=== PATIENT | male | born 1980 | race Caucasian/White ===

== ENCOUNTER 2017-01-20 17:51 | Inpatient (IN) | payer OTHER ==
[~2017-01-20] VITALS: Ht 177.8 cm; Wt 135.0 kg
[~2017-01-20 17:51] MED LIST: AMT10 PO; CIPR-255 PO; LISI10TA PO; OMEP40CA PO
[2017-01-20] MEDS ORDERED: MoRPHine SULFATE 4 MG/ML 1 ML CARP\\VIAL IV STA (18:05)
[2017-01-20] MEDS ORDERED: SODIUM CHLORIDE 0.9% 1000ML 1,000 ML IV STA (18:05)
[2017-01-20] MEDS ORDERED: ONDANSETRON INJ 2 MG/ML 2 ML VIAL IV STA ×2 (18:05→19:03)
[2017-01-20 18:35] LABS: BASO % 0.1 %; BASO ABS # 0.01 K/uL (0-0.2); COMPLETE YES; EOS % 3.8 %; HEMATOCRIT 45.4 % (42-52); IG% 0.2 %; LYMPH % 25.7 %; LYMPH ABS # 2.08 K/uL (1.2-3.4); MEAN CORPUSCULAR HEMOGLOBIN 33.6 pg (25-34); MEAN PLATELET VOLUME 10.6 fL (7.4-10.4); MONO % 5.4 %; NEUT % 64.8 %; PLATELET COUNT 124 K/uL (130-400); RED BLOOD COUNT 4.73 M/uL (4.7-6.1); WHITE BLOOD COUNT 8.08 K/uL (4.8-10.8)
[2017-01-20 18:55] LABS: URINE APPEARANCE CLEAR (CLEAR); URINE BILIRUBIN NEG (NEG); URINE COLOR YELLOW; URINE NITRITE NEG (NEG); URINE SPECIFIC GRAVITY 1.025 (1.000-1.030); UROBILINOGEN NEG (NEG)
[2017-01-20] MEDS ORDERED: RANI300T2 PO (18:56)
[2017-01-20] MEDS ORDERED: OMEP40CA41 PO (18:56)
[2017-01-20] MEDS ORDERED: DIPHENOXYLATE-ATROP PO (18:56)
[2017-01-20] MEDS ORDERED: AMIT10TA6 PO (18:56)
[2017-01-20] MEDS ORDERED: LIRA18IN SQ (18:56)
[2017-01-20] MEDS ORDERED: BISM262T3 PO (18:56)
[2017-01-20] MEDS ORDERED: SIME80CH PO (18:56)
[2017-01-20 19:00] LABS: BUN/CREATININE RATIO 10.6 (10-20); CALCIUM 9.4 mg/dl (8.5-10.1); CREATININE 0.86 mg/dl (0.60-1.40); POTASSIUM 3.9 mmol/L (3.5-5.1)
[2017-01-20 19:01] LABS: MANUAL MICROSCOPIC REQUIRED? NO; REVIEW REQ? NO
[2017-01-20] MEDS ORDERED: HYDROmorphone INJ 1 MG/ML SYR IV STA (19:03)
[2017-01-20] MEDS ORDERED: HYDROmorphone INJ 0.5 MG/0.5 ML SYR ONE (19:32)
[2017-01-20] MEDS ORDERED: DPH/ PO (19:41)
[2017-01-20] MEDS ORDERED: METF-384 PO (19:41)
[2017-01-20] MEDS ORDERED: SERT50TA PO (19:41)
--- NOTE | 2017-01-20 19:44 | DIAGNOSTIC IMAGING REPORT ---
CT OF THE ABDOMEN AND PELVIS WITHOUT CONTRAST, STONE PROTOCOL CLINICAL HISTORY: Abdominal pain and vomiting. COMPARISON STUDY: CT of the abdomen and pelvis February 28, 2016. TECHNIQUE: Helical axial images of the abdomen and pelvis were obtained without IV or oral contrast according to renal stone protocol. FINDINGS: No renal, ureteral or bladder calculi are identified. There is no hydronephrosis. Evaluation of the remainder of the abdomen and pelvis is suboptimal on this unenhanced exam per there is a gallstone within the gallbladder. The gallbladder is not distended. There is no pericholecystic infiltration. There is mild hepatosplenomegaly and fatty infiltration of the liver. The appendix is normal. There is no evidence for a bowel obstruction. There is no lymphadenopathy. IMPRESSION: 1. No urinary calculi or hydronephrosis. 2. Normal appendix. 3. Cholelithiasis. No CT evidence of acute cholecystitis. 4. No change in mild to moderate hepatosplenomegaly and fatty infiltration of the liver. Electronically signed by: Tim Enrique M.D. 01/20/2017 7:42 PM Dictated Date/Time: 01/20/2017 7:07 PM
--- NOTE | 2017-01-20 20:09 | EMERGENCY ROOM VISIT NOTE ---
History Report prepared by Amparo: Evan Hearn Under the Supervision of: Dr. Jv Brink M.D. First contact with patient: 17:57 Chief Complaint: ABDOMINAL PAIN Stated Complaint: STOMACH PAINS History of Present Illness The patient is a 37 year old male who presents to the Emergency Room with complaints of waxing and waning abdominal pain that started a month ago. The patient saw his primary care physician prior to arrival today and was referred here for evaluation. He has been nauseated and has been having episodes of vomiting and pain around once a week. Per the patient's , the patient's pain has been specifically bad around his right flank today. The patient states that he gets this bad taste when he burps, which he describes as smelling like sewage. The burping causes him to have episodes of vomiting. He is not sure if the pain worsens before or after the vomiting. The patient notes that his episodes of vomiting have been increasing in frequency lately. He states that he gets bad back pain after vomiting as well. The patient did vomit today, and woke up with lots of abdominal pressure. He has been taking Pepto-Bismol for his abdominal pain, which helps dull the pain a bit. The patient had a low grade temperature in the office today. He states that his pain does not feel like his kidney stone pain from the past. He denies any urinary symptoms. The patient has chronic diarrhea, and his last bowel movement was 2100 last night. He is being treated with medication for the diarrhea. He describes the diarrhea as looking like "ground up leaves when thrown in water". The patient has not had any abdominal surgeries. Source of History: patient, spouse/significant other Onset: A month ago Position: abdomen Quality: pressure Timing: waxes/wanes Modifying Factors (Relieving): other (Pepto-Bismol) Associated Symptoms: + nausea, + vomiting, No urinary symptoms Note: Associated symptoms: Bad tasting burping which causes him to vomit. Patient woke up today with right-sided flank pain. Review of Systems See HPI for pertinent positives & negatives. A total of 10 systems reviewed and were otherwise negative. Past Medical & Surgical Medical Problems: (1) Depression (2) Diabetes (3) GERD (gastroesophageal reflux disease) (4) HTN (hypertension) (5) IBS (irritable bowel syndrome) (6) Kidney stones (7) LINDA (obstructive sleep apnea) (8) Personal History Of Urinary Calculi Surgical Problems: (1) H/O cystoscopy (2) H/O shoulder surgery (3) H/O wisdom tooth extraction (4) History of open reduction and internal fixation (ORIF) procedure Family History Patient reports no known family medical history. Social History Smoking Status: Never Smoker Marital Status: Housing Status: lives with family Occupation Status: employed Current/Historical Medications Scheduled Amitriptyline Hcl (Elavil), 10 MG PO HS Bismuth Subsalicylate (Pepto Bismol Chew Tab), 2 TAB PO PRN UD Diphenoxylate W/ Atropine (Lomotil), 1 TAB PO QID Liraglutide (Victoza), 1.8 MG SQ QPM Metformin Hcl (Glucophage), 1,000 MG PO BID Omeprazole (Prilosec), 40 MG PO DAILY Ranitidine (Zantac), 300 MG PO HS Sertraline (Zoloft), 50 MG PO HS Simethicone (Gas-X), 80 MG PO TIDM Allergies Coded Allergies: Menthol (Verified Allergy, Severe, WELTS, 01/20/17) Pineapple (Verified Allergy, Severe, THROAT CLOSES TO THE FRUIT, 01/20/17) PER NURSE IN SDS Cephalexin (Verified Allergy, Intermediate, HIVES, 01/20/17) Penicillins (Verified Allergy, Unknown, RASH, 01/20/17) RASH Physical Exam Vital Signs Date Time Temp Pulse Resp B/P Pulse Ox O2 Delivery O2 Flow Rate FiO2 01/20/17 19:29 135/77 97 Room Air 01/20/17 18:37 88 01/20/17 18:36 92 18 01/20/17 17:53 36.7 95 20 150/91 97 Room Air Physical Exam Constitutional: Vital signs reviewed. Eyes: Pupils are equal round reactive to light. Conjunctiva are noninjected. ENT: Pharynx is clear without erythema or exudate. Mucous membranes are dry. Neck supple without meningeal signs. Respiratory: Clear to auscultation bilaterally. Breath sounds are equal bilaterally. Cardiovascular: Regular rate and rhythm. No rubs or gallops. GI: Soft and nondistended. Upper abdominal tenderness, no guarding. Bowel sounds are present. Musculoskeletal: No peripheral edema. No lower extremity tenderness. Integumentary: No cyanosis. No jaundice. Neurological: The patient is awake and alert. No focal deficits. Psychiatric: Normal affect. Medical Decision & Procedures ER Provider Diagnostic Interpretation: Radiology results as stated below per my review and the radiologist's interpretation: CT OF THE ABDOMEN AND PELVIS WITHOUT CONTRAST, STONE PROTOCOL CLINICAL HISTORY: Abdominal pain and vomiting. COMPARISON STUDY: CT of the abdomen and pelvis February 28, 2016. TECHNIQUE: Helical axial images of the abdomen and pelvis were obtained without IV or oral contrast according to renal stone protocol. FINDINGS: No renal, ureteral or bladder calculi are identified. There is no hydronephrosis. Evaluation of the remainder of the abdomen and pelvis is suboptimal on this unenhanced exam per there is a gallstone within the gallbladder. The gallbladder is not distended. There is no pericholecystic infiltration. There is mild hepatosplenomegaly and fatty infiltration of the liver. The appendix is normal. There is no evidence for a bowel obstruction. There is no lymphadenopathy. IMPRESSION: 1. No urinary calculi or hydronephrosis. 2. Normal appendix. 3. Cholelithiasis. No CT evidence of acute cholecystitis. 4. No change in mild to moderate hepatosplenomegaly and fatty infiltration of the liver. Electronically signed by: Tim Enrique M.D. 01/20/2017 7:42 PM Dictated Date/Time: 01/20/2017 7:07 PM Laboratory Results 01/20/17 18:15 Red Blood Count 4.73, Mean Corpuscular Volume 96.0, Mean Corpuscular Hemoglobin 33.6, Mean Corpuscular Hemoglobin Concent 35.0, Mean Platelet Volume 10.6, Neutrophils (%) (Auto) 64.8, Lymphocytes (%) (Auto) 25.7, Monocytes (%) (Auto) 5.4, Eosinophils (%) (Auto) 3.8, Basophils (%) (Auto) 0.1, Neutrophils # (Auto) 5.22, Lymphocytes # (Auto) 2.08, Monocytes # (Auto) 0.44, Eosinophils # (Auto) 0.31, Basophils # (Auto) 0.01 01/20/17 18:15 Test 01/20/17 18:15 01/20/17 18:30 White Blood Count 8.08 K/uL (4.8-10.8) Red Blood Count 4.73 M/uL (4.7-6.1) Hemoglobin 15.9 g/dL (14.0-18.0) Hematocrit 45.4 % (42-52) Mean Corpuscular Volume 96.0 fL (80-100) Mean Corpuscular Hemoglobin 33.6 pg (25-34) Mean Corpuscular Hemoglobin Concent 35.0 g/dl (32-36) Platelet Count 124 K/uL (130-400) Mean Platelet Volume 10.6 fL (7.4-10.4) Neutrophils (%) (Auto) 64.8 % Lymphocytes (%) (Auto) 25.7 % Monocytes (%) (Auto) 5.4 % Eosinophils (%) (Auto) 3.8 % Basophils (%) (Auto) 0.1 % Neutrophils # (Auto) 5.22 K/uL (1.4-6.5) Lymphocytes # (Auto) 2.08 K/uL (1.2-3.4) Monocytes # (Auto) 0.44 K/uL (0.11-0.59) Eosinophils # (Auto) 0.31 K/uL (0-0.5) Basophils # (Auto) 0.01 K/uL (0-0.2) RDW Standard Deviation 45.0 fL (36.4-46.3) RDW Coefficient of Variation 12.9 % (11.5-14.5) Immature Granulocyte % (Auto) 0.2 % Immature Granulocyte # (Auto) 0.02 K/uL (0.00-0.02) Anion Gap 5.0 mmol/L (3-11) Est Creatinine Clear Calc Drug Dose 161.4 ml/min Estimated GFR () 127.5 Estimated GFR (Non- 110.0 BUN/Creatinine Ratio 10.6 (10-20) Calcium Level 9.4 mg/dl (8.5-10.1) Total Bilirubin 0.7 mg/dl (0.2-1) Direct Bilirubin 0.2 mg/dl (0-0.2) Aspartate Amino Transf (AST/SGOT) 65 U/L (15-37) Alanine Aminotransferase (ALT/SGPT) 86 U/L (12-78) Alkaline Phosphatase 146 U/L (45-117) Total Protein 7.9 gm/dl (6.4-8.2) Albumin 3.7 gm/dl (3.4-5.0) Lipase 237 U/L (73-393) Urine Color YELLOW Urine Appearance CLEAR (CLEAR) Urine pH 6.0 (4.5-7.5) Urine Specific [place] 1.025 (1.000-1.030) Urine Protein NEG (NEG) Urine Glucose (UA) NEG (NEG) Urine Ketones NEG (NEG) Urine Occult Blood NEG (NEG) Urine Nitrite NEG (NEG) Urine Bilirubin NEG (NEG) Urine Urobilinogen NEG (NEG) Urine Leukocyte Esterase TRACE (NEG) Urine WBC (Auto) 1-5 /hpf (0-5) Urine RBC (Auto) 0-4 /hpf (0-4) Urine Hyaline Casts (Auto) 1-5 /lpf (0-5) Urine Epithelial Cells (Auto) 10-20 /lpf (0-5) Urine Bacteria (Auto) NEG (NEG) Laboratory results as reviewed by me. Medications Administered Medications (Trade) Dose Ordered Sig/Lance Route Start Time Stop Time Status Last Admin Dose Admin Morphine Sulfate (MoRPHine SULFATE INJ) 4 mg ONE STAT IV 01/20/17 18:05 01/20/17 18:07 DC 01/20/17 18:22 4 MG Ondansetron HCl 4 mg 4 mg NOW STAT IV 01/20/17 18:05 01/20/17 18:07 DC 01/20/17 18:19 4 MG Sodium Chloride (Nss 1000ml) 1,000 ml @ 999 mls/hr Q1H1M STAT IV 01/20/17 18:05 01/20/17 19:05 DC 01/20/17 18:22 999 MLS/HR Ondansetron HCl (Zofran Inj) 4 mg NOW STAT IV 01/20/17 19:03 01/20/17 19:05 DC 01/20/17 19:28 4 MG Hydromorphone HCl (Dilaudid Inj) 0.5 mg STK-MED ONCE .ROUTE 01/20/17 19:32 01/20/17 19:33 DC 01/20/17 19:31 0.5 MG ECG Indication: abdominal pain Rate (beats per minute): 82 Rhythm: normal sinus Findings: Q waves (in V3 only), no ectopy, other (no ST elevations) ED Course 175: The patient was evaluated in room B8. A complete history and physical exam was performed. 1804: Ordered NSS 1000 ml @ 999 mls/hr IV, Zofran Inj 4 mg IV, Morphine Sulfate Inj 4 mg IV. 1901: I reevaluated the patient and he is still having significant pain. 1902: Ordered Dilaudid Inj 0.5 mg IV. 1951: I reevaluated the patient and he is still having fairly significant pain. The patient verbally expressed understanding and agreement of the treatment plan. The patient will be evaluated for further treatment. 2001: I discussed the patient with Dr. Abel Laws hosiery mender - she will evaluate the patient for further treatment. Medical Decision This is a 37-year-old male presents with upper abdominal pain and vomiting. Differential diagnosis includes cholelithiasis, cholecystitis, pancreatitis, bowel obstruction, kidney stone. I did perform a limited focused review of portions of the patient's old chart on the electronic medical record. The patient had a CT scan in February of last year which showed kidney stones and gallstones. I did evaluate the patient as noted above. He is presenting with intermittent pain for about a month. He states he gets the pain about once a week. He has tenderness in the upper abdomen which seems greater on the right side today. He also vomited what he says smells like fecal material. IV access was established. I did treat the patient with IV morphine and Zofran. He was given normal saline IV. I did order and personally review the patient's 12- lead EKG as described above. I did order and review the patient's blood work as noted in the electronic medical record. I did order a CT of the abdomen and pelvis. I did review the images myself as well as the radiology report as described above. There is no evidence of bowel obstruction. He does have gallstones but no evidence of cholecystitis. I did discuss the test results with the patient. He is still having pain and so he will be hospitalized for further evaluation. I did order an ultrasound of the right upper quadrant. I did discuss case with Dr. Roman and the welfare case worker. Consults Time Called: 1999 Consulting Physician: Dr. Abel Laws hosiery mender Returned Call: 2001 I discussed the patient with Dr. Abel Laws hosiery mender - she will evaluate the patient for further treatment. Impression Primary Impression: Upper abdominal pain Additional Impression: Cholelithiasis Scribe Attestation The scribe's documentation has been prepared under my direct and personally reviewed by me in its entirety. I confirm that the note above accurately reflects all work, treatment, procedures, and medical decision making performed by me. Departure Information Dispostion Being Evaluated By Hospitalist Referrals Surinder Hennessy M.D. (MEDICAL) (PCP) Patient Instructions My [facility] Problem Qualifiers Additional Impression: Cholelithiasis Cholelithiasis location: gallbladder Cholecystitis acuity: unspecified acuity
--- NOTE | 2017-01-20 20:27 | DIAGNOSTIC IMAGING REPORT ---
ABDOMINAL ULTRASOUND, RIGHT UPPER QUADRANT HISTORY: Abdominal pain. COMPARISON: Right upper quadrant ultrasound August 06, [address] of the abdomen and pelvis performed earlier today. FINDINGS: Increased hepatic echogenicity is consistent with fatty infiltration. This study is compromised by suboptimal penetration. There is no biliary ductal dilatation. A gallstone within the gallbladder is noted. There is no gallbladder wall thickening. There is no pericholecystic fluid. The pancreas is largely obscured. No right hydronephrosis is identified. IMPRESSION: 1. Cholelithiasis. No sonographic evidence of acute cholecystitis. 2. Fatty liver. 3. Study compromised by suboptimal penetration. Electronically signed by: Tim Enrique M.D. 01/20/2017 8:25 PM Dictated Date/Time: 01/20/2017 8:23 PM
[2017-01-20] MEDS ORDERED: OXYCODONE/ACETAMINOPHEN 5-325 TAB PO PRN (20:30)
[2017-01-20] MEDS ORDERED: MoRPHine SULFATE 2 MG/ML CARP IV PRN (20:30)
[2017-01-20 20:44] VITALS: O2SAT 97; Ht 177.8 cm; Wt 135.0 kg
--- NOTE | 2017-01-20 20:45 | History and Physical ---
History & Physical Date & Time of Service: Jan 20, 2017 at 20:35 Chief Complaint: Stomach Pains Primary Care Physician: Surinder Hennessy M.D. (MEDICAL) History of Present Illness Source: patient, spouse The patient is a 37 year old male with PMH of IBS, who presented to ER with c/o recurrent abdominal pain. Patient has been having intermittent episodes of pain- right back radiating to abdomen , nausea, vomiting x 1 month, almost every week. He did see his PCP for annual exam, was prescribed gas x tabs TID, Ranitidine. He takes pepto bismol as needed for this pain which helps partially. But usually the episodes are self resolving. For IBS, he is on lomotil TID for chronic diarrhea. Today he had RUQ pain, severe intensity, associated with nausea, vomiting , unable to tolerate PO. Chronic diarrhea- takes lomotil on a regular basis for IBS. No fever, chills In ED, he was given IV Morphin 4 mg, IV Dilaudid 0.5 mg, IV zofran, which did not help relieve the pain. CT abd/pelvis- cholelithiasis + Will admit him for intractable abdominal pain, N /V, Unable to tolerate PO for further evaluation and mx Past Medical/Surgical History Medical Problems: (1) Depression Status: Chronic (2) Diabetes Status: Chronic (3) GERD (gastroesophageal reflux disease) Status: Chronic (4) HTN (hypertension) Status: Chronic (5) IBS (irritable bowel syndrome) Status: Chronic (6) Kidney stones Status: Resolved (7) LINDA (obstructive sleep apnea) Status: Chronic (8) Personal History Of Urinary Calculi Status: Resolved Surgical Problems: (1) H/O cystoscopy Status: Chronic (2) H/O shoulder surgery Status: Chronic (3) H/O wisdom tooth extraction Status: Chronic (4) History of open reduction and internal fixation (ORIF) procedure Permanent Comment: Finger Status: Chronic Family History Patient reports no known family medical history. Social History Smoking Status: Never Smoker Marital Status: Housing status: lives alone Occupational Status: employed Multi-Drug Resistant Organisms History of MDRO: No Allergies Coded Allergies: Menthol (Verified Allergy, Severe, WELTS, 01/20/17) Pineapple (Verified Allergy, Severe, THROAT CLOSES TO THE FRUIT, 01/20/17) PER NURSE IN [facility] Cephalexin (Verified Allergy, Intermediate, HIVES, 01/20/17) Penicillins (Verified Allergy, Unknown, RASH, 01/20/17) RASH Home Medications Scheduled Amitriptyline Hcl (Elavil), 10 MG PO HS Bismuth Subsalicylate (Pepto Bismol Chew Tab), 2 TAB PO PRN UD Diphenoxylate W/ Atropine (Lomotil), 1 TAB PO QID Liraglutide (Victoza), 1.8 MG SQ QPM Metformin Hcl (Glucophage), 1,000 MG PO BID Omeprazole (Prilosec), 40 MG PO DAILY Ranitidine (Zantac), 300 MG PO HS Sertraline (Zoloft), 50 MG PO HS Simethicone (Gas-X), 80 MG PO TIDM Review of Systems Constitutional: No chills, No fever, No weight loss Eyes: No discharge, No redness, No worsening of vision ENT: No hearing loss, No nasal symptoms Respiratory: No cough, No dyspnea on exertion, No shortness of breath, No sputum, No wheezing Cardiovascular: No chest pain, No edema Abdomen: + nausea, + pain, + vomiting, No GI bleeding, No diarrhea Musculoskeletal: No swelling Genitourinary - Male: No dysuria, No hematuria, No urinary frequency Neurologic: No memory loss, No paralysis, No weakness Integumentary: No rash Physical Exam Vital Signs Date Time Temp Pulse Resp B/P Pulse Ox O2 Delivery O2 Flow Rate FiO2 01/20/17 19:29 135/77 97 Room Air 01/20/17 18:37 88 01/20/17 18:36 92 18 01/20/17 17:53 36.7 95 20 150/91 97 Room Air General Appearance: no apparent distress, + obese Head: normocephalic, atraumatic Eyes: PERRL ENT: hearing grossly normal Neck: supple Respiratory/Chest: chest non-tender, lungs clear, normal breath sounds Cardiovascular: regular rate, rhythm, no edema, no murmur Abdomen/GI: soft, + pertinent finding (tenderness- RUQ, LUQ) Back: no CVA tenderness Extremities/Musculoskelatal: no pedal edema Neurologic/Psych: alert, oriented x 3, + pertinent finding (grossly no focal deficit) Skin: normal color Diagnostics Laboratory Results Results Past 24 Hours Test 01/20/17 18:15 01/20/17 18:30 Range/Units White Blood Count 8.08 4.8-10.8 K/uL Red Blood Count 4.73 4.7-6.1 M/uL Hemoglobin 15.9 14.0-18.0 g/dL Hematocrit 45.4 42-52 % Mean Corpuscular Volume 96.0 80-100 fL Mean Corpuscular Hemoglobin 33.6 25-34 pg Mean Corpuscular Hemoglobin Concent 35.0 32-36 g/dl Platelet Count 124 130-400 K/uL Mean Platelet Volume 10.6 7.4-10.4 fL Neutrophils (%) (Auto) 64.8 % Lymphocytes (%) (Auto) 25.7 % Monocytes (%) (Auto) 5.4 % Eosinophils (%) (Auto) 3.8 % Basophils (%) (Auto) 0.1 % Neutrophils # (Auto) 5.22 1.4-6.5 K/uL Lymphocytes # (Auto) 2.08 1.2-3.4 K/uL Monocytes # (Auto) 0.44 0.11-0.59 K/uL Eosinophils # (Auto) 0.31 0-0.5 K/uL Basophils # (Auto) 0.01 0-0.2 K/uL RDW Standard Deviation 45.0 36.4-46.3 fL RDW Coefficient of Variation 12.9 11.5-14.5 % Immature Granulocyte % (Auto) 0.2 % Immature Granulocyte # (Auto) 0.02 0.00-0.02 K/uL Sodium Level 138 136-145 mmol/L Potassium Level 3.9 3.5-5.1 mmol/L Chloride Level 105 98-107 mmol/L Carbon Dioxide Level 28 21-32 mmol/L Anion Gap 5.0 3-11 mmol/L Blood Urea Nitrogen 9 7-18 mg/dl Creatinine 0.86 0.60-1.40 mg/dl Est Creatinine Clear Calc Drug Dose 161.4 ml/min Estimated GFR () 127.5 Estimated GFR (Non- 110.0 BUN/Creatinine Ratio 10.6 10-20 Random Glucose 155 70-99 mg/dl Calcium Level 9.4 8.5-10.1 mg/dl Total Bilirubin 0.7 0.2-1 mg/dl Direct Bilirubin 0.2 0-0.2 mg/dl Aspartate Amino Transf (AST/SGOT) 65 15-37 U/L Alanine Aminotransferase (ALT/SGPT) 86 12-78 U/L Alkaline Phosphatase 146 45-117 U/L Total Protein 7.9 6.4-8.2 gm/dl Albumin 3.7 3.4-5.0 gm/dl Lipase 237 73-393 U/L Urine Color YELLOW Urine Appearance CLEAR CLEAR Urine pH 6.0 4.5-7.5 Urine Specific [place] 1.025 1.000-1.030 Urine Protein NEG NEG Urine Glucose (UA) NEG NEG Urine Ketones NEG NEG Urine Occult Blood NEG NEG Urine Nitrite NEG NEG Urine Bilirubin NEG NEG Urine Urobilinogen NEG NEG Urine Leukocyte Esterase TRACE NEG Urine WBC (Auto) 1-5 0-5 /hpf Urine RBC (Auto) 0-4 0-4 /hpf Urine Hyaline Casts (Auto) 1-5 0-5 /lpf Urine Epithelial Cells (Auto) 10-20 0-5 /lpf Urine Bacteria (Auto) NEG NEG Diagnostic Radiology CT ABD/PELVIS : IMPRESSION: 1. No urinary calculi or hydronephrosis. 2. Normal appendix. 3. Cholelithiasis. No CT evidence of acute cholecystitis. 4. No change in mild to moderate hepatosplenomegaly and fatty infiltration of the liver. Impression Assessment and Plan INTERMITTENT ABDOMINAL PAIN (COLIC) Patient has had symptoms for 1 month on and off, every week- right flank radiating down, nausea/vomiting, self limiting. Tried peptobismol with partial relief. Was placed on gas x TID, ranitidine by PCP. -Probably Symptomatic Cholelithiasis; D/D considered kidney stones, had in 2015, but CT scan- no stones -NPO, IV Fluids -Pain mx- IV Dilaudid 1 mg q 4 hours prn, Percocet for moderate pain -Continue with ranitidine -Will order US Abdomen to rule out cholecystitis -General surgery consult for AM placed to evaluate for symptomatic gall stones HX OF IBS -On lomotil QID which I will continue DVT PROPYLAXIS SCDS/TEDS; Low risk DISPOSITION Admit to med-surg Level of Care Med/Surg Resuscitation Status FULL RESUSCITATION VTE Prophylaxis VTE Risk Assessment Done? Y/N: Yes Risk Level: Low Given or contraindicated: T.E.D. Stockings, SCD's
[2017-01-20 22:51] VITALS: BP 127/78; PULSE 83; TEMP 36.7; O2SAT 96
[2017-01-20] MEDS: SODIUM CHLORIDE 0.9% 1000ML 1,000 ML IV SCH (23:30)
[2017-01-20] MEDS: HYDROmorphone INJ 1 MG/ML SYR IV PRN (23:46)
[2017-01-20] MEDS: AMITRIPTYLINE HCL 10 MG TAB PO SCH (23:46)
[2017-01-20] MEDS: SERTRALINE HCL 50 MG TAB PO SCH (23:47)
[2017-01-20] MEDS: RANITIDINE HCL 150 MG TAB PO SCH (23:47)
[2017-01-20] MEDS: DIPHENOXYLATE/ATROPINE 2.5/0.025MG TAB PO SCH (23:48)
[2017-01-21] MEDS: SODIUM CHLORIDE 0.9% 1000ML 1,000 ML IV SCH ×2 (06:37→16:30)
[2017-01-21 06:53] VITALS: BP 147/87; PULSE 77; TEMP 36.3; O2SAT 94
[2017-01-21] MEDS: ONDANSETRON INJ 2 MG/ML 2 ML VIAL IV PRN (07:44)
[2017-01-21 07:45] VITALS: O2SAT 94
[2017-01-21] MEDS ORDERED: SIMETHICONE 80 MG CHEW PO SCH (08:00)
[2017-01-21 08:10] LABS: HEMATOCRIT 41.1 % (42-52); MEAN CELL VOLUME 96.9 fL (80-100); MEAN CORPUSCULAR HEMOGLOBIN 34.2 pg (25-34); MEAN CORPUSCULAR HGB CONC 35.3 g/dl (32-36); MEAN PLATELET VOLUME 10.7 fL (7.4-10.4); PLATELET COUNT 119 K/uL (130-400); RED BLOOD COUNT 4.24 M/uL (4.7-6.1); WHITE BLOOD COUNT 6.28 K/uL (4.8-10.8)
[2017-01-21 08:36] LABS: BUN/CREATININE RATIO 12.8 (10-20); CREATININE 0.69 mg/dl (0.60-1.40); POTASSIUM 3.8 mmol/L (3.5-5.1)
[2017-01-21 08:37] LABS: CALCIUM 8.6 mg/dl (8.5-10.1)
[2017-01-21 08:39] LABS: ALB/GLOB RATIO 0.9 (0.9-2)
[2017-01-21] MEDS ORDERED: PANTOprazole SOD 40 MG TAB PO SCH (09:00)
[2017-01-21] MEDS: DIPHENOXYLATE/ATROPINE 2.5/0.025MG TAB PO SCH ×4 (09:00→20:54)
[2017-01-21] MEDS: HYDROmorphone INJ 1 MG/ML SYR IV PRN (09:26)
[2017-01-21] MEDS: ACETAMINOPHEN 325 MG TAB PO PRN ×2 (15:19→20:14)
[2017-01-21 15:30] VITALS: BP 136/80; PULSE 85; TEMP 36.5; O2SAT 95
--- NOTE | 2017-01-21 18:54 | Progress Note ---
Subjective Date of Service: Jan 21, 2017. Subjective Pt evaluation today including: conversation w/ patient, physical exam, lab review, review of studies, review of inpatient medication list Saw/examined the patient in room 377 c/o abdominal pain; nausea/vomiting; reflux symptoms, belching little to no improvement today Problem List Medical Problems: (1) Cholelithiasis Status: Acute (2) IBS (irritable bowel syndrome) Status: Chronic (3) Upper abdominal pain Status: Acute Review of Systems Constitutional: No chills, No fever Respiratory: No cough, No shortness of breath, No sputum Cardiac: No chest pain Abdomen: + diarrhea, + nausea, + pain, + vomiting, No GI bleeding, No constipation Heme: No abnormal bleeding/bruising Medications Current Inpatient Medications Medications (Trade) Dose Ordered Sig/Lance Route Start Time Stop Time Status Last Admin Dose Admin Amitriptyline HCl (Elavil Tab) 10 mg HS PO 01/20/17 21:00 02/19/17 20:59 01/20/17 23:46 10 MG Diphenoxylate HCl/ Atropine (Lomotil Tab) 1 tab QID PO 01/20/17 21:00 02/19/17 20:59 01/21/17 16:25 1 TAB Sertraline HCl (Zoloft Tab) 50 mg HS PO 01/20/17 21:00 02/19/17 20:59 01/20/17 23:47 50 MG Pantoprazole Sodium (Protonix Tab) 40 mg DAILY PO 01/21/17 09:00 02/20/17 08:59 Ranitidine HCl (zANTac TAB) 300 mg HS PO 01/20/17 21:00 02/19/17 20:59 01/20/17 23:47 300 MG Oxycodone/ Acetaminophen 1 tab 1 tab Q4H PRN PO 01/20/17 20:30 02/03/17 20:29 Sodium Chloride (Nss 1000ml) 1,000 ml @ 100 mls/hr Q10H IV 01/20/17 20:30 02/19/17 20:29 01/21/17 16:30 100 MLS/HR Acetaminophen (Tylenol Tab) 650 mg Q4H PRN PO 01/20/17 20:45 02/19/17 20:44 01/21/17 15:19 650 MG Ondansetron HCl (Zofran Inj) 4 mg Q6H PRN IV 01/20/17 20:45 02/19/17 20:44 01/21/17 07:44 4 MG Hydromorphone HCl (Dilaudid Inj) 1 mg Q4H PRN IV 01/20/17 20:45 02/03/17 20:44 01/21/17 09:26 1 MG Objective Vital Signs Date Time Temp Pulse Resp B/P Pulse Ox O2 Delivery O2 Flow Rate FiO2 01/21/17 15:30 36.5 85 18 136/80 95 Room Air 01/21/17 15:00 Room Air 01/21/17 07:45 94 Room Air 01/21/17 06:53 36.3 77 19 147/87 94 Room Air 01/20/17 23:30 Room Air 01/20/17 22:51 36.7 83 15 127/78 96 Room Air 01/20/17 22:30 89 18 135/71 97 Room Air 01/20/17 22:02 36.7 90 27 135/77 97 01/20/17 21:04 90 27 01/20/17 20:44 97 Room Air 01/20/17 19:34 84 12 97 01/20/17 19:29 135/77 97 Room Air Physical Exam General Appearance: + moderate distress (secondary to pain), + obese Respiratory/Chest: lungs clear, normal breath sounds, no respiratory distress, no accessory muscle use Cardiovascular: regular rate, rhythm, no edema, no murmur Abdomen: normal bowel sounds, soft, + distended, + tenderness Extremities: normal inspection, no pedal edema Neurologic/Psychiatric: no motor/sensory deficits, alert, normal mood/affect Laboratory Results Last 24 Hours Test 01/21/17 07:28 White Blood Count 6.28 K/uL Red Blood Count 4.24 M/uL Hemoglobin 14.5 g/dL Hematocrit 41.1 % Mean Corpuscular Volume 96.9 fL Mean Corpuscular Hemoglobin 34.2 pg Mean Corpuscular Hemoglobin Concent 35.3 g/dl RDW Standard Deviation 46.5 fL RDW Coefficient of Variation 13.2 % Platelet Count 119 K/uL Mean Platelet Volume 10.7 fL Sodium Level 139 mmol/L Potassium Level 3.8 mmol/L Chloride Level 107 mmol/L Carbon Dioxide Level 24 mmol/L Anion Gap 8.0 mmol/L Blood Urea Nitrogen 9 mg/dl Creatinine 0.69 mg/dl Est Creatinine Clear Calc Drug Dose 200.8 ml/min Estimated GFR () 139.6 Estimated GFR (Non- 120.4 BUN/Creatinine Ratio 12.8 Random Glucose 160 mg/dl Calcium Level 8.6 mg/dl Total Bilirubin 0.7 mg/dl Aspartate Amino Transf (AST/SGOT) 62 U/L Alanine Aminotransferase (ALT/SGPT) 68 U/L Alkaline Phosphatase 109 U/L Total Protein 6.9 gm/dl Albumin 3.2 gm/dl Globulin 3.7 gm/dl Albumin/Globulin Ratio 0.9 Assessment and Plan This is a 37 year old male with PMH of DM2, IBS, anxiety/depression, presents with RUQ abdominal pain, burping, reflux-like symptoms, nausea, vomiting and diarrhea Colicky Abdominal Pain patient is telling me that he develops this pain after eating develops RUQ abdominal pain, burping and belching +heartburn has been having nausea/vomiting/diarrhea RUQ U/S = cholelithiasis, no cholecystitis mild elevation of LFTs will obtain HIDA scan and general surgery consultation GERD Protonix BID + Zantac monitor for symptoms and taper down to once a day as soon as possible DM2 hold oral agents, hold Victoza currently NPO, monitor BSGs and will add sliding scale once eating Depression/Anxiety continue home medications DVT ppx SCDs FULL CODE
[2017-01-21] MEDS: AMITRIPTYLINE HCL 10 MG TAB PO SCH (20:54)
[2017-01-21] MEDS: PANTOprazole SOD 40 MG TAB PO SCH (20:55)
[2017-01-21] MEDS: RANITIDINE HCL 150 MG TAB PO SCH (20:55)
[2017-01-21] MEDS: SERTRALINE HCL 50 MG TAB PO SCH (20:56)
[2017-01-21 22:47] VITALS: BP 126/80; PULSE 76; TEMP 36.7; O2SAT 94
[2017-01-22] VITALS (7 sets, daily range): BP systolic 120–160; BP diastolic 74–93; PULSE 73–90; TEMP 36.3–36.6; O2SAT 93–96
[2017-01-22] MEDS: SODIUM CHLORIDE 0.9% 1000ML 1,000 ML IV SCH ×2 (01:53→11:41)
[2017-01-22] MEDS ORDERED: CLINDAMYCIN 600 MG/54 ML D5W IV SCH (06:00)
[2017-01-22 07:22] LABS: CALCIUM 8.7 mg/dl (8.5-10.1); CREATININE 0.81 mg/dl (0.60-1.40); POTASSIUM 3.4 mmol/L (3.5-5.1)
[2017-01-22 07:25] LABS: CHOLESTEROL/HDL RATIO 6.1
[2017-01-22 07:38] LABS: HEMATOCRIT 41.2 % (42-52); MEAN CELL VOLUME 96.5 fL (80-100); MEAN CORPUSCULAR HEMOGLOBIN 33.7 pg (25-34); MEAN PLATELET VOLUME 10.7 fL (7.4-10.4); PLATELET COUNT 130 K/uL (130-400); RED BLOOD COUNT 4.27 M/uL (4.7-6.1); WHITE BLOOD COUNT 6.56 K/uL (4.8-10.8)
[2017-01-22] MEDS: PANTOprazole SOD 40 MG TAB PO SCH ×2 (07:43→20:30)
[2017-01-22] MEDS: DIPHENOXYLATE/ATROPINE 2.5/0.025MG TAB PO SCH ×4 (07:43→20:29)
--- NOTE | 2017-01-22 09:38 | Surgery Consultation ---
Consultation Date of Consultation: Jan 22, 2017. Attending Physician: Syed Alvarado DO Reason for Consultation: Upper abdominal pain, nausea, and vomiting History of Present Illness Enmanuel is a 37 year-old male who presented to emergency department Thursday evening after visiting his family physicians office for nausea, vomiting, belching, and upper abdominal pain. Enmanuel has a significant history of DM, HTN , LINDA, GERD, IBS with chronic diarrhea, and kidney stones. Enmanuel states for the past month he has been having nausea, vomiting (mostly dry heaves and bile) and belching with associated right flank and back pain that has been waxing and waning and self resolving. States he ate soft tacos Thursday evening and woke up early Thursday morning with nausea and dry heaves and just did not feel well. States he has recently not had much of an appetite or desire to eat. Has abdominal bloating and belching with a sour/sulfur taste. States he does not have heartburn and takes medication for the past couple of years. Has never had an EGD. Had a colonoscopy a few years ago for the IBS and abdominal cramping. States he has been watching what he is eating to determine if this causes the symptoms but at times he will not have problems with the same foods he does have symptoms with. This pain is not similar to his pain with Kidney stones. Denies of any previous abdominal surgeries. On admission in the ER he had no leukocytosis, LFTS and total bilirubin within normal limits. CT scan of abdomen and pelvis showed a gallstone present in the gallbladder. US of the abdomen showed cholelithiasis however no gallbladder wall thickening or pericholecystic fluid to suggest cholecystitis. No biliary ductal dilatation. Past Medical/Surgical History Medical Problems: (1) Cholelithiasis Status: Acute (2) IBS (irritable bowel syndrome) Status: Chronic (3) Upper abdominal pain Status: Acute Family History Patient reports no known family medical history. Social History Smoking Status: Never Smoker Marital Status: Housing Status: lives with family Occupation Status: employed Allergies Coded Allergies: Menthol (Verified Allergy, Severe, WELTS, 01/20/17) Pineapple (Verified Allergy, Severe, THROAT CLOSES TO THE FRUIT, 01/20/17) PER NURSE IN SDS Cephalexin (Verified Allergy, Intermediate, HIVES, 01/20/17) Penicillins (Verified Allergy, Unknown, RASH, 01/20/17) RASH Home Medications Scheduled Amitriptyline Hcl (Elavil), 10 MG PO HS Bismuth Subsalicylate (Pepto Bismol Chew Tab), 2 TAB PO PRN UD Diphenoxylate W/ Atropine (Lomotil), 1 TAB PO QID Liraglutide (Victoza), 1.8 MG SQ QPM Metformin Hcl (Glucophage), 1,000 MG PO BID Omeprazole (Prilosec), 40 MG PO DAILY Ranitidine (Zantac), 300 MG PO HS Sertraline (Zoloft), 50 MG PO HS Simethicone (Gas-X), 80 MG PO TIDM Current Inpatient Medications Current Inpatient Medications Medications (Trade) Dose Ordered Sig/Lance Route Start Time Stop Time Status Last Admin Dose Admin Amitriptyline HCl (Elavil Tab) 10 mg HS PO 01/20/17 21:00 02/19/17 20:59 01/21/17 20:54 10 MG Diphenoxylate HCl/ Atropine (Lomotil Tab) 1 tab QID PO 01/20/17 21:00 02/19/17 20:59 01/22/17 07:43 1 TAB Sertraline HCl (Zoloft Tab) 50 mg HS PO 01/20/17 21:00 02/19/17 20:59 01/21/17 20:56 50 MG Ranitidine HCl (zANTac TAB) 300 mg HS PO 01/20/17 21:00 02/19/17 20:59 01/21/17 20:55 300 MG Oxycodone/ Acetaminophen 1 tab 1 tab Q4H PRN PO 01/20/17 20:30 02/03/17 20:29 01/22/17 00:00 1 TAB Sodium Chloride (Nss 1000ml) 1,000 ml @ 100 mls/hr Q10H IV 01/20/17 20:30 02/19/17 20:29 01/22/17 01:53 100 MLS/HR Acetaminophen (Tylenol Tab) 650 mg Q4H PRN PO 01/20/17 20:45 02/19/17 20:44 01/21/17 20:14 650 MG Ondansetron HCl (Zofran Inj) 4 mg Q6H PRN IV 01/20/17 20:45 02/19/17 20:44 01/21/17 07:44 4 MG Hydromorphone HCl (Dilaudid Inj) 1 mg Q4H PRN IV 01/20/17 20:45 02/03/17 20:44 01/21/17 09:26 1 MG Pantoprazole Sodium (Protonix Tab) 40 mg BID PO 01/21/17 21:00 02/20/17 20:59 01/22/17 07:43 40 MG Review of Systems Constitutional: No chills, No fever, No sweats Respiratory: No shortness of breath Cardiovascular: No chest pain Abdomen: + diarrhea (chronic), + nausea, + pain (mid and right upper abdomen, radiates to side and right back), + vomiting (dry heaves, mostly bile) Genitourinary - Male: No hematuria Integumentary: No itch, No rash Physical Exam Date Time Temp Pulse Resp B/P Pulse Ox O2 Delivery O2 Flow Rate FiO2 01/22/17 07:12 36.6 73 16 120/74 94 Room Air 01/22/17 07:10 Room Air 01/21/17 23:50 Room Air 01/21/17 22:47 36.7 76 16 126/80 94 Room Air 01/21/17 15:30 36.5 85 18 136/80 95 Room Air 01/21/17 15:00 Room Air General Appearance: WD/WN, no apparent distress, + obese Head: normocephalic, atraumatic Eyes: sclerae normal ENT: hearing grossly normal Neck: supple, trachea midline Respiratory/Chest: lungs clear, normal breath sounds, no respiratory distress, no accessory muscle use Cardiovascular: regular rate, rhythm, no murmur Abdomen/GI: soft, no organomegaly, no pulsatile mass, + tenderness (epigastric and RUQ, right flank ) Extremities/Musculoskelatal: normal inspection, no pedal edema Neurologic/Psych: alert, normal mood/affect, oriented x 3 Skin: normal color, warm/dry, no rash Laboratory Results Last 24 Hours Test 01/22/17 06:15 White Blood Count 6.56 K/uL Red Blood Count 4.27 M/uL Hemoglobin 14.4 g/dL Hematocrit 41.2 % Mean Corpuscular Volume 96.5 fL Mean Corpuscular Hemoglobin 33.7 pg Mean Corpuscular Hemoglobin Concent 35.0 g/dl RDW Standard Deviation 46.5 fL RDW Coefficient of Variation 13.3 % Platelet Count 130 K/uL Mean Platelet Volume 10.7 fL Sodium Level 141 mmol/L Potassium Level 3.4 mmol/L Chloride Level 109 mmol/L Carbon Dioxide Level 27 mmol/L Anion Gap 5.0 mmol/L Blood Urea Nitrogen 7 mg/dl Creatinine 0.81 mg/dl Est Creatinine Clear Calc Drug Dose 171.0 ml/min Estimated GFR () 130.7 Estimated GFR (Non- 112.7 BUN/Creatinine Ratio 9.0 Random Glucose 146 mg/dl Calcium Level 8.7 mg/dl Triglycerides Level 204 mg/dl Cholesterol Level 147 mg/dl HDL Cholesterol 24 mg/dl LDL Cholesterol, Calculated 82 mg/dl VLDL Cholesterol, Calculated 41 mg/dl Cholesterol/HDL Ratio 6.1 CT OF THE ABDOMEN AND PELVIS WITHOUT CONTRAST, STONE PROTOCOL CLINICAL HISTORY: Abdominal pain and vomiting. COMPARISON STUDY: CT of the abdomen and pelvis February 28, 2016. TECHNIQUE: Helical axial images of the abdomen and pelvis were obtained without IV or oral contrast according to renal stone protocol. FINDINGS: No renal, ureteral or bladder calculi are identified. There is no hydronephrosis. Evaluation of the remainder of the abdomen and pelvis is suboptimal on this unenhanced exam per there is a gallstone within the gallbladder. The gallbladder is not distended. There is no pericholecystic infiltration. There is mild hepatosplenomegaly and fatty infiltration of the liver. The appendix is normal. There is no evidence for a bowel obstruction. There is no lymphadenopathy. IMPRESSION: 1. No urinary calculi or hydronephrosis. 2. Normal appendix. 3. Cholelithiasis. No CT evidence of acute cholecystitis. 4. No change in mild to moderate hepatosplenomegaly and fatty infiltration of the liver. ABDOMINAL ULTRASOUND, RIGHT UPPER QUADRANT HISTORY: Abdominal pain. COMPARISON: Right upper quadrant ultrasound August 06, [address] of the abdomen and pelvis performed earlier today. FINDINGS: Increased hepatic echogenicity is consistent with fatty infiltration. This study is compromised by suboptimal penetration. There is no biliary ductal dilatation. A gallstone within the gallbladder is noted. There is no gallbladder wall thickening. There is no pericholecystic fluid. The pancreas is largely obscured. No right hydronephrosis is identified. IMPRESSION: 1. Cholelithiasis. No sonographic evidence of acute cholecystitis. 2. Fatty liver. 3. Study compromised by suboptimal penetration. Assessment & Plan Cholelithiasis Nausea and vomiting (off and on for past month) +Belching Decreased appetite - afebrile - no leukocytosis - US showing gallstone, no findings of acute cholecystitis - RUQ and epigastric tenderness on examination Plan: Will await results of HIDA scan, and schedule for patient laparoscopic cholecystectomy possible open possible cholangiogram today at 2 pm. Discussed with patient the procedure and risks including but not limited to bleeding, infection, injury to common bile duct, injury to bowel, bile leak, blood clots, and . Continue conservative management as this time, IV fluids, NPO, and pain management as needed Dr. Luke has seen and examined patient, agrees with above stated findings and treatment plan.
[2017-01-22] MEDS ORDERED: DEXAMETHASONE SOD INJ 4 MG/ML VIAL ONE (12:50)
[2017-01-22] MEDS ORDERED: GLYCOPYRROLATE INJ 0.2 MG/ML VIAL ONE ×2 (12:50→15:07)
[2017-01-22] MEDS ORDERED: ROCURONIUM BROMIDE 10 MG/ML 5 ML VIAL ONE ×2 (12:50→15:07)
[2017-01-22] MEDS ORDERED: PROPOFOL IV EMULSION 10 MG/ML 20 ML VIAL IV ONE ×3 (12:50→15:04)
[2017-01-22] MEDS ORDERED: LIDOCAINE HCL 2% 2 ML VIAL (20MG/ML) ONE (12:50)
[2017-01-22] MEDS ORDERED: FENTANYL CITRATE INJ 50 MCG/1 ML 2 ML VIAL ONE ×4 (12:50→16:54)
[2017-01-22] MEDS ORDERED: MIDAZOLAM HCL 1 MG/ML 2ML VIAL ONE (12:50)
[2017-01-22] MEDS ORDERED: ONDANSETRON INJ 2 MG/ML 2 ML VIAL ONE (12:50)
[2017-01-22] MEDS ORDERED: NEOSTIGMINE METHYLSULFATE 5 MG/5 ML SYR ONE (12:50)
[2017-01-22] MEDS ORDERED: ACETAMINOPHEN 1000 MG/100 ML IV IV ONE (12:54)
[2017-01-22] MEDS ORDERED: LIDOCAINE HCL 1% 20 ML VIAL ONE (12:57)
[2017-01-22] MEDS ORDERED: BACITRACIN OINT 15 GM TUBE ONE (12:58)
[2017-01-22] MEDS ORDERED: BUPIVACAINE 0.5 % 5 MG/1 ML MPF 30ML VIAL ONE (12:58)
--- NOTE | 2017-01-22 13:30 | DIAGNOSTIC IMAGING REPORT ---
NUCLEAR MEDICINE HEPATOBILIARY SCAN HISTORY: Right upper quadrant abdominal pain. r/o cholecystitis COMPARISON: Abdominal ultrasound 01/20/2017. TECHNIQUE: Immediately following the intravenous administration of 5.4 mCi Tc-99m Choletec, dynamic anterior abdominal imaging was performed. FINDINGS: Uniform hepatic tracer accumulation is shown. Prompt intrahepatic biliary excretion is seen. The gallbladder, common bile duct, and small bowel are all visualized by 20 minutes. This appearance represents the normal sequence of biliary excretion. IMPRESSION: 1. No evidence for cystic duct obstruction. Electronically signed by: Sinan Moon M.D. 01/22/2017 1:29 PM Dictated Date/Time: 01/22/2017 1:24 PM
--- NOTE | 2017-01-22 14:14 | History & Physical Bridge Note ---
H&P Re-Evaluation Bridge Note: I have examined the patient, reviewed the History & Physical and in the interval since the performance of the History & Physical I have noted the following changes of clinical significance: No changes noted
[2017-01-22] MEDS ORDERED: LABETALOL HCL IV 5 MG/ML 20ML IV PRN (14:15)
[2017-01-22] MEDS ORDERED: ATROPINE SULFATE 0.1 MG/ML 5ML SYR IV PRN (14:15)
[2017-01-22] MEDS ORDERED: ONDANSETRON INJ 2 MG/ML 2 ML VIAL IV PRN (14:15)
[2017-01-22] MEDS ORDERED: EpHEDrine SULFATE INJ 50 MG/ML AMP IV PRN (14:15)
[2017-01-22] MEDS ORDERED: HYDROmorphone INJ 1 MG/ML SYR IV PRN (14:15)
[2017-01-22] MEDS ORDERED: MEPERIDINE HCL 25 MG/ML CARP IV PRN (14:15)
[2017-01-22] MEDS ORDERED: CLINDAMYCIN 600 MG/54 ML D5W IV ONE (14:27)
[2017-01-22] MEDS ORDERED: CONRAY 60% 50 ML VIAL ONE (16:14)
--- NOTE | 2017-01-22 16:53 | DIAGNOSTIC IMAGING REPORT ---
INTRAOPERATIVE CHOLANGIOGRAM HISTORY: Post cholecystectomy. FLUOROSCOPY TIME: 4 seconds. 3 fluoroscopic spot images. FINDINGS: Fluoroscopy was provided for an intraoperative cholangiogram status post cholecystectomy. Contrast was injected within the gallbladder. The common bile duct is not well opacified but appears to be normal caliber. No definite filling defects identified. Contrast extends into the small bowel. There is no intrahepatic bile duct dilatation. IMPRESSION: Fluoroscopy provided for an intraoperative cholangiogram status post cholecystectomy. No definite filling defects within the common bile duct. Of note, the common bile duct was not well opacified. Electronically signed by: Sinan Moon M.D. 01/22/2017 4:52 PM Dictated Date/Time: 01/22/2017 4:50 PM
[2017-01-22] MEDS ORDERED: METOCLOPRAMIDE HCL INJ 5 MG/ML 2 ML VIAL ONE (17:56)
[2017-01-22] MEDS: FENTANYL CITRATE INJ 50 MCG/1 ML 2 ML VIAL IV PRN ×2 (18:04→18:09)
--- NOTE | 2017-01-22 18:32 | Anesthesiology Progress Note ---
Anesthesia Post Op Note Date & Time Jan 22, 2017 at 18:31 Vital Signs Pain Intensity: 2 Vital Signs Past 12 Hours Date Time Temp Pulse Resp B/P Pulse Ox O2 Delivery O2 Flow Rate FiO2 01/22/17 18:20 36.5 78 18 142/76 95 Nasal Cannula 4 01/22/17 18:10 80 20 137/70 94 Mask 4 01/22/17 18:00 75 20 141/74 94 Mask 4 01/22/17 17:50 89 20 119/53 99 Mask 10 01/22/17 17:41 36.8 87 20 120/57 97 Mask 10 01/22/17 07:12 36.6 73 16 120/74 94 Room Air 01/22/17 07:10 Room Air Notes Mental Status: alert / awake / arousable, participated in evaluation Pt Amnestic to Procedure: Yes Nausea / Vomiting: adequately controlled Pain: adequately controlled Airway Patency, RR, SpO2: stable & adequate BP & HR: stable & adequate Hydration State: stable & adequate Anesthetic Complications: no major complications apparent
--- NOTE | 2017-01-22 18:35 | [facility] Post Operative Brief Note ---
Immediate Operative Summary Operative Date Jan 22, 2017. Pre-Operative Diagnosis Acute Cholelithiasis Post-Operative Diagnosis Acute Cholithiasis Procedure(s) Performed Laparoscopic Sub Total Cholecystectomy with Cholangiogram Surgeon Dr. 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
[2017-01-22] MEDS ORDERED: ACETAMINOPHEN 325 MG TAB PO PRN (18:45)
[2017-01-22] MEDS: HYDROmorphone INJ 1 MG/ML SYR IV PRN ×3 (19:05→23:39)
[2017-01-22] MEDS: SERTRALINE HCL 50 MG TAB PO SCH (20:30)
[2017-01-22] MEDS: D5W AND 1/2NSS + 20MEQ KCL 1,000 ML IV SCH (20:30)
[2017-01-22] MEDS: RANITIDINE HCL 150 MG TAB PO SCH (20:30)
[2017-01-22] MEDS: CIPROFLOXACIN / D5W 400 MG in PREMIXED IN D5W 200 ML IV SCH (21:15)
[2017-01-22] MEDS: AMITRIPTYLINE HCL 10 MG TAB PO SCH (21:15)
[2017-01-22] MEDS: METRONIDAZOLE / NSS 500 MG in PREMIXED NSS 100 ML IV SCH (23:39)
[2017-01-22] MEDS ORDERED: NURSING DECISION MEDICATION ORDER SCH (23:45)
[2017-01-22] MEDS ORDERED: COUGH DROP (SUGAR FREE) LOZ 24 LOZ/1 BOX PO PRN (23:45)
[2017-01-22] MEDS ORDERED: COUGH DROP (SUGAR FREE) LOZ 24 LOZ/1 BOX ONE (23:52)
[2017-01-23] MEDS ORDERED: NURSING VERBAL MED ORDER ONE
[2017-01-23] MEDS ORDERED: PANTOprazole INJ 40 MG in SYRINGE 0 ML IV ONE (00:15)
[2017-01-23 03:46] VITALS: BP 127/86; PULSE 66; TEMP 36.8; O2SAT 95
[2017-01-23] MEDS: OXYCODONE/ACETAMINOPHEN 5-325 TAB PO PRN ×3 (03:54→19:06)
--- NOTE | 2017-01-23 04:15 | OPERATIVE REPORT ---
DATE OF OPERATION: 01/22/2017 PREOPERATIVE DIAGNOSIS: Acute cholecystitis, cholelithiasis. POSTOPERATIVE DIAGNOSES: Same. PROCEDURE: Laparoscopic subtotal cholecystectomy, intraoperative cholangiogram, enlarged lymph node of the liver biopsy. ANESTHESIA: General. ESTIMATED BLOOD LOSS: About 30 mL. SURGEON: Josephine Luke M.D. FINDINGS: Acute cholecystitis, cholelithiasis, significant inflammation of the gallbladder wall and edema, enlarged lymph node near the gallbladder on the liver bed. Intraoperative cholangiogram showing patent cystic duct and the common bile duct, the contrast into the small bowel. COMPLICATIONS: None. INDICATIONS FOR THE PROCEDURE: This is a 37-year-old gentleman who presented to the ED with 1 week history of right upper quadrant pain and the patient with diagnoses of acute cholecystitis and cholelithiasis with a CT scan and ultrasound and we recommended doing laparoscopic cholecystectomy, possible open, possible cholangiogram. I did talk to the patient about the benefit and risk alternate procedure. I indicated the risks may include but not limited such as bleeding, infection, injury to common bile duct, injury to bowel, may need subtotal cholecystectomy, DVT, myocardial infarction, stroke, even , may need ERCP. The patient understands. He signed informed consent and I answered all questions. DETAILS OF PROCEDURE: We brought the patient to the OR, put the patient in the supine position. The patient received SCDs on bilateral legs to prevent DVT. Also, the patient received 600 mg of clindamycin IV for prophylactic antibiotic. The patient received general anesthesia without difficulty. The abdomen was prepped and draped in routine sterile fashion. After a timeout, I injected local anesthesia just above umbilical by using 1% lidocaine mixed with 0.25% Marcaine, then I made a small incision just above umbilical, opened fascia and opened peritoneum under direct vision. We put a Cdoy trocar in, connected to CO2 to create pneumoperitoneum flaw rate 6 liter per minute. Pressure not more than 14 mmHg. Once we get a nice pneumoperitoneum, we put a 10 mm camera in looked around the abdomen shows no more findings on the stomach, small bowel, large bowel; however, the gallbladder wall with significant thickening. Also, near the gallbladder, there are large lymph nodes the size about 2 x 3 cm significantly large and no free fluid on the pelvic area. Then, we put another 3.5 mm trocar on the right upper quadrant. Once all trocars in, I put grasper in to hold the base of the gallbladder, put direction to the diaphragm; however, there was significant omentum covering the gallbladder showing the gallbladder with significant inflammation and also a mass near the gallbladder, there was 1 larger possible lymph node sized about 2 x 3 cm, so I did a partial biopsy and rechecked no active bleeding, to rule out tumor and we tried to identify the cystic duct. Based on the significant infection and inflammation, difficult to found the cystic duct. At this moment, I decide to do intraoperative cholangiogram. I used kumal technique, did an intraoperative cholangiogram showing patent cystic duct, common bile duct and contrast into the small bowel. At this moment based on the significant gallbladder inflammation, I used a take down from top down technique to take down 90% of the gallbladder and I used Endo-CANDICE staple transection the gallbladder and rechecked no active bleeding, also opened remaining gallbladder again to make sure no stone lag behind. We checked no stone lag behind on the gallbladder about 10% remaining gallbladder in order not injury to common bile duct. Then I used Endoloop x2 to close the remainder of the gallbladder opening and rechecked, no active bleeding, no leak, and hemostasis obtained. Then we removed the gallbladder through the catch bag. Then we reinserted Cody trocar in and created pneumoperitoneum again looked around the abdomen. No active bleeding, no bile leak from the liver bed and also no leak from the remaining piece of the gallbladder. During procedure in order to put the staple in, we change a 10 mm trocar instead of 5 mm trocar on the epigastric area, so once all trocars were removed, no active bleeding. Then we closed the epigastric trocar site by using 0 Vicryl [id number] x2, closed the umbilical fascial layer by using 0 Vicryl [id number] x2, closed subcutaneous layer by using 2-0 Vicryl, closed skin by using 4-0 Vicryl, another 2 5 mm tracar siteclosed skin only by using 4-0 Vicryl to closed skin, subcutaneous layer by using 2-0 Vicryl, closed skin by using 4-0 Vicryl and then we put the dressing on. All the instrument, needle and sponge count correct x2 at the end of the case. The specimen sent to pathology. The patient tolerated the procedure well and was transferred to recovery room in stable condition. I attest to the content of the Intraoperative Record and any orders documented therein. Any exceptions are noted below. NICHOLAS
[2017-01-23 07:24] VITALS: BP 125/78; PULSE 70; TEMP 36.5; O2SAT 95
[2017-01-23] MEDS: METRONIDAZOLE / NSS 500 MG in PREMIXED NSS 100 ML IV SCH ×3 (07:34→23:49)
[2017-01-23] MEDS: HYDROmorphone INJ 1 MG/ML SYR IV PRN ×3 (07:34→22:55)
[2017-01-23 07:37] LABS: BASO % 0.1 %; BASO ABS # 0.01 K/uL (0-0.2); COMPLETE YES; EOS % 0.1 %; HEMATOCRIT 43.2 % (42-52); IG% 0.2 %; MEAN CELL VOLUME 97.3 fL (80-100); MEAN CORPUSCULAR HEMOGLOBIN 33.6 pg (25-34); MEAN CORPUSCULAR HGB CONC 34.5 g/dl (32-36); MEAN PLATELET VOLUME 10.3 fL (7.4-10.4); MONO % 6.1 %; NEUT % 71.5 %; PLATELET COUNT 152 K/uL (130-400); RED BLOOD COUNT 4.44 M/uL (4.7-6.1); WHITE BLOOD COUNT 10.02 K/uL (4.8-10.8)
[2017-01-23 08:02] LABS: BUN/CREATININE RATIO 7.9 (10-20); POTASSIUM 3.7 mmol/L (3.5-5.1)
[2017-01-23 08:05] LABS: ALB/GLOB RATIO 0.8 (0.9-2)
--- NOTE | 2017-01-23 08:16 | Anesthesiology Progress Note ---
Anesthesia Post Op Note Date & Time Jan 23, 2017 at 08:15 Vital Signs Vital Signs Past 12 Hours Date Time Temp Pulse Resp B/P Pulse Ox O2 Delivery O2 Flow Rate FiO2 01/23/17 07:24 36.5 70 18 125/78 95 Room Air 01/23/17 03:46 36.8 66 16 127/86 95 Nasal Cannula 2.0 01/22/17 23:35 Room Air 01/22/17 22:46 36.4 87 18 160/93 94 Nasal Cannula 2.0 01/22/17 21:50 36.6 88 18 138/87 96 Nasal Cannula 2.0 01/22/17 20:48 36.6 85 16 135/82 96 Nasal Cannula 2.0 Notes Mental Status: alert / awake / arousable, participated in evaluation Pt Amnestic to Procedure: Yes Nausea / Vomiting: adequately controlled Pain: adequately controlled Airway Patency, RR, SpO2: stable & adequate BP & HR: stable & adequate Hydration State: stable & adequate Anesthetic Complications: no major complications apparent
--- NOTE | 2017-01-23 08:23 | Progress Note ---
Progress Note Date of Service Jan 22, 2017. Progress Note To note: patient was not seen by me on 01/22/17 - he was initially down on nuclear medicine getting a HIDA scan performed. Later on, he was taken to the OR for a cholecystectomy. As per records, he did well with surgery, but was still in the PACU until late evening. He had a laparoscopic subtotal cholecystectomy performed.
[2017-01-23 08:29] LABS: CALCIUM 9.1 mg/dl (8.5-10.1)
[2017-01-23] MEDS: CIPROFLOXACIN / D5W 400 MG in PREMIXED IN D5W 200 ML IV SCH ×2 (08:55→21:32)
[2017-01-23] MEDS: D5W AND 1/2NSS + 20MEQ KCL 1,000 ML IV SCH ×2 (08:55→21:32)
[2017-01-23] MEDS: PANTOprazole SOD 40 MG TAB PO SCH ×2 (08:56→21:32)
[2017-01-23] MEDS: DIPHENOXYLATE/ATROPINE 2.5/0.025MG TAB PO SCH ×4 (08:56→21:32)
[2017-01-23] MEDS ORDERED: MoRPHine SULFATE 2 MG/ML CARP IV STA (10:16)
--- NOTE | 2017-01-23 11:35 | Surgery Progress Note ---
Surgery Progress Note Date of Service Jan 23, 2017. Subjective Post OP Day: 1 (s/p laparoscopic subtotal cholecystectomy) No SOB, No chest pain moderate amount of pain, oral and IV pain medication not helping No nausea or vomiting did not feel like eating this morning Objective Vital Signs: Date Time Temp Pulse Resp B/P Pulse Ox O2 Delivery O2 Flow Rate FiO2 01/23/17 07:40 Room Air 01/23/17 07:24 36.5 70 18 125/78 95 Room Air 01/23/17 03:46 36.8 66 16 127/86 95 Nasal Cannula 2.0 01/22/17 23:35 Room Air 01/22/17 22:46 36.4 87 18 160/93 94 Nasal Cannula 2.0 01/22/17 21:50 36.6 88 18 138/87 96 Nasal Cannula 2.0 01/22/17 20:48 36.6 85 16 135/82 96 Nasal Cannula 2.0 01/22/17 19:31 90 14 128/76 94 Nasal Cannula 2.0 01/22/17 19:16 36.3 77 18 129/78 95 Nasal Cannula 4.0 01/22/17 18:50 93 Nasal Cannula 4.0 01/22/17 18:50 Nasal Cannula 4.0 01/22/17 18:35 36.5 79 18 137/76 94 Nasal Cannula 4 01/22/17 18:20 36.5 78 18 142/76 95 Nasal Cannula 4 01/22/17 18:10 80 20 137/70 94 Mask 4 01/22/17 18:00 75 20 141/74 94 Mask 4 01/22/17 17:50 89 20 119/53 99 Mask 10 01/22/17 17:41 36.8 87 20 120/57 97 Mask 10 General Appearance: WD/WN, no apparent distress, + obese Head: normocephalic, atraumatic Neck: trachea midline Respiratory/Chest: lungs clear, normal breath sounds, no respiratory distress, no accessory muscle use Cardiovascular: regular rate, rhythm, no murmur Abdomen: non distended, soft, + tenderness (at incision sites, appropriate post op) Incision(s): clean, dry, intact, no erythema, no drainage Extremities: normal range of motion, non-tender, normal inspection, no pedal edema, no calf tenderness, normal capillary refill, pelvis stable Laboratory Results: Results Past 24 Hours Test 4/28/17 07:00 Range/Units White Blood Count 10.02 4.8-10.8 K/uL Red Blood Count 4.44 4.7-6.1 M/uL Hemoglobin 14.9 14.0-18.0 g/dL Hematocrit 43.2 42-52 % Mean Corpuscular Volume 97.3 80-100 fL Mean Corpuscular Hemoglobin 33.6 25-34 pg Mean Corpuscular Hemoglobin Concent 34.5 32-36 g/dl Platelet Count 152 130-400 K/uL Mean Platelet Volume 10.3 7.4-10.4 fL Neutrophils (%) (Auto) 71.5 % Lymphocytes (%) (Auto) 22.0 % Monocytes (%) (Auto) 6.1 % Eosinophils (%) (Auto) 0.1 % Basophils (%) (Auto) 0.1 % Neutrophils # (Auto) 7.17 1.4-6.5 K/uL Lymphocytes # (Auto) 2.20 1.2-3.4 K/uL Monocytes # (Auto) 0.61 0.11-0.59 K/uL Eosinophils # (Auto) 0.01 0-0.5 K/uL Basophils # (Auto) 0.01 0-0.2 K/uL RDW Standard Deviation 47.1 36.4-46.3 fL RDW Coefficient of Variation 13.2 11.5-14.5 % Immature Granulocyte % (Auto) 0.2 % Immature Granulocyte # (Auto) 0.02 0.00-0.02 K/uL Sodium Level 140 136-145 mmol/L Potassium Level 3.7 3.5-5.1 mmol/L Chloride Level 102 98-107 mmol/L Carbon Dioxide Level 29 21-32 mmol/L Anion Gap 9.0 3-11 mmol/L Blood Urea Nitrogen 8 7-18 mg/dl Creatinine 1.00 0.60-1.40 mg/dl Est Creatinine Clear Calc Drug Dose 138.6 ml/min Estimated GFR () 110.2 Estimated GFR (Non- 95.1 BUN/Creatinine Ratio 7.9 10-20 Random Glucose 160 70-99 mg/dl Calcium Level 9.1 8.5-10.1 mg/dl Total Bilirubin 0.7 0.2-1 mg/dl Aspartate Amino Transf (AST/SGOT) 59 15-37 U/L Alanine Aminotransferase (ALT/SGPT) 80 12-78 U/L Alkaline Phosphatase 120 45-117 U/L Total Protein 7.6 6.4-8.2 gm/dl Albumin 3.4 3.4-5.0 gm/dl Globulin 4.2 2.5-4.0 gm/dl Albumin/Globulin Ratio 0.8 0.9-2 Assessment & Plan POD # 1 s/p subtotal laparoscopic cholecystectomy - vitals stable - no leukocytosis - abdominal pain moderate, uncontrolled this morning (was able to sleep last evening) - abdomen soft, no guarding, rigidity, tenderness at incision sites ( appropriate post op) Plan: Continue IV pain medication and po Percocet as needed for pain Continue IV fluids Advance diet to full liquids and then as tolerated will review results of biopsy at follow-up If doing well may be discharged tomorrow from surgical standpoint Dr. Luke has seen and examined patient, agrees with assessment and plan.
--- NOTE | 2017-01-23 12:56 | Progress Note ---
Subjective Date of Service: Jan 23, 2017. Subjective Pt evaluation today including: conversation w/ patient, physical exam, lab review, review of studies, review of inpatient medication list Saw/examined the patient in room 377 +abdominal tenderness on the R abdomen s/p lap subtotal dedra did not want to eat breakfast due to pain Problem List Medical Problems: (1) Cholelithiasis Status: Acute (2) IBS (irritable bowel syndrome) Status: Chronic (3) Upper abdominal pain Status: Acute Review of Systems Constitutional: No chills, No fever, No weakness Respiratory: No shortness of breath Cardiac: No chest pain Abdomen: + pain (R sided), No diarrhea, No nausea, No vomiting Medications Current Inpatient Medications Medications (Trade) Dose Ordered Sig/Lance Route Start Time Stop Time Status Last Admin Dose Admin Amitriptyline HCl (Elavil Tab) 10 mg HS PO 01/20/17 21:00 02/19/17 20:59 01/22/17 21:15 10 MG Diphenoxylate HCl/ Atropine (Lomotil Tab) 1 tab QID PO 01/20/17 21:00 02/19/17 20:59 01/23/17 12:35 1 TAB Sertraline HCl (Zoloft Tab) 50 mg HS PO 01/20/17 21:00 02/19/17 20:59 01/22/17 20:30 50 MG Ranitidine HCl (zANTac TAB) 300 mg HS PO 01/20/17 21:00 02/19/17 20:59 01/22/17 20:30 300 MG Ondansetron HCl (Zofran Inj) 4 mg Q6H PRN IV 01/20/17 20:45 02/19/17 20:44 01/21/17 07:44 4 MG Pantoprazole Sodium 40 mg 40 mg BID PO 01/21/17 21:00 02/20/17 20:59 01/23/17 08:56 40 MG Potassium Chloride/Dextrose/ Sod Cl (D5W And 1/2nss + 20meq KCl) 1,000 ml @ 80 mls/hr [id number] IV 01/22/17 20:00 02/21/17 19:59 01/23/17 08:55 80 MLS/HR Acetaminophen (Tylenol Tab) 650 mg Q6H PRN PO 01/22/17 18:45 02/21/17 18:44 Oxycodone/ Acetaminophen (Percocet 5-325mg Tab) 1 tab Q4H PRN PO 01/22/17 18:45 02/05/17 18:44 01/23/17 09:02 1 TAB Hydromorphone HCl 1 mg 1 mg Q3H PRN IV 01/22/17 18:45 02/05/17 18:44 01/23/17 12:36 1 MG Ciprofloxacin/ Dextrose 400 mg/ Prmx 200 ml @ 100 mls/hr Q12 IV 01/22/17 21:00 01/24/17 20:59 01/23/17 08:55 100 MLS/HR Metronidazole/Prmx (Flagyl / Nss/ Premixed Nss) 100 ml @ 100 mls/hr Q8H IV 01/23/17 00:00 01/25/17 00:00 01/23/17 07:34 100 MLS/HR Menthol (Nice Swati) 1 swati PRN PRN PO 01/22/17 23:45 02/21/17 23:44 01/23/17 00:28 1 SWATI Objective Vital Signs Date Time Temp Pulse Resp B/P Pulse Ox O2 Delivery O2 Flow Rate FiO2 01/23/17 07:40 Room Air 01/23/17 07:24 36.5 70 18 125/78 95 Room Air 01/23/17 03:46 36.8 66 16 127/86 95 Nasal Cannula 2.0 01/22/17 23:35 Room Air 01/22/17 22:46 36.4 87 18 160/93 94 Nasal Cannula 2.0 01/22/17 21:50 36.6 88 18 138/87 96 Nasal Cannula 2.0 01/22/17 20:48 36.6 85 16 135/82 96 Nasal Cannula 2.0 01/22/17 19:31 90 14 128/76 94 Nasal Cannula 2.0 01/22/17 19:16 36.3 77 18 129/78 95 Nasal Cannula 4.0 01/22/17 18:50 93 Nasal Cannula 4.0 01/22/17 18:50 Nasal Cannula 4.0 01/22/17 18:35 36.5 79 18 137/76 94 Nasal Cannula 4 01/22/17 18:20 36.5 78 18 142/76 95 Nasal Cannula 4 01/22/17 18:10 80 20 137/70 94 Mask 4 01/22/17 18:00 75 20 141/74 94 Mask 4 01/22/17 17:50 89 20 119/53 99 Mask 10 01/22/17 17:41 36.8 87 20 120/57 97 Mask 10 Physical Exam General Appearance: + mild distress Respiratory/Chest: lungs clear, normal breath sounds, no respiratory distress, no accessory muscle use Cardiovascular: regular rate, rhythm, no edema, no murmur Abdomen: soft, + distended, + tenderness Extremities: normal inspection, no pedal edema Laboratory Results Last 24 Hours Test 01/23/17 07:00 White Blood Count 10.02 K/uL Red Blood Count 4.44 M/uL Hemoglobin 14.9 g/dL Hematocrit 43.2 % Mean Corpuscular Volume 97.3 fL Mean Corpuscular Hemoglobin 33.6 pg Mean Corpuscular Hemoglobin Concent 34.5 g/dl Platelet Count 152 K/uL Mean Platelet Volume 10.3 fL Neutrophils (%) (Auto) 71.5 % Lymphocytes (%) (Auto) 22.0 % Monocytes (%) (Auto) 6.1 % Eosinophils (%) (Auto) 0.1 % Basophils (%) (Auto) 0.1 % Neutrophils # (Auto) 7.17 K/uL Lymphocytes # (Auto) 2.20 K/uL Monocytes # (Auto) 0.61 K/uL Eosinophils # (Auto) 0.01 K/uL Basophils # (Auto) 0.01 K/uL RDW Standard Deviation 47.1 fL RDW Coefficient of Variation 13.2 % Immature Granulocyte % (Auto) 0.2 % Immature Granulocyte # (Auto) 0.02 K/uL Sodium Level 140 mmol/L Potassium Level 3.7 mmol/L Chloride Level 102 mmol/L Carbon Dioxide Level 29 mmol/L Anion Gap 9.0 mmol/L Blood Urea Nitrogen 8 mg/dl Creatinine 1.00 mg/dl Est Creatinine Clear Calc Drug Dose 138.6 ml/min Estimated GFR () 110.2 Estimated GFR (Non- 95.1 BUN/Creatinine Ratio 7.9 Random Glucose 160 mg/dl Calcium Level 9.1 mg/dl Total Bilirubin 0.7 mg/dl Aspartate Amino Transf (AST/SGOT) 59 U/L Alanine Aminotransferase (ALT/SGPT) 80 U/L Alkaline Phosphatase 120 U/L Total Protein 7.6 gm/dl Albumin 3.4 gm/dl Globulin 4.2 gm/dl Albumin/Globulin Ratio 0.8 Assessment and Plan This is a 37 year old male with PMH of DM2, IBS, anxiety/depression, presents with RUQ abdominal pain, burping, reflux-like symptoms, nausea, vomiting and diarrhea Acute Cholelithiasis/cholecystitis s/p Laparoscopic Subtotal Cholecystectomy 01/23 patient not showing cholecystitis on HIDA scan, though symptomatic gallstones s/p laparoscopic subtotal cholecystectomy POD #1 pain not controlled, did not sleep well, skipped breakfast added IV morphine one time dose IV Dilaudid PRN as well as PO analgesics continue IVFs lymph node was also biopsied with pathology pending 01/22 patient is telling me that he develops this pain after eating develops RUQ abdominal pain, burping and belching +heartburn has been having nausea/vomiting/diarrhea RUQ U/S = cholelithiasis, no cholecystitis mild elevation of LFTs will obtain HIDA scan and general surgery consultation GERD Protonix BID + Zantac monitor for symptoms and taper down to once a day as soon as possible DM2 hold oral agents, hold Victoza monitor BSGs and will add sliding scale once eating Depression/Anxiety continue home medications DVT ppx SCDs FULL CODE
[2017-01-23 15:35] VITALS: BP 123/69; PULSE 68; TEMP 36.5; O2SAT 94
[2017-01-23] MEDS ORDERED: GLUCOSE 10 TABS/TUBE PO PRN (17:15)
[2017-01-23] MEDS ORDERED: DEXTROSE 50% 50 ML SYR IV PRN (17:15)
[2017-01-23] MEDS ORDERED: GLUCOSE 40% GEL 15 GM TUBE PO PRN (17:15)
[2017-01-23] MEDS ORDERED: GLUCAGON FOR INJ 1 MG VIAL SQ PRN (17:15)
[2017-01-23] MEDS: ONDANSETRON INJ 2 MG/ML 2 ML VIAL IV PRN (17:37)
[2017-01-23] MEDS: INSULIN ASPART 100 UNITS/ML 3 ML PEN SC SCH ×2 (19:01→21:00)
[2017-01-23] MEDS: AMITRIPTYLINE HCL 10 MG TAB PO SCH (21:33)
[2017-01-23] MEDS: RANITIDINE HCL 150 MG TAB PO SCH (21:33)
[2017-01-23] MEDS: SERTRALINE HCL 50 MG TAB PO SCH (21:33)
[2017-01-23 23:12] VITALS: BP 126/80; PULSE 68; TEMP 36.8; O2SAT 93
[2017-01-24] MEDS: OXYCODONE/ACETAMINOPHEN 5-325 TAB PO PRN ×2 (05:36→13:36)
[2017-01-24 06:58] LABS: HEMATOCRIT 41.8 % (42-52); MEAN CELL VOLUME 97.2 fL (80-100); MEAN CORPUSCULAR HEMOGLOBIN 34.2 pg (25-34); MEAN CORPUSCULAR HGB CONC 35.2 g/dl (32-36); MEAN PLATELET VOLUME 10.7 fL (7.4-10.4); PLATELET COUNT 126 K/uL (130-400); WHITE BLOOD COUNT 6.72 K/uL (4.8-10.8)
[2017-01-24 07:33] LABS: BUN/CREATININE RATIO 10.6 (10-20); CALCIUM 8.8 mg/dl (8.5-10.1); CREATININE 0.87 mg/dl (0.60-1.40); POTASSIUM 3.5 mmol/L (3.5-5.1)
[2017-01-24] MEDS: METRONIDAZOLE / NSS 500 MG in PREMIXED NSS 100 ML IV SCH (07:34)
[2017-01-24 07:36] LABS: ALB/GLOB RATIO 0.9 (0.9-2)
[2017-01-24 08:13] VITALS: BP 121/72; PULSE 64; TEMP 36.7; O2SAT 92
--- NOTE | 2017-01-24 08:38 | SURGERY PROGRESS NOTE ---
DATE: 01/24/2017 DATE: 01/24/2017. Covering for Dr. Luke. Enmanuel is 48 hours status post laparoscopic cholecystectomy, subtotal intraoperative cholangiogram. Overall, he feels well. He said he wants to go home. His last vitals showed a temperature of 36.8, pulse 68, respirations 16, blood pressure 126/80, O2 sats 93 on room air. The lab this morning is pending. Yesterday his liver enzymes showed alkaline phosphatase of 120, probably needs to follow up on that to make sure they normalize in the future. The abdomen is benign. The trocar sites are present with slight drainage on the dressing. At this point, the patient can be discharged. Instructions have been given by the primary service, but should follow up with Dr. Luke in approximately [address] for 1 week. Should not lift anything heavier than 10 pounds and he can shower.
[2017-01-24] MEDS: PANTOprazole SOD 40 MG TAB PO SCH (09:29)
[2017-01-24] MEDS: DIPHENOXYLATE/ATROPINE 2.5/0.025MG TAB PO SCH ×2 (09:29→13:31)
[2017-01-24] MEDS: D5W AND 1/2NSS + 20MEQ KCL 1,000 ML IV SCH (09:30)
[2017-01-24] MEDS: INSULIN ASPART 100 UNITS/ML 3 ML PEN SC SCH ×2 (09:36→13:35)
[2017-01-24] MEDS: CIPROFLOXACIN / D5W 400 MG in PREMIXED IN D5W 200 ML IV SCH (09:37)
--- NOTE | 2017-01-24 11:52 | Progress Note ---
Subjective Date of Service: Jan 24, 2017. Subjective Pt evaluation today including: conversation w/ patient, physical exam, lab review, review of studies, review of inpatient medication list Saw/examined the patient in room 377 He's doing well, seated in a chair on his phone, states that the pain has subsided and he feels well enough to go home tolerating PO diet Problem List Medical Problems: (1) Cholelithiasis Status: Acute (2) IBS (irritable bowel syndrome) Status: Chronic (3) Upper abdominal pain Status: Acute Review of Systems Constitutional: No chills, No fever Respiratory: No shortness of breath Cardiac: No chest pain, No edema, No palpitations Abdomen: No GI bleeding, No constipation, No diarrhea, No nausea, No pain, No vomiting Heme: No abnormal bleeding/bruising Medications Current Inpatient Medications Medications (Trade) Dose Ordered Sig/Lance Route Start Time Stop Time Status Last Admin Dose Admin Amitriptyline HCl (Elavil Tab) 10 mg HS PO 01/20/17 21:00 02/19/17 20:59 01/23/17 21:33 10 MG Diphenoxylate HCl/ Atropine (Lomotil Tab) 1 tab QID PO 01/20/17 21:00 02/19/17 20:59 01/24/17 09:29 1 TAB Sertraline HCl (Zoloft Tab) 50 mg HS PO 01/20/17 21:00 02/19/17 20:59 01/23/17 21:33 50 MG Ranitidine HCl (zANTac TAB) 300 mg HS PO 01/20/17 21:00 02/19/17 20:59 01/23/17 21:33 300 MG Ondansetron HCl (Zofran Inj) 4 mg Q6H PRN IV 01/20/17 20:45 02/19/17 20:44 01/23/17 17:37 4 MG Pantoprazole Sodium 40 mg 40 mg BID PO 01/21/17 21:00 02/20/17 20:59 01/24/17 09:29 40 MG Potassium Chloride/Dextrose/ Sod Cl (D5W And 1/2nss + 20meq KCl) 1,000 ml @ 80 mls/hr [id number] IV 01/22/17 20:00 02/21/17 19:59 01/24/17 09:30 80 MLS/HR Acetaminophen (Tylenol Tab) 650 mg Q6H PRN PO 01/22/17 18:45 02/21/17 18:44 01/23/17 21:49 650 MG Oxycodone/ Acetaminophen (Percocet 5-325mg Tab) 1 tab Q4H PRN PO 01/22/17 18:45 02/05/17 18:44 01/24/17 05:36 1 TAB Hydromorphone HCl 1 mg 1 mg Q3H PRN IV 01/22/17 18:45 02/05/17 18:44 01/23/17 22:55 1 MG Ciprofloxacin/ Dextrose 400 mg/ Prmx 200 ml @ 100 mls/hr Q12 IV 01/22/17 21:00 01/24/17 20:59 01/24/17 09:37 100 MLS/HR Metronidazole/Prmx (Flagyl / Nss/ Premixed Nss) 100 ml @ 100 mls/hr Q8H IV 01/23/17 00:00 01/25/17 00:00 01/24/17 07:34 100 MLS/HR Menthol (Nice Augustine) 1 augustine PRN PRN PO 01/22/17 23:45 02/21/17 23:44 01/23/17 00:28 1 AUGUSTINE Insulin Aspart (novoLOG ASPART) SLIDING SCALE If C... ACHS SC 01/23/17 17:15 02/22/17 17:14 01/24/17 09:36 3 UNITS Glucose (Glucose 40% Gel) 15-30 GRAMS 15 GRAMS... UD PRN PO 01/23/17 17:15 02/22/17 17:14 Glucose (Glucose Chew Tab) 4-8 Tablets 4 Tabl... UD PRN PO 01/23/17 17:15 02/22/17 17:14 Dextrose (Dextrose 50% 50ML Syringe) 25-50ML OF 50% DW IV FOR... UD PRN IV 01/23/17 17:15 02/22/17 17:14 Glucagon (Glucagon Inj) 1 mg UD PRN SQ 01/23/17 17:15 02/22/17 17:14 Objective Vital Signs Date Time Temp Pulse Resp B/P Pulse Ox O2 Delivery O2 Flow Rate FiO2 01/24/17 08:13 36.7 64 18 121/72 92 Room Air 01/24/17 07:35 Room Air 01/23/17 23:50 Room Air 01/23/17 23:12 36.8 68 16 126/80 93 Room Air 01/23/17 16:35 Room Air 01/23/17 15:35 36.5 68 18 123/69 94 Room Air Physical Exam General Appearance: no apparent distress Respiratory/Chest: lungs clear, normal breath sounds, no respiratory distress, no accessory muscle use Cardiovascular: regular rate, rhythm, no edema, no murmur Abdomen: normal bowel sounds, non tender, soft Laboratory Results Last 24 Hours Test 01/23/17 16:59 01/23/17 21:01 01/24/17 06:05 01/24/17 08:15 Bedside Glucose 157 mg/dl 151 mg/dl 188 mg/dl White Blood Count 6.72 K/uL Red Blood Count 4.30 M/uL Hemoglobin 14.7 g/dL Hematocrit 41.8 % Mean Corpuscular Volume 97.2 fL Mean Corpuscular Hemoglobin 34.2 pg Mean Corpuscular Hemoglobin Concent 35.2 g/dl RDW Standard Deviation 46.9 fL RDW Coefficient of Variation 13.3 % Platelet Count 126 K/uL Mean Platelet Volume 10.7 fL Sodium Level 141 mmol/L Potassium Level 3.5 mmol/L Chloride Level 106 mmol/L Carbon Dioxide Level 27 mmol/L Anion Gap 8.0 mmol/L Blood Urea Nitrogen 9 mg/dl Creatinine 0.87 mg/dl Est Creatinine Clear Calc Drug Dose 159.3 ml/min Estimated GFR () 126.9 Estimated GFR (Non- 109.5 BUN/Creatinine Ratio 10.6 Random Glucose 161 mg/dl Calcium Level 8.8 mg/dl Total Bilirubin 0.7 mg/dl Aspartate Amino Transf (AST/SGOT) 39 U/L Alanine Aminotransferase (ALT/SGPT) 63 U/L Alkaline Phosphatase 109 U/L Total Protein 7.1 gm/dl Albumin 3.4 gm/dl Globulin 3.7 gm/dl Albumin/Globulin Ratio 0.9 Assessment and Plan This is a 37 year old male with PMH of DM2, IBS, anxiety/depression, presents with RUQ abdominal pain, burping, reflux-like symptoms, nausea, vomiting and diarrhea Acute Cholelithiasis/cholecystitis s/p Laparoscopic Subtotal Cholecystectomy 01/24 patient is clinically doing much better with pain controlled will d/c home today to f/u with Dr. Luke in 1 week, no driving for one week, no lifting > 10lbs. patient may shower outpatient PCP follow-up 01/23 patient not showing cholecystitis on HIDA scan, though symptomatic gallstones s/p laparoscopic subtotal cholecystectomy POD #1 pain not controlled, did not sleep well, skipped breakfast added IV morphine one time dose IV Dilaudid PRN as well as PO analgesics continue IVFs lymph node was also biopsied with pathology pending 01/22 patient is telling me that he develops this pain after eating develops RUQ abdominal pain, burping and belching +heartburn has been having nausea/vomiting/diarrhea RUQ U/S = cholelithiasis, no cholecystitis mild elevation of LFTs will obtain HIDA scan and general surgery consultation GERD Protonix BID + Zantac monitor for symptoms and taper down to once a day as soon as possible DM2 hold oral agents, hold Victoza monitor BSGs and will add sliding scale once eating Depression/Anxiety continue home medications DVT ppx SCDs FULL CODE Discharge planning: home
[2017-01-24] MEDS ORDERED: OXYC-57 PO (11:55)
--- NOTE | 2017-01-24 12:05 | Discharge Instructions ---
Discharge Instructions Date of Service Jan 24, 2017. Admission Reason for Admission: Cholelithiasis Discharge Discharge Diagnosis / Problem: Symptomatic Cholelithiasis s/p Laproscopic subtotal cholecystectomy Discharge Goals Goal(s): Decrease discomfort, Improve function, Diagnostic testing, Therapeutic intervention Activity Recommendations Activity Limitations: as noted below Lifting Limitations: no more than 10 pounds Exercise/Sports Limitations: as tolerated, until after follow-up appointment May Resume Sexual Activity: when tolerated Shower/Bathe: no limitations Driving or Machine Use: one week or while taking narcotics . Instructions / Follow-Up Instructions / Follow-Up Please follow-up with Dr. Hennessy on January 27 @ 2:05PM * You will be given a script for Percocet, only take this as needed * Do not drive for one week or while taking Percocet * Do not lift anything heavier than 10 lbs. * You may shower * Follow-up with Dr. Luke, general surgery, in one week * Primary care should recheck blood work for liver function test to assure there is improvement Current Hospital Diet Patient's current hospital diet: Full Liquid Diet, Diabetes Type 2 Diet Discharge Diet Recommended Diet: Full Liquid Diet, Diabetes Type 2 Diet Procedures Procedures Performed: Laparoscopic Sub Total Cholecystectomy with Cholangiogram Pending Studies Studies pending at discharge: no Laboratory Results Lipid Panel Test 01/22/17 06:15 Range/Units Triglycerides Level 204 H 0-150 mg/dl Cholesterol Level 147 0-200 mg/dl HDL Cholesterol 24 mg/dl Cholesterol/HDL Ratio 6.1 LDL Cholesterol, Calculated 82 mg/dl Medical Emergencies . Who to Call and When: Medical Emergencies: If at any time you feel your situation is an emergency, please call 911 immediately. . Non-Emergent Contact Non-Emergency issues call your: Primary Care Provider . . "Provider Documentation" section prepared by Syed Alvarado. . VTE Core Measure Inpt VTE Proph given/why not?: [facility] Drug Monitoring Program Search Results: patient reviewed within database, no issues identified, see additional documentation Drug Monitoring Findings: Lomotil prescribed
--- NOTE | 2017-01-24 12:06 | Discharge Summary ---
Discharge Summary Date of Service Jan 24, 2017. Discharge Summary Admission Date: Jan 20, 2017 at 20:36 Discharge Date: Jan 24, 2017 Discharge Disposition: Home Principal Diagnosis: Symptomatic Cholelithiasis s/p Laparoscopic Subtotal Cholecystectomy Medication Reconciliation New Medications: Oxycodone/Acetaminophen 5MG/325MG (Percocet 5MG/325MG) Tab 1 TAB PO Q4H PRN for Pain for 3 Days, #18 TAB PAIN Continued Medications: Amitriptyline Hcl (Elavil) 10 Mg Tab 10 MG PO HS, TAB Bismuth Subsalicylate (Pepto Bismol Chew Tab) 262 Mg Tab 2 TAB PO PRN UD, TAB Diphenoxylate W/ Atropine (Lomotil) 1 Tab Tab 1 TAB PO QID, TAB Liraglutide (Victoza) 18 Mg/3 Ml Inj 1.8 MG SQ QPM, #9 Metformin Hcl (Glucophage) 1,000 Mg Tab 1000 MG PO BID, TAB Omeprazole (Prilosec) 40 Mg Cap 40 MG PO DAILY, CAP Ranitidine (Zantac) 300 Mg Tab 300 MG PO HS, TAB Sertraline (Zoloft) 50 Mg Tab 50 MG PO HS, TAB Simethicone (Gas-X) 80 Mg Chw 80 MG PO TIDM Admission Information HPI (per Admitting provider): The patient is a 37 year old male with PMH of IBS, who presented to ER with c/o recurrent abdominal pain. Patient has been having intermittent episodes of pain- right back radiating to abdomen , nausea, vomiting x 1 month, almost every week. He did see his PCP for annual exam, was prescribed gas x tabs TID, Ranitidine. He takes pepto bismol as needed for this pain which helps partially. But usually the episodes are self resolving. For IBS, he is on lomotil TID for chronic diarrhea. Today he had RUQ pain, severe intensity, associated with nausea, vomiting , unable to tolerate PO. Chronic diarrhea- takes lomotil on a regular basis for IBS. No fever, chills In ED, he was given IV Morphin 4 mg, IV Dilaudid 0.5 mg, IV zofran, which did not help relieve the pain. CT abd/pelvis- cholelithiasis + Will admit him for intractable abdominal pain, N /V, Unable to tolerate PO for further evaluation and mx Physical Exam (per Admitting): General Appearance: no apparent distress, + obese Head: normocephalic, atraumatic Eyes: PERRL ENT: hearing grossly normal Neck: supple Respiratory/Chest: chest non-tender, lungs clear, normal breath sounds Cardiovascular: regular rate, rhythm, no edema, no murmur Abdomen/GI: soft, + pertinent finding (tenderness- RUQ, LUQ) Back: no CVA tenderness Extremities/Musculoskelatal: no pedal edema Neurologic/Psych: alert, oriented x 3, + pertinent finding (grossly no focal deficit) Skin: normal color Hospital Course This is a 37 year old male with PMH of DM2, IBS, anxiety/depression, presents with RUQ abdominal pain, burping, reflux-like symptoms, nausea, vomiting and diarrhea Acute Cholelithiasis/cholecystitis s/p Laparoscopic Subtotal Cholecystectomy 01/24 patient is clinically doing much better with pain controlled will d/c home today to f/u with Dr. Luke in 1 week, no driving for one week, no lifting > 10lbs. patient may shower outpatient PCP follow-up 01/23 patient not showing cholecystitis on HIDA scan, though symptomatic gallstones s/p laparoscopic subtotal cholecystectomy POD #1 pain not controlled, did not sleep well, skipped breakfast added IV morphine one time dose IV Dilaudid PRN as well as PO analgesics continue IVFs lymph node was also biopsied with pathology pending 01/22 patient is telling me that he develops this pain after eating develops RUQ abdominal pain, burping and belching +heartburn has been having nausea/vomiting/diarrhea RUQ U/S = cholelithiasis, no cholecystitis mild elevation of LFTs will obtain HIDA scan and general surgery consultation GERD Protonix BID + Zantac monitor for symptoms and taper down to once a day as soon as possible DM2 hold oral agents, hold Victoza monitor BSGs and will add sliding scale once eating Depression/Anxiety continue home medications DVT ppx SCDs FULL CODE Discharge planning: home Total time spent on discharge = 25 minutes This includes examination of the patient, discharge planning, medication reconciliation, and communication with other providers. Discharge Instructions Please follow-up with Dr. Hennessy on January 27 @ 2:05PM * You will be given a script for Percocet, only take this as needed * Do not drive for one week or while taking Percocet * Do not lift anything heavier than 10 lbs. * You may shower * Follow-up with Dr. Luke, general surgery, in one week * Primary care should recheck blood work for liver function test to assure there is improvement
[2017-01-24 12:33] VITALS: BP 121/72; PULSE 64; TEMP 36.7; O2SAT 92
== END 2017-01-24 14:06 | disposition home or self-care (01) | DRG 419 ==
LOC: ENRESERVDT → ENRESERVTM → C.EDB 17:52 → C.MSN 20:36
PROVIDERS: ADMIT Internal Medicine; ATTEND Family Medicine
PROC: 07B74ZX Excision of Thorax Lymphatic, Percutaneous Endoscopic Approach, Diagnostic (ICD-10-PCS; principal; 2017-01-22 09:15)
PROC: 0FB44ZZ Excision of Gallbladder, Percutaneous Endoscopic Approach (ICD-10-PCS; principal; 2017-01-22 09:15)
DX: K80.00 Calculus of gallbladder with acute cholecystitis without obstruction (principal); R59.0 Localized enlarged lymph nodes; K58.0 Irritable bowel syndrome with diarrhea; K21.9 Gastro-esophageal reflux disease without esophagitis; E11.9 Type 2 diabetes mellitus without complications; I10 Essential (primary) hypertension; F32.9 Major depressive disorder, single episode, unspecified; Z79.84 Long term (current) use of oral hypoglycemic drugs; Z79.899 Other long term (current) drug therapy

== ENCOUNTER 2017-04-07 09:05 | Emergency (ER) | payer OTHER ==
[~2017-04-07] VITALS: Ht 177.8 cm; Wt 128.1 kg
[~2017-04-07 09:05] MED LIST changes: +AMIT10TA6 PO; -AMT10 PO; +BISM262T3 PO; -CIPR-255 PO; +DPH/ PO; +LIRA18IN SQ; -LISI10TA PO; +METF-384 PO; -OMEP40CA PO; +OMEP40CA41 PO; +OXYC-57 PO; +RANI300T2 PO; +SERT50TA PO; +SIME80CH PO
[2017-04-07 09:06] VITALS: TEMP 36.5; Ht 177.8 cm; Wt 128.1 kg
[2017-04-07 09:40] LABS: BASO % 0.4 %; BASO ABS # 0.03 K/uL (0-0.2); COMPLETE YES; HEMATOCRIT 45.4 % (42-52); IG% 0.1 %; MEAN CORPUSCULAR HEMOGLOBIN 33.1 pg (25-34); MEAN CORPUSCULAR HGB CONC 34.1 g/dl (32-36); MEAN PLATELET VOLUME 10.7 fL (7.4-10.4); MONO % 6.8 %; NEUT % 64.7 %; PLATELET COUNT 125 K/uL (130-400); RED BLOOD COUNT 4.68 M/uL (4.7-6.1); WHITE BLOOD COUNT 6.93 K/uL (4.8-10.8)
[2017-04-07 09:43] LABS: URINE APPEARANCE TURBID (CLEAR); URINE BILIRUBIN NEG (NEG); URINE COLOR DK YELLOW; URINE NITRITE NEG (NEG); URINE PH 5.5 (4.5-7.5); URINE SPECIFIC GRAVITY 1.035 (1.000-1.030); UROBILINOGEN NEG (NEG); ZZUR CULT IF INDIC CLEAN CATCH NO
[2017-04-07 09:51] LABS: MANUAL MICROSCOPIC REQUIRED? NO; REVIEW REQ? YES
[2017-04-07] MEDS ORDERED: SODIUM CHLORIDE 0.9% 1000ML 1,000 ML IV STA (09:55)
[2017-04-07] MEDS ORDERED: ONDANSETRON INJ 2 MG/ML 2 ML VIAL IV STA (09:55)
[2017-04-07] MEDS ORDERED: KETOROLAC TROMETHAMINE 30 MG/ML VIAL IV STA (09:55)
[2017-04-07 10:02] LABS: BUN/CREATININE RATIO 13.4 (10-20); CALCIUM 9.7 mg/dl (8.5-10.1); CREATININE 0.93 mg/dl (0.60-1.40); POTASSIUM 4.2 mmol/L (3.5-5.1)
--- NOTE | 2017-04-07 11:30 | DIAGNOSTIC IMAGING REPORT ---
ABDOMEN AND PELVIS CT WITHOUT CONTRAST CT DOSE: 1102.55 mGycm HISTORY: Flank pain L flank pain and groin pain TECHNIQUE: Multiaxial CT images of the abdomen and pelvis were performed without contrast. COMPARISON STUDY: 01/20/2017 FINDINGS: Lung bases are clear. Mild hepatomegaly. Fatty infiltration. Interval cholecystectomy. Possible gallstones in the cystic duct remnant. Bowel pattern is considered nonobstructive. Kidneys are considered negative for hydronephrosis. There is first subtle fullness left ureter as compared to the right. There is a 3 mm calculus left ureterovesical junction. Bladder is midline. No additional calcifications are identified. Mild chronic sigmoid diverticulosis. No evidence for acute diverticulitis. Several small stable]. Nodes. Nodularity in the region of the right adrenal is unchanged. IMPRESSION: 1. Non and/or minimally obstructing 3 mm calculus left ureteral vesicle junction. 2. Mild chronic sigmoid diverticulosis. 3. Nonobstructive bowel pattern. 4. Several small scattered nodes within the abdomen and pelvis unchanged in the prior study. 5. Interval cholecystectomy from the prior study. Potential 5 mm calculus within the cystic duct remnant and/or juncture with common bile duct. 6. Normal caliber biliary ductal system Electronically signed by: John Hsieh M.D. 04/07/2017 11:28 AM Dictated Date/Time: 04/07/2017 11:23 AM
[2017-04-07] MEDS ORDERED: TAMS0.4C38 PO (12:13)
[2017-04-07] MEDS ORDERED: OXYC1TAB3 PO (12:13)
[2017-04-07 12:26] VITALS: BP 126/80; PULSE 78; O2SAT 100
--- NOTE | 2017-04-07 16:31 | EMERGENCY ROOM VISIT NOTE ---
History Report prepared by Amparo: Todd Tim Under the Supervision of: Dr. Sandeep Felipe D.O. First contact with patient: 09:21 Chief Complaint: URINARY SYMPTOMS Stated Complaint: PAIN IN GROIN AREA,BLOOD IN URINE Nursing Triage Summary: pt reports pain in groin woke me up at 0100 cont with pain feels like " I have to pee but unable to do more than a small amount at a time " + hematuria pt reports lifting multiple totes up on shelf Sun. History of Present Illness The patient is a 37 year old male who presents to the Emergency Room with complaints of persistent urinary symptoms beginning 8.5 hours ago. His symptoms include decreased urinary output, burning with urination, and hematuria. He also complains of some pain in his lower back. The patient states that his symptoms began with a pain in his groin last night. He states that his groin pain has persisted, and states that it is located "behind my penis". The patient has a history of kidney stones and states that his pain feels somewhat different. He has no history of UTIs. 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 Pt denies headache , penile discharge, change in vision, known fevers, chest pain, shortness of breath, nausea, vomiting, diarrhea, and melena. Source of History: patient Onset: 8.5 hours ago Quality: other (urinary symptoms) Timing: other (persistent) Associated Symptoms: + back pain (lower), No fevers (known), No chest pain, No SOB, No nausea, No vomiting Note: The patient denies any penile discharge. He also complains of groin pain. Review of Systems See HPI for pertinent positives & negatives. A total of 10 systems reviewed and were otherwise negative. Past Medical & Surgical Medical Problems: (1) Depression (2) Diabetes (3) GERD (gastroesophageal reflux disease) (4) HTN (hypertension) (5) IBS (irritable bowel syndrome) (6) Kidney stones (7) LINDA (obstructive sleep apnea) (8) Personal History Of Urinary Calculi Surgical Problems: (1) H/O cystoscopy (2) H/O shoulder surgery (3) H/O wisdom tooth extraction (4) History of open reduction and internal fixation (ORIF) procedure Family History Patient reports no known family medical history. Social History Smoking Status: Never Smoker Marital Status: Housing Status: lives with family Occupation Status: employed Current/Historical Medications Scheduled Amitriptyline Hcl (Elavil), 10 MG PO HS Bismuth Subsalicylate (Pepto Bismol Chew Tab), 2 TAB PO PRN UD Diphenoxylate W/ Atropine (Lomotil), 1 TAB PO QID Liraglutide (Victoza), 1.8 MG SQ QPM Metformin Hcl (Glucophage), 1,000 MG PO BID Omeprazole (Prilosec), 40 MG PO DAILY Sertraline (Zoloft), 50 MG PO HS Tamsulosin Hcl (Flomax), 0.4 MG PO DAILY Scheduled PRN Oxycodone Immediate Rel Tab (Roxicodone Ir), 5 MG PO Q6H PRN for Pain Allergies Coded Allergies: Menthol (Verified Allergy, Severe, WELTS, 04/07/17) Pineapple (Verified Allergy, Severe, THROAT CLOSES TO THE FRUIT, 04/07/17) PER NURSE IN SDS Cephalexin (Verified Allergy, Intermediate, HIVES, 04/07/17) Penicillins (Verified Allergy, Unknown, RASH, 04/07/17) RASH Physical Exam Vital Signs Date Time Temp Pulse Resp B/P (MAP) Pulse Ox O2 Delivery O2 Flow Rate FiO2 04/07/17 12:26 78 18 126/80 100 04/07/17 10:54 80 16 106/64 97 Room Air 04/07/17 09:06 36.5 93 18 142/91 96 Room Air Physical Exam GENERAL: Sitting up in bed, alert, well appearing, well nourished, no distress, non-toxic EYE EXAM: normal conjunctiva. OROPHARYNX: no exudate, no erythema, lips, buccal mucosa, and tongue normal and mucous membranes are moist NECK: supple, no nuchal rigidity, no adenopathy, non-tender LUNGS: Clear to auscultation. Normal chest wall mechanics HEART: no murmurs, S1 normal and S2 normal ABDOMEN: abdomen soft, normo-active bowel sounds, no masses, no rebound or guarding. Minimal tenderness in the suprapubic region. BACK: Back is symmetrical on inspection and there is no deformity, no midline tenderness, no CVA tenderness. : Normal external circumcised genitalia. No masses. Normal testicles. No penile discharge. SKIN: no rashes and no bruising UPPER EXTREMITIES: upper extremities are grossly normal. LOWER EXTREMITIES: No pitting edema. NEURO EXAM: Normal sensorium, cranial nerves II-XII grossly intact, normal speech, no gross weakness of arms, no gross weakness of legs. Medical Decision & Procedures ER Provider Diagnostic Interpretation: CT:Per my review, radiologist interpretation. ABDOMEN AND PELVIS CT WITHOUT CONTRAST FINDINGS: Lung bases are clear. Mild hepatomegaly. Fatty infiltration. Interval cholecystectomy. Possible gallstones in the cystic duct remnant. Bowel pattern is considered nonobstructive. Kidneys are considered negative for hydronephrosis. There is first subtle fullness left ureter as compared to the right. There is a 3 mm calculus left ureterovesical junction. Bladder is midline. No additional calcifications are identified. Mild chronic sigmoid diverticulosis. No evidence for acute diverticulitis. Several small stable]. Nodes. Nodularity in the region of the right adrenal is unchanged. IMPRESSION: 1. Non and/or minimally obstructing 3 mm calculus left ureteral vesicle junction. 2. Mild chronic sigmoid diverticulosis. 3. Nonobstructive bowel pattern. 4. Several small scattered nodes within the abdomen and pelvis unchanged in the prior study. 5. Interval cholecystectomy from the prior study. Potential 5 mm calculus within the cystic duct remnant and/or juncture with common bile duct. 6. Normal caliber biliary ductal system Electronically signed by: John Hsieh M.D. Laboratory Results 04/07/17 09:23 Red Blood Count 4.68, Mean Corpuscular Volume 97.0, Mean Corpuscular Hemoglobin 33.1, Mean Corpuscular Hemoglobin Concent 34.1, Mean Platelet Volume 10.7, Neutrophils (%) (Auto) 64.7, Lymphocytes (%) (Auto) 26.0, Monocytes (%) (Auto) 6.8, Eosinophils (%) (Auto) 2.0, Basophils (%) (Auto) 0.4, Neutrophils # (Auto) 4.48, Lymphocytes # (Auto) 1.80, Monocytes # (Auto) 0.47, Eosinophils # (Auto) 0.14, Basophils # (Auto) 0.03 04/07/17 09:23 Test 04/07/17 00:00 04/07/17 09:23 Urine Color DK YELLOW Urine Appearance TURBID (CLEAR) Urine pH 5.5 (4.5-7.5) Urine Specific [place] 1.035 (1.000-1.030) Urine Protein 1+ (NEG) Urine Glucose (UA) NEG (NEG) Urine Ketones TRACE (NEG) Urine Occult Blood 3+ (NEG) Urine Nitrite NEG (NEG) Urine Bilirubin NEG (NEG) Urine Urobilinogen NEG (NEG) Urine Leukocyte Esterase TRACE (NEG) Urine WBC (Auto) 1-5 /hpf (0-5) Urine RBC (Auto) >30 /hpf (0-4) Urine Hyaline Casts (Auto) 1-5 /lpf (0-5) Urine Epithelial Cells (Auto) 5-10 /lpf (0-5) Urine Bacteria (Auto) NEG (NEG) Urine Crystals See comments (NONE PRSENT) White Blood Count 6.93 K/uL (4.8-10.8) Red Blood Count 4.68 M/uL (4.7-6.1) Hemoglobin 15.5 g/dL (14.0-18.0) Hematocrit 45.4 % (42-52) Mean Corpuscular Volume 97.0 fL (80-100) Mean Corpuscular Hemoglobin 33.1 pg (25-34) Mean Corpuscular Hemoglobin Concent 34.1 g/dl (32-36) Platelet Count 125 K/uL (130-400) Mean Platelet Volume 10.7 fL (7.4-10.4) Neutrophils (%) (Auto) 64.7 % Lymphocytes (%) (Auto) 26.0 % Monocytes (%) (Auto) 6.8 % Eosinophils (%) (Auto) 2.0 % Basophils (%) (Auto) 0.4 % Neutrophils # (Auto) 4.48 K/uL (1.4-6.5) Lymphocytes # (Auto) 1.80 K/uL (1.2-3.4) Monocytes # (Auto) 0.47 K/uL (0.11-0.59) Eosinophils # (Auto) 0.14 K/uL (0-0.5) Basophils # (Auto) 0.03 K/uL (0-0.2) RDW Standard Deviation 45.6 fL (36.4-46.3) RDW Coefficient of Variation 12.9 % (11.5-14.5) Immature Granulocyte % (Auto) 0.1 % Immature Granulocyte # (Auto) 0.01 K/uL (0.00-0.02) Anion Gap 7.0 mmol/L (3-11) Est Creatinine Clear Calc Drug Dose 144.8 ml/min Estimated GFR () 120.3 Estimated GFR (Non- 103.8 BUN/Creatinine Ratio 13.4 (10-20) Calcium Level 9.7 mg/dl (8.5-10.1) Total Bilirubin 0.5 mg/dl (0.2-1) Direct Bilirubin 0.1 mg/dl (0-0.2) Aspartate Amino Transf (AST/SGOT) 34 U/L (15-37) Alanine Aminotransferase (ALT/SGPT) 52 U/L (12-78) Alkaline Phosphatase 138 U/L (45-117) Total Protein 8.0 gm/dl (6.4-8.2) Albumin 3.9 gm/dl (3.4-5.0) Lipase 227 U/L (73-393) Laboratory results per my review. Medications Administered Medications (Trade) Dose Ordered Sig/Lance Route Start Time Stop Time Status Last Admin Dose Admin Sodium Chloride 1,000 ml @ 999 mls/hr Q1H1M STAT IV 04/07/17 09:55 04/07/17 10:55 DC 04/07/17 10:05 999 MLS/HR Ondansetron HCl (Zofran Inj) 4 mg NOW STAT IV 04/07/17 09:55 04/07/17 09:57 DC 04/07/17 10:06 4 MG Ketorolac Tromethamine (Toradol Inj) 30 mg NOW STAT IV 04/07/17 09:55 04/07/17 09:57 DC 04/07/17 10:05 30 MG ED Course ED COURSE: Vital signs were reviewed and showed hypertension The patients medical record was reviewed The above diagnostic studies were performed and reviewed. ED treatments and interventions as stated above. 0947: The patient was evaluated in room C4. A complete history and physical examination was performed. 0955: Ordered Toradol Inj 30 mg IV, Zofran Inj 4 mg IV, Sodium Chloride 1000 ml @ 999 mls/hr IV. 1200: Upon reevaluation, the patient is resting comfortably. I discussed my findings with the patient and he understands and agrees with the treatment plan. Based on the patients age, coexisting illnesses, exam and lab findings the decision to treat as an outpatient was made. The patient remained stable while under my care. The patient appeared well at the time of discharge. Medical Decision Differential diagnoses includes but is not limited to gastritis, peptic ulcer disease, GERD, gallbladder disease, pancreatitis, small bowel obstruction, acute coronary syndrome, pericarditis, ischemic bowel, irritable bowel disease, irritable bowel syndrome, appendicitis, diverticulitis, malignancy, hernia, urinary tract infection, torsion, perforation, trauma, infectious. Patient is a 37-year-old male who presents the ER for hematuria and pain in the suprapubic region. He also complains of a mild achiness in his left flank. UA shows RBCs without infection. CT supports a 3 mm distal UVJ stone. Patient was given IV fluids and pain medications. He felt slightly better. He was updated regards to his findings. He was discharged with renal colic on Flomax and Oxy IR to follow-up with his PCP/urology. Discussed with Pt concerning signs and symptoms to watch out for. Pt was instructed to follow up with their PCP and discussed with the patient their option to return to the ED at anytime for persistent or worsening symptoms. The appropriate anticipatory guidance and out-patient management, including indications for return to the emergency department, were explained at length to the patient and understood. Impression Primary Impression: Renal colic Scribe Attestation The scribe's documentation has been prepared under my direction and personally reviewed by me in its entirety. I confirm that the note above accurately reflects all work, treatment, procedures, and medical decision making performed by me. Departure Information Dispostion Home / Self-Care Prescriptions Oxycodone Immediate Rel Tab (ROXICODONE IR) 5 Mg Tab 5 MG PO Q6H Y for Pain, #14 TAB Prov: Sandeep Felipe, DO 04/07/17 Tamsulosin Hcl (FLOMAX) 0.4 Mg Cap 0.4 MG PO DAILY, #10 CAP Prov: Sandeep Felipe, DO 04/07/17 Referrals Surinder Hennessy M.D. (MEDICAL) (PCP) Forms HOME CARE DOCUMENTATION FORM, IMPORTANT VISIT INFORMATION Patient Instructions ED Stone Renal W Colic, My [facility] Additional Instructions Please follow up with your primary care doctor with in the next 24 hours. Any worsening of your symptoms, please return to the ED immediately. This includes fevers
== END 2017-04-07 12:27 | disposition home or self-care (01) ==
LOC: C.EDB 09:06 → C.EDC 12:27
DX: N23 Unspecified renal colic (principal); F32.9 Major depressive disorder, single episode, unspecified; E11.9 Type 2 diabetes mellitus without complications; K21.9 Gastro-esophageal reflux disease without esophagitis; K58.9 Irritable bowel syndrome, unspecified; Z87.442 Personal history of urinary calculi; G47.33 Obstructive sleep apnea (adult) (pediatric); Z79.899 Other long term (current) drug therapy

== ENCOUNTER 2017-06-08 14:50 | Emergency (ER) | payer OTHER ==
[~2017-06-08] VITALS: Ht 177.8 cm; Wt 130.6 kg
[~2017-06-08 14:50] MED LIST changes: -OXYC-57 PO; +OXYC1TAB3 PO; -RANI300T2 PO; -SIME80CH PO
[2017-06-08 14:57] VITALS: TEMP 36.5; Ht 177.8 cm; Wt 130.6 kg
[2017-06-08 16:09] LABS: PROTHROMBIN TIME (PATIENT) 10.5 SECONDS (9.0-12.0)
--- NOTE | 2017-06-08 16:36 | EMERGENCY ROOM VISIT NOTE ---
History First contact with patient: 15:01 Chief Complaint: LEG PAIN,LEG INJURY Stated Complaint: HURT LEG History of Present Illness The patient is a 37 year old male who presents to the Emergency Room with complaints of right lower leg pain. The patient states that he was at work with both feet planted on the floor and turned and felt a pop and had immediately pain in his right lower leg. The patient states now it hurts to bear weight on the right leg. The patient also states he is feeling a little numbness in his right foot. The patient denies any ankle or knee pain. The patient denies any chest pain or shortness of breath. The patient currently does not smoke. The patient denies any recent travel or surgery. Review of Systems 10 system review was performed and was negative unless stated otherwise history of present illness. Past Medical/Surgical History Medical Problems: (1) Depression (2) Diabetes (3) GERD (gastroesophageal reflux disease) (4) HTN (hypertension) (5) IBS (irritable bowel syndrome) (6) Kidney stones (7) LINDA (obstructive sleep apnea) (8) Personal History Of Urinary Calculi Surgical Problems: (1) H/O cystoscopy (2) H/O shoulder surgery (3) H/O wisdom tooth extraction (4) History of open reduction and internal fixation (ORIF) procedure Family History Patient reports no known family medical history. Social History Smoking Status: Never Smoker Marital Status: Housing Status: lives with family Occupation Status: employed Current/Historical Medications Scheduled Amitriptyline Hcl (Elavil), 10 MG PO HS Bismuth Subsalicylate (Pepto Bismol Chew Tab), 2 TAB PO PRN UD Diphenoxylate W/ Atropine (Lomotil), 1 TAB PO QID Liraglutide (Victoza), 1.8 MG SQ QPM Metformin Hcl (Glucophage), 1,000 MG PO BID Omeprazole (Prilosec), 40 MG PO DAILY Sertraline (Zoloft), 50 MG PO HS Physical Exam Vital Signs Date Time Temp Pulse Resp B/P (MAP) Pulse Ox O2 Delivery O2 Flow Rate FiO2 06/08/17 14:57 36.5 93 20 165/96 96 Room Air Physical Exam GENERAL: Obese 37-year-old white male appears in no acute distress. MENTAL STATUS: Alert and oriented 3. NECK: Supple, no lymphadenopathy noted. No carotid bruits noted. LUNGS: Clear auscultation without wheezes rales or rhonchi. CARDIAC: Regular rate and rhythm without murmur. Pulses is full and equal throughout. RIGHT LOWER LEG: No erythema noted. The patient has mild edema noted over the posterior aspect of the calf. There is a varicose vein in the area of tenderness. No increased temperature to touch. No palpable cords. The patient has increased pain with dorsiflexion of the ankle. Medical Decision & Procedures Laboratory Results Test 06/08/17 15:40 Prothrombin Time 10.5 SECONDS (9.0-12.0) Prothromb Time International Ratio 1.0 (0.9-1.1) Activated Partial Thromboplast Time 25.9 SECONDS (21.0-31.0) Partial Thromboplastin Ratio 1.0 ED Course The patient was evaluated. The patient's EMR medication list were reviewed. Coags were ordered. Coags were reviewed and were normal. The patient was offered pain medication but declined. Venous Doppler the right lower extremity was ordered. This was pending at the end of my shift. The patient's case was signed out to Sherry Felix at the end of my shift. Please see her note for further ER care and disposition. Medical Decision Differential diagnosis include varicose pain, DVT, strain ligament, muscle tear [place] Drug Monitoring Program Search Results: patient reviewed within database Medication Reconcilliation Current Medication List: was personally reviewed by me Blood Pressure Screening Patient's blood pressure: Elevated blood pressure Blood pressure disposition: Elevated BP felt to be situational Impression Primary Impression: Pain in right lower leg Departure Information Dispostion Still a Patient Condition GOOD Referrals Surinder Hennessy M.D. (MEDICAL) (PCP) Patient Instructions My [facility] [address]
--- NOTE | 2017-06-08 18:01 | DIAGNOSTIC IMAGING REPORT ---
RIGHT VENOUS DOPP LOWER EXT UNILAT CLINICAL HISTORY: lower leg pain Right pain. Edema. TECHNIQUE: Venous Doppler COMPARISON STUDY: None FINDINGS: Normal study IMPRESSION: Normal study The above report was generated using voice recognition software. It may contain grammatical, syntax or spelling errors. Electronically signed by: John Hsieh M.D. 06/08/2017 6:00 PM Dictated Date/Time: 06/08/2017 5:59 PM
--- NOTE | 2017-06-08 18:17 | EMERGENCY ROOM VISIT NOTE ---
ED Visit Note ED note: Care of this 37-year-old white male patient was signed out to me from Jada Hsieh PA-C, at change of shift, pending right lower extremity ultrasound. Please refer to her history, physical exam and ED course to this point. Ultrasound of the right lower extremity was negative for DVT. The patient has sustained a strain to the medial right calf. He was wrapped with an Jean [place] wrap and issued crutches and instructed on a weight bear as tolerated gait. He was given a note to be out of work for 2 days, if he does not feel that he can return within this timeframe that he will need to follow-up with his Worker's Compensation provider. RIGHT VENOUS DOPP LOWER EXT UNILAT CLINICAL HISTORY: lower leg pain Right pain. Edema. TECHNIQUE: Venous Doppler COMPARISON STUDY: None FINDINGS: Normal study IMPRESSION: Normal study DIAGNOSIS: Right calf strain Work-related injury DISCHARGE INSTRUCTIONS: Ibuprofen(Motrin, Advil) may be used for fever or pain. Use 600mg every six hours as needed. Take with food. Avoid using more than 2400mg in a 24 hour period. Do not use 2400mg per day for more than three consecutive days without physician direction. Prolonged inappropriate use can lead to stomach upset or ulcers. This medication can be taken if you need to drive, work, or perform activities which may be dangerous when taking narcotic pain medication. (AND/OR) Acetaminophen(Tylenol) may be used for fever or pain. Use 1000mg every six hours as needed. Avoid using more than 3000mg in a 24 hour period. This medication can be taken if you need to drive, work, or perform activities which may be dangerous when taking narcotic pain medication. Ice compresses for 20 minutes at a time four times daily for 2-3 days. Use the gel splint and crutches as instructed. Rest and elevate your injury. Continue current medications. Return to the ER immediately for any numbness, tingling, severe pain, extreme swelling in the extremity or as needed. Followup with your workers compensation physician in 3-5 days if no improvement.
[2017-06-08 18:35] VITALS: BP 140/83; PULSE 99; O2SAT 96
== END 2017-06-08 18:36 | disposition home or self-care (01) ==
LOC: C.EDB 14:52 → C.EDD 18:36
DX: S86.811A Strain of other muscle(s) and tendon(s) at lower leg level, right leg, initial encounter (principal); X50.1XXA Overexertion from prolonged static or awkward postures, initial encounter; Y92.89 Other specified places as the place of occurrence of the external cause; Y99.0 Civilian activity done for income or pay; F32.9 Major depressive disorder, single episode, unspecified; E11.9 Type 2 diabetes mellitus without complications; K21.9 Gastro-esophageal reflux disease without esophagitis; K58.9 Irritable bowel syndrome, unspecified; Z87.442 Personal history of urinary calculi; G47.33 Obstructive sleep apnea (adult) (pediatric); Z79.899 Other long term (current) drug therapy

== ENCOUNTER 2017-10-28 15:27 | Emergency (ER) | payer OTHER ==
[~2017-10-28] VITALS: Ht 177.8 cm; Wt 139.0 kg
[~2017-10-28 15:27] MED LIST changes: -AMIT10TA6 PO; -BISM262T3 PO; -LIRA18IN SQ; -METF-384 PO; -OXYC1TAB3 PO; -SERT50TA PO
[2017-10-28 15:39] VITALS: TEMP 36.9; Ht 177.8 cm; Wt 139.0 kg
[2017-10-28] MEDS ORDERED: MoRPHine SULFATE 10 MG/ML CARP/VIAL IV STA (17:05)
[2017-10-28] MEDS ORDERED: SODIUM CHLORIDE 0.9% 1000ML 1,000 ML IV STA (17:05)
[2017-10-28] MEDS ORDERED: KETOROLAC TROMETHAMINE 30 MG/ML VIAL IV STA (17:05)
[2017-10-28 17:09] LABS: BASO % 0.5 %; BASO ABS # 0.03 K/uL (0-0.2); EOS % 3.4 %; EOS ABS # 0.22 K/uL (0-0.5); HEMATOCRIT 43.8 % (42-52); HEMOGLOBIN 15.5 g/dL (14.0-18.0); IG# 0.01 K/uL (0.00-0.02); LYMPH % 31.1 %; MEAN CELL VOLUME 94.2 fL (80-100); MEAN CORPUSCULAR HEMOGLOBIN 33.3 pg (25-34); MEAN CORPUSCULAR HGB CONC 35.4 g/dl (32-36); MEAN PLATELET VOLUME 10.8 fL (7.4-10.4); MONO % 6.5 %; MONO ABS # 0.42 K/uL (0.11-0.59); NEUT % 58.3 %; NEUT ABS # 3.75 K/uL (1.4-6.5); PLATELET COUNT 102 K/uL (130-400); RED CELL DISTRIBUTION WIDTH CV 13.1 % (11.5-14.5); RED CELL DISTRIBUTION WIDTH SD 44.8 fL (36.4-46.3); WHITE BLOOD COUNT 6.43 K/uL (4.8-10.8)
[2017-10-28 17:27] LABS: ALBUMIN 3.6 gm/dl (3.4-5.0); CALCIUM 9.5 mg/dl (8.5-10.1); CREATININE 0.88 mg/dl (0.60-1.40); POTASSIUM 3.8 mmol/L (3.5-5.1)
--- NOTE | 2017-10-28 17:27 | DIAGNOSTIC IMAGING REPORT ---
CT SCAN OF THE ABDOMEN AND PELVIS WITHOUT IV CONTRAST CLINICAL HISTORY: Flank pain. COMPARISON STUDY: Abdominal CT dated 04/07/2017. TECHNIQUE: CT scan of the abdomen and pelvis is performed from the lung bases to the proximal femora. Images are reviewed in the axial, sagittal, and coronal planes. IV contrast was not administered for this examination. A dose lowering technique was utilized adhering to the principles of ALARA. CT DOSE: 2274.59 mGy.cm FINDINGS: Lung bases: The heart is normal in size and without pericardial effusion. The lung bases are clear. Liver: The unenhanced liver is enlarged, measuring 26.4 cm in length. The liver demonstrates diffusely diminished attenuation consistent with severe hepatic steatosis. There is nodularity of the hepatic surface contour suggesting early change of cirrhosis. There is no intrahepatic biliary ductal dilatation. Gallbladder: Postoperative change suggests at least previous partial cholecystectomy. A calcified gallstone is suggested within the remaining gallbladder or cystic duct remnant on image #173. Spleen: The spleen is enlarged, measuring over 17 cm in length. Pancreas: Unremarkable. Adrenal glands: Unremarkable. Kidneys: The unenhanced kidneys are normal in size and without hydronephrosis. There are no renal calculi identified. There is no evidence of contour deforming renal mass lesion. Abdominal vasculature: The abdominal aorta is normal in course and caliber. Bowel: The small bowel and colon are normal in course and caliber. The appendix is well-visualized and normal. Peritoneum: There is no intraperitoneal free air or abdominal ascites. There is a small fat-containing umbilical hernia. Lymphadenopathy: There are shotty retroperitoneal lymph nodes. Pelvic viscera: The bladder, prostate, and seminal vesicles are normal as visualized. There are small bilateral fat-containing inguinal hernias. Skeletal structures: No lytic or blastic lesions are seen. IMPRESSION: 1. There are no acute infectious or inflammatory findings in the abdomen or pelvis. 2. Findings suggest previous cholecystectomy. A calcified gallstone is present within remaining portion of the gallbladder or a cystic duct remnant. 3. Hepatomegaly and severe hepatic steatosis. Nodularity of the surface contour suggests early change of cirrhosis. 4. Splenomegaly. 5. Additional findings as above. Electronically signed by: Cristo Jean M.D. 10/28/2017 5:26 PM Dictated Date/Time: 10/28/2017 5:20 PM
[2017-10-28 17:30] LABS: TOTAL PROTEIN 8.1 gm/dl (6.4-8.2)
[2017-10-28] MEDS ORDERED: OMEP20CA9 PO (17:33)
[2017-10-28] MEDS ORDERED: ASPI81TA28 PO (17:33)
[2017-10-28] MEDS ORDERED: DICY10CA55 PO (17:34)
[2017-10-28] MEDS ORDERED: MULT-506 PO (17:34)
[2017-10-28 18:00] VITALS: BP 123/90; PULSE 93; O2SAT 98
[2017-10-28] MEDS ORDERED: LIRA18IN SQ (18:56)
[2017-10-28] MEDS ORDERED: AMIT10TA6 PO (18:56)
[2017-10-28] MEDS ORDERED: BISM262T3 PO (18:56)
[2017-10-28] MEDS ORDERED: SERT50TA PO (19:41)
[2017-10-28] MEDS ORDERED: METF-384 PO (19:41)
--- NOTE | 2017-10-28 23:00 | EMERGENCY ROOM VISIT NOTE ---
History Report prepared by Amparo: Marina Schaeffer Under the Supervision of: Dr. Sandeep Felipe D.O. First contact with patient: 16:39 Chief Complaint: KIDNEY STONE Stated Complaint: KIDNEY STONE History of Present Illness The patient is a 37 year old male who presents to the Emergency Room with complaints of worsening left flank pain for the past two days. The patient has a history of kidney stones and states that this feels like his previous kidney stones. He rates his current pain as a 6/10 in severity. He reports nausea and decreased urinary frequency. He denies any dysuria. He states that his abdomen feels bloated and this is worse after eating. Pt denies headache, fevers, cough , chest pain, shortness of breath, vomiting, diarrhea, and melena. Source of History: patient Onset: 2 days ago Position: other (left flank) Symptom Intensity: 6/10 Timing: worsening Modifying Factors (Worsening): eating Associated Symptoms: + nausea, + urinary symptoms, No fevers, No headache, No cough, No chest pain, No SOB, No vomiting, No melena, No diarrhea Review of Systems See HPI for pertinent positives & negatives. A total of 10 systems reviewed and were otherwise negative. Past Medical & Surgical Medical Problems: (1) Depression (2) Diabetes (3) GERD (gastroesophageal reflux disease) (4) HTN (hypertension) (5) IBS (irritable bowel syndrome) (6) Kidney stones (7) LINDA (obstructive sleep apnea) (8) Personal History Of Urinary Calculi Surgical Problems: (1) H/O cystoscopy (2) H/O shoulder surgery (3) H/O wisdom tooth extraction (4) History of open reduction and internal fixation (ORIF) procedure Family History Patient reports no known family medical history. Social History Smoking Status: Former Smoker Marital Status: Housing Status: lives with family Occupation Status: employed Current/Historical Medications Scheduled Amitriptyline Hcl (Elavil), 10 MG PO HS Aspirin (Aspirin Ec), 81 MG PO DAILY Dicyclomine Hcl (Bentyl), 10 MG PO BID Liraglutide (Victoza), 1.8 MG SQ QPM Metformin Hcl (Glucophage), 1,000 MG PO BID Multivitamin (Multivitamin), 1 TAB PO DAILY Omeprazole (Prilosec), 20 MG PO DAILY Sertraline (Zoloft), 50 MG PO HS Scheduled PRN Bismuth Subsalicylate (Pepto Bismol Chew Tab), 262 MG PO UD PRN for Diarrhea Allergies Coded Allergies: Menthol (Verified Allergy, Severe, WELTS, 04/07/17) Pineapple (Verified Allergy, Severe, THROAT CLOSES TO THE FRUIT, 04/07/17) PER NURSE IN SDS Cephalexin (Verified Allergy, Intermediate, HIVES, 04/07/17) Penicillins (Verified Allergy, Unknown, RASH, 04/07/17) RASH Physical Exam Vital Signs Date Time Temp Pulse Resp B/P (MAP) Pulse Ox O2 Delivery O2 Flow Rate FiO2 10/28/17 18:00 93 20 123/90 98 10/28/17 16:56 96 20 126/87 98 Room Air 10/28/17 15:39 36.9 104 20 145/84 96 Room Air Physical Exam GENERAL: Sitting up in bed, alert, well appearing, well nourished, mild distress , non-toxic EYE EXAM: normal conjunctiva. OROPHARYNX: no exudate, no erythema, lips, buccal mucosa, and tongue normal and mucous membranes are moist NECK: supple, no nuchal rigidity, no adenopathy, non-tender LUNGS: Clear to auscultation. Normal chest wall mechanics HEART: no murmurs, S1 normal and S2 normal ABDOMEN: abdomen soft, tenderness in LUQ, normo-active bowel sounds, no masses, no rebound or guarding. BACK: Back is symmetrical on inspection and there is no deformity, no midline tenderness, no CVA tenderness. SKIN: no rashes and no bruising UPPER EXTREMITIES: upper extremities are grossly normal. LOWER EXTREMITIES: No pitting edema. NEURO EXAM: Normal sensorium, cranial nerves II-XII grossly intact, normal speech, no gross weakness of arms, no gross weakness of legs. Medical Decision & Procedures ER Provider Diagnostic Interpretation: Radiology results as stated below per my review and the radiologist's interpretation: CT SCAN OF THE ABDOMEN AND PELVIS WITHOUT IV CONTRAST CLINICAL HISTORY: Flank pain. COMPARISON STUDY: Abdominal CT dated 04/07/2017. TECHNIQUE: CT scan of the abdomen and pelvis is performed from the lung bases to the proximal femora. Images are reviewed in the axial, sagittal, and coronal planes. IV contrast was not administered for this examination. A dose lowering technique was utilized adhering to the principles of ALARA. CT DOSE: 2274.59 mGy.cm FINDINGS: Lung bases: The heart is normal in size and without pericardial effusion. The lung bases are clear. Liver: The unenhanced liver is enlarged, measuring 26.4 cm in length. The liver demonstrates diffusely diminished attenuation consistent with severe hepatic steatosis. There is nodularity of the hepatic surface contour suggesting early change of cirrhosis. There is no intrahepatic biliary ductal dilatation. Gallbladder: Postoperative change suggests at least previous partial cholecystectomy. A calcified gallstone is suggested within the remaining gallbladder or cystic duct remnant on image #173. Spleen: The spleen is enlarged, measuring over 17 cm in length. Pancreas: Unremarkable. Adrenal glands: Unremarkable. Kidneys: The unenhanced kidneys are normal in size and without hydronephrosis. There are no renal calculi identified. There is no evidence of contour deforming renal mass lesion. Abdominal vasculature: The abdominal aorta is normal in course and caliber. Bowel: The small bowel and colon are normal in course and caliber. The appendix is well-visualized and normal. Peritoneum: There is no intraperitoneal free air or abdominal ascites. There is a small fat-containing umbilical hernia. Lymphadenopathy: There are shotty retroperitoneal lymph nodes. Pelvic viscera: The bladder, prostate, and seminal vesicles are normal as visualized. There are small bilateral fat-containing inguinal hernias. Skeletal structures: No lytic or blastic lesions are seen. IMPRESSION: 1. There are no acute infectious or inflammatory findings in the abdomen or pelvis. 2. Findings suggest previous cholecystectomy. A calcified gallstone is present within remaining portion of the gallbladder or a cystic duct remnant. 3. Hepatomegaly and severe hepatic steatosis. Nodularity of the surface contour suggests early change of cirrhosis. 4. Splenomegaly. 5. Additional findings as above. Electronically signed by: Cristo Jean M.D. 10/28/2017 5:26 PM Dictated Date/Time: 10/28/2017 5:20 PM Laboratory Results 10/28/17 16:48 Red Blood Count 4.65, Mean Corpuscular Volume 94.2, Mean Corpuscular Hemoglobin 33.3, Mean Corpuscular Hemoglobin Concent 35.4, Mean Platelet Volume 10.8, Neutrophils (%) (Auto) 58.3, Lymphocytes (%) (Auto) 31.1, Monocytes (%) (Auto) 6.5, Eosinophils (%) (Auto) 3.4, Basophils (%) (Auto) 0.5, Neutrophils # (Auto) 3.75, Lymphocytes # (Auto) 2.00, Monocytes # (Auto) 0.42, Eosinophils # (Auto) 0.22, Basophils # (Auto) 0.03 10/28/17 16:48 Test 10/28/17 16:40 10/28/17 16:48 Urine Color YELLOW Urine Appearance CLEAR (CLEAR) Urine pH 5.5 (4.5-7.5) Urine Specific [place] 1.028 (1.000-1.030) Urine Protein NEG (NEG) Urine Glucose (UA) 1+ (NEG) Urine Ketones NEG (NEG) Urine Occult Blood NEG (NEG) Urine Nitrite NEG (NEG) Urine Bilirubin NEG (NEG) Urine Urobilinogen NEG (NEG) Urine Leukocyte Esterase NEG (NEG) Urine WBC (Auto) 1-5 /hpf (0-5) Urine RBC (Auto) 0-4 /hpf (0-4) Urine Hyaline Casts (Auto) 1-5 /lpf (0-5) Urine Epithelial Cells (Auto) 5-10 /lpf (0-5) Urine Bacteria (Auto) NEG (NEG) White Blood Count 6.43 K/uL (4.8-10.8) Red Blood Count 4.65 M/uL (4.7-6.1) Hemoglobin 15.5 g/dL (14.0-18.0) Hematocrit 43.8 % (42-52) Mean Corpuscular Volume 94.2 fL (80-100) Mean Corpuscular Hemoglobin 33.3 pg (25-34) Mean Corpuscular Hemoglobin Concent 35.4 g/dl (32-36) Platelet Count 102 K/uL (130-400) Mean Platelet Volume 10.8 fL (7.4-10.4) Neutrophils (%) (Auto) 58.3 % Lymphocytes (%) (Auto) 31.1 % Monocytes (%) (Auto) 6.5 % Eosinophils (%) (Auto) 3.4 % Basophils (%) (Auto) 0.5 % Neutrophils # (Auto) 3.75 K/uL (1.4-6.5) Lymphocytes # (Auto) 2.00 K/uL (1.2-3.4) Monocytes # (Auto) 0.42 K/uL (0.11-0.59) Eosinophils # (Auto) 0.22 K/uL (0-0.5) Basophils # (Auto) 0.03 K/uL (0-0.2) RDW Standard Deviation 44.8 fL (36.4-46.3) RDW Coefficient of Variation 13.1 % (11.5-14.5) Immature Granulocyte % (Auto) 0.2 % Immature Granulocyte # (Auto) 0.01 K/uL (0.00-0.02) Anion Gap 5.0 mmol/L (3-11) Est Creatinine Clear Calc Drug Dose 160.0 ml/min Estimated GFR () 126.3 Estimated GFR (Non- 109.0 BUN/Creatinine Ratio 10.1 (10-20) Calcium Level 9.5 mg/dl (8.5-10.1) Total Bilirubin 0.7 mg/dl (0.2-1) Direct Bilirubin 0.2 mg/dl (0-0.2) Aspartate Amino Transf (AST/SGOT) 57 U/L (15-37) Alanine Aminotransferase (ALT/SGPT) 102 U/L (12-78) Alkaline Phosphatase 157 U/L (45-117) Total Protein 8.1 gm/dl (6.4-8.2) Albumin 3.6 gm/dl (3.4-5.0) Lipase 243 U/L (73-393) Laboratory results per my review. Medications Administered Medications (Trade) Dose Ordered Sig/Lance Route Start Time Stop Time Status Last Admin Dose Admin Morphine Sulfate (MoRPHine SULFATE INJ) 6 mg NOW STAT IV 10/28/17 17:10/28/17 17:07 DC 10/28/17 17:22 6 MG Ketorolac Tromethamine (Toradol Inj) 30 mg NOW STAT IV 10/28/17 17:05 10/28/17 17:07 DC 10/28/17 17:22 30 MG Sodium Chloride 1,000 ml @ 999 mls/hr Q1H1M STAT IV 10/28/17 17:05 10/28/17 18:05 DC 10/28/17 17:23 999 MLS/HR ED Course ED COURSE: Vital signs were reviewed and showed normal vitals. The patients medical record was reviewed The above diagnostic studies were performed and reviewed. ED treatments and interventions as stated above. 1645: The patient was evaluated in room A2. A complete history and physical examination was performed. 1705: NSS 1000 ml @ 999 mls/hr IV, Toradol 30 mg IV, Morphine sulfate 6 mg IV 1738: Upon reevaluation, the patient is feeling better and resting comfortably. I discussed my findings with the patient and he understands and agrees with the treatment plan. Based on the patients age, coexisting illnesses, exam and lab findings the decision to treat as an outpatient was made. The patient remained stable while under my care. The patient appeared well at the time of discharge. Medical Decision Differential diagnoses includes but is not limited to gastritis, peptic ulcer disease, GERD, gallbladder disease, pancreatitis, small bowel obstruction, acute coronary syndrome, pericarditis, ischemic bowel, irritable bowel disease, irritable bowel syndrome, appendicitis, diverticulitis, malignancy, hernia, urinary tract infection, torsion, perforation, trauma, infectious. Patient is a 37-year-old male who presents to ER for left flank pain which started several days ago. CBC all BMP, and bilirubin was unremarkable. LFTs were slightly elevated but consistent with old. Lipase is normal. UA was negative. CT of abdomen and pelvis shows no acute pathology. This was performed in light of his previous history of stones as he was acutely tender in the left upper/left mid quadrant. I did consider possible diverticulitis. With the negative CT patient had are received IV narcotics was feeling significantly better. He is discharged follow-up with PCP as an outpatient. Discussed with Pt concerning signs and symptoms to watch out for. Pt was instructed to follow up with their PCP and discussed with the patient their option to return to the ED at anytime for persistent or worsening symptoms. The appropriate anticipatory guidance and out-patient management, including indications for return to the emergency department, were explained at length to the patient and understood. Medication Reconcilliation Current Medication List: was personally reviewed by me Blood Pressure Screening Patient's blood pressure: Normal blood pressure Impression Primary Impression: Left flank pain Additional Impression: Transaminitis Scribe Attestation The scribe's documentation has been prepared under my direction and personally reviewed by me in its entirety. I confirm that the note above accurately reflects all work, treatment, procedures, and medical decision making performed by me. Departure Information Dispostion Home / Self-Care Referrals Surinder Hennessy M.D. (MEDICAL) (PCP) Forms HOME CARE DOCUMENTATION FORM, IMPORTANT VISIT INFORMATION Patient Instructions ED Flank Pain Uncertain Cause, My [facility] Additional Instructions Please follow up with your primary care doctor with in the next 24 hours. Any worsening of your symptoms, please return to the ED immediately. This includes any fevers greater than 100.4, worsening pain, chest pain, shortness breath, persistent nausea, vomiting, unable to eat or drink, or any other concerning signs or symptoms from your standpoint. You were given medications during this visit that will inhibit your ability to drive, operate machinery and work. Please do NOT drive, operate machinery, drink alcohol or work for the next 12hrs. Please take Tylenol or Motrin as needed for pain. Problem Qualifiers
== END 2017-10-28 18:00 | disposition home or self-care (01) ==
LOC: C.EDB 15:28 → C.EDA 18:00
DX: R10.84 Generalized abdominal pain (principal); R74.0 Nonspecific elevation of levels of transaminase and lactic acid dehydrogenase [LDH]; F32.9 Major depressive disorder, single episode, unspecified; E11.9 Type 2 diabetes mellitus without complications; K21.9 Gastro-esophageal reflux disease without esophagitis; I10 Essential (primary) hypertension; K58.9 Irritable bowel syndrome, unspecified; G47.33 Obstructive sleep apnea (adult) (pediatric); Z87.891 Personal history of nicotine dependence; Z79.82 Long term (current) use of aspirin

== ENCOUNTER → 2017-12-14 | Day surgery (SDC) | payer OTHER ==
[2017-12-08 11:41] VITALS: Ht 177.8 cm; Wt 138.6 kg
[~2017-12-14] VITALS: Ht 177.8 cm; Wt 138.6 kg
[~2017-12-14] MED LIST changes: +AMIT10TA6 PO; +ASPI81TA28 PO; -DPH/ PO; +LIDOCAINE HCL 2% 2 ML VIAL (20MG/ML) ONE; +LIRA18IN SQ; +METF-384 PO; +MIDAZOLAM HCL 1 MG/ML 2ML VIAL ONE; +MULT-506 PO; +OMEP20CA9 PO; -OMEP40CA41 PO; +ONDANSETRON INJ 2 MG/ML 2 ML VIAL ONE; +PROPOFOL IV EMULSION 10 MG/ML 20 ML VIAL IV ONE; +SERT50TA PO; +SODIUM CHLORIDE 0.9% 500ML 500 ML IV ONE; +[UNRECOGNIZED DRUG - CODE] RE
[2017-12-14 09:22] VITALS: TEMP 36.5
--- NOTE | 2017-12-14 09:53 | Endo History and Physical ---
History & Physical Date of Service: Dec 14, 2017. Chief Complaint: RECTAL BLEEDING, RECTAL PAIN Referring Physician: DR. HART History of Present Illness patient with rectal pain and bleeding Past Medical History Diabetes, Anxiety, Reflux, Sleep Apnea, Hypertension Past Surgical History Hx Cardiac Surgery: No Hx Internal Defibrillator: No Hx Pacemaker: No Hx Abdominal Surgery: Yes (MADELYN) Hx of Implantable Prosthesis: No Hx Post-Op Nausea and Vomiting: Yes (NAUSEATED WITH MADELYN) Hx Cancer Surgery: No Hx Thoracic Surgery: No Hx Orthopedic: Yes (RT SHOULDER SURGERY) Hx Urinary Tract Surgery: Yes (CYSTOSCOPY AND KIDNEY STONE REMOVAL/STENTS X 2) Family History None Social History Smoking Status: Former Smoker Hx Substance Use: No Hx Alcohol Use: Yes (RARELY) Allergies Coded Allergies: Menthol (Verified Allergy, Severe, WELTS, 12/08/17) Pineapple (Verified Allergy, Severe, THROAT CLOSES TO THE FRUIT, 12/08/17) PER NURSE IN SDS Cephalexin (Verified Allergy, Intermediate, HIVES, 12/08/17) Penicillins (Verified Allergy, Unknown, RASH, 12/08/17) RASH Current Medications Reported Home Medications Medications Dose Route/Sig Max Daily Dose Days Date Category Analpram Hc 2.5-1 % (Hydrocortisone Acetate W/ Pram) 1 Cre Cre 1 Dose RE DIRECTED PRN 12/08/17 Reported Multivitamin (Multivitamins) Tab 1 Tab PO DAILY 10/28/17 Reported Aspirin Ec (Aspirin) 81 Mg Tab 81 Mg PO QPM 10/28/17 Reported Prilosec (Omeprazole) 20 Mg Cap 20 Mg PO QAM 10/28/17 Reported Victoza (Liraglutide) 18 Mg/3 Ml Inj 1.8 Mg SQ QPM 01/20/17 Reported Elavil (Amitriptyline Hcl) 10 Mg Tab 10 Mg PO HS 01/20/17 Reported Zoloft (Sertraline HCl) 50 Mg Tab 50 Mg PO HS 07/30/15 Reported Glucophage (Metformin Hcl) 1,000 Mg Tab 1,000 Mg PO BID 07/30/15 Reported Vital Signs Weight (Kilograms): 138.64 Height (Feet): 5 Height (Inches): 10 Date Time Temp Pulse Resp B/P (MAP) Pulse Ox O2 Delivery O2 Flow Rate FiO2 12/14/17 09:22 36.5 89 16 144/86 (105) 99 Room Air Physical Exam General Appearance: WD/WN Respiratory/Chest: Auscultation: breath sounds normal Cardiovascular: Heart Auscultation: RRR Abdomen: Inspection & Palpation: soft Liver: non-tender Assessment and Plan stable for colonoscopy
--- NOTE | 2017-12-14 10:26 | Discharge Instructions ---
Endoscopy Patient Instructions Date / Procedure(s) Performed Dec 14, 2017. Colonoscopy Allergy Information Coded Allergies: Menthol (Verified Allergy, Severe, WELTS, 12/08/17) Pineapple (Verified Allergy, Severe, THROAT CLOSES TO THE FRUIT, 12/08/17) PER NURSE IN SDS Cephalexin (Verified Allergy, Intermediate, HIVES, 12/08/17) Penicillins (Verified Allergy, Unknown, RASH, 12/08/17) RASH Discharge Date / Findings Dec 14, 2017. hemorrhoids and 2 small polyps Medication Instructions Stopped Medication(s): ASPIRIN 12/13/17 Provider Instructions Activity Restrictions - No exercising or heavy lifting for 24 hours. - Do not drink alcohol the day of the procedure. - Do not drive a car or operate machinery until the day after the procedure. - Do not make any important decisions or sign important papers in 24 hours after the procedure. Following Day: - Return to full activity which may include returning to work/school. Diet Start your diet with liquids and light foods (jello, soup, juice, toast). Then eat your usual diet if not nauseated. Treatment For Common After Affects For mild abdominal pain, bloating, or excessive gas: - Rest - Eat lightly - Lie on right side Follow-Up Information Follow-up with DR. HART as scheduled Anesthesia Information What You Should Know You have had a procedure that required some medicine to reduce anxiety and discomfort. This treatment is called moderate sedation. After receiving the treatment, you may be sleepy, but you will be able to breathe on your own. The effects of the treatment may last for several hours. Follow these instructions along with Activity/Diet recommendations noted above: * Do NOT do anything where dizziness or clumsiness would be dangerous. * Rest quietly at home today, then you can be up and about tomorrow. * Have a responsible person stay with you the rest of today. * You may have had an I.V. today. If so, you may take the dressing off later today. Recommendations Call your doctor if: * Trouble breathing * Continuous vomiting for more than 24 hours * Temperature above 101 degrees * Severe abdominal pain or bloating * Pain not relieved by pain medicine ordered * There is increased drainage or redness from any incision * A large amount of rectal bleeding greater than 2-3 tablespoons. (If you had a polyp/s removed or have hemorrhoids, a small amount of blood - from the rectum is to be expected.) * You have any unanswered questions or concerns. IN THE EVENT OF A SERIOUS EMERGENCY, GO TO THE NEAREST EMERGENCY ROOM Your discharge instructions were prepared by provider Irvin Judge. Patient Instructions Signature Page Enmaunel Swartz Patient (or Guardian) Signature/Date: I have read and understand the instructions given to me by my caregivers. Caregiver/RN/Doctor Signature/Date: The above-named patient and/or guardian has received patient instructions on this date. + Original Patient Signature Page (only) stays with chart. Please make copy for patient.
--- NOTE | 2017-12-14 10:31 | GI REPORT ---
Procedure Date: 12/14/2017 10:03 AM Procedure: Colonoscopy Indications: Hematochezia, Rectal bleeding Medicines: See the Anesthesia note for documentation of the administered medications Complications: No immediate complications. Estimated Blood Loss: Estimated blood loss was minimal. Procedure: Pre-Anesthesia Assessment: - Prior to the procedure, a History and Physical was performed, and patient medications, allergies and sensitivities were reviewed. The patient's tolerance of previous anesthesia was reviewed. - The risks and benefits of the procedure and the sedation options and risks were discussed with the patient. All questions were answered and informed consent was obtained. - Patient identification and proposed procedure were verified prior to the procedure by the physician and the nurse. The procedure was verified in the pre-procedure area. - Pre-procedure physical examination revealed no contraindications to sedation. - After reviewing the risks and benefits, the patient was deemed in satisfactory condition to undergo the procedure. After I obtained informed consent, the scope was passed under direct vision. Throughout the procedure, the patient's blood pressure, pulse, and oxygen saturations were monitored continuously. The scope was introduced through the anus and advanced to the terminal ileum, with identification of the appendiceal orifice and IC valve. The colonoscopy was performed without difficulty. The patient tolerated the procedure well. The quality of the bowel preparation was good. Findings: The perianal and digital rectal examinations were normal except for hemorrhoids. The terminal ileum appeared normal. A diminutive polyp was found in the ascending colon. The polyp was sessile. The polyp was removed with a jumbo cold forceps. Resection and retrieval were complete. Verification of patient identification for the specimen was done by the physician and nurse using the patient's name and medical record number. Estimated blood loss was minimal. A 5 mm polyp was found at 20 cm proximal to the anus. The polyp was semi-pedunculated. The polyp was removed with a cold snare. Resection and retrieval were complete. Verification of patient identification for the specimen was done by the physician and nurse using the patient's name and medical record number. Estimated blood loss was minimal. Internal hemorrhoids were found during retroflexion. The hemorrhoids were small. Impression: - The examined portion of the ileum was normal. - One diminutive polyp in the ascending colon, removed with a jumbo cold forceps. Resected and retrieved. - One 5 mm polyp at 20 cm proximal to the anus, removed with a cold snare. Resected and retrieved. - Internal and external hemorrhoids. - No evidence of IBD. Recommendation: - Await pathology results. - Discharge patient to home. Irvin Judge M.D. Irvin Judge MD 12/14/2017 10:31:12 AM This report has been signed electronically. Note Initiated On: 12/14/2017 10:03 AM I attest to the content of the Intraoperative Record and orders documented therein, exceptions below
[2017-12-14 11:00] VITALS: BP 157/86; PULSE 79; O2SAT 98
--- NOTE | 2017-12-14 11:57 | Anesthesiology Progress Note ---
Anesthesia Post Op Note Date & Time Dec 14, 2017 at 11:57 Vital Signs Pain Intensity: 0 Vital Signs Past 12 Hours Date Time Temp Pulse Resp B/P (MAP) Pulse Ox O2 Delivery O2 Flow Rate FiO2 12/14/17 11:00 79 16 157/86 (109) 98 Room Air 12/14/17 10:45 80 16 141/71 (94) 96 Room Air 12/14/17 10:30 83 16 110/59 (76) 96 Room Air 12/14/17 09:22 36.5 89 16 144/86 (105) 99 Room Air Notes Mental Status: alert / awake / arousable, participated in evaluation Pt Amnestic to Procedure: Yes Nausea / Vomiting: adequately controlled Pain: adequately controlled Airway Patency, RR, SpO2: stable & adequate BP & HR: stable & adequate Hydration State: stable & adequate Anesthetic Complications: no major complications apparent
== END | disposition home or self-care (01) ==
LOC: C.GI 08:44
PROVIDERS: ATTEND Internal Medicine Gastroenterology
DX: K62.5 Hemorrhage of anus and rectum (principal); K62.89 Other specified diseases of anus and rectum; K64.4 Residual hemorrhoidal skin tags; K64.8 Other hemorrhoids; K63.5 Polyp of colon; G47.33 Obstructive sleep apnea (adult) (pediatric); E11.9 Type 2 diabetes mellitus without complications; K21.9 Gastro-esophageal reflux disease without esophagitis; I10 Essential (primary) hypertension; F32.9 Major depressive disorder, single episode, unspecified; E66.9 Obesity, unspecified; Z68.41 Body mass index [BMI] 40.0-44.9, adult; Z90.49 Acquired absence of other specified parts of digestive tract; Z87.891 Personal history of nicotine dependence; Z91.018 Allergy to other foods; Z88.0 Allergy status to penicillin; Z79.82 Long term (current) use of aspirin; Z79.899 Other long term (current) drug therapy

== ENCOUNTER 2020-06-02 15:52 | Inpatient (IN) ==
[2020-06-02] MEDS ORDERED: KETOROLAC TROMETHAMINE 15 MG/ML VIAL IV STA (16:40)
[2020-06-02] MEDS ORDERED: HYDROmorphone INJ 0.5 MG/0.5 ML SYR IV STA ×2 (16:40→18:48)
[2020-06-02] MEDS ORDERED: SODIUM CHLORIDE 0.9% 1000ML 1,000 ML IV SCH (16:45)
--- NOTE | 2020-06-02 17:08 | Emergency Department Note ---
Impression & Plan Acute right flank pain, Acute UTI (urinary tract infection) ED Provider Note Provider: Arley Nicholson MD DATE OF SERVICE: 06/02/2020 CHIEF COMPLAINT: Right flank and inguinal pain HISTORY OF PRESENT ILLNESS: Patient is a 40-year-old gentleman with a history of kidney stones, liver issues, hypertension, diabetes presenting here today with reports of significant right inguinal and flank pain. Patient states that on Thursday at [facility] he had a ureteral stent placed and lithotripsy was performed. Developed over the next several days some worsening pain. Initially had hematuria on Thursday that improved and then returned significantly yesterday. Patient states that he now has urinary frequency and feels like he has pressure in the right inguinal region. Denies testicular pain. Does endorse some pain at the very tip of the penis. Denies any removal of the stent to his knowledge. Patient denies fever. Denies nausea. States sometimes get sweaty to the severity of the pain and the oxycodone is at home that he is run out of has not been affecting appreciably. Denies any new trauma. Denies any bruising over the flank. Pain is severe at this time. REVIEW OF SYSTEMS: A total of 10 review of systems was obtained and negative except as stated above in the HPI. PAST MEDICAL HISTORY: As noted above MEDICATIONS: Reviewed home medication listing. 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 ENT: Mucous membranes pink and moist. LUNGS: Airway patent. No retractions. HEART: Regular rate and rhythm. No chest wall tenderness ABDOMEN: Soft with some slight swelling of the right inguinal region and tenderness in the right inguinal crease. : No obvious rash or bruising in the genitourinary area or significant testicular tenderness. BACK: Some slight right mid axillary flank tenderness. No bruising noted. SKIN: Acyanotic, warm, dry, without rashes EXTREMITIES: Without swelling, tenderness or deformity NEUROLOGICAL: No focal deficits. No aphasia. No facial droop or slurred speech. Ambulatory. CONTINUOUS CARDIAC MONITORING: was ordered and showed a heart rate of 84 bpm in normal sinus rhythm Patient's hypertension was referred to the hospitalist Patient's laboratory studies and imaging reviewed. Differential includes Appendicitis, testicular torsion, infections, diverticulitis, UTI, obstruction, mesenteric ischemia, aortic pathology, inflammatory bowel disease, renal colic, PUD, pancreatitis, biliary pathology, h ernia, volvulus, constipation, as well as other pathologies. IMPRESSION/MEDICAL DECISION MAKING: Patient presents with significant right flank and inguinal pain. Not having acute testicular pain. Did have recent lithotripsy and stent placement. Question if his symptoms are related to this. Urinalysis was sent and basic labs ordered. CT scan of the abdomen pelvis was ordered. Due to some concerns could represent possible perinephric hematoma. Seems hemodynamically stable at this time. Does not seem that consistent with biliary pathology or acute appendicitis. Seems inconsistent with acute pancreatitis. Given some IV pain medicine and IV fluids to help with symptoms. Urinalysis difficult to interpret but red and white cells are noted without bacteria. Blood work was reassuring otherwise. No significant procedures indicative of sepsis. No signs of significant renal dysfunction. CT scan showed inflammatory changes are to tell if this is infectious versus just related to the stent. No large hernia noted or other acute gallbladder pathology. Reassessed the patient was still having significant pain. Given additional pain medications. Will treat with a dose of ciprofloxacin pending urine culture results to cover for any infection but again he does not appear septic at this time. Discussed with him given his significant pain and difficulty with control will observe here overnight in the hospital for better pain control. CT scan does not report significant evidence of perforation or nephric hematoma. DIAGNOSIS: Right flank pain, UTI DISPOSITION: Hospitalist will evaluate Patient was agreeable with this plan. Past Med/Surg History Medical History (Updated 06/02/20 @ 19:43 by Arley Nicholson M.D.) Depression Diabetes GERD (gastroesophageal reflux disease) HTN (hypertension) Kidney stones LINDA (obstructive sleep apnea) Surgical History H/O cystoscopy H/O shoulder surgery H/O wisdom tooth extraction History of open reduction and internal fixation (ORIF) procedure "Finger " Family History Other Family history not known due to adoption Social History Smoking Status: Former smoker Tobacco Type: Cigarettes Preferred Language: [place] Citizen marital status: Current Living Situation: Family Feels Safe at Home: Yes Allergies Allergies Allergy/AdvReac Type Severity Reaction Status Date / Time menthol Allergy Severe WELTS Verified 06/02/20 18:10 pineapple Allergy Severe THROAT Verified 06/02/20 18:11 CLOSES TO THE FRUIT cephalexin Allergy Intermediate HIVES Verified 06/02/20 18:11 Penicillins Allergy Intermediate RASH Verified 06/02/20 18:11 bee venom protein (honey bee) Allergy Anaphylaxis Unverified 06/02/20 18:08 Home Meds Home Medications Medication Instructions Recorded Confirmed hydrocortisone-pramoxine 1 applic DE DIRECTED PRN 08/11/18 06/02/20 [Analpram-HC] liraglutide [Victoza 2-Charles] 1.8 mg SUBCUT QPM 08/11/18 06/02/20 omeprazole 20 mg PO QAM 08/11/18 06/02/20 sertraline 50 mg PO HS 08/11/18 06/02/20 melatonin 1 mg PO HS PRN 03/19/19 06/02/20 metformin 1,000 mg PO BIDM 06/02/20 06/02/20 oxycodone 5 mg PO Q6H PRN 06/02/20 06/02/20 tamsulosin [Flomax] 0.4 mg PO DAILY 06/02/20 06/02/20 Previous Rx's Medication Instructions Recorded ondansetron HCl [Zofran] 4 mg PO TID #30 tab 08/11/18 epinephrine [EpiPen 2-Charles] 0.3 mg IM Q3H PRN #2 ea 03/19/19 Results & Data (ED) Vital Signs Vital Signs - 24 hr 06/02/20 16:10 06/02/20 17:16 06/02/20 17:30 Temperature 37.1 C Temperature Source Oral Pulse Rate 96 H Pulse Rate [Apical] Pulse Rate [Right Finger] 91 H Pulse Rhythm [Right Finger] Regular Respiratory Rate 18 16 Respiratory Effort / Characteristics Non-Labored Respiratory Depth Normal Blood Pressure 156/81 H Blood Pressure [Right Arm] 145/76 H Blood Pressure Mean 106 Blood Pressure Mean [Right Arm] 99 Blood Pressure Position [Right Arm] Pulse Oximetry 97 99 Oxygen Delivery Method Room Air Room Air Room Air Sepsis Recent Fever Within 48 Hours No Sepsis New/Unexplained Change in Mental Status No Sepsis Action Taken by Nursing No Action Required 06/02/20 18:00 06/02/20 18:53 Temperature Temperature Source Pulse Rate Pulse Rate [Apical] 81 Pulse Rate [Right Finger] 86 Pulse Rhythm [Right Finger] Regular Respiratory Rate 18 18 Respiratory Effort / Characteristics Non-Labored Respiratory Depth Normal Blood Pressure Blood Pressure [Right Arm] 140/72 146/83 H Blood Pressure Mean Blood Pressure Mean [Right Arm] 94 104 Blood Pressure Position [Right Arm] Lying Pulse Oximetry 96 98 Oxygen Delivery Method Room Air Room Air Sepsis Recent Fever Within 48 Hours Sepsis New/Unexplained Change in Mental Status Sepsis Action Taken by Nursing Laboratory Data Result diagrams: 06/02/20 17:02 06/02/20 17:02 Lab Results 06/02/20 06/02/20 06/02/20 Range/Units 17:02 17:02 17:10 WBC 6.04 (4.8-10.8) K/uL RBC 4.57 L (4.7-6.1) M/uL Hgb 14.8 (14.0-18.0) g/dL Hct 43.6 (42-52) % MCV 95.4 (80-100) fL MCH 32.4 (25-34) pg MCHC 33.9 (32-36) g/dL RDW Std Deviation 44.6 (36.4-46.3) fL RDW Coeff of Flavio 12.9 (11.5-14.5) % Plt Count 88 L (130-400) K/uL MPV 11.2 H (7.4-10.4) fL Immature Gran % (Auto) 0.2 % Neut % (Auto) 62.3 % Lymph % (Auto) 27.0 % Angelina % (Auto) 7.5 % Eos % (Auto) 2.8 % Baso % (Auto) 0.2 % Neut # (Auto) 3.77 (1.4-6.5) K/uL Lymph # (Auto) 1.63 (1.2-3.4) K/uL Angelina # (Auto) 0.45 (0.11-0.59) K/uL Eos # (Auto) 0.17 (0-0.5) K/uL Baso # (Auto) 0.01 (0-0.2) K/uL Immature Gran # (Auto) 0.01 (0.00-0.02) K/uL Sodium 137 (136-145) mmol/L Potassium 4.2 (3.5-5.1) mmol/L Chloride 106 (98-107) mmol/L Carbon Dioxide 24 (21-32) mmol/L Anion Gap 7.0 (3-11) BUN 17 (7-18) mg/dl Creatinine 0.96 (0.6-1.4) mg/dl Est Cr Clr Drug Dosing 135.2 ml/min Est GFR ( Amer) 113.3 Est GFR (Non-Af Amer) 97.8 BUN/Creatinine Ratio 17.2 (10-20) Glucose 188 H (70-99) mg/dl Calcium 10.0 (8.5-10.1) mg/dl Total Bilirubin 0.8 (0.2-1) mg/dl AST 41 H (15-37) U/L ALT 52 (12-78) U/L Alkaline Phosphatase 153 H (45-117) U/L Total Protein 8.1 (6.4-8.2) gm/dl Albumin 3.7 (3.4-5.0) gm/dl Globulin 4.4 H (2.5-4.0) gm/dl Albumin/Globulin Ratio 0.8 L (0.9-2) Lipase 130 (73-393) U/L Specimen Hemolysis Urine Color Brown Urine Appearance Turbid A (Clear) Urine pH (4.5-7.5) Ur Specific Gary 1.029 (1.000-1.030) Urine Protein (Negative) Urine Glucose (UA) (Negative) Urine Ketones (Negative) Urine Blood (Negative) Urine Nitrite (Negative) Urine Bilirubin (Negative) Urine Urobilinogen (Negative) Ur Leukocyte Esterase (Negative) Urine RBC >30 H (0-4) /hpf Urine WBC >30 H (0-5) /hpf Ur Epithelial Cells 10-20 H (0-5) /lpf Calcium Oxalate Crystal Present A (None Prsent) Urine Bacteria Negative (Negative) Hyaline Casts 0-5 (0-5) /lpf Administered Medications Hydromorphone HCl (Hydromorphone Inj 0.5 Mg/0.5 Ml Syr) 0.5 mg IV Q3H PRN PRN Reason: Pain Stop: 06/16/20 21:40 Last Admin: 06/02/20 21:55 Dose: 0.5 mg Documented by: [id number] Sodium Chloride (Nss 1000ml) 1,000 mls @ 100 mls/hr IV .Q10H TITA Stop: 07/02/20 21:40 Last Admin: 06/02/20 22:05 Dose: 100 mls/hr Documented by: [id number] Discontinued Medications Fentanyl Citrate (Fentanyl Citrate 100 Mcg/2 Ml Vial) 50 mcg IV NOW STA Stop: 06/02/20 19:27 Last Admin: 06/02/20 19:29 Dose: 50 mcg Documented by: [id number] Hydromorphone HCl (Hydromorphone Inj 0.5 Mg/0.5 Ml Syr) 0.5 mg IV NOW STA Stop: 06/02/20 16:41 Last Admin: 06/02/20 17:12 Dose: 0.5 mg Documented by: [id number] Hydromorphone HCl (Hydromorphone Inj 0.5 Mg/0.5 Ml Syr) 0.5 mg IV NOW STA Stop: 06/02/20 18:49 Last Admin: 06/02/20 18:56 Dose: 0.5 mg Documented by: [id number] Sodium Chloride (Nss 1000ml) 1,000 mls @ 999 mls/hr IV .Q1H1M TITA Stop: 06/02/20 17:45 Last Infusion: 06/02/20 18:40 Dose: 0 mls/hr Documented by: [id number] Admin: 06/02/20 17:11 Dose: 999 mls/hr Documented by: [id number] Ciprofloxacin (Cipro / D5w) 400 mg in 200 mls @ 100 mls/hr IV NOW STA; Protocol Stop: 06/02/20 21:05 Last Infusion: 06/02/20 21:12 Dose: 0 mls/hr Documented by: [id number] Admin: 06/02/20 19:10 Dose: 100 mls/hr Documented by: [id number] Ioversol (Ioversol 100ml) 91 ml IV ONCE ONE Stop: 06/02/20 18:20 Last Admin: 06/02/20 18:19 Dose: 91 ml Documented by: [id number] Ketorolac Tromethamine (Ketorolac Tromethamine 15 Mg/Ml Vial) 15 mg IV NOW STA Stop: 06/02/20 16:41 Last Admin: 06/02/20 17:12 Dose: 15 mg Documented by: [id number] Discharge Plan Visit Data Chief Complaint: Groin Pain Stated Complaint: KIDNEY STONE REMOVED 05/28- HAS STENT - GROIN PAIN ED Provider: Arley Nicholson Discharge Problem: Acute right flank pain, Acute UTI (urinary tract infection) Patient Disposition: Admitted As Inpatient Discharge Instructions Interventions: ED Discharge Assessment Last Done: 06/02/20 21:26
[2020-06-02 17:09] LABS: Hematocrit (blood only) 43.6 % (42-52); Hemoglobin 14.8 g/dL (14.0-18.0); Mean Corpuscular Hemoglobin 32.4 pg (25-34); Mean Corpuscular Hgb Conc 33.9 g/dL (32-36); Mean Corpuscular Volume 95.4 fL (80-100); RDW Coefficient of Variation 12.9 % (11.5-14.5); RDW Standard Deviation 44.6 fL (36.4-46.3); Red Blood Count 4.57 M/uL (4.7-6.1); White Blood Count 6.04 K/uL (4.8-10.8)
[2020-06-02 17:27] LABS: Basophils # (auto) 0.01 K/uL (0-0.2); Basophils % (auto) 0.2 %; Eosinophils # (auto) 0.17 K/uL (0-0.5); Eosinophils % (auto) 2.8 %; Immature Granulocytes # (auto) 0.01 K/uL (0.00-0.02); Immature Granulocytes % (auto) 0.2 %; Lymphocytes # (auto) 1.63 K/uL (1.2-3.4); Mean Platelet Volume 11.2 fL (7.4-10.4); Monocytes # (auto) 0.45 K/uL (0.11-0.59); Monocytes % (auto) 7.5 %; Neutrophils # (auto) 3.77 K/uL (1.4-6.5); Neutrophils % (auto) 62.3 %; Platelet Count 88 K/uL (130-400)
[2020-06-02 17:30] LABS: Appearance Urine Turbid (Clear); Color Urine Brown; Specific Gravity Urine 1.029 (1.000-1.030); Sulfosalicylic Acid Urine Positive (Negative)
[2020-06-02 17:32] LABS: Bacteria Urine Negative (Negative); Hyaline Casts Urine 0-5 /lpf (0-5); RBC Urine >30 /hpf (0-4); WBC Urine >30 /hpf (0-5)
[2020-06-02 17:33] LABS: Calcium Oxalate Crystals Urine Present (None Prsent)
[2020-06-02 17:37] LABS: Albumin Globulin Ratio 0.8 (0.9-2); Albumin Level 3.7 gm/dl (3.4-5.0); BUN Creatinine Ratio 17.2 (10-20); Bilirubin,Total 0.8 mg/dl (0.2-1); Creatinine Clr Calc Pharmacy 135.2 ml/min; Est GFR (African American) 113.3; Est GFR (Non-African American) 97.8; Globulin 4.4 gm/dl (2.5-4.0); Potassium 4.2 mmol/L (3.5-5.1); Total Protein 8.1 gm/dl (6.4-8.2)
[2020-06-02] MEDS ORDERED: IOVERSOL 100ml IV ONE (18:19)
--- NOTE | 2020-06-02 18:50 | CT Scan Report ---
ABDOMEN AND PELVIS CT WITH IV CONTRAST CT DOSE: 1524.35 mGy.cm HISTORY: R flank pain s/p urology stone stenting TECHNIQUE: Multiaxial CT images of the abdomen and pelvis were performed following the use of intrave nous contrast. A dose lowering technique was utilized adhering to the principles of ALARA. COMPARISON STUDY: Abdomen and pelvis CT 05/01/2020. FINDINGS: Interval placement of a right ureteral stent which is in good position. Urothelial thickeni ng involving the right ureter with periureteral fat stranding. Mild fullness within the right renal c ollecting system without greg hydronephrosis. Questionable punctate stone within the lower pole of t he right kidney. There is a 3 mm stone within the lower pole the left kidney. No ureteral calculi. Th e bladder is decompressed. The lung bases are clear. No pneumoperitoneum. No pneumatosis. No suspicio us lytic are blastic osseous lesions. Nodular contour to the liver consistent with cirrhosis. Hepatic steatosis is also noted. The main portal vein is patent. Calcifications versus suture material at th e gallbladder fundus. There is a small gallstone present. No gallbladder wall thickening. Mild peripo rtal lymphadenopathy, unchanged. The spleen remains enlarged. This may be secondary to the expected p ortal hypertension. Prominent retroperitoneal lymph nodes remain stable. Normal pancreas. No bowel wa ll thickening or obstruction. Normal appendix. IMPRESSION: 1. Interval placement of a right ureteral stent which is in good position. There is mild fullness wit hin the right renal collecting system without greg hydronephrosis. No ureteral calculi identified. 2. Urothelial thickening within the right renal pelvis and right ureter with periureteral edema/fat s tranding. This could be due to the recent intervention. A pyelitis could also have a similar appearan ce. Recommend correlation with urinalysis. 3. Left-sided nephrolithiasis. Possible right-sided nephrolithiasis. 4. Cirrhotic liver, hepatic steatosis, and splenomegaly are again noted. 5. Cholelithiasis, unchanged. 6. No bowel wall thickening or obstruction. ACT 112: Negative or not required by law. Electronically signed by: Sinan Moon M.D. 06/02/2020 6:48 PM
[2020-06-02] MEDS ORDERED: CIPROFLOXACIN / D5W 400 MG/200 ML BAG IV STA (19:06)
[2020-06-02] MEDS ORDERED: fentaNYL citrate 100 MCG/2 ML VIAL IV STA (19:26)
[2020-06-02] MEDS ORDERED: ONDANSETRON INJ 2 MG/ML 2 ML VIAL IV PRN (21:41)
[2020-06-02] MEDS: HYDROmorphone INJ 0.5 MG/0.5 ML SYR IV PRN (21:55)
[2020-06-02] MEDS ORDERED: GLUCOSE 10 TABS/TUBE PO PRN (22:00)
[2020-06-02] MEDS ORDERED: GLUCOSE 40% GEL 15 GM TUBE PO PRN (22:00)
[2020-06-02] MEDS ORDERED: CARBOHYDRATES FOR HYPOGLYCEMIA PO PRN (22:00)
[2020-06-02] MEDS ORDERED: INSULIN ASPART 100 UNITS/ML 3 ML PEN SC SCH (22:00)
[2020-06-02] MEDS ORDERED: GLUCAGON FOR INJ 1 MG VIAL IM PRN (22:00)
[2020-06-02] MEDS ORDERED: DEXTROSE 50% 50 ML SYRINGE IV PRN (22:00)
[2020-06-02] MEDS: SODIUM CHLORIDE 0.9% 1000ML 1,000 ML IV SCH (22:05)
[2020-06-02] MEDS: SERTRALINE HCL 50 MG TABLET PO SCH (22:21)
--- NOTE | 2020-06-02 23:00 | History and Physical Report ---
DATE OF ADMISSION: 06/02/2020 CHIEF COMPLAINT: Right flank and groin pain. HISTORY OF PRESENT ILLNESS: This 40-year-old male with past medical history significant for type 2 diabetes, hyperlipidemia, obstructive sleep apnea, hypertension, irritable bowel syndrome, thrombocytopenia, recent diagnosis of liver cirrhosis, and recently also found to have kidney stones and on 05/28/2020 at [facility], he had a cystolithotripsy with stent placement of right ureter. The patient says since last Thursday, he started developing right groin and flank pain, and it got worse. He is not able to walk because of severe pain, sweating, was nauseous and he also had pain whenever he is micturating and he is also having hematuria which prompted him to come to the ER today. Denies any fever, chills. In the ER, CT scan of the abdomen and pelvis was done which shows "stent is in good position. No hydronephrosis, no calculi identified, some urothelial thickening within the right renal pelvis and right ureter with periureteral edema, fat stranding, could be from the recent intervention or pyelitis could also have similar appearance". The patient was given pain medications and started on Cipro. The patient is afebrile here and no leukocytosis. Currently, the patient is resting comfortably and hemodynamically stable. Still complains of pain in the right groin region. Denies any headache, no blurred vision, no earache, no runny nose, no sore throat, no cough, no dysphagia. Appetite is okay. No chest pain or shortness of breath. He has irritable bowel syndrome, gets diarrhea and constipation. He could not tell whether he has any blood in the stools. No swelling in the legs, no rash seen. ALLERGIES: BEE VENOM, PINEAPPLE JUICE, CEPHALEXIN, MENTHOL, PENICILLINS. PAST MEDICAL HISTORY: As mentioned above. PAST SURGICAL HISTORY: Colonoscopy, cystourethroscopy with lithotripsy, cystoscopy with insertion of stent in the left side in 2014, EGDs, laparoscopic cholecystectomy, removal of kidney stone in 2000, vasectomy. MEDICATIONS: The patient is on Flomax 0.4 mg p.o. daily, oxycodone 5 mg p.o. q. 4 hours p.r.n., metformin 1000 mg p.o. b.i.d., Victoza 1.8 mg daily, Zoloft 50 mg p.o. daily, omeprazole 20 mg p.o. daily, melatonin 1 mg p.o. at bedtime p.r.n., multivitamin with minerals 1 tablet daily. FAMILY HISTORY: Significant for the patient is adopted, but he thinks his father and uncle from liver disease from alcoholism. SOCIAL HISTORY: . Smoked for 5 years, quit at age of 18. Alcohol, used to binge drink on the weekends until early 30s, but right now he rarely drinks. No drug use. REVIEW OF SYMPTOMS: As per HPI. Rest of review of symptoms negative. PHYSICAL EXAMINATION: GENERAL: The patient is obese, not in acute distress. VITAL SIGNS: Temperature 37.1, pulse 71, respiratory rate 18, blood pressure 137/87, oxygen 98% on room air. HEENT: No pallor, no icterus. Pupils equal, round, reactive to light. Oral mucosa dry. NECK: No JVD, no neck masses. CARDIOVASCULAR: S1, S2 heard, regular rate and rhythm, no murmur, no gallop. RESPIRATORY SYSTEM: Normal AP diameter. No accessory muscle use. No wheezing, no crackles. ABDOMEN: Soft, bowel sounds present. Tenderness in the right lower quadrant and right flank region. Guarding present. No distention. CENTRAL NERVOUS SYSTEM: Cranial nerves II-XII grossly intact. Nonfocal. EXTREMITIES: No edema, no erythema. LABORATORY DATA: WBC 6.04, hemoglobin 14.8, hematocrit 43.6, platelets 88. Sodium 137, potassium 4.2, chloride 106, bicarb 24, BUN 17, creatinine 0.9, serum glucose 188, calcium 10, total bilirubin 0.8, AST 41, ALT 52, alkaline phosphatase 153. Lipase 130. Urinalysis, they could not interpret, will repeat. CT abdomen and pelvis, interval placement of right ureteral stent which is in good position. There is some mild fullness within the right renal collecting system without greg hydronephrosis, no ureteral calculi identified, urothelial thickening within the right renal pelvis and right ureter with periureteral edema, fat stranding. This could be due to recent intervention, a pyelitis could also have similar appearance. Recommend correlation with urinalysis. Left-sided nephrolithiasis, possible right-sided nephrolithiasis, cirrhotic liver, hepatic steatosis and splenomegaly are again noted, cholelithiasis unchanged. No bowel wall thickening or obstruction. ASSESSMENT AND PLAN: This is a 40-year-old male with recent right ureteral stent placement, comes with right flank and groin pain. 1. Right flank and groin pain, recent lithotripsy with stent placement on the right ureter on 05/28/2020 at [facility]. The patient says he is also having some hematuria. Urinalysis is not a good study, will repeat the urinalysis. CAT scan showing stent in good position. No greg hydronephrosis, questionable pyelitis. We will correlate with urinalysis. Empirically started on Cipro in the ER which we will continue, pain control and n.p.o. after midnight, IV fluids, and consult urology in the a.m. for further recommendation. Continue his Flomax. 2. Liver cirrhosis, recent diagnosis. Etiology unclear, he used to drink somewhat heavily on the weekends until his early 30s, but since then he only drinks 1-2 beers once in a while. He says he is adopted, but he came to know that his father and uncle of liver cirrhosis, both were alcoholics. The patient also is morbidly obese, could be COLEMAN cirrhosis. He just followed with GI recently in 05/25/2020 and some liver cirrhosis labs are drawn. He has a followup appointment with GI. He also has an EGD, which was unremarkable for any varices. Avoid nephrotoxic agents. 3. 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 4. Obstructive sleep apnea, on CPAP at bedtime. 5. Diabetes. Hold metformin, place insulin sliding scale. Follow hemoglobin A1c levels. 6. Obesity, needs counseling. 7. Deep venous thrombosis prophylaxis, sequential compression devices for now. 8. Disposition: Observation in medical floor. Expect to discharge home and follow with his family doctor. Level 1 full code. MTDD
[2020-06-03] MEDS ORDERED: Nursing to Pharmacy Communication SCH (01:00)
[2020-06-03] MEDS: HYDROmorphone INJ 0.5 MG/0.5 ML SYR IV PRN ×2 (03:46→07:51)
[2020-06-03 05:45] LABS: Hematocrit (blood only) 39.1 % (42-52); Hemoglobin 13.4 g/dL (14.0-18.0); Mean Corpuscular Hemoglobin 33.2 pg (25-34); Mean Corpuscular Hgb Conc 34.3 g/dL (32-36); Mean Corpuscular Volume 96.8 fL (80-100); RDW Standard Deviation 45.7 fL (36.4-46.3); Red Blood Count 4.04 M/uL (4.7-6.1); White Blood Count 5.38 K/uL (4.8-10.8)
[2020-06-03] MEDS ORDERED: INSULIN ASPART 100 UNITS/ML 3 ML PEN SC SCH (06:00)
[2020-06-03 06:07] LABS: BUN Creatinine Ratio 14.3 (10-20); Calcium 8.8 mg/dl (8.5-10.1); Creatinine Clr Calc Pharmacy 160.2 ml/min; Est GFR (African American) 127.9; Est GFR (Non-African American) 110.4; Magnesium 1.6 mg/dl (1.8-2.4)
[2020-06-03 06:13] LABS: Mean Platelet Volume 11.1 fL (7.4-10.4); Platelet Count 76 K/uL (130-400)
[2020-06-03 06:22] LABS: Basophils # (auto) 0.02 K/uL (0-0.2); Basophils % (auto) 0.4 %; Eosinophils # (auto) 0.09 K/uL (0-0.5); Eosinophils % (auto) 1.7 %; Immature Granulocytes # (auto) 0.01 K/uL (0.00-0.02); Immature Granulocytes % (auto) 0.2 %; Lymphocytes # (auto) 1.17 K/uL (1.2-3.4); Lymphocytes % (auto) 21.7 %; Monocytes # (auto) 0.44 K/uL (0.11-0.59); Monocytes % (auto) 8.2 %; Neutrophils # (auto) 3.65 K/uL (1.4-6.5); Neutrophils % (auto) 67.8 %
[2020-06-03 06:49] LABS: Appearance Urine Cloudy (Clear); Bacteria Urine Automated Negative (Negative); Bilirubin Urine Negative (Negative); Blood Urine 3+ (Negative); Epithelial Cell Urine Auto 0-5 /lpf (0-5); Glucose Urine UA 1+ (Negative); Ketones Urine Trace (Negative); Leukocyte Esterase Urine 2+ (Negative); Nitrite Urine Positive (Negative); Protein Urine 2+ (Negative); RBC Urine Automated >30 /hpf (0-4); Specific Gravity Urine 1.024 (1.000-1.030); Urobilinogen Urine Negative (Negative); WBC Urine Automated >30 /hpf (0-5); pH Urine 5.5 (4.5-7.5)
[2020-06-03 06:50] LABS: Color Urine Amber
[2020-06-03] MEDS: SODIUM CHLORIDE 0.9% 1000ML 1,000 ML IV SCH ×2 (07:53→19:28)
[2020-06-03] MEDS: CIPROFLOXACIN / D5W 400 MG/200 ML BAG IV SCH ×2 (08:00→19:29)
[2020-06-03] MEDS: PANTOprazole 40 MG TAB PO SCH (08:00)
[2020-06-03] MEDS: TAMSULOSIN HCL 0.4 MG CAP PO SCH (08:00)
[2020-06-03] MEDS: OXYCODONE HCL IR 5 MG TAB (IMMEDIATE RELEASE) PO PRN ×3 (09:31→16:08)
--- NOTE | 2020-06-03 10:11 | Urology Consultation ---
Date of Consultation June 03, 2020 Assessment & Plan (1) Kidney stones: s/p surgery last Thursday in [place] now with severe stent discomfort and UA concerning for infection culture pending stent in perfect position without hydro, etc labs stable (no leukocytosis, no STAN) treat for UTI pain control - NSAIDS may be best f/u with his urologist for stent removal as previously scheduled no interventions indicated or planned during this hospitalization please contact us if there are further questions during this hospitalization History of Present Illness Attending Physician: Aron Mccormick MD History of Present Illness 40y/o male admitted through the ER secondary to severe right flank pain had a cysto, URS, laser litho last week at [facility] due for stent removal in a week, but could not tolerate the pain CT on arrival - stent in perfect position with minimal hydro, expected perinephric and stephy-ureteral stranding - no visible stones afeb vitals stable WBC 5.3 cr 0.81 nit pos UA - culture pending Allergies Allergy/AdvReac Type Severity Reaction Status Date / Time menthol Allergy Severe WELTS Verified 06/02/20 18:10 pineapple Allergy Severe THROAT Verified 06/02/20 18:11 CLOSES TO THE FRUIT cephalexin Allergy Intermediate HIVES Verified 06/02/20 18:11 Penicillins Allergy Intermediate RASH Verified 06/02/20 18:11 bee venom protein (honey bee) Allergy Anaphylaxis Unverified 06/02/20 18:08 Home Medications Home Medications Medication Instructions Recorded Confirmed Type hydrocortisone-pramoxine 1 applic OK DIRECTED PRN 08/11/18 06/02/20 History [Analpram-HC] liraglutide [Victoza 2-Charles] 1.8 mg SUBCUT QPM 08/11/18 06/02/20 History omeprazole 20 mg PO QAM 08/11/18 06/02/20 History ondansetron HCl [Zofran] 4 mg PO TID #30 tab 08/11/18 06/02/20 Rx sertraline 50 mg PO HS 08/11/18 06/02/20 History epinephrine [EpiPen 2-Charles] 0.3 mg IM Q3H PRN #2 ea 03/19/19 06/02/20 Rx melatonin 1 mg PO HS PRN 03/19/19 06/02/20 History metformin 1,000 mg PO BIDM 06/02/20 06/02/20 History oxycodone 5 mg PO Q6H PRN 06/02/20 06/02/20 History tamsulosin [Flomax] 0.4 mg PO DAILY 06/02/20 06/02/20 History Patient History Medical History Depression Diabetes GERD (gastroesophageal reflux disease) HTN (hypertension) Kidney stones LINDA (obstructive sleep apnea) Surgical History H/O cystoscopy H/O shoulder surgery H/O wisdom tooth extraction History of open reduction and internal fixation (ORIF) procedure "Finger " Family History Other Family history not known due to adoption Social History Smoking Status: Former smoker Tobacco Type: Cigarettes Second Hand Exposure: Yes; Do You Dip or Chew Tobacco: No; Tobacco Cessation Education Requested by Patient: No Hx Alcohol Use: No Hx Substance Use: No Preferred Language: Telugu Pipe Washer Required: No Beliefs That Will Affect Care: None marital status: Current Living Situation: Spouse and Family Other Information That Helps Us Care for You: No Feels Safe at Home: Yes Safety Concerns: Feels Safe At This Time Review of Systems Constitutional: no fever, no chills and no fatigue Eyes: no worsening vision Ear, Nose, Mouth, Throat: no facial pain and no pain with swallowing Respiratory: no cough and no dyspnea Cardiovascular: no chest pain and no palpitations Gastrointestinal: + abdominal pain and + nausea; no vomiting Genitourinary: + problem reported Musculoskeletal: no back pain Integumentary: no rash and no urticaria Neurologic: no gait abnormality and no unsteadiness Psychiatric: no behavioral changes and no depression Endocrine: no fatigue Physical Exam Physical Exam: mild tenderness on the right flank non-toxic appearing Constitutional: well developed and well nourished Neck: neck nontender Respiratory: normal respiratory effort; no respiratory distress and does not use accessory muscles Cardiovascular: Rate/Rhythm: regular rate Vessels: radial pulses present Extremities: no edema Gastrointestinal (Abdomen): Inspection/Auscultation: abdomen normal to inspection Percussion/Palpation: abdomen soft; abdomen nontender and no guarding Musculoskeletal: Head/Neck/Chest: normocephalic and head atraumatic Extremities: extremities normal to inspection Skin: no rashes and no lesions Trauma: no evidence of skin trauma Neurologic: awake; not obtunded Speech / Cognition: normal speech Motor/Sensory: no tremor Psychiatric: Orientation: alert and oriented x 3 Genitourinary: no CVA tenderness Lymphatic: no lymphadenopathy Results & Data ([facility]) Vital Signs (Past 12 Hours) Vital Signs Temp Pulse Resp BP Pulse Ox 06/03/20 07:25 37.5 C 93 H 20 146/79 H 95 06/02/20 23:45 37.0 C 85 16 148/77 H 97 PG Care Time/CCT Total # of Minutes Spent Total Time Spent with Patient: Total time spent is greater than 50% in coordination of care (as documented) at patient's floor/unit and/or counseling patient: Coding Level of Care Code 02339 Inpt Consult Level 4 Diagnoses Kidney stones N20.0
[2020-06-03] MEDS: KETOROLAC 30 MG/ML VIAL IV PRN ×2 (11:39→17:52)
[2020-06-03] MEDS ORDERED: INSULIN GLARGINE SOLOSTAR 100 UNITS/ML 3 ML PEN SC ONE (11:42)
[2020-06-03] MEDS: HYDROmorphone INJ 1 MG/ML SYRINGE IV PRN ×4 (12:10→21:12)
[2020-06-03] MEDS: INSULIN ASPART 100 UNITS/ML 3 ML PEN SC SCH ×3 (13:06→20:36)
--- NOTE | 2020-06-03 19:59 | Hospitalist Progress Note ---
Date of Service June 03, 2020 Assessment & Plan (1) Acute UTI (urinary tract infection): Urine culture pending. Receiving IV ciprofloxacin. Afebrile. Not septic. (2) Renal calculi: S/P right ureteral stent. Urology consulted. Ongoing pain- titrate analgesics. (3) LINDA (obstructive sleep apnea): CPAP. (4) Diabetes mellitus type 2, controlled: Hgb A1c pending. FBS today = 208. Hold metformin during hospital stay. Lantus / NovoLog per protocol. (5) DVT prophylaxis: SCD's. Ambulate. (6) Discharge planning issues: Anticipated discharge to home. Family Medicine follow-up with Dr. Portillo. Follow-up with [facility] 06/11/20. Admission and Anticipated Discharge Date Admission Date: June 02, 2020 Subjective Recheck for multiple problems. Patient seen in their room around 0800. S/P recent right ureteral stent for urinary calculi. Presented to ED with severe right flank and groin pain. UA suggested infection. Started on IV ciprofloxacin. No fever today. Still experiencing severe right flank and right groin pain; no significant relief with hydromorphone 0.5 mg IV. No gross hematuria. Mild dysuria. Review of Systems: Constitutional- no fever. Cardiac- no chest pain. Pulmonary- no cough or SOB. GI- no nausea, vomiting, diarrhea, melena, hematochezia. - as noted above. Otherwise, as noted above. Physical Exam Constitutional: no acute distress Respiratory: no respiratory distress Auscultation: lungs clear to auscultation bilaterally Cardiovascular: Rate/Rhythm: regular rate and regular rhythm Vessels: no JVD Extremities: no calf tenderness and no edema Gastrointestinal (Abdomen): Inspection/Auscultation: normal bowel sounds Percussion/Palpation: + abdomen tender (right flank and right-sided abdomen) and abdomen soft Skin: no rashes, warm and dry Psychiatric: Orientation: alert and oriented x 3 Results & Data Results & Data ([facility]) Vital Signs (Past 12 Hours) Vital Signs Temp Pulse Resp BP Pulse Ox 06/03/20 15:39 36.9 C 85 15 140/75 94 Laboratory Results Laboratory Results - last 24 hr 06/02/20 06/03/20 06/03/20 22:04 05:01 05:01 WBC 5.38 RBC 4.04 L Hgb 13.4 L Hct 39.1 L MCV 96.8 MCH 33.2 MCHC 34.3 RDW Std Deviation 45.7 RDW Coeff of Flavio 13.0 Plt Count 76 L MPV 11.1 H Immature Gran % (Auto) 0.2 Neut % (Auto) 67.8 Lymph % (Auto) 21.7 [place] % (Auto) 8.2 Eos % (Auto) 1.7 Baso % (Auto) 0.4 Neut # (Auto) 3.65 Lymph # (Auto) 1.17 L [place] # (Auto) 0.44 Eos # (Auto) 0.09 Baso # (Auto) 0.02 Immature Gran # (Auto) 0.01 Sodium 136 Potassium 4.0 Chloride 104 Carbon Dioxide 24 Anion Gap 8.0 BUN 12 Creatinine 0.81 Est Cr Clr Drug Dosing 160.2 Est GFR ( Amer) 127.9 Est GFR (Non-Af Amer) 110.4 BUN/Creatinine Ratio 14.3 Glucose 208 H POC Glucose 162 H Estimat Average Glucose Hemoglobin A1c Calcium 8.8 Magnesium 1.6 L Urine Color Urine Appearance Urine pH Ur Specific [place] Urine Protein Urine Glucose (UA) Urine Ketones Urine Blood Urine Nitrite Urine Bilirubin Urine Urobilinogen Ur Leukocyte Esterase Urine WBC (Auto) Urine RBC (Auto) U Hyaline Cast (Auto) U Epithel Cells (Auto) Urine Bacteria (Auto) 06/03/20 06/03/20 06/03/20 05:01 05:53 06:30 WBC RBC Hgb Hct MCV MCH MCHC RDW Std Deviation RDW Coeff of Flavio Plt Count MPV Immature Gran % (Auto) Neut % (Auto) Lymph % (Auto) [place] % (Auto) Eos % (Auto) Baso % (Auto) Neut # (Auto) Lymph # (Auto) [place] # (Auto) Eos # (Auto) Baso # (Auto) Immature Gran # (Auto) Sodium Potassium Chloride Carbon Dioxide Anion Gap BUN Creatinine Est Cr Clr Drug Dosing Est GFR ( Amer) Est GFR (Non-Af Amer) BUN/Creatinine Ratio Glucose POC Glucose 208 H Estimat Average Glucose Pending Hemoglobin A1c Pending Calcium Magnesium Urine Color Nataly Urine Appearance Cloudy A Urine pH 5.5 Ur Specific [place] 1.024 Urine Protein 2+ H Urine Glucose (UA) 1+ H Urine Ketones Trace H Urine Blood 3+ H Urine Nitrite Positive A Urine Bilirubin Negative Urine Urobilinogen Negative Ur Leukocyte Esterase 2+ H Urine WBC (Auto) >30 H Urine RBC (Auto) >30 H U Hyaline Cast (Auto) 1-5 U Epithel Cells (Auto) 0-5 Urine Bacteria (Auto) Negative 06/03/20 06/03/20 12:03 17:03 WBC RBC Hgb Hct MCV MCH MCHC RDW Std Deviation RDW Coeff of Flavio Plt Count MPV Immature Gran % (Auto) Neut % (Auto) Lymph % (Auto) [place] % (Auto) Eos % (Auto) Baso % (Auto) Neut # (Auto) Lymph # (Auto) [place] # (Auto) Eos # (Auto) Baso # (Auto) Immature Gran # (Auto) Sodium Potassium Chloride Carbon Dioxide Anion Gap BUN Creatinine Est Cr Clr Drug Dosing Est GFR ( Amer) Est GFR (Non-Af Amer) BUN/Creatinine Ratio Glucose POC Glucose 180 H 145 H Estimat Average Glucose Hemoglobin A1c Calcium Magnesium Urine Color Urine Appearance Urine pH Ur Specific [place] Urine Protein Urine Glucose (UA) Urine Ketones Urine Blood Urine Nitrite Urine Bilirubin Urine Urobilinogen Ur Leukocyte Esterase Urine WBC (Auto) Urine RBC (Auto) U Hyaline Cast (Auto) U Epithel Cells (Auto) Urine Bacteria (Auto) Microbiology 06/02/20 17:10 Urine,Clean Catch Urine Culture - Preliminary Staphylococcus species
[2020-06-03] MEDS: INSULIN GLARGINE SOLOSTAR 100 UNITS/ML 3 ML PEN SC SCH (20:38)
[2020-06-03] MEDS: SERTRALINE HCL 50 MG TABLET PO SCH (20:42)
[2020-06-03] MEDS: MAGNESIUM OXIDE 400 MG TAB PO SCH (20:42)
[2020-06-03] MEDS: MELATONIN 3 MG TAB PO PRN ×2 (21:12)
[2020-06-04] MEDS: HYDROmorphone INJ 1 MG/ML SYRINGE IV PRN ×5 (01:23→15:49)
[2020-06-04] MEDS: OXYCODONE HCL IR 5 MG TAB (IMMEDIATE RELEASE) PO PRN ×2 (04:27→11:11)
[2020-06-04] MEDS: KETOROLAC 30 MG/ML VIAL IV PRN (05:41)
[2020-06-04] MEDS: SODIUM CHLORIDE 0.9% 1000ML 1,000 ML IV SCH ×2 (05:44→19:00)
[2020-06-04 06:26] LABS: Hematocrit (blood only) 37.1 % (42-52); Hemoglobin 12.6 g/dL (14.0-18.0); Mean Corpuscular Hemoglobin 32.3 pg (25-34); Mean Corpuscular Volume 95.1 fL (80-100); White Blood Count 5.26 K/uL (4.8-10.8)
[2020-06-04 06:30] LABS: Mean Platelet Volume 10.6 fL (7.4-10.4); Platelet Count 77 K/uL (130-400)
[2020-06-04] MEDS: CIPROFLOXACIN / D5W 400 MG/200 ML BAG IV SCH (06:42)
[2020-06-04 06:54] LABS: BUN Creatinine Ratio 12.6 (10-20); Calcium 8.7 mg/dl (8.5-10.1); Creatinine Clr Calc Pharmacy 141.1 ml/min; Est GFR (African American) 119.3; Est GFR (Non-African American) 102.9; Potassium 3.9 mmol/L (3.5-5.1)
[2020-06-04 07:12] LABS: Basophils # (auto) 0.02 K/uL (0-0.2); Basophils % (auto) 0.4 %; Eosinophils # (auto) 0.11 K/uL (0-0.5); Eosinophils % (auto) 2.1 %; Immature Granulocytes # (auto) 0.02 K/uL (0.00-0.02); Immature Granulocytes % (auto) 0.4 %; Lymphocytes # (auto) 1.47 K/uL (1.2-3.4); Lymphocytes % (auto) 27.9 %; Monocytes # (auto) 0.59 K/uL (0.11-0.59); Monocytes % (auto) 11.2 %; Neutrophils # (auto) 3.05 K/uL (1.4-6.5)
[2020-06-04 07:18] LABS: Estimated Average Glucose 186 mg/dl; Hemoglobin A1C 8.1 % (4.5-5.6)
[2020-06-04] MEDS ORDERED: VANCOMYCIN CONSULT ACTIVE PRN ×2 (08:22→16:40)
--- NOTE | 2020-06-04 08:22 | Hospitalist Progress Note ---
Date of Service June 04, 2020 Assessment & Plan (1) Acute UTI (urinary tract infection): Afebrile. Not septic. Urine culture growing Staph sp. Receiving IV ciprofloxacin. Add IV vancomycin pending culture results. (2) Renal calculi: S/P right ureteral stent. Urology consulted. Ongoing pain- titrate analgesics. (3) LINDA (obstructive sleep apnea): CPAP. (4) Diabetes mellitus type 2, controlled: Hgb A1c 8.1. Hold metformin during hospital stay. Lantus / NovoLog per protocol. FBS today = 177. (5) Thrombocytopenia: Platelet count 88,000 at time of admission. Chronic, probably secondary to cirrhosis. (6) DVT prophylaxis: SCD's. Ambulate. (7) Discharge planning issues: Anticipated discharge to home. Family Medicine follow-up with Dr. Portillo. Follow-up with [facility] 06/11/20. Admission and Anticipated Discharge Date Admission Date: June 02, 2020 Subjective Recheck for multiple problems. Patient seen in their room around 0740. Feels somewhat better. No fever. Still experiencing severe right flank. Toradol not effective. Right inguinal pain improved. + gross hematuria. No dysuria. Review of Systems: Constitutional- no fever. Cardiac- no chest pain. Pulmonary- no cough or SOB. GI- no nausea, vomiting, diarrhea, melena, hematochezia. - as noted above. Otherwise, as noted above. Physical Exam Constitutional: no acute distress Respiratory: no respiratory distress Auscultation: lungs clear to auscultation bilaterally Cardiovascular: Rate/Rhythm: regular rate and regular rhythm Vessels: no JVD Extremities: no calf tenderness and no edema Gastrointestinal (Abdomen): Inspection/Auscultation: normal bowel sounds Percussion/Palpation: + abdomen tender (right flank and right-sided abdomen) and abdomen soft Skin: no rashes, warm and dry Psychiatric: Orientation: alert and oriented x 3 Results & Data Results & Data ([facility]) Vital Signs (Past 12 Hours) Vital Signs Temp Pulse Resp BP Pulse Ox 06/04/20 07:06 37.1 C 75 19 145/79 H 95 06/03/20 23:23 37.1 C 79 21 127/74 95 Laboratory Results Laboratory Results - last 24 hr 06/03/20 06/03/20 06/03/20 05:01 12:03 17:03 WBC RBC Hgb Hct MCV MCH MCHC RDW Std Deviation RDW Coeff of Flavio Plt Count MPV Immature Gran % (Auto) Neut % (Auto) Lymph % (Auto) [place] % (Auto) Eos % (Auto) Baso % (Auto) Neut # (Auto) Lymph # (Auto) [place] # (Auto) Eos # (Auto) Baso # (Auto) Immature Gran # (Auto) Sodium Potassium Chloride Carbon Dioxide Anion Gap BUN Creatinine Est Cr Clr Drug Dosing Est GFR ( Amer) Est GFR (Non-Af Amer) BUN/Creatinine Ratio Glucose POC Glucose 180 H 145 H Estimat Average Glucose 186 Hemoglobin A1c 8.1 H Calcium 06/03/20 06/04/20 06/04/20 20:31 06:02 06:02 WBC 5.26 RBC 3.90 L Hgb 12.6 L Hct 37.1 L MCV 95.1 MCH 32.3 MCHC 34.0 RDW Std Deviation 45.0 RDW Coeff of Flavio 13.0 Plt Count 77 L MPV 10.6 H Immature Gran % (Auto) 0.4 Neut % (Auto) 58.0 Lymph % (Auto) 27.9 [place] % (Auto) 11.2 Eos % (Auto) 2.1 Baso % (Auto) 0.4 Neut # (Auto) 3.05 Lymph # (Auto) 1.47 [place] # (Auto) 0.59 Eos # (Auto) 0.11 Baso # (Auto) 0.02 Immature Gran # (Auto) 0.02 Sodium 135 L Potassium 3.9 Chloride 104 Carbon Dioxide 25 Anion Gap 6.0 BUN 12 Creatinine 0.92 Est Cr Clr Drug Dosing 141.1 Est GFR ( Amer) 119.3 Est GFR (Non-Af Amer) 102.9 BUN/Creatinine Ratio 12.6 Glucose 177 H POC Glucose 194 H Estimat Average Glucose Hemoglobin A1c Calcium 8.7 Microbiology 06/02/20 17:10 Urine,Clean Catch Urine Culture - Preliminary Staphylococcus species
[2020-06-04] MEDS: MAGNESIUM OXIDE 400 MG TAB PO SCH ×2 (08:29→20:30)
[2020-06-04] MEDS: TAMSULOSIN HCL 0.4 MG CAP PO SCH (08:29)
[2020-06-04] MEDS: PANTOprazole 40 MG TAB PO SCH ×2 (08:29→20:29)
[2020-06-04] MEDS: INSULIN GLARGINE SOLOSTAR 100 UNITS/ML 3 ML PEN SC SCH ×2 (08:30→20:30)
[2020-06-04] MEDS: INSULIN ASPART 100 UNITS/ML 3 ML PEN SC SCH ×4 (08:32→20:31)
[2020-06-04] MEDS ORDERED: IBUPROFEN 600 MG TAB PO PRN (08:36)
[2020-06-04] MEDS ORDERED: OXYCODONE HCL IR 5 MG TAB (IMMEDIATE RELEASE) PO PRN (08:38)
[2020-06-04] MEDS ORDERED: VANCOMYCIN HCL 2,750 MG in SODIUM CHLORIDE 0.9% 500 ML IV STA ×2 (08:53→16:53)
--- NOTE | 2020-06-04 10:15 | Pharmacy Report ---
Pharmacy Abx Initial Consult - Date of Service June 04, 2020 - Pharmacy Dosing Scope Date of Consult: 06/04/20 Consultation requested by: Dr. Mccormick Pharmacy is consulted to initiate Vancomycin IV dosing therapy, order appropriate labs and adjust drug dose/frequency. - Subjective The patient is a 40 year old M admitted on 06/02/20 20:25. - Objective Height: 5 ft 10 in Weight: 126.5 kg Vital Signs (Past 12hrs): Vital Signs Temp Pulse Resp BP Pulse Ox 06/04/20 07:06 37.1 C 75 19 145/79 H 95 06/03/20 23:23 37.1 C 79 21 127/74 95 Lab Results (24hrs): Laboratory Tests (24 Hours) 06/04/20 06/04/20 06:02 06:02 WBC 5.26 Neut # (Auto) 3.05 Creatinine 0.92 Est Cr Clr Drug Dosing 141.1 Micro Results: Microbiology 06/02/20 17:10 Urine,Clean Catch Urine Culture - Preliminary Staphylococcus species - Risk Factors for Resistance * s/p recent lithotripsy with stent placement on the right ureter on 05/28/2020 at [facility] - Assessment & Plan Assessment 40 year old M on empiric IV Vancomycin and Cipro (not a consult) for UTI; urine culture growing Staph. species * No renal impairment noted, but patient is obese with BMI 40. Discussed with Dr. Mccormick difficulty in dosing vancomycin in morbidly obese individuals due to risk for Vancomycin drug accumulation. Suggested possibility of Daptomycin instead; he anticipates short-term Vancomycin use pending culture and sensitivities in 1-2 days. Will cautiously dose Vancomycin Plan Vancomycin IV * Estimated PK Parameters: Nino 0.087 hr-1, t1/2 7.96 hr * Loading dose: 2750 mg (~22 mg/kg) - max dose * Maintenance dose: 1500 mg IV (~12 mg/kg) every 8 hours * Goal trough level for UTI : 15 to 20 mcg/mL * Trough level ordered for 06/05/20 @ 0930 (this is prior to 3rd dose and therefore not reflective of steady state, but would like to assess dosing regimen earlier due to obesity) * A less than traditional dose has been selected due to likelihood of drug accumulation in obese patient Pharmacy will continue to follow and will adjust dose/frequency as necessary. Thank you.
[2020-06-04] MEDS ORDERED: ALUMINUM/MAGNESIUM/SIMETH (MAALOX MAX) 30 ML UDC PO STA (10:21)
--- NOTE | 2020-06-04 11:28 | Cardiology Consultation ---
Date of Consultation June 04, 2020 Assessment & Plan (1) Atypical chest pain: Patient developed postprandial pain midepigastric lower chest this morning relieved by Maalox. EKG reviewed and unchanged from prior outpatient study of 05/24/2020 Cardiac risk factors of diabetes mellitus and low HDL dyslipidemia. Cardiac evaluation in progress currently patient has contraindications to anticoagulation or aspirin usage Do not suspect acute coronary syndrome We will need to treat underlying urologic issue and pain History of Present Illness Reason for Consultation: Atypical chest discomfort Requesting Physician: Dr. Mccormick Attending Physician: Aron Mccormick MD History of Present Illness Patient is a 40-year-old male who is hospitalized for severe flank pain possible infection following laser lithotripsy and ureteral stent implantation for renal lithiasis/hydronephrosis right sided. Patient without prior history of cardiac disease. Underlying medical issues include 1. Type 2 diabetes mellitus 2. Low HDL dyslipidemia with elevated triglycerides 3. Obesity 4. Gastroesophageal reflux 5. Hepatic cirrhosis 6. Thrombocytopenia 7. Obstructive sleep apnea on CPAP Patient is referred for evaluation having developed postprandial mid epigastric pressure pain discomfort this morning. Symptoms were relieved with Maalox and sitting upright. Patient brought in nursing attention as a new medication was beginning having had similar complaints during an allergic reaction to a bee sting. Patient has no prior history of cardiac disease chest pains angina or congestive heart failure. Vigorously active about home and job. No history rheumatic fever scarlet fever or murmur. No history of TIA or stroke. Only neurologic complaint being left quadriceps neuropathic paresthesia Did undergo evaluation with EGD within the month Denies any signs or symptoms of edema or fluid retention. Was vigorously active shoveling concrete just prior to presenting with flank pain and lower groin pain, hematuria no change in functional capacity Patient currently very frustrated with ongoing flank and penile. Has been having ongoing hematuria EKG from this morning reviewed (hardcopy, image not transmitted) without acute change from prior study most recently May 24 2020normal sinus rhythm with nonspecific ST segment change Allergies Allergy/AdvReac Type Severity Reaction Status Date / Time bee venom protein (honey bee) Allergy Severe Anaphylaxis Unverified 06/04/20 08:47 pineapple Allergy Severe THROAT Verified 06/02/20 18:11 CLOSES TO THE FRUIT cephalexin Allergy Intermediate HIVES Verified 06/02/20 18:11 menthol Allergy Intermediate WELTS Verified 06/04/20 08:47 Penicillins Allergy Intermediate RASH Verified 06/02/20 18:11 Home Medications Home Medications Medication Instructions Recorded Confirmed Type hydrocortisone-pramoxine 1 applic MA DIRECTED PRN 08/11/18 06/02/20 History [Analpram-HC] liraglutide [Victoza 2-Charles] 1.8 mg SUBCUT QPM 08/11/18 06/02/20 History omeprazole 20 mg PO QAM 08/11/18 06/02/20 History ondansetron HCl [Zofran] 4 mg PO TID #30 tab 08/11/18 06/02/20 Rx sertraline 50 mg PO HS 08/11/18 06/02/20 History epinephrine [EpiPen 2-Charles] 0.3 mg IM Q3H PRN #2 ea 03/19/19 06/02/20 Rx melatonin 1 mg PO HS PRN 03/19/19 06/02/20 History metformin 1,000 mg PO BIDM 06/02/20 06/02/20 History oxycodone 5 mg PO Q6H PRN 06/02/20 06/02/20 History tamsulosin [Flomax] 0.4 mg PO DAILY 06/02/20 06/02/20 History Patient History Medical History Depression Diabetes Diabetes mellitus type 2, controlled GERD (gastroesophageal reflux disease) HTN (hypertension) Kidney stones LINDA (obstructive sleep apnea) Thrombocytopenia Surgical History H/O cystoscopy H/O shoulder surgery H/O wisdom tooth extraction History of open reduction and internal fixation (ORIF) procedure "Finger " Family History Other Family history not known due to adoption Social History Smoking Status: Former smoker Tobacco Type: Cigarettes Second Hand Exposure: Yes; Do You Dip or Chew Tobacco: No; Tobacco Cessation Education Requested by Patient: No Hx Alcohol Use: No Hx Substance Use: No Preferred Language: Swedish Attorney General Required: No Beliefs That Will Affect Care: None marital status: Current Living Situation: Spouse and Family Other Information That Helps Us Care for You: No Feels Safe at Home: Yes Safety Concerns: Feels Safe At This Time Review of Systems Review of Systems: All systems reviewed & are unremarkable except as noted in HPI & below Physical Exam Constitutional: WD/WN, vitals as above + obese Complaint of persistent flank abdominal and penile discomfort Eyes: PERRL, conjunctivae normal, anicteric sclerae ENMT: external ear and nose normal, oropharynx normal Neck: trachea midline, no thyromegaly Respiratory: normal respiratory effort, lungs clear to auscultation Cardiovascular: Rate/Rhythm: regular rate and regular rhythm Heart Sounds: normal S1 and normal S2; no gallop and no murmur Palpation: normal PMI Vessels: normal carotid upstroke and radial pulses present; no JVD and no carotid bruit Extremities: no edema Gastrointestinal (Abdomen): normal bowel sounds, soft, nontender, no hepatosplenomegaly Musculoskeletal: no cyanosis or clubbing, extremities motor strength 5/5 Skin: no rashes, warm and dry Neurologic: PERRL, EOMI, accommodation nl, no face palsy, no dysarthria Psychiatric: A+Ox3, euthymic affect Results & Data ([facility]) Vital Signs (Past 12 Hours) Vital Signs Temp Pulse Pulse Resp BP Pulse Ox 06/04/20 10:06 88 132/75 95 06/04/20 07:06 37.1 C 75 19 145/79 H 95 Laboratory Results Laboratory Results - last 24 hr 06/03/20 06/03/20 06/03/20 05:01 17:03 20:31 WBC RBC Hgb Hct MCV MCH MCHC RDW Std Deviation RDW Coeff of Flavio Plt Count MPV Immature Gran % (Auto) Neut % (Auto) Lymph % (Auto) [place] % (Auto) Eos % (Auto) Baso % (Auto) Neut # (Auto) Lymph # (Auto) [place] # (Auto) Eos # (Auto) Baso # (Auto) Immature Gran # (Auto) Sodium Potassium Chloride Carbon Dioxide Anion Gap BUN Creatinine Est Cr Clr Drug Dosing Est GFR ( Amer) Est GFR (Non-Af Amer) BUN/Creatinine Ratio Glucose POC Glucose 145 H 194 H Estimat Average Glucose 186 Hemoglobin A1c 8.1 H Calcium 06/04/20 06/04/20 06/04/20 06:02 06:02 08:20 WBC 5.26 RBC 3.90 L Hgb 12.6 L Hct 37.1 L MCV 95.1 MCH 32.3 MCHC 34.0 RDW Std Deviation 45.0 RDW Coeff of Flavio 13.0 Plt Count 77 L MPV 10.6 H Immature Gran % (Auto) 0.4 Neut % (Auto) 58.0 Lymph % (Auto) 27.9 [place] % (Auto) 11.2 Eos % (Auto) 2.1 Baso % (Auto) 0.4 Neut # (Auto) 3.05 Lymph # (Auto) 1.47 [place] # (Auto) 0.59 Eos # (Auto) 0.11 Baso # (Auto) 0.02 Immature Gran # (Auto) 0.02 Sodium 135 L Potassium 3.9 Chloride 104 Carbon Dioxide 25 Anion Gap 6.0 BUN 12 Creatinine 0.92 Est Cr Clr Drug Dosing 141.1 Est GFR ( Amer) 119.3 Est GFR (Non-Af Amer) 102.9 BUN/Creatinine Ratio 12.6 Glucose 177 H POC Glucose 170 H Estimat Average Glucose Hemoglobin A1c Calcium 8.7
[2020-06-04] MEDS ORDERED: NITROGLYCERIN SL 0.4 MG/TAB TAB SL PRN (12:09)
[2020-06-04] MEDS ORDERED: Nursing to Pharmacy Communication SCH ×2 (14:30→15:30)
[2020-06-04] MEDS ORDERED: VANCOMYCIN HCL 1,500 MG in SODIUM CHLORIDE 0.9% 500 ML IV SCH (18:00)
[2020-06-04] MEDS: HYDROmorphone INJ 2 MG/ML SYR/VIAL IV PRN ×2 (18:03→22:40)
[2020-06-04] MEDS: SERTRALINE HCL 50 MG TABLET PO SCH (20:30)
--- NOTE | 2020-06-04 21:11 | Electrocardiogram Report ---
Test Reason : Blood Pressure : / mmHG Vent. Rate : 083 BPM Atrial Rate : 083 BPM P-R Int : 148 ms QRS Dur : 092 ms QT Int : 384 ms P-R-T Axes : 057 029 005 degrees QTc Int : 451 ms Normal sinus rhythm Nonspecific T wave abnormality Abnormal ECG When compared with ECG of 19-MAR-2019 15:31, Nonspecific T wave abnormality now evident in Inferior leads Nonspecific T wave abnormality, improved in Lateral leads Confirmed by Klaus Talavera ([id number]) on 06/04/2020 9:11:25 PM Referred By: REFERRED SELF Confirmed By:Klaus Talavera
[2020-06-05] MEDS: HYDROmorphone INJ 2 MG/ML SYR/VIAL IV PRN ×5 (01:50→15:32)
[2020-06-05] MEDS: VANCOMYCIN HCL 1,500 MG in SODIUM CHLORIDE 0.9% 500 ML IV SCH ×3 (01:51→19:03)
[2020-06-05] MEDS: SODIUM CHLORIDE 0.9% 1000ML 1,000 ML IV SCH ×2 (04:53→15:32)
[2020-06-05 05:59] LABS: Hematocrit (blood only) 37.6 % (42-52); Hemoglobin 12.8 g/dL (14.0-18.0); Mean Corpuscular Hemoglobin 32.7 pg (25-34); Mean Corpuscular Volume 95.9 fL (80-100); RDW Standard Deviation 45.6 fL (36.4-46.3); Red Blood Count 3.92 M/uL (4.7-6.1); White Blood Count 5.93 K/uL (4.8-10.8)
[2020-06-05 06:10] LABS: Mean Platelet Volume 10.6 fL (7.4-10.4); Platelet Count 77 K/uL (130-400)
[2020-06-05 06:29] LABS: BUN Creatinine Ratio 11.2 (10-20); Calcium 8.5 mg/dl (8.5-10.1); Creatinine Clr Calc Pharmacy 165.7 ml/min; Est GFR (African American) 129.9; Est GFR (Non-African American) 112.1; Potassium 3.8 mmol/L (3.5-5.1)
[2020-06-05] MEDS: PANTOprazole 40 MG TAB PO SCH ×2 (08:14→20:25)
[2020-06-05] MEDS: TAMSULOSIN HCL 0.4 MG CAP PO SCH (08:14)
[2020-06-05] MEDS: MAGNESIUM OXIDE 400 MG TAB PO SCH ×2 (08:14→20:26)
[2020-06-05] MEDS: INSULIN ASPART 100 UNITS/ML 3 ML PEN SC SCH ×4 (08:15→20:26)
[2020-06-05] MEDS: INSULIN GLARGINE SOLOSTAR 100 UNITS/ML 3 ML PEN SC SCH ×2 (08:16→20:26)
[2020-06-05] MEDS ORDERED: VANCOMYCIN TROUGH ONE ×2 (09:30→17:30)
[2020-06-05] MEDS ORDERED: HYDROmorphone INJ 2 MG/ML SYR/VIAL IV PRN (18:39)
--- NOTE | 2020-06-05 18:50 | Hospitalist Progress Note ---
Date of Service June 05, 2020 Assessment & Plan (1) Acute UTI (urinary tract infection): UA showed WBC's and bacteria. CT suggested right pyelonephritis. There was prominence of the right renal pelvis, but no greg hydronephrosis. Afebrile. Not septic. Initially received IV ciprofloxacin. Urine culture grew coag neg Staph. Changed therapy to IV vancomycin. Persistent right flank pain. Continue vancomycin. Anticipated change to oral therapy in 24-48 hours (doxycycline). (2) Renal calculi: S/P right ureteral stent. CT showed prominence of the right renal pelvis, but no greg hydronephrosis. Urology consulted. Ongoing pain- titrate analgesics and wean as tolerated. Anticipated removal of stent 06/11 at [facility]. (3) LINDA (obstructive sleep apnea): CPAP. (4) Diabetes mellitus type 2, controlled: Hgb A1c 8.1. Hold metformin during hospital stay. Lantus / NovoLog per protocol. FBS today = 157. (5) Thrombocytopenia: Platelet count 88,000 at time of admission. Chronic, probably secondary to cirrhosis. (6) Atypical chest pain: Chest pain 06/04 after eating. EKG showed NR with nonspecific T-wave changes. Troponin negative x 2. Seen by Cardiology. Chest pain noncardiac. No need for further evaluation. (7) DVT prophylaxis: SCD's. Ambulate. (8) Discharge planning issues: Anticipated discharge to home. Family Medicine follow-up with Dr. Portillo. Follow-up with [facility]rology 06/11/20. Admission and Anticipated Discharge Date Admission Date: June 04, 2020 Subjective Recheck for multiple problems. Patient seen in their room around 1610. Mother visiting. Feels better. No fever. Right flank pain not as severe, but still requiring narcotic analgesics. Hematuria improved. No further chest pain. Review of Systems: Constitutional- no fever. Cardiac- no chest pain. Pulmonary- no cough or SOB. GI- no nausea, vomiting, diarrhea, melena, hematochezia. - as noted above. Otherwise, as noted above. Physical Exam Constitutional: no acute distress Respiratory: no respiratory distress Auscultation: lungs clear to auscultation bilaterally Cardiovascular: Rate/Rhythm: regular rate and regular rhythm Vessels: no JVD Extremities: no calf tenderness and no edema Gastrointestinal (Abdomen): Inspection/Auscultation: normal bowel sounds Percussion/Palpation: + abdomen tender (right flank and right-sided abdomen tenderness improved) and abdomen soft Skin: no rashes, warm and dry Psychiatric: Orientation: alert and oriented x 3 Results & Data Results & Data ([facility]) Vital Signs (Past 12 Hours) Vital Signs Temp Pulse Pulse Resp BP Pulse Ox 06/05/20 16:00 75 06/05/20 15:35 37.2 C 77 18 136/75 97 06/05/20 11:43 36.5 C 71 18 91/52 L 93 06/05/20 08:50 69 06/05/20 07:37 36.8 C 77 18 116/73 92 Laboratory Results Laboratory Results - last 24 hr 06/04/20 06/05/20 06/05/20 20:10 05:29 05:29 WBC 5.93 RBC 3.92 L Hgb 12.8 L Hct 37.6 L MCV 95.9 MCH 32.7 MCHC 34.0 RDW Std Deviation 45.6 RDW Coeff of Flavio 13.0 Plt Count 77 L MPV 10.6 H Sodium 137 Potassium 3.8 Chloride 106 Carbon Dioxide 25 Anion Gap 6.0 BUN 9 Creatinine 0.78 Est Cr Clr Drug Dosing 165.7 Est GFR ( Amer) 129.9 Est GFR (Non-Af Amer) 112.1 BUN/Creatinine Ratio 11.2 Glucose 152 H POC Glucose 156 H Calcium 8.5 Triglycerides 131 Cholesterol 134 LDL Cholesterol, Calc 82 VLDL Cholesterol, Calc 26 HDL Cholesterol 26 Cholesterol/HDL Ratio 5 Vancomycin Trough 06/05/20 06/05/20 06/05/20 07:50 11:57 17:38 WBC RBC Hgb Hct MCV MCH MCHC RDW Std Deviation RDW Coeff of Flavio Plt Count MPV Sodium Potassium Chloride Carbon Dioxide Anion Gap BUN Creatinine Est Cr Clr Drug Dosing Est GFR ( Amer) Est GFR (Non-Af Amer) BUN/Creatinine Ratio Glucose POC Glucose 157 H 178 H Calcium Triglycerides Cholesterol LDL Cholesterol, Calc VLDL Cholesterol, Calc HDL Cholesterol Cholesterol/HDL Ratio Vancomycin Trough 7.9 Microbiology 06/02/20 17:10 Urine,Clean Catch Urine Culture - Final Coag negative Staphylococcus
[2020-06-05] MEDS: OXYCODONE HCL IR 5 MG TAB (IMMEDIATE RELEASE) PO PRN (19:02)
[2020-06-05] MEDS: SERTRALINE HCL 50 MG TABLET PO SCH (20:26)
[2020-06-05] MEDS: MELATONIN 3 MG TAB PO PRN (20:34)
[2020-06-06] MEDS: SODIUM CHLORIDE 0.9% 1000ML 1,000 ML IV SCH ×2 (01:37→12:27)
[2020-06-06] MEDS: VANCOMYCIN HCL 1,500 MG in SODIUM CHLORIDE 0.9% 500 ML IV SCH ×2 (02:01→10:36)
[2020-06-06 08:01] LABS: BUN Creatinine Ratio 11.6 (10-20); Calcium 9.1 mg/dl (8.5-10.1); Creatinine Clr Calc Pharmacy 159.6 ml/min; Est GFR (African American) 127.9; Est GFR (Non-African American) 110.4; Potassium 4.1 mmol/L (3.5-5.1)
[2020-06-06] MEDS: INSULIN ASPART 100 UNITS/ML 3 ML PEN SC SCH ×2 (08:14→12:27)
[2020-06-06] MEDS: INSULIN GLARGINE SOLOSTAR 100 UNITS/ML 3 ML PEN SC SCH (08:15)
[2020-06-06] MEDS: MAGNESIUM OXIDE 400 MG TAB PO SCH (08:16)
[2020-06-06] MEDS: PANTOprazole 40 MG TAB PO SCH (08:16)
[2020-06-06] MEDS: TAMSULOSIN HCL 0.4 MG CAP PO SCH (08:16)
--- NOTE | 2020-06-06 09:14 | Pharmacy Report ---
Pharmacy Abx Dose Short Note - Date of Service June 06, 2020 - Assessment & Plan Assessment 40 year old M receiving vancomycin for treatment of UTI Day # 3 of antimicrobial therapy. Plan Vancomycin * Trough level came back at ~7.9 mcg/ml (goal 10-15 mcg/ml appropriate for UTI). Level drawn before steady state therefore anticipate trough to be higher. Also patient with BMI >35 kg/m2 therefore anticipate patient to accumulate vancomycin over time * Will plan to continue current dosing for now. Per provider notes, plan to continue IV vancomycin 24-48 hrs then transition to oral antibiotics. * Will plan to obtain trough prior to the 1800 dose tonight to ensure level trending up into goal range and that no dosage adjustment is warranted Pharmacy will continue to follow and will adjust dose/frequency as necessary. Thank you.
--- NOTE | 2020-06-06 12:36 | Hospitalist Progress Note ---
Date of Service June 06, 2020 Assessment & Plan (1) Acute UTI (urinary tract infection): Acute Pyelonephritis Complicated UTI --CT ABD:Interval placement of a right ureteral stent which is in good position. There is mild fullness within the right renal collecting system without greg hydronephrosis. No ureteral calculi identified. Urothelial thickening within the right renal pelvis and right ureter with periureteral edema/fat stranding. This could be due to the recent intervention. A pyelitis could also have a similar appearance. Recommend correlation with urinalysis. Left-sided nephrolithiasis. Possible right-sided nephrolithiasis. Cirrhotic liver, hepatic steatosis, and splenomegaly are again noted. Cholelithiasis, unchanged. No bowel wall thickening or obstruction. --Urine Cx: Coagulase negative Staphylococcus --Initially on IV ciprofloxacin>> transition to IV vancomycin --Appreciate Urology Input --Plan to transition to amoxicillin upon discharge --Has follow-up with urology on June 11 for stent removal --Pain control (2) Renal calculi: S/P right ureteral stent. CT ABD as above Appreciate Urology Input Planned for removal of stent on 06/11 at [facility]. (3) LINDA (obstructive sleep apnea): CPAP at bedtime (4) Diabetes mellitus type 2, controlled: Hgb A1c 8.1. Hold metformin Continue Lantus / NovoLog per protocol. (5) Thrombocytopenia: Chronic Likely secondary to cirrhosis No bleeding issues Monitor CBC (6) Atypical chest pain: EKG showed nonspecific T-wave changes. Troponin negative Appreciate Cardiology Input Resolved (7) DVT prophylaxis: SCD's. Ambulate. (8) Discharge planning issues: Plan to discharge home today Admission and Anticipated Discharge Date Admission Date: June 04, 2020 Subjective Patient is seen and examined at bedside States having minimal right flank pain intermittently No significant hematuria Denies chest pain, shortness of breath, dizziness, nausea Eager to get discharged Offers no other complaints Review of Systems Review of Systems: All systems reviewed & are unremarkable except as noted in HPI & below Physical Exam Physical Exam: Physical Exam: Vitals signs as noted above General Appearance:Obese, no apparent distress Head: normocephalic, Atraumatic Eyes: normal inspection, EOMI Neck: supple, Trachea midline Respiratory/Chest: Normal breath sounds, CTA Cardiovascular: S1, S2, No murmur Abdomen/GI:Soft, Non tender, Bowel sounds present, +Right flank tender Extremities/Musculoskelatal:normal inspection, no edema Neurologic/Psych:AAOX3, grossly no focal neurological deficits Skin: normal color, warm Results & Data Results & Data ([facility]) Vital Signs (Past 12 Hours) Vital Signs Temp Pulse Resp BP Pulse Ox 06/06/20 07:10 36.7 C 64 20 125/77 96 Laboratory Results [facility] 06/06/20 07:04 Sodium 138 Potassium 4.1 Chloride 107 Carbon Dioxide 26 BUN 9 Creatinine 0.81 Glucose 157 H Calcium 9.1
--- NOTE | 2020-06-06 13:07 | Discharge Summary ---
Date of Service June 06, 2020 Admission HPI Per Admitting Provider CHIEF COMPLAINT: Right flank and groin pain. HISTORY OF PRESENT ILLNESS: This 40-year-old male with past medical history significant for type 2 diabetes, hyperlipidemia, obstructive sleep apnea, hypertension, irritable bowel syndrome, thrombocytopenia, recent diagnosis of liver cirrhosis, and recently also found to have kidney stones and on 05/28/2020 at [facility], he had a cystolithotripsy with stent placement of right ureter. The patient says since last Thursday, he started developing right groin and flank pain, and it got worse. He is not able to walk because of severe pain, sweating, was nauseous and he also had pain whenever he is micturating and he is also having hematuria which prompted him to come to the ER today. Denies any fever, chills. In the ER, CT scan of the abdomen and pelvis was done which shows "stent is in good position. No hydronephrosis, no calculi identified, some urothelial thickening within the right renal pelvis and right ureter with periureteral edema, fat stranding, could be from the recent intervention or pyelitis could also have similar appearance". The patient was given pain medications and started on Cipro. The patient is afebrile here and no leukocytosis. Currently, the patient is resting comfortably and hemodynamically stable. Still complains of pain in the right groin region. Denies any headache, no blurred vision, no earache, no runny nose, no sore throat, no cough, no dysphagia. Appetite is okay. No chest pain or shortness of breath. He has irritable bowel syndrome, gets diarrhea and constipation. He could not tell whether he has any blood in the stools. No swelling in the legs, no rash seen. Admission Exam Per Admitting Provider PHYSICAL EXAMINATION: GENERAL: The patient is obese, not in acute distress. VITAL SIGNS: Temperature 37.1, pulse 71, respiratory rate 18, blood pressure 137/87, oxygen 98% on room air. HEENT: No pallor, no icterus. Pupils equal, round, reactive to light. Oral mucosa dry. NECK: No JVD, no neck masses. CARDIOVASCULAR: S1, S2 heard, regular rate and rhythm, no murmur, no gallop. RESPIRATORY SYSTEM: Normal AP diameter. No accessory muscle use. No wheezing, no crackles. ABDOMEN: Soft, bowel sounds present. Tenderness in the right lower quadrant and right flank region. Guarding present. No distention. CENTRAL NERVOUS SYSTEM: Cranial nerves II-XII grossly intact. Nonfocal. EXTREMITIES: No edema, no erythema. Principal Diagnosis Acute Pyelonephritis Thrombocytopenia Atypical chest pain Discharge Data Allergies Allergy/AdvReac Type Severity Reaction Status Date / Time bee venom protein (honey bee) Allergy Severe Anaphylaxis Unverified 06/04/20 08:47 pineapple Allergy Severe THROAT Verified 06/02/20 18:11 CLOSES TO THE FRUIT cephalexin Allergy Intermediate HIVES Verified 06/02/20 18:11 menthol Allergy Intermediate WELTS Verified 06/04/20 08:47 Penicillins Allergy Intermediate RASH Verified 06/02/20 18:11 Consultations 06/02/20 19:19 ED Decision to Admit Stat 06/03/20 08:00 Consult Urology Routine 06/04/20 11:17 Consult Cardiology Routine Procedures Performed CT ABD: 1. Interval placement of a right ureteral stent which is in good position. There is mild fullness within the right renal collecting system without greg hydronephrosis. No ureteral calculi identified. 2. Urothelial thickening within the right renal pelvis and right ureter with periureteral edema/fat stranding. This could be due to the recent intervention. A pyelitis could also have a similar appearance. Recommend correlation with urinalysis. 3. Left-sided nephrolithiasis. Possible right-sided nephrolithiasis. 4. Cirrhotic liver, hepatic steatosis, and splenomegaly are again noted. 5. Cholelithiasis, unchanged. 6. No bowel wall thickening or obstruction. Ordered Studies 06/02/20 16:40 CT abd pelvis IV con only Stat Hospital Course (1) Acute UTI (urinary tract infection): Acute Pyelonephritis Complicated UTI --CT ABD:Interval placement of a right ureteral stent which is in good position. There is mild fullness within the right renal collecting system without greg hydronephrosis. No ureteral calculi identified. Urothelial thickening within the right renal pelvis and right ureter with periureteral edema/fat stranding. This could be due to the recent intervention. A pyelitis could also have a similar appearance. Recommend correlation with urinalysis. Left-sided nephrolithiasis. Possible right-sided nephrolithiasis. Cirrhotic liver, hepatic steatosis, and splenomegaly are again noted. Cholelithiasis, unchanged. No bowel wall thickening or obstruction. --Urine Cx: Coagulase negative Staphylococcus --Initially on IV ciprofloxacin>> transition to IV vancomycin --Appreciate Urology Input --Plan to transition to Bactrim DS upon discharge --Has follow-up with urology on June 11 for stent removal --Pain control (2) Renal calculi: S/P right ureteral stent. CT ABD as above Appreciate Urology Input Planned for removal of stent on 06/11 at [facility]. (3) LINDA (obstructive sleep apnea): CPAP at bedtime (4) Diabetes mellitus type 2, controlled: Hgb A1c 8.1. Hold metformin Continue Lantus / NovoLog per protocol. (5) Thrombocytopenia: Chronic Likely secondary to cirrhosis No bleeding issues Monitor CBC (6) Atypical chest pain: EKG showed nonspecific T-wave changes. Troponin negative Appreciate Cardiology Input Resolved (7) DVT prophylaxis: SCD's. Ambulate. (8) Discharge planning issues: Plan to discharge home today Total Time Total Time Spent Total Time Spent (In Minutes): 38 minutes Total Time Includes: Examination of the Patient, Discharge Planning, Medication Reconciliation, Communication With Other Providers and Other Discharge Plan Discharge Items Patient Disposition: Home - Self-Care Reason For Visit: RT GROIN PAIN Discharge Diagnosis: Acute Pyelonephritis Thrombocytopenia Atypical chest pain Activity: Resume your previous activity Exercise/Sports: Gradually increase as tolerated Non-emergency contact: Primary Care Provider and Urologist Call non-emergency contact if: you have any medication questions, your symptoms worsen, your pain is not controlled, your pain is worsening, your pain is unusual for you, your pain is concerning for you and you have a fever Follow-up/Referrals: Sedrick Smith MD [Staff Physician] - 06/08/20 11:00 am (Date & Time 06/08/2020 11:00 AM Provider Sedrick Smith MD Department Family Practice [facility] ) Diet: Carb Consistent or DM2 and Heart Healthy Addtl Attending Provider Instructions: Follow-up with your primary care physician Dr. Smith on June 08, 2020 at 11 AM Follow-up with your urologist on June 11, 2020 as scheduled for stent removal Complete the antibiotic course as prescribed (Bactrim DS 800/160mg Twice a day for 5 more days). Discussed with your Urologist for further recommendations on antibiotic course. Seek immediate medical attention if your symptoms reoccur or worsen Pending Studies at Discharge: No Stand-Alone Forms: My [facility], Work/School Release (Inpt), Smoking Cessation Medications and DC Order Prescriptions: New sulfamethoxazole-trimethoprim [Bactrim DS] 800-160 mg tablet 1 tab PO BID 5 Days Qty: 10 RF: 0 Continued metformin 500 mg Tablet Extended Release 24 Hr 1,000 mg PO BIDM RF: 0 tamsulosin [Flomax] 0.4 mg Capsule 0.4 mg PO DAILY RF: 0 oxycodone 5 mg Tablet 5 mg PO Q6H PRN (Reason: Pain) Qty: 12 RF: 0 hydrocortisone-pramoxine [Analpram-HC] 2.5-1 % Cream 1 applic [facility] DIRECTED PRN (Reason: Hemorrhoids) RF: 0 sertraline 50 mg Tablet 50 mg PO HS RF: 0 omeprazole 20 mg Tablet,Delayed Release (Dr/Ec) 20 mg PO QAM RF: 0 Victoza 2-Charles 0.6 mg/0.1 mL (18 mg/3 mL) Pen Injector 1.8 mg SUBCUT QPM RF: 0 ondansetron HCl [Zofran] 4 mg tablet 4 mg PO TID Qty: 30 RF: 0 melatonin 1 mg Tablet 1 mg PO HS PRN (Reason: Sleep) RF: 0 epinephrine [EpiPen 2-Charles] 0.3 mg/0.3 mL auto-injector 0.3 mg IM Q3H PRN (Reason: bronchodilation) Qty: 2 RF: 0 Discharge Orders: Discharge Order (Routine); Ordered 06/06/20 Ordered By: Luiz Magaña/Other Patient Handouts: Managing Type 2 Diabetes, How to Check Your Blood Sugar, Exercise to Manage Your Blood Sugar, Managing Diabetes: The A1C Test, Diabetes: Meal Planning Admission Data Admit Date/Time: 06/04/20 14:24 Attending Provider: Luiz Chaney Admit Provider: Ko Guallpa Primary Care Provider: Jacqueline Portillo Other Providers: Ko Guallpa ; Ashok Cheatham ; Kodi Bauer ; Antoni Putnam I. ; Chad Bonilla ; Aurea Wilder ; Nita Harper ; Juan Gibson ; Florencia Muñoz ; Deisi Momin ; Jv Tyson ; Sofía Lua ; Lise Gilmore ; Sukhdev Maldonado Other Interventions: Discharge Summary Assessment (RN) Last Done: 06/06/20 13:17
[2020-06-06] MEDS: OXYCODONE HCL IR 5 MG TAB (IMMEDIATE RELEASE) PO PRN (13:14)
[2020-06-06] MEDS ORDERED: VANCOMYCIN TROUGH ONE (17:30)
== END 2020-06-06 15:12 | disposition home or self-care (01) | DRG 690 ==
LOC: 3N 15:52 → ED 15:52 → 3N 21:26 → 2N 06-04 10:47 → SUATTDRO 06-04 14:24

== ENCOUNTER 2020-12-21 05:33 | Inpatient (IN) ==
[2020-12-21] MEDS ORDERED: KETOROLAC TROMETHAMINE 15 MG/ML VIAL IV STA ×2 (05:40→19:49)
[2020-12-21] MEDS ORDERED: ONDANSETRON INJ 2 MG/ML 2 ML VIAL IV STA (05:40)
[2020-12-21] MEDS ORDERED: SODIUM CHLORIDE 0.9% 500 ML IV STA (05:40)
[2020-12-21] MEDS ORDERED: MoRPHine SULFATE 4 MG/ML 1 ML CARP\\VIAL IV STA (05:40)
--- NOTE | 2020-12-21 05:50 | Emergency Department Note ---
History of Present Illness General Chief complaint: Kidney Stone Stated complaint: KIDNEY STONE Time Seen by Provider: 12/21/20 05:41 History of Present Illness Maximum Pain Intensity: 8 This 40-year-old presents to the ER complaining of right flank pain who has history of stones Location: Right flank Quality: Sharp Severity: Moderate Duration: This morning Timing: This morning Context: Pain persisted and patient came in Modifying factors: better with nothing; worse with nothing Patient denies chest pain, dyspnea, fevers, testicular pain. He states this feels like his typical kidney stone pain. He is unsure who his [facility] urologist is. Home Medications Medication Instructions Recorded Confirmed Type Victoza 2-Charles 1.8 mg SUBCUT QPM 08/11/18 06/02/20 History hydrocortisone-pramoxine 1 applic [place] DIRECTED PRN 08/11/18 06/02/20 History [Analpram-HC] omeprazole 20 mg PO QAM 08/11/18 06/02/20 History ondansetron HCl [Zofran] 4 mg PO TID #30 tab 08/11/18 06/02/20 Rx sertraline 50 mg PO HS 08/11/18 06/02/20 History epinephrine [EpiPen 2-Charles] 0.3 mg IM Q3H PRN #2 ea 03/19/19 06/02/20 Rx melatonin 1 mg PO HS PRN 03/19/19 06/02/20 History metformin 1,000 mg PO BIDM 06/02/20 06/02/20 History tamsulosin [Flomax] 0.4 mg PO DAILY 06/02/20 06/02/20 History oxycodone 5 mg PO Q6H PRN #12 tab 06/06/20 Rx Allergies Allergy/AdvReac Type Severity Reaction Status Date / Time bee venom protein (honey bee) Allergy Severe Anaphylaxis Unverified 06/04/20 08:47 pineapple Allergy Severe THROAT Verified 06/02/20 18:11 CLOSES TO THE FRUIT cephalexin Allergy Intermediate HIVES Verified 06/02/20 18:11 menthol Allergy Intermediate WELTS Verified 06/04/20 08:47 Penicillins Allergy Intermediate RASH Verified 06/02/20 18:11 Past Med/Surg History Medical History (Updated 12/21/20 @ 05:50 by Yuli Mchugh PA-C) Depression Diabetes Diabetes mellitus type 2, controlled GERD (gastroesophageal reflux disease) HTN (hypertension) Kidney stones LINDA (obstructive sleep apnea) Thrombocytopenia Surgical History H/O cystoscopy H/O shoulder surgery H/O wisdom tooth extraction History of open reduction and internal fixation (ORIF) procedure "Finger " Family History Other Family history not known due to adoption Social History Smoking Status: Never smoker Tobacco Type: Cigarettes Second Hand Exposure: Yes; Hx Alcohol Use: No Hx Substance Use: No Preferred Language: Sinhala Corporate Security Officer Required: No Beliefs That Will Affect Care: None marital status: Current Living Situation: Spouse and Family Feels Safe at Home: Yes Assistive Devices: CPAP Review of Systems A total of 10 systems reviewed and were otherwise negative Physical Exam Vital Signs Vital Signs - 24 hr 12/21/20 05:36 Temperature 36.6 C Temperature Source Temporal Artery Scan Pulse Rate 89 Respiratory Rate 18 Respiratory Depth Normal Blood Pressure 166/69 H Blood Pressure Mean 101 Blood Pressure Position Sitting Pulse Oximetry 98 Oxygen Delivery Method Room Air Sepsis Recent Fever Within 48 Hours No Sepsis New/Unexplained Change in Mental Status No Sepsis Action Taken by Nursing No Action Required VITALS: Vitals are noted on the nurse's note and reviewed by myself. Vital signs stable. GENERAL: Pleasant male who appears in pain, in no acute distress, nondiaphoretic, well-developed well-nourished. SKIN: Capillary reflex less than 2 seconds. HEENT: Normocephalic. PERRLA. EOMI. Nares patent. Mucous membranes moist. Neck is supple without nuchal rigidity. HEART: Regular rate and rhythm LUNGS: Clear to auscultation bilaterally without wheezes, rales or rhonchi. No retractions or accessory muscle use. ABDOMEN: Positive bowel sounds x 4. Normal tympanic percussion. Soft, nontender, without masses or organomegaly. Garcia sign negative. No guarding or rebound tenderness. No CVA tenderness MUSCULOSKELETAL: No gross musculoskeletal defects. NEURO: Patient was alert and oriented to person place and time. No focal neurological deficits. Course Administered Medications Discontinued Medications Hydromorphone HCl (Hydromorphone Inj 1 Mg/Ml Syringe) 1 mg IV NOW STA Stop: 12/21/20 06:04 Last Admin: 12/21/20 06:06 Dose: 1 mg Documented by: [id number] Sodium Chloride (Nss) 500 mls @ 999 mls/hr IV .Q31M STA Stop: 12/21/20 06:10 Last Infusion: 12/21/20 06:20 Dose: 0 mls/hr Documented by: [id number] Admin: 12/21/20 05:47 Dose: 999 mls/hr Documented by: [id number] Ketorolac Tromethamine (Ketorolac Tromethamine 15 Mg/Ml Vial) 10 mg IV NOW STA Stop: 12/21/20 05:41 Last Admin: 12/21/20 05:47 Dose: 10 mg Documented by: [id number] Morphine Sulfate (Morphine Sulfate 4 Mg/Ml 1 Ml Carp\\Vial) 4 mg IV NOW STA Stop: 12/21/20 05:41 Last Admin: 12/21/20 05:47 Dose: 4 mg Documented by: [id number] Ondansetron HCl (Ondansetron Inj 2 Mg/Ml 2 Ml Vial) 4 mg IV NOW STA Stop: 12/21/20 05:41 Last Admin: 12/21/20 05:47 Dose: 4 mg Documented by: [id number] Medical Decision Making Medical Records Attestation: I reviewed the patient's medical records. Home Medications Current Medication List: was personally reviewed by me Laboratory Data Attestation: I reviewed the patient's lab results. Result diagrams: 12/21/20 05:45 12/21/20 05:45 Lab Results 12/21/20 12/21/20 12/21/20 Range/Units 05:43 05:45 05:45 WBC 4.03 L (4.8-10.8) K/uL RBC 4.74 (4.7-6.1) M/uL Hgb 15.5 (14.0-18.0) g/dL Hct 44.0 (42-52) % MCV 92.8 (80-100) fL MCH 32.7 (25-34) pg MCHC 35.2 (32-36) g/dL RDW Std Deviation 44.9 (36.4-46.3) fL RDW Coeff of Flavio 13.0 (11.5-14.5) % Plt Count 77 L (130-400) K/uL MPV 10.4 (7.4-10.4) fL Sodium 140 (136-145) mmol/L Potassium 4.1 (3.5-5.1) mmol/L Chloride 111 H (98-107) mmol/L Carbon Dioxide 26 (21-32) mmol/L Anion Gap 3.0 (3-11) BUN 18 (7-18) mg/dl Creatinine 0.95 (0.6-1.4) mg/dl Est Cr Clr Drug Dosing 127.6 ml/min Est GFR ( Amer) 114.8 Est GFR (Non-Af Amer) 99.0 BUN/Creatinine Ratio 18.5 (10-20) Glucose 274 H (70-99) mg/dl Calcium 9.3 (8.5-10.1) mg/dl Urine Color Dark Yellow Urine Appearance Clear (Clear) Urine pH 5.5 (4.5-7.5) POC Urine pH (4.5-7.5) Ur Specific [place] 1.035 H (1.000-1.030) Urine Protein 1+ H (Negative) POC Urine Protein (Negative) Urine Glucose (UA) 3+ H (Negative) POC Ur Glucose (UA) (Normal) Urine Ketones Trace H (Negative) POC Urine Ketones (Negative) Urine Blood 3+ H (Negative) POC Urine Blood (Negative) Urine Nitrite Negative (Negative) POC Urine Nitrite (Negative) Urine Bilirubin Negative (Negative) POC Urine Bilirubin (Negative) Urine Urobilinogen Negative (Negative) POC Urine Urobilinogen (Normal) Ur Leukocyte Esterase Negative (Negative) POC U Leukocyte Esteras (Negative) Urine WBC (Auto) 5-10 H (0-5) /hpf Urine RBC (Auto) >30 H (0-4) /hpf U Hyaline Cast (Auto) 1-5 (0-5) /lpf U Epithel Cells (Auto) 10-20 H (0-5) /lpf Urine Bacteria (Auto) Negative (Negative) COVID-19 Eval Order 12/21/20 12/21/20 Range/Units 05:51 06:12 WBC (4.8-10.8) K/uL RBC (4.7-6.1) M/uL Hgb (14.0-18.0) g/dL Hct (42-52) % MCV (80-100) fL MCH (25-34) pg MCHC (32-36) g/dL RDW Std Deviation (36.4-46.3) fL RDW Coeff of Flavio (11.5-14.5) % Plt Count (130-400) K/uL MPV (7.4-10.4) fL Sodium (136-145) mmol/L Potassium (3.5-5.1) mmol/L Chloride (98-107) mmol/L Carbon Dioxide (21-32) mmol/L Anion Gap (3-11) BUN (7-18) mg/dl Creatinine (0.6-1.4) mg/dl Est Cr Clr Drug Dosing ml/min Est GFR ( Amer) Est GFR (Non-Af Amer) BUN/Creatinine Ratio (10-20) Glucose (70-99) mg/dl Calcium (8.5-10.1) mg/dl Urine Color Urine Appearance (Clear) Urine pH (4.5-7.5) POC Urine pH 5 (4.5-7.5) Ur Specific [place] (1.000-1.030) Urine Protein (Negative) POC Urine Protein Negative (Negative) Urine Glucose (UA) (Negative) POC Ur Glucose (UA) 50 H (Normal) Urine Ketones (Negative) POC Urine Ketones Negative (Negative) Urine Blood (Negative) POC Urine Blood 250 H (Negative) Urine Nitrite (Negative) POC Urine Nitrite Negative (Negative) Urine Bilirubin (Negative) POC Urine Bilirubin Negative (Negative) Urine Urobilinogen (Negative) POC Urine Urobilinogen Normal (Normal) Ur Leukocyte Esterase (Negative) POC U Leukocyte Esteras Negative (Negative) Urine WBC (Auto) (0-5) /hpf Urine RBC (Auto) (0-4) /hpf U Hyaline Cast (Auto) (0-5) /lpf U Epithel Cells (Auto) (0-5) /lpf Urine Bacteria (Auto) (Negative) COVID-19 Eval Order [facility]FluRsv at [facility] Imaging Data Attestation: I personally reviewed and interpreted this imaging study as follows: MDM Narrative Prior records/ancillary studies reviewed. Triage Nursing notes reviewed. Additional history obtained from the family. The patient's history was concerning for right flank pain. Differential diagnosis: Etiologies such as renal colic, appendicitis, diverticulitis, mesenteric ischemia, aortic pathology, infections, inflammatory bowel disease, PUD, biliary pathology, UTI, as well as others were entertained. Physical examination findings: As above. ER treatment provided: Morphine, Zofran, Toradol On reassessment the patient felt better. Diagnostic interpretation by me: The labs revealed stable H&H, hyperglycemia without DKA. Urinalysis revealed There was no sign of UTI. Imaging studies: CT ABDOMEN & PELVIS Without Contrast: Moderate hydronephrosis due to a 7 mm calculus in the right ureteropelvic junction. There is a nonobstructive calyceal calculus in the lower pole the left kidney measuring 7 mm. The urinary bladder is empty. There is fatty infiltration of the liver and hepatomegaly with the liver measuring 26.7 cm craniocaudad. No focal liver lesion is seen. There is mild splenomegaly with the spleen measuring 17.1 cm. No focal splenic lesion. Cholelithiasis with a 1 cm calcified gallstone in the dependent portion of the gallbladder. No biliary duct dilation or pericholecystic inflammation is seen. Normal appendix. Bowel loops are nondilated. No acute inflammatory changes are seen involving the bowel. Mild degenerative changes in the lumbar spine. No acut e fracture or subluxation. Radiologist: Arley Wilkinson MD Consultation: A consultation was placed with Dr. Oni akins. The case was discussed and diagnostics were reviewed. The patient was evaluated in the ER for further treatment. It appears that the patient has isolated renal colic from a right sided stone. Patient is requesting admission. Medicine was consulted. He will be evaluated for admission. By the evaluation outlined above emergent etiologies such as appendicitis, diverticulitis, mesenteric ischemia, aortic pathology, infections, inflammatory bowel disease, PUD, biliary pathology, UTI, as well as others were deemed relatively unlikely. The pt informed about the findings as listed above. All questions were answered and pleased with the treatment. The chart was completed utilizing [employer] voice recognition software. Grammatical errors, random word insertions, pronoun errors, and incomplete sentences are an occassional consequence of this system due to software limitations, ambient noise, and hardware issues. Any formal questions or conc erns about the content, text, or information contained within the body of this dictation should be directly addressed to the physician nurse practitioner physicians assistant for clarification. Impression & Plan Renal colic on right side, Ureterolithiasis Discharge Plan Visit Data Chief Complaint: Kidney Stone Stated Complaint: KIDNEY STONE ED Provider: Asya Wheat ED Midlevel Provider: Yuli Mchugh Discharge Problem: Renal colic on right side, Ureterolithiasis Patient Disposition: Being Evaluated by Hospitalist Condition: Good Forms Stand Alone Forms: My [facility] Prescriptions Prescriptions: No Action metformin 500 mg Tablet Extended Release 24 Hr 1,000 mg PO BIDM RF: 0 tamsulosin [Flomax] 0.4 mg Capsule 0.4 mg PO DAILY RF: 0 oxycodone 5 mg Tablet 5 mg PO Q6H PRN (Reason: Pain) Qty: 12 RF: 0 hydrocortisone-pramoxine [Analpram-HC] 2.5-1 % Cream 1 applic [place] DIRECTED PRN (Reason: Hemorrhoids) RF: 0 sertraline 50 mg Tablet 50 mg PO HS RF: 0 omeprazole 20 mg Tablet,Delayed Release (Dr/Ec) 20 mg PO QAM RF: 0 Victoza 2-Charles 0.6 mg/0.1 mL (18 mg/3 mL) Pen Injector 1.8 mg SUBCUT QPM RF: 0 ondansetron HCl [Zofran] 4 mg tablet 4 mg PO TID Qty: 30 RF: 0 melatonin 1 mg Tablet 1 mg PO HS PRN (Reason: Sleep) RF: 0 epinephrine [EpiPen 2-Charles] 0.3 mg/0.3 mL auto-injector 0.3 mg IM Q3H PRN (Reason: bronchodilation) Qty: 2 RF: 0 Referrals Referrals: Jacqueline Portillo DO [Primary Care Provider] -
[2020-12-21] MEDS ORDERED: HYDROmorphone INJ 1 MG/ML SYRINGE IV STA ×4 (06:03→22:59)
[2020-12-21 06:14] LABS: POC Urine Bilirubin Negative (Negative); POC Urine Blood 250 (Negative); POC Urine Glucose 50 (Normal); POC Urine Ketones Negative (Negative); POC Urine Leukocytes Negative (Negative); POC Urine Nitrite Negative (Negative); POC Urine Protein Negative (Negative); POC Urine Urobilinogen Normal (Normal); POC Urine pH 5 (4.5-7.5)
[2020-12-21 06:19] LABS: Hemoglobin 15.5 g/dL (14.0-18.0); Mean Corpuscular Hemoglobin 32.7 pg (25-34); Mean Corpuscular Hgb Conc 35.2 g/dL (32-36); Mean Corpuscular Volume 92.8 fL (80-100); Mean Platelet Volume 10.4 fL (7.4-10.4); Platelet Count 77 K/uL (130-400); RDW Standard Deviation 44.9 fL (36.4-46.3); Red Blood Count 4.74 M/uL (4.7-6.1); White Blood Count 4.03 K/uL (4.8-10.8)
[2020-12-21 06:21] LABS: BUN Creatinine Ratio 18.5 (10-20); Calcium 9.3 mg/dl (8.5-10.1); Creatinine Clr Calc Pharmacy 127.6 ml/min; Est GFR (African American) 114.8; Potassium 4.1 mmol/L (3.5-5.1)
[2020-12-21] MEDS ORDERED: TAMSULOSIN HCL 0.4 MG CAP PO ONE (06:27)
[2020-12-21 06:30] LABS: Appearance Urine Clear (Clear); Bacteria Urine Automated Negative (Negative); Bilirubin Urine Negative (Negative); Blood Urine 3+ (Negative); Color Urine Dark Yellow; Glucose Urine UA 3+ (Negative); Ketones Urine Trace (Negative); Leukocyte Esterase Urine Negative (Negative); Nitrite Urine Negative (Negative); Protein Urine 1+ (Negative); RBC Urine Automated >30 /hpf (0-4); Specific Gravity Urine 1.035 (1.000-1.030); Urobilinogen Urine Negative (Negative); pH Urine 5.5 (4.5-7.5)
--- NOTE | 2020-12-21 06:51 | History & Physical Report ---
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 until patient seen by urology Basal insulin adjusted for n.p.o. status, ISS BG goal [id number], update hemoglobin A1c DVT prophylaxis with SCDs Re: Thrombocytopenia Full code Text document was generated using [employer] voice recognition software. It may contain grammatical or spelling errors. Kindly contact undersigned for clarification of any documentation item in question. History of Present Illness Chief Complaint: Right flank pain Primary Care Provider: MARCIAL Bueno History obtained from patient, family, and records. Medical history significant for HTN, DM2 on oral medications, NAFLD cirrhosis, chronic thrombocytopenia, LINDA on CPAP, recurrent urolithiasis, past tobacco abuse. Last confinement May 2020 for acute pyelonephritis. Patient roused from sleep early this morning with achy sharp right flank pain reminiscent of kidney stone pain without fever, chills, hematuria symptoms. No headache, no chest pain, no S OB. Patient given Flomax at the ER for obstructive uropathy. 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 Allergies Allergy/AdvReac Type Severity Reaction Status Date / Time bee venom protein (honey bee) Allergy Severe Anaphylaxis Unverified 12/21/20 07:03 pineapple Allergy Severe THROAT Verified 12/21/20 07:03 CLOSES TO THE FRUIT cephalexin Allergy Intermediate HIVES Verified 12/21/20 07:03 menthol Allergy Intermediate WELTS Verified 12/21/20 07:03 Penicillins Allergy Intermediate RASH Verified 12/21/20 07:03 Home Medications Medication Instructions Recorded Confirmed Type Victoza 2-Charles 1.8 mg SUBCUT QPM 08/11/18 12/21/20 History hydrocortisone-pramoxine 1 applic [place] DIRECTED PRN 08/11/18 12/21/20 History [Analpram-HC] omeprazole 20 mg PO QAM 08/11/18 12/21/20 History sertraline 50 mg PO HS 08/11/18 12/21/20 History epinephrine [EpiPen 2-Charles] 0.3 mg IM Q3H PRN #2 ea 03/19/19 12/21/20 Rx melatonin 1 mg PO HS PRN 03/19/19 12/21/20 History metformin 1,000 mg PO BIDM 06/02/20 12/21/20 History multivitamin 1 tab PO BID 12/21/20 12/21/20 History Past Med/Surg History Medical History (Updated 12/21/20 @ 10:56 by SHARIFA Stoll) Depression Diabetes Diabetes mellitus type 2, controlled GERD (gastroesophageal reflux disease) HTN (hypertension) Kidney stones LINDA (obstructive sleep apnea) Thrombocytopenia Surgical History H/O cystoscopy H/O shoulder surgery H/O wisdom tooth extraction History of open reduction and internal fixation (ORIF) procedure "Finger " Family History Other Family history not known due to adoption Social History Smoking Status: Former smoker Tobacco Type: Cigarettes Second Hand Exposure: No; Do You Dip or Chew Tobacco: No; Tobacco Cessation Education Requested by Patient: No Hx Alcohol Use: No Hx Substance Use: No Preferred Language: Bengali Communication Ability: Effective Operations Management Professionals Required: No Beliefs That Will Affect Care: None marital status: Current Living Situation: Spouse Other Information That Helps Us Care for You: No Feels Safe at Home: Yes Safety Concerns: Feels Safe At This Time Assistive Devices: None Review of Systems Review of Systems: As per HPI, all 10 systems reviewed, all other ROS negative Physical Exam Physical Exam: GENERAL: Comfortable, pleasant, morbidly obese, no respiratory distress, looks older than stated age SKIN: Normal color, warm HEENT: Ward palpebral conjunctivae, no ptosis, dry buccal mucosa NECK : Supple, short neck, no tenderness CHEST : CTA, no tenderness HEART : RRR, no obvious murmurs ABDOMEN: Some distention, nontender BACK : Right flank tenderness EXTREMITIES : Minimal LE swelling, no LE tenderness, no other conspicuous deformities noted NEUROLOGIC : Coherent, no facial asymmetry, no other gross focality Results & Data Results & Data ([facility]) Vital Signs (Past 12 Hours) Vital Signs Temp Pulse Pulse Resp BP BP Pulse Ox 12/21/20 06:39 78 18 161/92 H 95 12/21/20 05:36 36.6 C 89 18 166/69 H 98 Laboratory Results Laboratory Results WBC 4.03 K/uL (4.8-10.8) L 12/21/20 05:45 RBC 4.74 M/uL (4.7-6.1) 12/21/20 05:45 Hgb 15.5 g/dL (14.0-18.0) 12/21/20 05:45 Hct 44.0 % (42-52) 12/21/20 05:45 MCV 92.8 fL (80-100) 12/21/20 05:45 MCH 32.7 pg (25-34) 12/21/20 05:45 MCHC 35.2 g/dL (32-36) 12/21/20 05:45 RDW Std Deviation 44.9 fL (36.4-46.3) 12/21/20 05:45 RDW Coeff of Flavio 13.0 % (11.5-14.5) 12/21/20 05:45 Plt Count 77 K/uL (130-400) L 12/21/20 05:45 MPV 10.4 fL (7.4-10.4) 12/21/20 05:45 Sodium 140 mmol/L (136-145) 12/21/20 05:45 Potassium 4.1 mmol/L (3.5-5.1) 12/21/20 05:45 Chloride 111 mmol/L (98-107) H 12/21/20 05:45 Carbon Dioxide 26 mmol/L (21-32) 12/21/20 05:45 Anion Gap 3.0 (3-11) 12/21/20 05:45 BUN 18 mg/dl (7-18) 12/21/20 05:45 Creatinine 0.95 mg/dl (0.6-1.4) 12/21/20 05:45 Est Cr Clr Drug Dosing 127.6 ml/min 12/21/20 05:45 Est GFR ( Amer) 114.8 12/21/20 05:45 Est GFR (Non-Af Amer) 99.0 12/21/20 05:45 BUN/Creatinine Ratio 18.5 (10-20) 12/21/20 05:45 Glucose 274 mg/dl (70-99) H 12/21/20 05:45 Calcium 9.3 mg/dl (8.5-10.1) 12/21/20 05:45 Urine Color Dark Yellow 12/21/20 05:43 Urine Appearance Clear (Clear) 12/21/20 05:43 Urine pH 5.5 (4.5-7.5) 12/21/20 05:43 POC Urine pH 5 (4.5-7.5) 12/21/20 05:51 Ur Specific [place] 1.035 (1.000-1.030) H 12/21/20 05:43 Urine Protein 1+ (Negative) H 12/21/20 05:43 POC Urine Protein Negative (Negative) 12/21/20 05:51 Urine Glucose (UA) 3+ (Negative) H 12/21/20 05:43 POC Ur Glucose (UA) 50 (Normal) H 12/21/20 05:51 Urine Ketones Trace (Negative) H 12/21/20 05:43 POC Urine Ketones Negative (Negative) 12/21/20 05:51 Urine Blood 3+ (Negative) H 12/21/20 05:43 POC Urine Blood 250 (Negative) H 12/21/20 05:51 Urine Nitrite Negative (Negative) 12/21/20 05:43 POC Urine Nitrite Negative (Negative) 12/21/20 05:51 Urine Bilirubin Negative (Negative) 12/21/20 05:43 POC Urine Bilirubin Negative (Negative) 12/21/20 05:51 Urine Urobilinogen Negative (Negative) 12/21/20 05:43 POC Urine Urobilinogen Normal (Normal) 12/21/20 05:51 Ur Leukocyte Esterase Negative (Negative) 12/21/20 05:43 POC U Leukocyte Esteras Negative (Negative) 12/21/20 05:51 Urine WBC (Auto) 5-10 /hpf (0-5) H 12/21/20 05:43 Urine RBC (Auto) >30 /hpf (0-4) H 12/21/20 05:43 U Hyaline Cast (Auto) 1-5 /lpf (0-5) 12/21/20 05:43 U Epithel Cells (Auto) 10-20 /lpf (0-5) H 12/21/20 05:43 Urine Bacteria (Auto) Negative (Negative) 12/21/20 05:43 COVID-19 Eval Order CovFluRsv at [facility] 12/21/20 06:[address] abdomen pelvis initial read: Moderate hydronephrosis due to a 7 mm calculus in the right ureteropelvic junction. There is a nonobstructive calyceal calculus in the lower pole the left kidney measuring 7 mm. The urinary bladder is empty. There is fatty infiltration of the liver and hepatomegaly with the liver measuring 26.7 cm craniocaudad. No focal liver lesion is seen. There is mild splenomegaly with the spleen measuring 17.1 cm. No focal splenic lesion. Cholelithiasis with a 1 cm calcified gallstone in the dependent portion of the gallbladder. No biliary duct dilation or pericholecystic inflammation is seen. Normal appendix. Bowel loops are nondilated. No acute inflammatory changes are seen involving the bowel. Mild degenerative changes in the lumbar spine. No acute fracture or subluxation. EKG as per my interpretation : Rate 80, NSR, normal axis, nonspecific T wave abnormalities
[2020-12-21 07:02] LABS: Influenza A virus by PCR Negative (Neg); Influenza B virus by PCR Negative (Neg); RSV by PCR Negative (Neg); SARS CoV2 RNA(COVID-19) InHosp NEGATIVE (Negative)
--- NOTE | 2020-12-21 07:42 | XRay Report ---
XR chest 1V portable CLINICAL HISTORY: S/P joint difficulty. Covid positive patient. COMPARISON STUDY: 03/19/2019 FINDINGS: The heart is the upper limits of normal in size. There is no failure. There is no focal pul monary consolidation. There are no pleural effusions.[ IMPRESSION: No active disease in the chest. ACT 112: Negative or not required by law. Electronically signed by: Martin Mcdaniel M.D. 12/21/2020 7:40 AM
--- NOTE | 2020-12-21 07:57 | CT Scan Report ---
CT OF THE ABDOMEN AND PELVIS WITHOUT CONTRAST CLINICAL HISTORY: Right flank pain. COMPARISON STUDY: CT of the abdomen and pelvis June 02, 2020. TECHNIQUE: Axial images of the abdomen and pelvis were obtained without IV contrast. Images were revi ewed in the axial, sagittal, and coronal planes. Automated exposure control was utilized for the estee dy. A dose lowering technique was utilized adhering to the principles of ALARA. FINDINGS: Lung bases are clear. A 6 mm right ureteropelvic junction calculus results in moderate righ t hydronephrosis. There is an additional 4 mm proximal right ureteral calculus. There are no left ure teral calculi. There is a 6 mm calculus within lower pole of the left kidney. Evaluation of the remai nder of the abdomen and pelvis is suboptimal on this unenhanced examination. There is a gallstone wit hin the gallbladder. There are postoperative findings along the gallbladder fundus. Hepatic steatosis and cirrhosis is again noted. No hepatic lesions are identified although sensitivity is diminished o n this unenhanced examination. Splenomegaly is unchanged. Adrenal glands and pancreas are unremarkabl e. There is no evidence for a bowel obstruction. The appendix is normal. There is colonic diverticulo sis without evidence for acute diverticulitis. No acute fracture or suspicious lesion is identified w ithin visualized skeletal structures. There are no bladder calculi. IMPRESSION: 1. 6 mm right ureteropelvic junction calculus which results in moderate hydronephrosis. Additional 4 mm proximal right ureteral calculus. 2. 6 mm left renal calculus. 3. Cirrhosis, hepatic steatosis and splenomegaly which are unchanged. 4. Cholelithiasis. 5. No bowel obstruction. ACT 112: Negative or not required by law. Electronically signed by: Tim Enrique M.D. 12/21/2020 7:56 AM
[2020-12-21] MEDS ORDERED: ACETAMINOPHEN 325 MG TAB PO PRN (08:25)
[2020-12-21] MEDS ORDERED: MoRPHine SULFATE 4 MG/ML 1 ML CARP\\VIAL IV PRN (08:25)
[2020-12-21] MEDS ORDERED: DEXTROSE 50% 50 ML SYRINGE IV PRN (08:25)
[2020-12-21] MEDS ORDERED: GLUCOSE 40% GEL 15 GM TUBE PO PRN (08:25)
[2020-12-21] MEDS ORDERED: LORazepam 0.5 MG/1 ML VIAL IV PRN (08:25)
[2020-12-21] MEDS ORDERED: LACTATED RINGER'S 1,000 ML IV SCH (08:25)
[2020-12-21] MEDS ORDERED: GLUCOSE 10 TABS/TUBE PO PRN (08:25)
[2020-12-21] MEDS ORDERED: INSULIN ASPART 100 UNITS/ML 3 ML PEN SC SCH (08:25)
[2020-12-21] MEDS ORDERED: CARBOHYDRATES FOR HYPOGLYCEMIA PO PRN (08:25)
[2020-12-21] MEDS ORDERED: INSULIN GLARGINE SOLOSTAR 100 UNITS/ML 3 ML PEN SC STA (08:25)
[2020-12-21] MEDS ORDERED: GLUCAGON FOR INJ 1 MG VIAL SQ PRN (08:25)
[2020-12-21] MEDS ORDERED: MELATONIN 3 MG TAB PO PRN (08:39)
[2020-12-21] MEDS ORDERED: Nursing to Pharmacy Communication SCH (08:45)
[2020-12-21] MEDS: MULTIVITAMIN TAB PO SCH ×2 (09:39→23:57)
[2020-12-21] MEDS: PANTOprazole 40 MG TAB PO SCH (09:41)
[2020-12-21] MEDS: INSULIN ASPART 100 UNITS/ML 3 ML PEN SC SCH ×4 (09:47→20:26)
[2020-12-21] MEDS: lisinopril 2.5 MG TAB PO SCH (09:48)
[2020-12-21 09:55] LABS: Estimated Average Glucose 209 mg/dl; Hemoglobin A1C 8.9 % (4.5-5.6)
[2020-12-21] MEDS ORDERED: HYDROmorphone INJ 0.5 MG/0.5 ML SYR IV STA ×2 (10:25→22:59)
--- NOTE | 2020-12-21 10:28 | Urology Consultation ---
Date of Consultation December 21, 2020 Assessment & Plan (1) Right ureteral calculus: (2) Renal colic on right side: 40yo M admitted with intractable right flank pain secondary to a 6mm right UPJ calculus with moderate hydronephrosis and an additional 4mm proximal right ureteral calculus. -Afebrile, VSS. -Labs reviewed, Wbc 4.03 and creatinine 0.95 -Discussed acute stone management with cystoscopy and stent placement -Ureteral stents were discussed as well as post-operative issues and pain management. -Keep NPO -Strain all urine -Findings reviewed with . -Given his intractable right flank pain in the context of a 6mm right UPJ calculus with moderate hydronephrosis and an additional 4mm proximal right ureteral calculus, will proceed with OR for Cystoscopy, Right ureteral stent placement. Risks and benefits to be reviewed with patient by . OR notified. Preoperative CXR and EKG in chart. Will cover with IV antibiotics preoperatively. Covid test negative. -Expected clinical course reviewed with patient. He is agreeable to plan, all questions were answered. Supervising Physician Co-Signing Physician Notes Agree with above, plan for cystoscopy right ureteral stent placement today Cipro ordered for the OR History of Present Illness Reason for Consultation: Obstructive uropathy Attending Physician: Karley Hall, History of Present Illness The patient is a 40-year-old male with a PMHx of HTN, DM2, LINDA, GERD, and nephrolithiasis who presented to the ER with complaints of sharp right flank pain which occurred suddenly this morning. CT abdomen pelvis revealed a 6mm right UPJ calculus with moderate hydronephrosis and an additional 4mm proximal right ureteral calculus. On arrival to ER, patient was afebrile. Wbc 4.03, Hgb 15.5, creatinine 0.95. UA with 5-10wbc, >30rbc, neg bacteria, neg nitrite. CT abdomen pelvis: IMPRESSION: 1. 6 mm right ureteropelvic junction calculus which results in moderate hydronephrosis. Additional 4 mm proximal right ureteral calculus. 2. 6 mm left renal calculus. 3. Cirrhosis, hepatic steatosis and splenomegaly which are unchanged. 4. Cholelithiasis. 5. No bowel obstruction. Pt examined at bedside this AM. Awake, resting in bed on arrival. He continues to have right flank pain, but states this has improved with pain medication. Rates pain 6/10. Denies fevers or chills. No nausea or vomiting. Denies hematuria and dysuria. He reports a slow stream. Feels he is emptying his bladder. Has been NPO. Straining all urine. He was given flomax in the ER. Hx of stones requiring surgical intervention in the past. Allergies Allergy/AdvReac Type Severity Reaction Status Date / Time bee venom protein (honey bee) Allergy Severe Anaphylaxis Unverified 12/21/20 07:03 pineapple Allergy Severe THROAT Verified 12/21/20 07:03 CLOSES TO THE FRUIT cephalexin Allergy Intermediate HIVES Verified 12/21/20 07:03 menthol Allergy Intermediate WELTS Verified 12/21/20 07:03 Penicillins Allergy Intermediate RASH Verified 12/21/20 07:03 Home Medications Medication Instructions Recorded Confirmed Type Victoza 2-Charles 1.8 mg SUBCUT QPM 08/11/18 12/21/20 History hydrocortisone-pramoxine 1 applic LA DIRECTED PRN 08/11/18 12/21/20 History [Analpram-HC] omeprazole 20 mg PO QAM 08/11/18 12/21/20 History sertraline 50 mg PO HS 08/11/18 12/21/20 History epinephrine [EpiPen 2-Charles] 0.3 mg IM Q3H PRN #2 ea 03/19/19 12/21/20 Rx melatonin 1 mg PO HS PRN 03/19/19 12/21/20 History metformin 1,000 mg PO BIDM 06/02/20 12/21/20 History multivitamin 1 tab PO BID 12/21/20 12/21/20 History Patient History Medical History (Updated 12/21/20 @ 14:26 by Sderick Hernández MD) Depression Diabetes Diabetes mellitus type 2, controlled GERD (gastroesophageal reflux disease) HTN (hypertension) Kidney stones LINDA (obstructive sleep apnea) Thrombocytopenia Surgical History H/O cystoscopy H/O shoulder surgery H/O wisdom tooth extraction History of open reduction and internal fixation (ORIF) procedure "Finger " Family History Other Family history not known due to adoption Social History Smoking Status: Former smoker Tobacco Type: Cigarettes Second Hand Exposure: No; Do You Dip or Chew Tobacco: No; Tobacco Cessation Education Requested by Patient: No Hx Alcohol Use: No Hx Substance Use: No Preferred Language: [place]an Communication Ability: Effective 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 Beliefs That Will Affect Care: None marital status: Current Living Situation: Spouse Other Information That Helps Us Care for You: No Feels Safe at Home: Yes Safety Concerns: Feels Safe At This Time Assistive Devices: None Review of Systems Review of Systems: All systems reviewed & are unremarkable except as noted in HPI & below Physical Exam Constitutional: well developed and well nourished; no acute distress Respiratory: normal respiratory effort and able to speak in complete sentences; no labored breathing Cardiovascular: Extremities: no calf tenderness Gastrointestinal (Abdomen): Inspection/Auscultation: abdomen not distended Percussion/Palpation: abdomen soft Skin: no rashes, warm and dry Neurologic: moves all extremities and awake; not confused Psychiatric: Orientation: alert, oriented x 3 and cooperative Results & Data ([place]) Vital Signs (Past 12 Hours) Vital Signs Temp Pulse Pulse Resp BP BP Pulse Ox 12/21/20 07:21 73 20 158/83 H 95 12/21/20 06:39 78 18 161/92 H 95 12/21/20 05:36 36.6 C 89 18 166/69 H 98 PG Care Time/CCT Total # of Minutes Spent Total Time Spent with Patient: Total time spent is greater than 50% in coordination of care (as documented) at patient's floor/unit and/or counseling patient: Coding Level of Care Code 11936 Inpt Consult Level 4 Diagnoses Right ureteral calculus N20.1 Renal colic on right side N23
[2020-12-21] MEDS ORDERED: MIDAZOLAM HCL 1 MG/ML 2ML VIAL ONE ×2 (14:08)
[2020-12-21] MEDS ORDERED: fentaNYL citrate 100 MCG/2 ML VIAL ONE (14:10)
[2020-12-21] MEDS ORDERED: LIDOCAINE HCL 2% 2 ML VIAL/AMP(20MG/ML) INFIL ONE (14:11)
[2020-12-21] MEDS ORDERED: ONDANSETRON INJ 2 MG/ML 2 ML VIAL ONE (14:11)
[2020-12-21] MEDS ORDERED: PROPOFOL IV EMULSION 10 MG/ML 20 ML VIAL IV ONE (14:11)
--- NOTE | 2020-12-21 14:26 | Anesthesiology Consultation ---
Date of Service December 21, 2020 Assessment & Plan (1) Encounter for pre-operative examination: Chart Review Chart Review: Acceptable Risk for Surgery History Surgery Operation Date: 12/21/20 10:55 Proposed Procedures p Cystoscopy, Right Stent Placement - Chad Bonilla MD Height/Weight Height: 5 ft 10 in Weight: 129.3 kg Allergies Allergy/AdvReac Type Severity Reaction Status Date / Time bee venom protein (honey bee) Allergy Severe Anaphylaxis Unverified 12/21/20 07:03 pineapple Allergy Severe THROAT Verified 12/21/20 07:03 CLOSES TO THE FRUIT cephalexin Allergy Intermediate HIVES Verified 12/21/20 07:03 menthol Allergy Intermediate WELTS Verified 12/21/20 07:03 Penicillins Allergy Intermediate RASH Verified 12/21/20 07:03 Medications Home Medications Medication Instructions Recorded Confirmed Last Taken Victoza 2-Charles 1.8 mg SUBCUT QPM 08/11/18 12/21/20 12/20/20 hydrocortisone-pramoxine 1 applic LA DIRECTED PRN 08/11/18 12/21/20 Unknown [Analpram-HC] omeprazole 20 mg PO QAM 08/11/18 12/21/20 12/20/20 sertraline 50 mg PO HS 08/11/18 12/21/20 12/20/20 epinephrine [EpiPen 2-Charles] 0.3 mg IM Q3H PRN #2 ea 03/19/19 12/21/20 Unknown melatonin 1 mg PO HS PRN 03/19/19 12/21/20 12/20/20 metformin 1,000 mg PO BIDM 06/02/20 12/21/20 12/20/20 multivitamin 1 tab PO BID 12/21/20 12/21/20 12/20/20 Active Medications Generic Name Dose Route Start Last Admin Trade Name Freq PRN Reason Stop Dose Admin Lactated Ringer's 1,000 mls @ 60 mls/hr 12/21/20 08:25 12/21/20 08:34 Lr IV 01/20/21 08:24 60 mls/hr .[id number] TITA Administration Insulin Aspart 0 units 12/21/20 08:45 12/21/20 12:33 Insulin Aspart 100 Units/Ml 3 Ml Pen SC 01/20/21 08:44 Not Given Q6 TITA Lisinopril 2.5 mg 12/21/20 09:00 12/21/20 09:48 Lisinopril 2.5 Mg Tab PO 01/20/21 08:59 2.5 mg DAILY TITA Administration Multivitamins 1 tab 12/21/20 09:00 12/21/20 09:39 Multivitamin Tab PO 01/20/21 08:59 1 tab BID TITA Administration Pantoprazole Sodium 40 mg 12/21/20 09:00 12/21/20 09:41 Pantoprazole 40 Mg Tab PO 01/20/21 08:59 40 mg QAM TITA Administration Past Medical History Medical History (Updated 12/21/20 @ 14:26 by Sedrick Hernández MD) Depression Diabetes Diabetes mellitus type 2, controlled GERD (gastroesophageal reflux disease) HTN (hypertension) Kidney stones LINDA (obstructive sleep apnea) Thrombocytopenia Past Family History Family History Other Family history not known due to adoption Past Surgical History Surgical History H/O cystoscopy H/O shoulder surgery H/O wisdom tooth extraction History of open reduction and internal fixation (ORIF) procedure "Finger " Social History Smoking Status: Former smoker tobacco type: cigarettes Do You Dip or Chew Tobacco: No Hx Alcohol Use: No Hx Substance Use: No Physical Exam Vital Signs Last Vital Signs Temp 36.6 C 12/21/20 11:41 Pulse 72 12/21/20 11:41 Resp 16 12/21/20 11:41 BP 125/73 12/21/20 11:41 Pulse Ox 92 12/21/20 11:41 Testing Laboratory Results 12/21/20 05:45 12/21/20 05:45 Hemoglobin A1c 8.9 % (4.5-5.6) H 12/21/20 05:45 Urine Color Dark Yellow 12/21/20 05:43 Urine Appearance Clear (Clear) 12/21/20 05:43 Urine pH 5.5 (4.5-7.5) 12/21/20 05:43 Ur Specific [place] 1.035 (1.000-1.030) H 12/21/20 05:43 Urine Protein 1+ (Negative) H 12/21/20 05:43 Urine Glucose (UA) 3+ (Negative) H 12/21/20 05:43 Urine Ketones Trace (Negative) H 12/21/20 05:43 Urine Nitrite Negative (Negative) 12/21/20 05:43 Ur Leukocyte Esterase Negative (Negative) 12/21/20 05:43 Urine WBC (Auto) 5-10 /hpf (0-5) H 12/21/20 05:43 Urine RBC (Auto) >30 /hpf (0-4) H 12/21/20 05:43 U Hyaline Cast (Auto) 1-5 /lpf (0-5) 12/21/20 05:43 U Epithel Cells (Auto) 10-20 /lpf (0-5) H 12/21/20 05:43 Urine Bacteria (Auto) Negative (Negative) 12/21/20 05:43 12/21/20 12/21/20 11:36 08:37 POC Glucose 164 H 203 H
[2020-12-21] MEDS ORDERED: PROMETHAZINE HCL 12.5 MG in SODIUM CHLORIDE 0.9% 50 ML IV PRN (14:28)
[2020-12-21] MEDS ORDERED: KETOROLAC 30 MG/ML VIAL IV PRN (14:28)
[2020-12-21] MEDS ORDERED: ATROPINE SULFATE 0.1 MG/ML 10ML SYR IV PRN (14:28)
[2020-12-21] MEDS ORDERED: fentaNYL citrate 100 MCG/2 ML VIAL IV PRN (14:28)
[2020-12-21] MEDS ORDERED: ONDANSETRON INJ 2 MG/ML 2 ML VIAL IV PRN (14:28)
[2020-12-21] MEDS ORDERED: CIPROFLOXACIN 400MG / 200ML D5W IV ONE (14:32)
--- NOTE | 2020-12-21 15:29 | Fluoroscopy Report ---
FL KUB CLINICAL HISTORY: STENT INSERTION COMPARISON STUDY: CT of the abdomen and pelvis performed earlier today. FLUOROSCOPY TIME: 2 seconds. FLUOROSCOPIC IMAGES: 1 FINDINGS: Fluoroscopy was provided during cystoscopy, right retrograde exam and ureteral stent insert ion. Proximal aspect of the stent projects over the right collecting system. Gallstone is incidentall y noted. There is possible visualization of the right ureteropelvic junction calculus. IMPRESSION: Fluoroscopy provided during cystoscopy, right retrograde exam and ureteral stent inserti on. ACT 112: Negative or not required by law. Electronically signed by: Tim Enrique M.D. 12/21/2020 3:28 PM
--- NOTE | 2020-12-21 15:42 | Operative Report ---
PG Post Operative Report Pre & Post Diagnosis Operation Date: 12/21/20 10:55 <No data on this case meets the specified criteria> Pre: Right UPJ stone Post: Right UPJ stone I identified the patient and participated in the time-out.: Yes Procedure Operation Date: 12/21/20 10:55 <No data on this case meets the specified criteria> Procedure: cystoscopy, Right ureteral stent placement Surgeon Felipe Bonilla MD Attendant Child Activity none Estimated Blood Loss 0 Findings Consistent with Post-Op Diagnosis Specimens none Description of Procedure The patient was identified in the preoperative holding area, appropriate informed consents were reviewed and completed and the patient was transferred to the operative suite. Upon arrival, appropriate antibiotics and anesthesia were administered and the patient was placed in dorsal lithotomy position and prepped and draped in sterile fashion. To be in the case I passed a 22 [place] cystoscope with 30 degree lens. He has a relatively enlarged prostate for his age, somewhat high bladder neck but I was able to navigate above and inspect the bladder. The bladder was healthy. I intubated his right UO with a sensor wire which advanced to the kidney without difficulty. I could not readily identify a stone on fluoroscopy but we will obtain a formal KUB later today to document visibility of the stone or lack thereof. A 6 [place] by 26 cm looped ureteral stent was placed over the wire with good curl in the kidney and the bladder. The case was concluded and he was reversed of anesthesia and taken to the recovery room in stable condition. There were no complications. I attest to the content of the Intraoperative Record and any orders documented therein. Any exceptions are noted below.
--- NOTE | 2020-12-21 15:53 | Anesthesiology Progress Note ---
Date of Service December 21, 2020 Anesthesia Post Procedure Vital Signs Vital Signs: Temp Pulse Pulse Pulse Resp BP BP 12/21/20 15:45 67 16 108/71 12/21/20 15:35 70 14 118/65 12/21/20 15:28 37.1 C 81 14 111/60 12/21/20 14:40 36.8 C 74 20 12/21/20 11:41 36.6 C 72 16 12/21/20 10:59 76 16 12/21/20 08:26 72 12/21/20 08:25 36.8 C 85 18 12/21/20 07:21 73 20 12/21/20 06:39 78 18 12/21/20 05:36 36.6 C 89 18 166/69 H BP Pulse Ox 12/21/20 15:45 99 12/21/20 15:35 99 12/21/20 15:28 95 12/21/20 14:40 144/89 H 96 12/21/20 11:41 125/73 92 12/21/20 10:59 143/75 H 12/21/20 08:26 12/21/20 08:25 135/84 95 12/21/20 07:21 158/83 H 95 12/21/20 06:39 161/92 H 95 12/21/20 05:36 98 Pain Intensity Right Flank: Pain Intensity: 1 Transfer of Care Handoff Completed per policy Notes Mental Status: alert / awake / arousable Patient Amnestic to Procedure: Yes Nausea / Vomiting: adequately controlled Pain: adequately controlled Airway Patency, RR, SpO2: stable & adequate BP & HR: stable & adequate Hydration State: stable & adequate Anesthetic Complications: no major complications apparent
[2020-12-21] MEDS ORDERED: PNEUMOCOCCAL Polysaccharide Vaccine 25mcg/0.5mL vial/Syr IM ONE (16:00)
--- NOTE | 2020-12-21 16:02 | Electrocardiogram Report ---
Test Reason : Blood Pressure : / mmHG Vent. Rate : 080 BPM Atrial Rate : 080 BPM P-R Int : 160 ms QRS Dur : 094 ms QT Int : 380 ms P-R-T Axes : 060 041 030 degrees QTc Int : 438 ms Poor data quality, interpretation may be adversely affected Normal sinus rhythm Nonspecific T wave abnormality Abnormal ECG When compared with ECG of 04-JUN-2020 10:26, No significant change was found Confirmed by Felipe Hurley ([id number]) on 12/21/2020 4:01:47 PM Referred By: REFERRED SELF Confirmed By:Arthur Hurley
[2020-12-21] MEDS: HYDROmorphone INJ 0.5 MG/0.5 ML SYR IV PRN ×3 (16:40→21:33)
[2020-12-21] MEDS ORDERED: PHENAZOPYRIDINE HCL 200 MG TAB PO PRN (16:52)
[2020-12-21] MEDS ORDERED: BELLADONNA/OPIUM SUPP 60 MG SUPP PR STA (17:28)
[2020-12-21] MEDS: PHENAZOPYRIDINE HCL 200 MG TAB PO SCH ×2 (17:46→22:23)
[2020-12-21] MEDS: oxyCODONE HCL IR 5 MG TAB (IMMEDIATE RELEASE) PO PRN (19:56)
[2020-12-21] MEDS ORDERED: SODIUM CHLORIDE 0.45 % 1,000 ML IV SCH (20:30)
[2020-12-21] MEDS ORDERED: KETOROLAC TROMETHAMINE 15 MG/ML VIAL IV ONE ×2 (21:43→23:09)
--- NOTE | 2020-12-21 21:53 | Hospitalist Progress Note ---
Date of Service December 21, 2020 Assessment & Plan (1) Right ureteral calculus: Status post right ureteral stent placement on 12/21. Post operative stent discomfort. Scheduled Pyridium and use B&O suppositories and systemic narcotics as needed. Did give 1 dose of Toradol, however, need to be cautious with this in setting of thrombocytopenia. Later, with continued severe pain, added Flomax qHS. (2) Diabetes mellitus type 2, controlled: uncontrolled with an A1C 8.9. Cont basal bolus insulin while hospitalized. 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 No evidence of bleeding. 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 (6) DVT prophylaxis: Lovenox Full Code Dispo-to home when medically stable. Karley Hall DO [facility] Hospitalist Admission and Anticipated Discharge Date Admission Date: December 21, 2020 Subjective 40-year-old man with history of cirrhosis, diabetes, high blood pressure and a history of nephrolithiasis presents with ureteral colic and obstructive uropathy. At the time of my visit he had undergone right ureteral stent placement by Dr. Bonilla in the operating room. Unfortunately, he was experiencing significant bladder discomfort and stent pain, which he states has happened to him with treatment of prior kidney stones in the past. The pain is severe and he is unable to straighten his legs at this time. No other shortness of breath or other issue at this time. Review of Systems Review of Systems: All systems reviewed & are unremarkable except as noted in Subjective Physical Exam Physical Exam: CONSTITUTIONAL: WNWD, vitals as above, generally ill-appearing EYES: normal conjunctivae, no scleral icterus ENT: external ear and nose normal, oropharynx clear, MMM RESPIRATORY: clear to auscultation bilaterally, no crackles, rales or wheezes, normal respiratory effort CARDIOVASCULAR: regular rate and rhythm, S1 and 2 heard without murmurs, gallops or rubs, no JVD, no peripheral edema GASTROINTESTINAL: soft, diffusely tender with limited exam as patient was unable to lie flat without significant discomfort. +R CVA tenderness. MUSCULOSKELETAL: strength 5/5 throughout, head is normocephalic and atraumatic SKIN: warm and dry NEUROLOGIC: CN 2-12 grossly intact, no gross focal deficits. PSYCHIATRIC: alert cooperative and oriented to person, place and time. Results & Data Results & Data ([facility]) Vital Signs (Past 12 Hours) Vital Signs Temp Pulse Pulse Pulse Resp BP BP 12/21/20 18:05 36.6 C 74 16 149/77 H 12/21/20 16:58 36.9 C 80 16 128/77 12/21/20 16:33 36.3 C L 70 16 136/77 12/21/20 16:16 36.4 C L 68 71 16 122/74 12/21/20 16:06 36.7 C 74 14 121/73 12/21/20 15:55 83 16 129/72 12/21/20 15:45 67 16 108/71 12/21/20 15:35 70 14 118/65 12/21/20 15:28 37.1 C 81 14 111/60 12/21/20 14:40 36.8 C 74 20 144/89 H 12/21/20 11:41 36.6 C 72 16 125/73 12/21/20 10:59 76 16 143/75 H Pulse Ox 12/21/20 18:05 95 12/21/20 16:58 95 12/21/20 16:33 95 12/21/20 16:16 94 12/21/20 16:06 95 12/21/20 15:55 94 12/21/20 15:45 99 12/21/20 15:35 99 12/21/20 15:28 95 12/21/20 14:40 96 12/21/20 11:41 92 12/21/20 10:59 Laboratory Results Short CBC 12/21/20 Range/Units 05:45 WBC 4.03 L (4.8-10.8) K/uL Hgb 15.5 (14.0-18.0) g/dL Hct 44.0 (42-52) % Plt Count 77 L (130-400) K/uL BMP 12/21/20 05:45 Sodium 140 Potassium 4.1 Chloride 111 H Carbon Dioxide 26 BUN 18 Creatinine 0.95 Glucose 274 H Calcium 9.3 Urine 12/21/20 Range/Units 05:43 Urine Color Dark Yellow Urine Appearance Clear (Clear) Urine pH 5.5 (4.5-7.5) Ur Specific [place] 1.035 H (1.000-1.030) Urine Protein 1+ H (Negative) Urine Glucose (UA) 3+ H (Negative) Medications Administered Current Inpatient Medications Acetaminophen (Acetaminophen 325 Mg Tab) 325 mg PO Q6H PRN PRN Reason: Mild Pain Stop: 01/20/21 08:24 Atropine Sulfate (Atropine Sulfate 0.1 Mg/Ml 10ml Syr) 0.5 mg IV Q1M PRN PRN Reason: PACU Use-HR<40 &/or Bradycardi Stop: 12/21/20 22:28 Dextrose (Dextrose 50% 50 Ml Syringe) 25 - 50 ml IV UD PRN; Protocol PRN Reason: Hypoglycemia Protocol Stop: 01/20/21 08:24 Fentanyl Citrate (Fentanyl Citrate 100 Mcg/2 Ml Vial) 25 mcg IV Q5M PRN PRN Reason: PACU Use Only-Pain Stop: 12/21/20 22:28 Glucagon (Glucagon For Inj 1 Mg Vial) 1 mg SQ UD PRN; Protocol PRN Reason: Hypoglycemia Protocol Stop: 01/20/21 08:24 Glucose (Glucose 10 Tabs/Tube) 4 - 8 tabs PO UD PRN; Protocol PRN Reason: Hypoglycemia Protocol Stop: 01/20/21 08:24 Glucose (Glucose 40% Gel 15 Gm Tube) 15 - 30 gm PO UD PRN; Protocol PRN Reason: Hypoglycemia Protocol Stop: 01/20/21 08:24 Hydromorphone HCl (Hydromorphone Inj 0.5 Mg/0.5 Ml Syr) 0.5 mg IV Q2H PRN PRN Reason: severe pain Stop: 01/04/21 10:24 Last Admin: 12/21/20 21:33 Dose: 0.5 mg Documented by: Lorazepam (Ativan) 0.5 mg in 1 mls @ 1 mls/min IV Q4H PRN PRN Reason: Anxiety/Agitation Stop: 01/20/21 08:24 Promethazine HCl 12.5 mg/ (Sodium Chloride) 50.5 mls @ 202 mls/hr IV Q6H PRN PRN Reason: Nausea And Vomiting Stop: 01/20/21 08:24 Promethazine HCl 12.5 mg/ (Sodium Chloride) 50.5 mls @ 204 mls/hr IV ONCE PRN PRN Reason: PACU Use Only-Nausea/Vomiting Stop: 12/21/20 22:28 Ciprofloxacin (Cipro / D5w) 400 mg in 200 mls @ 100 mls/hr IV PREOP [facility]; Protocol Stop: 12/23/20 05:59 Last Infusion: 12/21/20 16:57 Dose: Infused Documented by: Sodium Chloride (1/2 Nss) 1,000 mls @ 80 mls/hr IV .[id number] [facility] Stop: 12/22/20 08:59 Insulin Aspart (Insulin Aspart 100 Units/Ml 3 Ml Pen) 0 units SC ACHS [facility] Stop: 01/20/21 20:59 Last Admin: 12/21/20 20:26 Dose: Not Given Documented by: Insulin Glargine (Insulin Glargine Solostar 100 Units/Ml 3 Ml Pen) 10 units SC DAILY [facility] Stop: 01/21/21 08:59 Ketorolac Tromethamine (Ketorolac 30 Mg/Ml Vial) 30 mg IV ONCE PRN PRN Reason: PACU Use Only-Pain Stop: 12/21/20 22:28 Lisinopril (Lisinopril 2.5 Mg Tab) 2.5 mg PO DAILY [facility] Stop: 01/20/21 08:59 Last Admin: 12/21/20 09:48 Dose: 2.5 mg Documented by: Melatonin (Melatonin 3 Mg Tab) 1.5 mg PO HS PRN PRN Reason: Sleep Stop: 01/20/21 08:38 Miscellaneous (Carbohydrates For Hypoglycemia ) 15 - 30 gm PO UD PRN PRN Reason: Hypoglycemia Protocol Stop: 01/20/21 08:24 Multivitamins (Multivitamin Tab) 1 tab PO BID [facility] Stop: 01/20/21 08:59 Last Admin: 12/21/20 09:39 Dose: 1 tab Documented by: Ondansetron HCl (Ondansetron Inj 2 Mg/Ml 2 Ml Vial) 4 mg IV ONCE PRN PRN Reason: PACU Use Only-Nausea/Vomiting Stop: 12/21/20 22:28 Oxycodone HCl (Oxycodone Hcl Ir 5 Mg Tab (Immediate Release)) 5 - 10 mg PO QID PRN PRN Reason: Pain Stop: 01/04/21 08:24 Last Admin: 12/21/20 19:56 Dose: 10 mg Documented by: Pantoprazole Sodium (Pantoprazole 40 Mg Tab) 40 mg PO QAM [facility] Stop: 01/20/21 08:59 Last Admin: 03/26/21 09:41 Dose: 40 mg Documented by: Phenazopyridine HCl (Phenazopyridine Hcl 200 Mg Tab) 200 mg PO TID TITA Stop: 01/20/21 20:59 Last Admin: 12/21/20 17:46 Dose: 200 mg Documented by: Sertraline HCl (Sertraline Hcl 50 Mg Tablet) 50 mg PO [facility] Stop: 01/20/21 20:59 Tamsulosin HCl (Tamsulosin Hcl 0.4 Mg Cap) 0.4 mg PO [facility] Stop: 01/20/21 20:59
[2020-12-21] MEDS: TAMSULOSIN HCL 0.4 MG CAP PO SCH (22:23)
--- NOTE | 2020-12-21 23:02 | CT Scan Report ---
ABDOMEN AND PELVIS CT WITHOUT CONTRAST CT DOSE: 1628.62 mGy.cm HISTORY: Acute generalized abdominal pain intractable abd pain, recent uro procedure TECHNIQUE: Multiaxial CT images of the abdomen and pelvis were performed without contrast. A dose lo wering technique was utilized adhering to the principles of ALARA. COMPARISON STUDY: CT abdomen and pelvis 12/21/2020 at 6:04 AM FINDINGS: Imaged inferior cardiac chambers are unremarkable. Mild right hemidiaphragmatic elevation. Mild bibas ilar atelectasis. No pneumatosis or pneumoperitoneum. The splenomegaly with hepatic steatosis and cir rhosis. The spleen measures up to 18 cm in length. Cholelithiasis with findings suggestive of prior p artial cholecystectomy. No biliary ductal dilation. Unremarkable pancreas and adrenal glands. Obstructing 6 mm calculus of the inferior pole left kidney. There are a few punctate nonobstructing r ight nephrolithiasis. Interval placement of a right ureteral stent which is in satisfactory positioni ng. Mild persistent right-sided hydroureteronephrosis. No ureteral calculi. Air within the urinary bl adder lumen, likely postprocedural. Unremarkable prostate. No aortic aneurysm. Unchanged prominent pe riportal and retroperitoneal lymph nodes. No bowel obstruction or bowel wall thickening. Mild fecal r etention. Normal appendix. Unremarkable soft tissues. No acute fracture. IMPRESSION: 1. Interval placement of a right ureteral stent which appears to be in satisfactory positioning. No u reteral calculi. 2. Nonobstructing bilateral nephrolithiasis. 3. Hepatic steatosis and cirrhosis with hepatosplenomegaly. 4. Cholelithiasis. 5. No bowel obstruction. Normal appendix. ACT 112: Negative or not required by law. The above report was generated using voice recognition software. It may contain grammatical, syntax o r spelling errors. Electronically signed by: Yvan Manriquez M.D. 12/21/2020 11:00 PM
[2020-12-21] MEDS ORDERED: POLYETHYLENE (MIRALAX) 17 GM PACK PO STA (23:09)
[2020-12-21] MEDS ORDERED: LACTULOSE SYRUP 20 GM/30 ML UDC PO STA (23:09)
[2020-12-21] MEDS ORDERED: POLYETHYLENE (MIRALAX) 17 GM PACK PO PRN (23:11)
[2020-12-21] MEDS: PROMETHAZINE HCL 12.5 MG in SODIUM CHLORIDE 0.9% 50 ML IV PRN (23:37)
[2020-12-21] MEDS: SERTRALINE HCL 50 MG TABLET PO SCH (23:45)
[2020-12-21] MEDS: DOCUSATE SODIUM/SENNA 50/8.6MG TAB PO SCH (23:45)
[2020-12-22] MEDS: HYDROmorphone INJ 0.5 MG/0.5 ML SYR IV PRN ×7 (03:44→22:01)
[2020-12-22] MEDS ORDERED: CIPROFLOXACIN / D5W 400 MG/200 ML BAG IV SCH ×2 (06:00)
[2020-12-22 07:58] LABS: Hemoglobin 13.9 g/dL (14.0-18.0); Mean Corpuscular Hgb Conc 33.9 g/dL (32-36); Mean Corpuscular Volume 94.5 fL (80-100); RDW Coefficient of Variation 13.1 % (11.5-14.5); RDW Standard Deviation 45.7 fL (36.4-46.3); Red Blood Count 4.34 M/uL (4.7-6.1); White Blood Count 4.73 K/uL (4.8-10.8)
[2020-12-22 08:17] LABS: Mean Platelet Volume 10.3 fL (7.4-10.4); Platelet Count 71 K/uL (130-400)
[2020-12-22 08:22] LABS: BUN Creatinine Ratio 13.9 (10-20); Calcium 8.7 mg/dl (8.5-10.1); Creatinine Clr Calc Pharmacy 144.1 ml/min; Est GFR (African American) 120.9; Est GFR (Non-African American) 104.3; Potassium 3.7 mmol/L (3.5-5.1)
[2020-12-22 08:32] LABS: Basophils # (auto) 0.01 K/uL (0-0.2); Basophils % (auto) 0.2 %; Eosinophils # (auto) 0.11 K/uL (0-0.5); Eosinophils % (auto) 2.3 %; Lymphocytes # (auto) 1.39 K/uL (1.2-3.4); Lymphocytes % (auto) 29.4 %; Monocytes # (auto) 0.36 K/uL (0.11-0.59); Monocytes % (auto) 7.6 %; Neutrophils # (auto) 2.86 K/uL (1.4-6.5); Neutrophils % (auto) 60.5 %
[2020-12-22] MEDS: oxyCODONE HCL IR 5 MG TAB (IMMEDIATE RELEASE) PO PRN ×2 (08:43→21:19)
[2020-12-22] MEDS: MULTIVITAMIN TAB PO SCH ×2 (08:45→21:22)
[2020-12-22] MEDS: lisinopril 2.5 MG TAB PO SCH (08:46)
[2020-12-22] MEDS: PHENAZOPYRIDINE HCL 200 MG TAB PO SCH ×3 (08:46→21:20)
[2020-12-22] MEDS: PANTOprazole 40 MG TAB PO SCH (08:46)
[2020-12-22] MEDS: INSULIN GLARGINE SOLOSTAR 100 UNITS/ML 3 ML PEN SC SCH (08:47)
[2020-12-22] MEDS: DOCUSATE SODIUM/SENNA 50/8.6MG TAB PO SCH ×2 (08:47→21:21)
[2020-12-22] MEDS: INSULIN ASPART 100 UNITS/ML 3 ML PEN SC SCH ×4 (08:48→21:22)
[2020-12-22] MEDS: BELLADONNA/OPIUM SUPP 60 MG SUPP PR PRN (09:43)
--- NOTE | 2020-12-22 09:59 | Urology Progress Note ---
Date of Service December 22, 2020 Assessment & Plan (1) Right ureteral calculus: Postop day #1 status post right ureteral stent placement Doing okay this morning but still with significant bladder discomfort I have discussed definitive stone treatment with him I potentially could do this as soon as Thursday, ideally as an outpatient but if we are unable to control his pain and he still an inpatient we could perhaps do it as an add-on case BNO suppository placed this morning Already on oxybutynin Had a solitary dose of Toradol overnight Narcotic pain medication Previously did not tolerate stents well, after prior surgery in [place] he was admitted here with stent pain Admission and Anticipated Discharge Date Admission Date: December 21, 2020 Subjective Doing okay this morning Had a very rough night after his stent placement He had severe pain He reports the pain is all down close to the bladdersuspected bladder spasms Had a CTthis shows a appropriate positioning of the stent with a good curl in the renal pelvis as well as within the bladder No significant hydronephrosis or periureteral inflammation Labs all appropriate He does have chronic thrombocytopenia which limits our NSAID use Physical Exam Constitutional: well developed and well nourished Respiratory: no respiratory distress Cardiovascular: Extremities: no pedal edema Gastrointestinal (Abdomen): Inspection/Auscultation: abdomen normal to inspection Results & Data ([facility]) Vital Signs (Past 12 Hours) Vital Signs Temp Pulse Pulse Resp BP Pulse Ox 12/22/20 08:00 36.6 C 73 20 138/87 96 12/22/20 03:11 36.6 C 71 18 129/72 93 12/22/20 01:00 71 16 93 12/22/20 00:00 78 12/21/20 23:35 36.7 C 79 18 124/77 96 PG Care Time/CCT Total # of Minutes Spent Total Time Spent with Patient: Total time spent is greater than 50% in coordination of care (as documented) at patient's floor/unit and/or counseling patient: Coding Level of Care Code 61213 Subseq Hosp Care Lvl 3 Diagnoses Right ureteral calculus N20.1
[2020-12-22] MEDS: OXYBUTYNIN CHLORIDE 5 MG TAB PO PRN (12:44)
[2020-12-22] MEDS: PROMETHAZINE HCL 12.5 MG in SODIUM CHLORIDE 0.9% 50 ML IV PRN ×2 (14:07→22:07)
[2020-12-22] MEDS ORDERED: BELLADONNA/OPIUM SUPP 60 MG SUPP PR STA (14:48)
--- NOTE | 2020-12-22 15:38 | Hospitalist Progress Note ---
Date of Service December 22, 2020 Assessment & Plan (1) Right ureteral calculus: Status post right ureteral stent placement on 12/21. Post operative stent discomfort is severe and this was the case for him historically with other stones per his report. Scheduled Pyridium and use B&O suppositories and systemic narcotics as needed. Limit Toradol use in setting of thrombocytopenia. Continue Flomax nightly (2) Diabetes mellitus type 2, controlled: uncontrolled with an A1C 8.9. Cont basal bolus insulin while hospitalized. Inpatient glucose is controlled. 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 No evidence of bleeding. 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 (6) DVT prophylaxis: Lovenox Full Code Dispo-to home when medically stable. Per patient, urology is planning to remove stent on Thursday of next week. Patient is in too much pain and requiring controlled medications for any relief, and likely will require hospitalization until that time. Urology to consider earlier stent removal if patient continues in this direction. Karley Hall DO [facility] Hospitalist Admission and Anticipated Discharge Date Admission Date: December 21, 2020 Subjective 40-year-old man with history of cirrhosis, diabetes, high blood pressure and a history of nephrolithiasis presents with ureteral colic and obstructive uropathy. Reports significant postoperative stent pain and bladder pain Difficult for him to get comfortable Requiring significant amounts of narcotics and other postoperative medications and still is not achieving much relief Tolerating p.o. Review of Systems Review of Systems: All systems reviewed & are unremarkable except as noted in Subjective Physical Exam Physical Exam: CONSTITUTIONAL: WNWD, vitals as above, generally mild distress EYES: normal conjunctivae, no scleral icterus ENT: external ear and nose normal, oropharynx clear, MMM RESPIRATORY: clear to auscultation bilaterally, no crackles, rales or wheezes, normal respiratory effort CARDIOVASCULAR: regular rate and rhythm, S1 and 2 heard without murmurs, gallops or rubs, no JVD, no peripheral edema GASTROINTESTINAL: soft, suprapubic pain to palpation, some guarding, +R CVA tenderness. MUSCULOSKELETAL: strength 5/5 throughout, head is normocephalic and atraumatic SKIN: warm and dry NEUROLOGIC: CN 2-12 grossly intact, no gross focal deficits. PSYCHIATRIC: alert cooperative and oriented to person, place and time. Results & Data Results & Data ([facility]) Vital Signs (Past 12 Hours) Vital Signs Temp Pulse Pulse Resp BP Pulse Ox 12/22/20 11:43 37.0 C 66 20 121/69 93 12/22/20 08:00 36.6 C 60 73 20 138/87 96 Laboratory Results Short CBC 12/22/20 Range/Units 07:34 WBC 4.73 L (4.8-10.8) K/uL Hgb 13.9 L (14.0-18.0) g/dL Hct 41.0 L (42-52) % Plt Count 71 L (130-400) K/uL BMP 12/22/20 07:34 Sodium 139 Potassium 3.7 Chloride 108 H Carbon Dioxide 25 BUN 13 Creatinine 0.91 Glucose 188 H Calcium 8.7 Medications Administered Current Inpatient Medications Acetaminophen (Acetaminophen 325 Mg Tab) 325 mg PO Q6H PRN PRN Reason: Mild Pain Stop: 01/20/21 08:24 Belladonna Alkaloids/Opium (Belladonna/Opium Supp 60 Mg Supp) 60 mg ID Q12H PRN PRN Reason: bladder/stent pain Stop: 01/05/21 09:03 Last Admin: 12/22/20 09:43 Dose: 60 mg Documented by: Dextrose (Dextrose 50% 50 Ml Syringe) 25 - 50 ml IV UD PRN; Protocol PRN Reason: Hypoglycemia Protocol Stop: 01/20/21 08:24 Glucagon (Glucagon For Inj 1 Mg Vial) 1 mg SQ UD PRN; Protocol PRN Reason: Hypoglycemia Protocol Stop: 01/20/21 08:24 Glucose (Glucose 10 Tabs/Tube) 4 - 8 tabs PO UD PRN; Protocol PRN Reason: Hypoglycemia Protocol Stop: 01/20/21 08:24 Glucose (Glucose 40% Gel 15 Gm Tube) 15 - 30 gm PO UD PRN; Protocol PRN Reason: Hypoglycemia Protocol Stop: 01/20/21 08:24 Hydromorphone HCl (Hydromorphone Inj 0.5 Mg/0.5 Ml Syr) 0.5 mg IV Q2H PRN PRN Reason: severe pain Stop: 01/04/21 10:24 Last Admin: 12/22/20 13:36 Dose: 0.5 mg Documented by: Lorazepam (Ativan) 0.5 mg in 1 mls @ 1 mls/min IV Q4H PRN PRN Reason: Anxiety/Agitation Stop: 01/20/21 08:24 Promethazine HCl 12.5 mg/ (Sodium Chloride) 50.5 mls @ 202 mls/hr IV Q6H PRN PRN Reason: Nausea And Vomiting Stop: 01/20/21 08:24 Last Infusion: 12/22/20 14:26 Dose: Infused Documented by: Ciprofloxacin (Cipro / D5w) 400 mg in 200 mls @ 100 mls/hr IV PREOP TITA; Protocol Stop: 12/23/20 05:59 Last Infusion: 12/21/20 16:57 Dose: Infused Documented by: Insulin Aspart (Insulin Aspart 100 Units/Ml 3 Ml Pen) 0 units SC ACHS [facility] Stop: 01/20/21 20:59 Last Admin: 12/22/20 12:52 Dose: 4 units Documented by: Insulin Glargine (Insulin Glargine Solostar 100 Units/Ml 3 Ml Pen) 10 units SC DAILY [facility] Stop: 01/21/21 08:59 Last Admin: 12/22/20 08:47 Dose: 10 units Documented by: Lisinopril (Lisinopril 2.5 Mg Tab) 2.5 mg PO DAILY [facility] Stop: 01/20/21 08:59 Last Admin: 12/22/20 08:46 Dose: 2.5 mg Documented by: Melatonin (Melatonin 3 Mg Tab) 1.5 mg PO HS PRN PRN Reason: Sleep Stop: 01/20/21 08:38 Miscellaneous (Carbohydrates For Hypoglycemia ) 15 - 30 gm PO UD PRN PRN Reason: Hypoglycemia Protocol Stop: 01/20/21 08:24 Multivitamins (Multivitamin Tab) 1 tab PO BID [facility] Stop: 01/20/21 08:59 Last Admin: 12/22/20 08:45 Dose: 1 tab Documented by: Oxybutynin Chloride (Oxybutynin Chloride 5 Mg Tab) 5 mg PO Q12H PRN PRN Reason: bladder/stent pain Stop: 01/21/21 09:14 Last Admin: 12/22/20 12:44 Dose: 5 mg Documented by: Oxycodone HCl (Oxycodone Hcl Ir 5 Mg Tab (Immediate Release)) 5 - 10 mg PO QID PRN PRN Reason: Pain Stop: 01/04/21 08:24 Last Admin: 12/22/20 08:43 Dose: 10 mg Documented by: Pantoprazole Sodium (Pantoprazole 40 Mg Tab) 40 mg PO QAM [facility] Stop: 01/20/21 08:59 Last Admin: 12/22/20 08:46 Dose: 40 mg Documented by: Phenazopyridine HCl (Phenazopyridine Hcl 200 Mg Tab) 200 mg PO TID [facility] Stop: 01/20/21 20:59 Last Admin: 12/22/20 14:09 Dose: 200 mg Documented by: Polyethylene Glycol (Polyethylene (Miralax) 17 Gm Pack) 17 gm PO DAILY PRN PRN Reason: Constipation Stop: 01/20/21 23:10 Senna/Docusate Sodium (Docusate Sodium/Senna 50/8.6mg Tab) 1 tab PO BID [facility] Stop: 01/20/21 23:14 Last Admin: 12/22/20 08:47 Dose: 1 tab Documented by: Sertraline HCl (Sertraline Hcl 50 Mg Tablet) 50 mg PO [facility] Stop: 01/20/21 20:59 Last Admin: 12/21/20 23:45 Dose: 50 mg Documented by: Tamsulosin HCl (Tamsulosin Hcl 0.4 Mg Cap) 0.4 mg PO [facility] Stop: 01/20/21 20:59 Last Admin: 12/21/20 22:23 Dose: 0.4 mg Documented by:
[2020-12-22] MEDS ORDERED: HYDROmorphone INJ 1 MG/ML SYRINGE IV STA (18:20)
[2020-12-22] MEDS: TAMSULOSIN HCL 0.4 MG CAP PO SCH (21:19)
[2020-12-22] MEDS: SERTRALINE HCL 50 MG TABLET PO SCH (21:22)
[2020-12-23] MEDS: HYDROmorphone INJ 0.5 MG/0.5 ML SYR IV PRN ×2 (04:28→07:59)
[2020-12-23] MEDS: PHENAZOPYRIDINE HCL 200 MG TAB PO SCH ×3 (08:08→19:58)
[2020-12-23] MEDS: lisinopril 2.5 MG TAB PO SCH (08:09)
[2020-12-23] MEDS: DOCUSATE SODIUM/SENNA 50/8.6MG TAB PO SCH ×2 (08:09→19:59)
[2020-12-23] MEDS: PANTOprazole 40 MG TAB PO SCH (08:09)
[2020-12-23] MEDS: MULTIVITAMIN TAB PO SCH ×2 (08:09→19:59)
[2020-12-23] MEDS: INSULIN GLARGINE SOLOSTAR 100 UNITS/ML 3 ML PEN SC SCH (08:13)
[2020-12-23] MEDS: INSULIN ASPART 100 UNITS/ML 3 ML PEN SC SCH ×4 (08:14→20:45)
--- NOTE | 2020-12-23 08:30 | Urology Progress Note ---
Date of Service December 23, 2020 Assessment & Plan (1) Ureterolithiasis: Continue current plan of pain control to make the stent is tolerable as possible We are attempting to identify a time for definitive stone treatment Ideally, it would be nice to discharge him home and perform this as an o utpatient but I am not certain he will tolerate it Potentially could add him onto my schedule for Thursday for definitive treatment Admission and Anticipated Discharge Date Admission Date: December 21, 2020 Subjective Status post urgent ureteral stent placement Continues to have some stent discomfort but seems to be slowly improving Has not previously tolerated stent particularly well in this episode is matching previous experiences Continues to state that he is not comfortable enough to be discharged home Has been requiring significant amounts of narcotics Unfortunately is not a good candidate for Toradol or other NSAIDs secondary to thrombocytopenia from cirrhosis Review of Systems Review of Systems: All systems reviewed & are unremarkable except as noted in HPI & below Physical Exam Constitutional: well developed and well nourished Respiratory: no respiratory distress Cardiovascular: Extremities: no pedal edema Gastrointestinal (Abdomen): Inspection/Auscultation: abdomen normal to inspection Results & Data ([facility]) Vital Signs (Past 12 Hours) Vital Signs Temp Pulse Pulse Resp BP Pulse Ox 12/23/20 07:50 36.7 C 85 20 127/80 94 12/23/20 07:35 75 12/23/20 04:21 36.7 C 76 18 138/77 93 12/23/20 01:00 67 12/22/20 23:35 36.9 C 101 H 18 134/77 94 PG Care Time/CCT Total # of Minutes Spent Total Time Spent with Patient: Total time spent is greater than 50% in coordination of care (as documented) at patient's floor/unit and/or counseling patient: Coding Level of Care Code 56778 Subseq Hosp Care Lvl 2 Diagnoses Ureterolithiasis N20.1
[2020-12-23] MEDS: BELLADONNA/OPIUM SUPP 60 MG SUPP PR PRN (09:04)
[2020-12-23] MEDS ORDERED: NALOXONE HCL 0.4 MG/1 ML VIAL/CARP IV PRN (09:29)
[2020-12-23] MEDS: oxyCODONE HCL IR 5 MG TAB (IMMEDIATE RELEASE) PO PRN (10:13)
[2020-12-23] MEDS: SODIUM CHLORIDE 0.9% 1000ML 1,000 ML IV SCH (10:47)
[2020-12-23] MEDS: HYDROmorphone PCA 30 MG/30 ML IV PRN (10:50)
[2020-12-23] MEDS: OXYBUTYNIN CHLORIDE 5 MG TAB PO PRN (12:47)
--- NOTE | 2020-12-23 12:47 | Hospitalist Progress Note ---
Date of Service December 23, 2020 Assessment & Plan (1) Right ureteral calculus: Status post right ureteral stent placement on 12/21. Post operative stent discomfort is severe and this was the case for him historically with other stones per his report. Scheduled Pyridium and use B&O suppositories and systemic narcotics as needed. Limit Toradol use in setting of thrombocytopenia. Continue Flomax nightly. Added Dilaudid CASE LINER for now to help him get more continuous pain management. Considered imaging of abdomen, however, the pain he is experiencing has not increased in intensity and is not at all changed from his postoperative state immediately out of PACU. It is simply uncontrolled. Appreciate urology consideration of removing the stent earlier than Thursday if the patient continues in this direction. (2) Diabetes mellitus type 2, controlled: uncontrolled with an A1C 8.9. Cont basal bolus insulin while hospitalized. Inpatient glucose is controlled. 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 No evidence of bleeding. 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 (6) DVT prophylaxis: Lovenox Full Code Dispo-to home when medically stable. Per patient, urology is planning to remove stent on Thursday of next week. Patient is in too much pain and requiring controlled medications for any relief, and likely will require hospitalization until that time. Karley Hall DO [facility] Hospitalist Admission and Anticipated Discharge Date Admission Date: December 21, 2020 Subjective 40-year-old man with history of cirrhosis, diabetes, high blood pressure and a history of nephrolithiasis presents with ureteral colic and obstructive uropathy. Reports significant postoperative stent pain and bladder pain Difficult for him to get comfortable Requiring significant amounts of narcotics and other postoperative medications and still is not achieving much relief Review of Systems Review of Systems: All systems reviewed & are unremarkable except as noted in Subjective Physical Exam Physical Exam: CONSTITUTIONAL: WNWD, vitals as above, generally mild distress EYES: normal conjunctivae, no scleral icterus ENT: external ear and nose normal, oropharynx clear, MMM RESPIRATORY: clear to auscultation bilaterally, no crackles, rales or wheezes, normal respiratory effort CARDIOVASCULAR: regular rate and rhythm, S1 and 2 heard without murmurs, gallops or rubs, no JVD, no peripheral edema GASTROINTESTINAL: soft, suprapubic pain to palpation, some guarding, +R CVA tenderness. MUSCULOSKELETAL: strength 5/5 throughout, head is normocephalic and atraumatic SKIN: warm and dry NEUROLOGIC: CN 2-12 grossly intact, no gross focal deficits. PSYCHIATRIC: alert cooperative and oriented to person, place and time. Results & Data Results & Data ([facility]) Vital Signs (Past 12 Hours) Vital Signs Temp Pulse Pulse Resp BP BP Pulse Ox 12/23/20 12:10 37.0 C 84 18 132/80 96 12/23/20 10:36 36.7 C 82 14 129/80 95 12/23/20 07:50 36.7 C 85 20 127/80 94 12/23/20 07:35 75 12/23/20 04:21 36.7 C 76 18 138/77 93 12/23/20 01:00 67 Medications Administered Current Inpatient Medications Acetaminophen (Acetaminophen 325 Mg Tab) 325 mg PO Q6H PRN PRN Reason: Mild Pain Stop: 01/20/21 08:24 Belladonna Alkaloids/Opium (Belladonna/Opium Supp 60 Mg Supp) 60 mg AR Q12H PRN PRN Reason: bladder/stent pain Stop: 01/05/21 09:03 Last Admin: 12/23/20 09:04 Dose: 60 mg Documented by: Dextrose (Dextrose 50% 50 Ml Syringe) 25 - 50 ml IV UD PRN; Protocol PRN Reason: Hypoglycemia Protocol Stop: 01/20/21 08:24 Glucagon (Glucagon For Inj 1 Mg Vial) 1 mg SQ UD PRN; Protocol PRN Reason: Hypoglycemia Protocol Stop: 01/20/21 08:24 Glucose (Glucose 10 Tabs/Tube) 4 - 8 tabs PO UD PRN; Protocol PRN Reason: Hypoglycemia Protocol Stop: 01/20/21 08:24 Glucose (Glucose 40% Gel 15 Gm Tube) 15 - 30 gm PO UD PRN; Protocol PRN Reason: Hypoglycemia Protocol Stop: 01/20/21 08:24 Hydromorphone HCl (Hydromorphone Negative Developer 30 Mg/30 Ml) 30 mg IV PRN PRN; Protocol PRN Reason: CASE LINER Pain Titration Stop: 01/06/21 09:28 Last Admin: 12/23/20 10:50 Dose: 30 mg Documented by: Lorazepam (Ativan) 0.5 mg in 1 mls @ 1 mls/min IV Q4H PRN PRN Reason: Anxiety/Agitation Stop: 01/20/21 08:24 Promethazine HCl 12.5 mg/ (Sodium Chloride) 50.5 mls @ 202 mls/hr IV Q6H PRN PRN Reason: Nausea And Vomiting Stop: 01/20/21 08:24 Last Infusion: 12/22/20 22:49 Dose: Infused Documented by: Sodium Chloride (Nss 1000ml) 1,000 mls @ 15 mls/hr IV .Q24H [facility] Stop: 01/06/21 09:29 Last Admin: 12/23/20 10:47 Dose: 15 mls/hr Documented by: Insulin Aspart (Insulin Aspart 100 Units/Ml 3 Ml Pen) 0 units SC ACHS [facility] Stop: 01/20/21 20:59 Last Admin: 12/23/20 08:14 Dose: 3 units Documented by: Insulin Glargine (Insulin Glargine Solostar 100 Units/Ml 3 Ml Pen) 10 units SC DAILY [facility] Stop: 01/21/21 08:59 Last Admin: 12/23/20 08:13 Dose: 10 units Documented by: Lisinopril (Lisinopril 2.5 Mg Tab) 2.5 mg PO DAILY [facility] Stop: 01/20/21 08:59 Last Admin: 12/23/20 08:09 Dose: 2.5 mg Documented by: Melatonin (Melatonin 3 Mg Tab) 1.5 mg PO HS PRN PRN Reason: Sleep Stop: 01/20/21 08:38 Miscellaneous (Carbohydrates For Hypoglycemia ) 15 - 30 gm PO UD PRN PRN Reason: Hypoglycemia Protocol Stop: 01/20/21 08:24 Multivitamins (Multivitamin Tab) 1 tab PO BID [facility] Stop: 01/20/21 08:59 Last Admin: 12/23/20 08:09 Dose: 1 tab Documented by: Naloxone HCl (Naloxone Hcl 0.4 Mg/1 Ml Vial/Carp) 0.1 mg IV Q5M PRN; Protocol PRN Reason: Oversedation/Resp Depression Stop: 01/06/21 09:28 Oxybutynin Chloride (Oxybutynin Chloride 5 Mg Tab) 5 mg PO Q12H PRN PRN Reason: bladder/stent pain Stop: 01/21/21 09:14 Last Admin: 12/22/20 12:44 Dose: 5 mg Documented by: Oxycodone HCl (Oxycodone Hcl Ir 5 Mg Tab (Immediate Release)) 5 - 10 mg PO QID PRN PRN Reason: Pain Stop: 01/04/21 08:24 Last Admin: 12/23/20 10:13 Dose: 10 mg Documented by: Pantoprazole Sodium (Pantoprazole 40 Mg Tab) 40 mg PO QAM [facility] Stop: 01/20/21 08:59 Last Admin: 12/23/20 08:09 Dose: 40 mg Documented by: Phenazopyridine HCl (Phenazopyridine Hcl 200 Mg Tab) 200 mg PO TID [facility] Stop: 01/20/21 20:59 Last Admin: 12/23/20 08:08 Dose: 200 mg Documented by: Polyethylene Glycol (Polyethylene (Miralax) 17 Gm Pack) 17 gm PO DAILY PRN PRN Reason: Constipation Stop: 01/20/21 23:10 Senna/Docusate Sodium (Docusate Sodium/Senna 50/8.6mg Tab) 1 tab PO BID [facility] Stop: 01/20/21 23:14 Last Admin: 12/23/20 08:09 Dose: 1 tab Documented by: Sertraline HCl (Sertraline Hcl 50 Mg Tablet) 50 mg PO [facility] Stop: 01/20/21 20:59 Last Admin: 12/22/20 21:22 Dose: 50 mg Documented by: Tamsulosin HCl (Tamsulosin Hcl 0.4 Mg Cap) 0.4 mg PO [facility] Stop: 01/20/21 20:59 Last Admin: 12/22/20 21:19 Dose: 0.4 mg Documented by:
[2020-12-23] MEDS: SERTRALINE HCL 50 MG TABLET PO SCH (19:58)
[2020-12-23] MEDS: TAMSULOSIN HCL 0.4 MG CAP PO SCH (19:59)
[2020-12-24] MEDS: PROMETHAZINE HCL 12.5 MG in SODIUM CHLORIDE 0.9% 50 ML IV PRN ×2 (00:21→09:54)
[2020-12-24 06:19] LABS: Hematocrit (blood only) 41.2 % (42-52); Mean Corpuscular Hemoglobin 32.1 pg (25-34); Mean Corpuscular Volume 94.5 fL (80-100); RDW Coefficient of Variation 12.8 % (11.5-14.5); RDW Standard Deviation 44.5 fL (36.4-46.3); Red Blood Count 4.36 M/uL (4.7-6.1); White Blood Count 5.34 K/uL (4.8-10.8)
[2020-12-24 06:22] LABS: Mean Platelet Volume 10.9 fL (7.4-10.4); Platelet Count 76 K/uL (130-400)
[2020-12-24 06:54] LABS: BUN Creatinine Ratio 13.2 (10-20); Calcium 9.2 mg/dl (8.5-10.1); Creatinine Clr Calc Pharmacy 147.4 ml/min; Est GFR (African American) 123.1; Est GFR (Non-African American) 106.2; Platelet Estimate Decreased (Normal); Potassium 3.9 mmol/L (3.5-5.1)
[2020-12-24] MEDS: PHENAZOPYRIDINE HCL 200 MG TAB PO SCH ×3 (07:38→20:17)
[2020-12-24] MEDS: PANTOprazole 40 MG TAB PO SCH (07:38)
[2020-12-24] MEDS: lisinopril 2.5 MG TAB PO SCH (07:38)
[2020-12-24] MEDS: DOCUSATE SODIUM/SENNA 50/8.6MG TAB PO SCH ×2 (07:38→20:18)
[2020-12-24] MEDS: MULTIVITAMIN TAB PO SCH ×2 (07:39→20:17)
[2020-12-24] MEDS: OXYBUTYNIN CHLORIDE 5 MG TAB PO PRN (07:40)
[2020-12-24] MEDS: INSULIN GLARGINE SOLOSTAR 100 UNITS/ML 3 ML PEN SC SCH (08:39)
[2020-12-24] MEDS: INSULIN ASPART 100 UNITS/ML 3 ML PEN SC SCH ×4 (08:40→20:48)
--- NOTE | 2020-12-24 11:36 | Urology Progress Note ---
Date of Service December 24, 2020 Assessment & Plan (1) Right ureteral calculus: Postop day #3 status post right ureteral stent placement - Afebrile, nontoxic, creatinine and WBC within normal limits - Patient poorly tolerating right ureteral stent - Pain is better controlled with current Dilaudid [place] NET OR TRAP - Discussed definitive stone treatment while inpatient as previously discussed with Dr. Bonilla - He had breakfast this morning, so will plan on surgical intervention tomorrow - Strain all urine - Make NPO after midnight - Continue supportive care with Tamsulosin, Pyridium, prn Oxybutynin, and prn analgesia - Will continue to follow closely with primary team Attending Note: Agree with above. Independently reviewed. Patient did not remain NPO and will have to wait until tomorrow. Recommend weaning off narcotic as tolerated. Admission and Anticipated Discharge Date Admission Date: December 21, 2020 Subjective 40 yo male postop day #3 status post right ureteral stent placement Patient resting in bed on my arrival, arouses to speech. No acute issues overnight. Reports intermittent right flank pain. States he is more comfortable at present, utilizing Dilaudid [place] NET OR TRAP for pain. Mild dysuria and notes dark orange/leilani urine. Feels he is emptying bladder. Notes passing some small debris in his urine. No abdominal pain. No f/c/n/v. He had breakfast this AM. Chart review: Afebrile, creatinine 0.89, WBC 5.34, Hgb 14.0. No additional concerns today. Review of Systems Constitutional: as per Subjective / HPI Gastrointestinal: as per Subjective / HPI Genitourinary: + as per Subjective / HPI Physical Exam Constitutional: well developed, well nourished and + obese; no acute distress and not ill appearing Respiratory: normal respiratory effort and able to speak in complete sentences; no respiratory distress and no labored breathing Cardiovascular: Extremities: no calf tenderness and no pedal edema Gastrointestinal (Abdomen): Inspection/Auscultation: abdomen normal to inspection; abdomen not distended Percussion/Palpation: abdomen soft; abdomen nontender and no guarding Musculoskeletal: Head/Neck/Chest: normocephalic and head atraumatic Skin: no rashes, warm and dry Neurologic: moves all extremities Psychiatric: Orientation: alert and oriented x 3 Genitourinary: no CVA tenderness Results & Data ([facility]) Vital Signs (Past 12 Hours) Vital Signs Temp Pulse Resp BP Pulse Ox 12/24/20 07:24 36.5 C 69 18 126/78 97 PG Care Time/CCT Total # of Minutes Spent Total Time Spent with Patient: Total time spent is greater than 50% in coordination of care (as documented) at patient's floor/unit and/or counseling patient: Coding Level of Care Code 27604 Subseq Hosp Care Lvl 2 Diagnoses Right ureteral calculus N20.1
[2020-12-24] MEDS: SODIUM CHLORIDE 0.9% 1000ML 1,000 ML IV SCH (12:15)
--- NOTE | 2020-12-24 12:54 | Hospitalist Progress Note ---
Date of Service December 24, 2020 Assessment & Plan (1) Right ureteral calculus: Status post right ureteral stent placement on 12/21. Post operative stent discomfort is severe and this was the case for him historically with other stones per his report. Scheduled Pyridium and use B&O suppositories and systemic narcotics as needed. Limit Toradol use in setting of thrombocytopenia. Continue Flomax nightly. Added Dilaudid DIE SINKING MACHINE OPERATOR for now to help him get more continuous pain management. Considered imaging of abdomen, however, the pain he is experiencing has not increased in intensity and is not at all changed from his postoperative state immediately out of PACU. More controlled on the dil audid DIE SINKING MACHINE OPERATOR. Definitive management per Urology (2) Diabetes mellitus type 2, controlled: uncontrolled with an A1C 8.9. Cont basal bolus insulin while hospita lized. Inpatient glucose is controlled. 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 No evidence of bleeding. 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 (6) DVT prophylaxis: Lovenox Full Code Dispo-to home when medically stable. Per patient, urology is planning to remove stent this week. Karley aHll DO [facility] Hospitalist Admission and Anticipated Discharge Date Admission Date: December 21, 2020 Subjective 40 yo M presented with severe R renal colic 2/2 ureteral stone, s/p cystoscopy with right ureteral stent placement and subsequent severe post-operative stent pain doing better on the dilaudid DIE SINKING MACHINE OPERATOR pump pain is 5/10 consistently which is improved may be a possibility of him undergoing removal of stent in am so NPO p MN tolerating PO Review of Systems Review of Systems: All systems reviewed & are unremarkable except as noted in Subjective Physical Exam Physical Exam: CONSTITUTIONAL: WNWD, vitals as above, generally mild distress EYES: normal conjunctivae, no scleral icterus ENT: external ear and nose normal, oropharynx clear, MMM RESPIRATORY: clear to auscultation bilaterally, no crackles, rales or wheezes, normal respiratory effort CARDIOVASCULAR: regular rate and rhythm, S1 and 2 heard without murmurs, gallops or rubs, no JVD, no peripheral edema GASTROINTESTINAL: soft, suprapubic pain to palpation, diffuse TTP, nondistended. +R CVA tenderness. MUSCULOSKELETAL: strength 5/5 throughout, head is normocephalic and atraumatic SKIN: warm and dry NEUROLOGIC: CN 2-12 grossly intact, no gross focal deficits. PSYCHIATRIC: alert cooperative and oriented to person, place and time. Results & Data Results & Data ([facility]) Vital Signs (Past 12 Hours) Vital Signs Temp Pulse Resp BP Pulse Ox 12/24/20 07:24 36.5 C 69 18 126/78 97 Laboratory Results Short CBC 12/24/20 Range/Units 05:48 WBC 5.34 (4.8-10.8) K/uL Hgb 14.0 (14.0-18.0) g/dL Hct 41.2 L (42-52) % Plt Count 76 L (130-400) K/uL BMP 12/24/20 05:48 Sodium 136 Potassium 3.9 Chloride 105 Carbon Dioxide 27 BUN 12 Creatinine 0.89 Glucose 193 H Calcium 9.2 Medications Administered Current Inpatient Medications Acetaminophen (Acetaminophen 325 Mg Tab) 325 mg PO Q6H PRN PRN Reason: Mild Pain Stop: 01/20/21 08:24 Belladonna Alkaloids/Opium (Belladonna/Opium Supp 60 Mg Supp) 60 mg MT Q12H PRN PRN Reason: bladder/stent pain Stop: 01/05/21 09:03 Last Admin: 12/23/20 09:04 Dose: 60 mg Documented by: Dextrose (Dextrose 50% 50 Ml Syringe) 25 - 50 ml IV UD PRN; Protocol PRN Reason: Hypoglycemia Protocol Stop: 01/20/21 08:24 Glucagon (Glucagon For Inj 1 Mg Vial) 1 mg SQ UD PRN; Protocol PRN Reason: Hypoglycemia Protocol Stop: 01/20/21 08:24 Glucose (Glucose 10 Tabs/Tube) 4 - 8 tabs PO UD PRN; Protocol PRN Reason: Hypoglycemia Protocol Stop: 01/20/21 08:24 Glucose (Glucose 40% Gel 15 Gm Tube) 15 - 30 gm PO UD PRN; Protocol PRN Reason: Hypoglycemia Protocol Stop: 01/20/21 08:24 Hydromorphone HCl (Hydromorphone Filer Helper 30 Mg/30 Ml) 30 mg IV PRN PRN; Protocol PRN Reason: DIE SINKING MACHINE OPERATOR Pain Titration Stop: 01/06/21 09:28 Last Admin: 12/23/20 10:50 Dose: 30 mg Documented by: Lorazepam (Ativan) 0.5 mg in 1 mls @ 1 mls/min IV Q4H PRN PRN Reason: Anxiety/Agitation Stop: 01/20/21 08:24 Promethazine HCl 12.5 mg/ (Sodium Chloride) 50.5 mls @ 202 mls/hr IV Q6H PRN PRN Reason: Nausea And Vomiting Stop: 01/20/21 08:24 Last Infusion: 12/24/20 10:17 Dose: Infused Documented by: Sodium Chloride (Nss 1000ml) 1,000 mls @ 15 mls/hr IV .Q24H TITA Stop: 01/06/21 09:29 Last Admin: 12/24/20 12:15 Dose: 15 mls/hr Documented by: Insulin Aspart (Insulin Aspart 100 Units/Ml 3 Ml Pen) 0 units SC ACHS TITA Stop: 01/20/21 20:59 Last Admin: 12/24/20 12:33 Dose: 4 units Documented by: Insulin Glargine (Insulin Glargine Solostar 100 Units/Ml 3 Ml Pen) 10 units SC DAILY TITA Stop: 01/21/21 08:59 Last Admin: 12/24/20 08:39 Dose: 10 units Documented by: Lisinopril (Lisinopril 2.5 Mg Tab) 2.5 mg PO DAILY [facility] Stop: 01/20/21 08:59 Last Admin: 12/24/20 07:38 Dose: 2.5 mg Documented by: Melatonin (Melatonin 3 Mg Tab) 1.5 mg PO HS PRN PRN Reason: Sleep Stop: 01/20/21 08:38 Miscellaneous (Carbohydrates For Hypoglycemia ) 15 - 30 gm PO UD PRN PRN Reason: Hypoglycemia Protocol Stop: 01/20/21 08:24 Multivitamins (Multivitamin Tab) 1 tab PO BID TITA Stop: 01/20/21 08:59 Last Admin: 12/24/20 07:39 Dose: 1 tab Documented by: Naloxone HCl (Naloxone Hcl 0.4 Mg/1 Ml Vial/Carp) 0.1 mg IV Q5M PRN; Protocol PRN Reason: Oversedation/Resp Depression Stop: 01/06/21 09:28 Oxybutynin Chloride (Oxybutynin Chloride 5 Mg Tab) 5 mg PO Q12H PRN PRN Reason: bladder/stent pain Stop: 01/21/21 09:14 Last Admin: 12/24/20 07:40 Dose: 5 mg Documented by: Oxycodone HCl (Oxycodone Hcl Ir 5 Mg Tab (Immediate Release)) 5 - 10 mg PO QID PRN PRN Reason: Pain Stop: 01/04/21 08:24 Last Admin: 12/23/20 10:13 Dose: 10 mg Documented by: Pantoprazole Sodium (Pantoprazole 40 Mg Tab) 40 mg PO QAM [facility] Stop: 01/20/21 08:59 Last Admin: 12/24/20 07:38 Dose: 40 mg Documented by: Phenazopyridine HCl (Phenazopyridine Hcl 200 Mg Tab) 200 mg PO TID TITA Stop: 01/20/21 20:59 Last Admin: 12/24/20 07:38 Dose: 200 mg Documented by: Polyethylene Glycol (Polyethylene (Miralax) 17 Gm Pack) 17 gm PO DAILY PRN PRN Reason: Constipation Stop: 01/20/21 23:10 Last Admin: 12/24/20 07:46 Dose: 17 gm Documented by: Senna/Docusate Sodium (Docusate Sodium/Senna 50/8.6mg Tab) 1 tab PO BID TITA Stop: 01/20/21 23:14 Last Admin: 12/24/20 07:38 Dose: 1 tab Documented by: Sertraline HCl (Sertraline Hcl 50 Mg Tablet) 50 mg PO [facility] Stop: 01/20/21 20:59 Last Admin: 12/23/20 19:58 Dose: 50 mg Documented by: Tamsulosin HCl (Tamsulosin Hcl 0.4 Mg Cap) 0.4 mg PO [facility] Stop: 01/20/21 20:59 Last Admin: 12/23/20 19:59 Dose: 0.4 mg Documented by:
[2020-12-24] MEDS: SERTRALINE HCL 50 MG TABLET PO SCH (20:17)
[2020-12-24] MEDS: TAMSULOSIN HCL 0.4 MG CAP PO SCH (20:17)
[2020-12-24] MEDS: HYDROmorphone PCA 30 MG/30 ML IV PRN (23:50)
[2020-12-25] MEDS ORDERED: Nursing to Pharmacy Communication SCH ×2 (01:15→18:45)
[2020-12-25] MEDS: PROMETHAZINE HCL 12.5 MG in SODIUM CHLORIDE 0.9% 50 ML IV PRN ×2 (01:43→21:39)
[2020-12-25] MEDS: INSULIN ASPART 100 UNITS/ML 3 ML PEN SC SCH ×4 (06:14→20:48)
[2020-12-25] MEDS: PHENAZOPYRIDINE HCL 200 MG TAB PO SCH ×3 (08:23→20:09)
[2020-12-25] MEDS: MULTIVITAMIN TAB PO SCH ×2 (08:23→20:10)
[2020-12-25] MEDS: OXYBUTYNIN CHLORIDE 5 MG TAB PO PRN ×2 (08:23→19:39)
[2020-12-25] MEDS: lisinopril 2.5 MG TAB PO SCH (08:23)
[2020-12-25] MEDS: INSULIN GLARGINE SOLOSTAR 100 UNITS/ML 3 ML PEN SC SCH (08:24)
[2020-12-25] MEDS: PANTOprazole 40 MG TAB PO SCH (08:24)
[2020-12-25] MEDS: DOCUSATE SODIUM/SENNA 50/8.6MG TAB PO SCH ×2 (08:29→20:09)
--- NOTE | 2020-12-25 08:34 | Hospitalist Progress Note ---
Date of Service December 25, 2020 Assessment & Plan (1) Right ureteral calculus: Status post right ureteral stent placement on 12/21. Post operative stent discomfort is severe and this was the case for him historically with other stones per his report. Scheduled Pyridium and use B&O suppositories and systemic narcotics as needed. Limit Toradol use in setting of thrombocytopenia. Continue Flomax nightly. Added Dilaudid TOOL OR DIE DRAWING CHECKER for now to help him get more continuous pain management. Ultimately switched to Dilaudid TOOL OR DIE DRAWING CHECKER. Today, underwent cystoscopy with right ureteral stent exchange and laser lithotripsy by Dr. Bonilla. Continue supportive care overnight. (2) Diabetes mellitus type 2, controlled: uncontrolled with an A1C 8.9. Cont basal bolus insulin while hospitalized. Inpatient glucose is controlled. 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 No evidence of bleeding. 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 (6) DVT prophylaxis: Lovenox Full Code Dispo-to home when medically stable. Karley Hall DO [facility] Hospitalist Admission and Anticipated Discharge Date Admission Date: December 21, 2020 Subjective 40 yo M presented with severe R renal colic 2/2 ureteral stone, s/p cystoscopy with right ureteral stent placement and subsequent severe post-operative stent pain Doing OK post procedure but still with some discomfort Review of Systems Review of Systems: All systems reviewed & are unremarkable except as noted in Subjective Physical Exam Physical Exam: CONSTITUTIONAL: WNWD, vitals as above, generally mild distress EYES: normal conjunctivae, no scleral icterus ENT: external ear and nose normal, oropharynx clear, MMM RESPIRATORY: clear to auscultation bilaterally, no crackles, rales or wheezes, normal respiratory effort CARDIOVASCULAR: regular rate and rhythm, S1 and 2 heard without murmurs, gallops or rubs, no JVD, no peripheral edema GASTROINTESTINAL: soft, suprapubic pain to palpation, diffuse TTP, nondistended. +R CVA tenderness. MUSCULOSKELETAL: strength 5/5 throughout, head is normocephalic and atraumatic SKIN: warm and dry NEUROLOGIC: CN 2-12 grossly intact, no gross focal deficits. PSYCHIATRIC: alert cooperative and oriented to person, place and time. Results & Data Results & Data ([facility]) Vital Signs (Past 12 Hours) Vital Signs Temp Pulse Resp BP BP Pulse Ox 12/25/20 07:56 36.8 C 69 16 128/71 94 12/25/20 02:30 37.0 C 63 16 104/58 L 94 12/24/20 23:23 36.9 C 70 16 112/70 94 Medications Administered Current Inpatient Medications Acetaminophen (Acetaminophen 325 Mg Tab) 325 mg PO Q6H PRN PRN Reason: Mild Pain Stop: 01/20/21 08:24 Belladonna Alkaloids/Opium (Belladonna/Opium Supp 60 Mg Supp) 60 mg SC Q12H PRN PRN Reason: bladder/stent pain Stop: 01/05/21 09:03 Last Admin: 12/23/20 09:04 Dose: 60 mg Documented by: Dextrose (Dextrose 50% 50 Ml Syringe) 25 - 50 ml IV UD PRN; Protocol PRN Reason: Hypoglycemia Protocol Stop: 01/20/21 08:24 Glucagon (Glucagon For Inj 1 Mg Vial) 1 mg SQ UD PRN; Protocol PRN Reason: Hypoglycemia Protocol Stop: 01/20/21 08:24 Glucose (Glucose 10 Tabs/Tube) 4 - 8 tabs PO UD PRN; Protocol PRN Reason: Hypoglycemia Protocol Stop: 01/20/21 08:24 Glucose (Glucose 40% Gel 15 Gm Tube) 15 - 30 gm PO UD PRN; Protocol PRN Reason: Hypoglycemia Protocol Stop: 01/20/21 08:24 Hydromorphone HCl (Hydromorphone Senior Writer 30 Mg/30 Ml) 30 mg IV PRN PRN; Protocol PRN Reason: TOOL OR DIE DRAWING CHECKER Pain Titration Stop: 01/06/21 09:28 Last Admin: 12/24/20 23:50 Dose: 30 mg Documented by: Lorazepam (Ativan) 0.5 mg in 1 mls @ 1 mls/min IV Q4H PRN PRN Reason: Anxiety/Agitation Stop: 01/20/21 08:24 Promethazine HCl 12.5 mg/ (Sodium Chloride) 50.5 mls @ 202 mls/hr IV Q6H PRN PRN Reason: Nausea And Vomiting Stop: 01/20/21 08:24 Last Infusion: 12/25/20 01:57 Dose: Infused Documented by: Sodium Chloride (Nss 1000ml) 1,000 mls @ 15 mls/hr IV .Q24H TITA Stop: 01/06/21 09:29 Last Admin: 12/24/20 12:15 Dose: 15 mls/hr Documented by: Insulin Aspart (Insulin Aspart 100 Units/Ml 3 Ml Pen) 0 units SC Q6 TITA Stop: 01/24/21 05:59 Last Admin: 12/25/20 06:14 Dose: 1 units Documented by: Insulin Glargine (Insulin Glargine Solostar 100 Units/Ml 3 Ml Pen) 10 units SC DAILY TITA Stop: 01/21/21 08:59 Last Admin: 12/25/20 08:24 Dose: 10 units Documented by: Lisinopril (Lisinopril 2.5 Mg Tab) 2.5 mg PO DAILY TITA Stop: 01/20/21 08:59 Last Admin: 12/25/20 08:23 Dose: 2.5 mg Documented by: Melatonin (Melatonin 3 Mg Tab) 1.5 mg PO HS PRN PRN Reason: Sleep Stop: 01/20/21 08:38 Miscellaneous (Carbohydrates For Hypoglycemia ) 15 - 30 gm PO UD PRN PRN Reason: Hypoglycemia Protocol Stop: 01/20/21 08:24 Multivitamins (Multivitamin Tab) 1 tab PO BID TITA Stop: 01/20/21 08:59 Last Admin: 12/25/20 08:23 Dose: 1 tab Documented by: Naloxone HCl (Naloxone Hcl 0.4 Mg/1 Ml Vial/Carp) 0.1 mg IV Q5M PRN; Protocol PRN Reason: Oversedation/Resp Depression Stop: 01/06/21 09:28 Oxybutynin Chloride (Oxybutynin Chloride 5 Mg Tab) 5 mg PO Q12H PRN PRN Reason: bladder/stent pain Stop: 01/21/21 09:14 Last Admin: 12/25/20 08:23 Dose: 5 mg Documented by: Oxycodone HCl (Oxycodone Hcl Ir 5 Mg Tab (Immediate Release)) 5 - 10 mg PO QID PRN PRN Reason: Pain Stop: 01/04/21 08:24 Last Admin: 12/23/20 10:13 Dose: 10 mg Documented by: Pantoprazole Sodium (Pantoprazole 40 Mg Tab) 40 mg PO QAM TITA Stop: 01/20/21 08:59 Last Admin: 12/25/20 08:24 Dose: 40 mg Documented by: Phenazopyridine HCl (Phenazopyridine Hcl 200 Mg Tab) 200 mg PO TID TITA Stop: 01/20/21 20:59 Last Admin: 12/25/20 08:23 Dose: 200 mg Documented by: Polyethylene Glycol (Polyethylene (Miralax) 17 Gm Pack) 17 gm PO DAILY PRN PRN Reason: Constipation Stop: 01/20/21 23:10 Last Admin: 12/24/20 07:46 Dose: 17 gm Documented by: Senna/Docusate Sodium (Docusate Sodium/Senna 50/8.6mg Tab) 1 tab PO BID TITA Stop: 01/20/21 23:14 Last Admin: 12/25/20 08:29 Dose: 1 tab Documented by: Sertraline HCl (Sertraline Hcl 50 Mg Tablet) 50 mg PO [facility] Stop: 01/20/21 20:59 Last Admin: 12/24/20 20:17 Dose: 50 mg Documented by: Tamsulosin HCl (Tamsulosin Hcl 0.4 Mg Cap) 0.4 mg PO [facility] Stop: 01/20/21 20:59 Last Admin: 12/24/20 20:17 Dose: 0.4 mg Documented by:
--- NOTE | 2020-12-25 09:32 | Urology Progress Note ---
Date of Service December 25, 2020 Assessment & Plan (1) Right ureteral calculus: (2) Renal colic on right side: 40 yo M who is postop day #4 status post right ureteral stent placement - Afebrile, VSS, non-toxic. - Patient poorly tolerating right ureteral stent, controlling pain currently wi th Dilaudid COSMETIC CONSULTANT - Plan of care reviewed with Dr. Bonilla - Given his intractable right flank pain, will proceed with OR for cystoscopy, right retrograde pyelogram, right ureteroscopy, laser lithotripsy/stone treatment, and right stent exchange. OR notified. CXR and EKG in chart. Will cover with IV Cipro preoperatively. - Strain all urine - Keep NPO - Expected clinical course reviewed with patient, he is agreeable to plan, all questions were answered. Admission and Anticipated Discharge Date Admission Date: December 21, 2020 Subjective 40 yo male postop day #4 status post right ureteral stent placement Patient awake, resting in bed on arrival. No acute issues overnight. Reports intermittent right flank pain. Rates pain 5/10. States he is more comfortable at present, utilizing Dilaudid COSMETIC CONSULTANT for pain. Mild dysuria and notes dark orange/leilani urine. Feels he is emptying bladder. Denies fevers or chills. Some nausea, no vomiting. Has been NPO. Chart review: Afebrile. Labs 12/24- creatinine 0.89, WBC 5.34, Hgb 14.0. No additional concerns today. Review of Systems Constitutional: as per Subjective / HPI Gastrointestinal: as per Subjective / HPI Genitourinary: + as per Subjective / HPI Physical Exam Constitutional: well developed, well nourished and + obese; no acute distress and not ill appearing Respiratory: normal respiratory effort and able to speak in complete sentences; no labored breathing Cardiovascular: Extremities: no calf tenderness and no pedal edema Gastrointestinal (Abdomen): Inspection/Auscultation: abdomen normal to inspection; abdomen not distended Percussion/Palpation: abdomen soft; abdomen nontender and no guarding Skin: no rashes, warm and dry Neurologic: moves all extremities Psychiatric: Orientation: alert and oriented x 3 Genitourinary: no CVA tenderness Results & Data ([facility] [place]) Vital Signs (Past 12 Hours) Vital Signs Temp Pulse Resp BP BP Pulse Ox 12/25/20 07:56 36.8 C 69 16 128/71 94 12/25/20 02:30 37.0 C 63 16 104/58 L 94 12/24/20 23:23 36.9 C 70 16 112/70 94 PG Care Time/CCT Total # of Minutes Spent Total Time Spent with Patient: Total time spent is greater than 50% in coordination of care (as documented) at patient's floor/unit and/or counseling patient: Coding Level of Care Code 35342 Subseq Hosp Care Lvl 2 Diagnoses Right ureteral calculus N20.1 Renal colic on right side N23
[2020-12-25] MEDS ORDERED: CIPROFLOXACIN / D5W 400 MG/200 ML BAG IV SCH (10:00)
--- NOTE | 2020-12-25 11:22 | Anesthesiology Consultation ---
Date of Service December 25, 2020 Assessment & Plan (1) Encounter for pre-operative examination: Chart Review Chart Review: Acceptable Risk for Surgery History Surgery Operation Date: 12/21/20 10:55 Proposed Procedures p Cystoscopy, Right Stent Placement - Chad Bonilla MD Operation Date: 12/25/20 14:50 Proposed Procedures p Cystoscopy, Right Ureteroscopy, Laser Lithotropsy, Stent Exchange - Chad Bonilla MD Height/Weight Height: 5 ft 10 in Weight: 129.1 kg Allergies Allergy/AdvReac Type Severity Reaction Status Date / Time bee venom protein (honey bee) Allergy Severe Anaphylaxis Unverified 12/21/20 07:03 pineapple Allergy Severe THROAT Verified 12/21/20 07:03 CLOSES TO THE FRUIT cephalexin Allergy Intermediate HIVES Verified 12/21/20 07:03 menthol Allergy Intermediate WELTS Verified 12/21/20 07:03 Penicillins Allergy Intermediate RASH Verified 12/21/20 07:03 Medications Home Medications Medication Instructions Recorded Confirmed Last Taken Victoza 2-Charles 1.8 mg SUBCUT QPM 08/11/18 12/21/20 12/20/20 hydrocortisone-pramoxine 1 applic MT DIRECTED PRN 08/11/18 12/21/20 Unknown [Analpram-HC] omeprazole 20 mg PO QAM 08/11/18 12/21/20 12/20/20 sertraline 50 mg PO HS 08/11/18 12/21/20 12/20/20 epinephrine [EpiPen 2-Charles] 0.3 mg IM Q3H PRN #2 ea 03/19/19 12/21/20 Unknown melatonin 1 mg PO HS PRN 03/19/19 12/21/20 12/20/20 metformin 1,000 mg PO BIDM 06/02/20 12/21/20 12/20/20 multivitamin 1 tab PO BID 12/21/20 12/21/20 12/20/20 Active Medications Generic Name Dose Route Start Last Admin Trade Name Freq PRN Reason Stop Dose Admin Belladonna Alkaloids/Opium 60 mg 12/22/20 09:04 12/23/20 09:04 Belladonna/Opium Supp 60 Mg Supp MT 01/05/21 09:03 60 mg Q12H PRN Administration bladder/stent pain Hydromorphone HCl 30 mg 03/28/21 09:29 12/24/20 23:50 Hydromorphone Panelboard Assembler 30 Mg/30 Ml IV 01/06/21 09:28 30 mg PRN PRN Administration PUTTY REMOVER Pain Titration Protocol Promethazine HCl 12.5 mg/ 50.5 mls @ 202 mls/hr 12/21/20 08:25 12/25/20 01:57 Sodium Chloride IV 01/20/21 08:24 Infused Q6H PRN Infusion Nausea And Vomiting Sodium Chloride 1,000 mls @ 15 mls/hr 12/23/20 09:30 12/24/20 12:15 Nss 1000ml IV 01/06/21 09:29 15 mls/hr .Q24H TITA Administration Insulin Aspart 0 units 12/25/20 06:00 12/25/20 06:14 Insulin Aspart 100 Units/Ml 3 Ml Pen SC 01/24/21 05:59 1 units Q6 TITA Administration Insulin Glargine 10 units 12/22/20 09:00 12/25/20 08:24 Insulin Glargine Solostar 100 Units/Ml 3 Ml Pen SC 01/21/21 08:59 10 units DAILY TITA Administration Lisinopril 2.5 mg 12/21/20 09:00 12/25/20 08:23 Lisinopril 2.5 Mg Tab PO 01/20/21 08:59 2.5 mg DAILY TITA Administration Multivitamins 1 tab 12/21/20 09:00 12/25/20 08:23 Multivitamin Tab PO 01/20/21 08:59 1 tab BID TITA Administration Oxybutynin Chloride 5 mg 12/22/20 09:04 12/25/20 08:23 Oxybutynin Chloride 5 Mg Tab PO 01/21/21 09:14 5 mg Q12H PRN Administration bladder/stent pain Oxycodone HCl 5 - 10 mg 12/21/20 08:25 12/23/20 10:13 Oxycodone Hcl Ir 5 Mg Tab (Immediate Release) PO 01/04/21 08:24 10 mg QID PRN Administration Pain Pantoprazole Sodium 40 mg 12/21/20 09:00 12/25/20 08:24 Pantoprazole 40 Mg Tab PO 01/20/21 08:59 40 mg QAM TITA Administration Phenazopyridine HCl 200 mg 12/21/20 21:00 12/25/20 08:23 Phenazopyridine Hcl 200 Mg Tab PO 01/20/21 20:59 200 mg TID TITA Administration Polyethylene Glycol 17 gm 12/21/20 23:11 12/24/20 07:46 Polyethylene (Miralax) 17 Gm Pack PO 01/20/21 23:10 17 gm DAILY PRN Administration Constipation Senna/Docusate Sodium 1 tab 12/21/20 23:15 12/25/20 08:29 Docusate Sodium/Senna 50/8.6mg Tab PO 01/20/21 23:14 1 tab BID TITA Administration Sertraline HCl 50 mg 12/21/20 21:00 12/24/20 20:17 Sertraline Hcl 50 Mg Tablet PO 01/20/21 20:59 50 mg HS TITA Administration Tamsulosin HCl 0.4 mg 12/21/20 21:00 12/24/20 20:17 Tamsulosin Hcl 0.4 Mg Cap PO 01/20/21 20:59 0.4 mg HS TITA Administration NPO Date Last Intake of Fluids: 12/21/20 Time Last Intake of Fluids: 05:30 Last Intake of Fluids Comment: 1./2 cup tea Date Last Intake of Solids: 12/20/20 Time Last Intake of Solids: 19:00 Past Medical History Medical History Depression Diabetes Diabetes mellitus type 2, controlled GERD (gastroesophageal reflux disease) HTN (hypertension) Kidney stones LINDA (obstructive sleep apnea) Thrombocytopenia Past Family History Family History Other Family history not known due to adoption Past Surgical History Surgical History H/O cystoscopy H/O shoulder surgery H/O wisdom tooth extraction History of open reduction and internal fixation (ORIF) procedure "Finger " Social History Smoking Status: Former smoker tobacco type: cigarettes Do You Dip or Chew Tobacco: No Hx Alcohol Use: No Hx Substance Use: No Physical Exam Vital Signs Last Vital Signs Temp 36.8 C 12/25/20 07:56 Pulse 69 12/25/20 07:56 Resp 16 12/25/20 07:56 BP 128/71 12/25/20 07:56 Pulse Ox 94 03/30/21 07:56 Testing Laboratory Results 12/24/20 05:48 12/24/20 05:48 Hemoglobin A1c 8.9 % (4.5-5.6) H 12/21/20 05:45 Urine Color Dark Yellow 12/21/20 05:43 Urine Appearance Clear (Clear) 12/21/20 05:43 Urine pH 5.5 (4.5-7.5) 12/21/20 05:43 Ur Specific [place] 1.035 (1.000-1.030) H 12/21/20 05:43 Urine Protein 1+ (Negative) H 12/21/20 05:43 Urine Glucose (UA) 3+ (Negative) H 12/21/20 05:43 Urine Ketones Trace (Negative) H 12/21/20 05:43 Urine Nitrite Negative (Negative) 12/21/20 05:43 Ur Leukocyte Esterase Negative (Negative) 12/21/20 05:43 Urine WBC (Auto) 5-10 /hpf (0-5) H 12/21/20 05:43 Urine RBC (Auto) >30 /hpf (0-4) H 12/21/20 05:43 U Hyaline Cast (Auto) 1-5 /lpf (0-5) 12/21/20 05:43 U Epithel Cells (Auto) 10-20 /lpf (0-5) H 12/21/20 05:43 Urine Bacteria (Auto) Negative (Negative) 12/21/20 05:43 12/25/20 06:11 POC Glucose 183 H
[2020-12-25] MEDS ORDERED: MIDAZOLAM HCL 1 MG/ML 2ML VIAL ONE (14:42)
[2020-12-25] MEDS ORDERED: fentaNYL citrate 100 MCG/2 ML VIAL ONE (14:42)
[2020-12-25] MEDS ORDERED: PROPOFOL IV EMULSION 10 MG/ML 20 ML VIAL IV ONE (14:42)
[2020-12-25] MEDS ORDERED: LIDOCAINE HCL 2% 2 ML VIAL/AMP(20MG/ML) INFIL ONE (14:42)
[2020-12-25] MEDS ORDERED: ONDANSETRON INJ 2 MG/ML 2 ML VIAL ONE (14:42)
[2020-12-25] MEDS ORDERED: ONDANSETRON INJ 2 MG/ML 2 ML VIAL IV PRN (15:00)
[2020-12-25] MEDS ORDERED: ATROPINE SULFATE 0.1 MG/ML 10ML SYR IV PRN (15:00)
[2020-12-25] MEDS ORDERED: ePHEDrine sulfate 50 MG/ML AMP IV PRN (15:00)
[2020-12-25] MEDS ORDERED: HYDROmorphone INJ 1 MG/ML SYRINGE IV PRN (15:00)
[2020-12-25] MEDS ORDERED: fentaNYL citrate 100 MCG/2 ML VIAL IV PRN (15:00)
[2020-12-25] MEDS ORDERED: MEPERIDINE HCL 25 MG/ML CARP/VIAL IV PRN (15:00)
[2020-12-25] MEDS ORDERED: PHENYLEPHRINE 100MCG/ML 5ML SYR IV PRN (15:00)
[2020-12-25] MEDS ORDERED: LABETALOL HCL IV 5 MG/ML 20ML IV PRN (15:00)
[2020-12-25] MEDS ORDERED: DEXAMETHASONE SOD INJ 4 MG/ML VIAL ONE (15:34)
--- NOTE | 2020-12-25 16:00 | Fluoroscopy Report ---
FL KUB HISTORY: 40 years-old Male RT CYSTO/RETRO/LASER/STENT right-sided cystourethrogram COMPARISON: CT abdomen and pelvis 12/21/2020 TECHNIQUE: One spot fluoroscopic image of the abdomen was obtained utilizing 6.7 seconds fluoroscopy time FINDINGS: Proximal portion of the right ureteral stent appears to be in satisfactory positioning. The distal po rtion of the stent is not imaged. No ureteral calculi identified on this single image study. IMPRESSION: Fluoroscopic assistance as above. ACT 112: Negative or not required by law. The above report was generated using voice recognition software. It may contain grammatical, syntax o r spelling errors. Electronically signed by: Yvan Manriquez M.D. 12/25/2020 3:59 PM
--- NOTE | 2020-12-25 16:09 | Operative Report ---
PG Post Operative Report Pre & Post Diagnosis Operation Date: 12/21/20 10:55 Pre-Op Diagnosis: right ureteral stone; right renal stone Post-Op Diagnosis: right ureteral stone; right renal stones Operation Date: 12/25/20 14:50 Pre-Op Diagnosis: Right kidney stone; right ureteral stone Post-Op Diagnosis: Right kidney stone; right ureteral stone I identified the patient and participated in the time-out.: Yes Procedure Operation Date: 12/21/20 10:55 Actual Procedures p Cystoscopy, Right Ureteral Stent Placement(Right) - Chad Bonilla MD Operation Date: 12/25/20 14:50 Actual Procedures p Cystoscopy, Right Ureteroscopy, Laser Lithotropsy, Stent Exchange(Right) - Chad Bonilla MD Surgeon Felipe Bonilla MD Cafeteria Worker none Estimated Blood Loss 0 Findings Consistent with Post-Op Diagnosis Specimens none Description of Procedure The patient was identified in the preoperative holding area, appropriate informed consents were reviewed and completed and the patient was transferred to the operative suite. Upon arrival, appropriate antibiotics and anesthesia were administered and the patient was placed in dorsal lithotomy position and prepped and draped in sterile fashion. Begin the case I passed a 22 Greek cystoscope with 30 degree lens. Inspection revealed a healthy-appearing urethra and prostate. A previously placed ureteral stent was easily identified protruding from the orifice and the distal aspect of the stent was grasped and withdrawn to the meatus. I was able to intubate it with a sensor wire which was advanced to the kidney without difficulty. A 10 Greek double-lumen catheter was utilized to place a second wire into the kidney. I then withdrew the 10 Greek double-lumen catheter and advanced a flexible ureteroscope. Full renoscopy was conducted after clearing the urine which was discolored via Pyridium use. Inspection revealed a stone in the dependent calyx. I was able to fragment this entirely utilizing a 200 m fiber. Full repeat renoscopy was conducted identifying no other fragments or large stones. Careful exit ureteroscopy was conducted identifying a stone in the midportion of the ureter. I was able to fragment this entirely and clear most of the debris out of the ureter. The remainder of the ureter was healthy. I concluded the case by placing a 6 Greek by 26 cm double-J ureteral stent. There was a good curl in the kidney as well as the bladder. The case was subsequently concluded. He was extubated and taken to the PACU in stable condition. There were no complications. I attest to the content of the Intraoperative Record and any orders documented therein. Any exceptions are noted below.
--- NOTE | 2020-12-25 16:30 | Anesthesiology Progress Note ---
Date of Service December 25, 2020 Anesthesia Post Procedure Vital Signs Vital Signs: Temp Pulse Pulse Resp BP BP Pulse Ox 12/25/20 16:28 70 14 122/64 97 12/25/20 16:20 77 17 123/73 97 12/25/20 16:10 80 14 109/65 93 12/25/20 16:02 37 C 79 14 101/61 92 12/25/20 14:47 36.5 C 73 18 138/86 94 12/25/20 07:56 36.8 C 69 16 128/71 94 12/25/20 02:30 37.0 C 63 16 104/58 L 94 12/24/20 23:23 36.9 C 70 16 112/70 94 12/24/20 19:02 36.9 C 73 16 121/69 95 Pain Intensity Right Flank: Pain Intensity: 1 Lower Abdomen: Pain Intensity: 2 Pelvic: Pain Intensity: 2 Transfer of Care Handoff Completed per policy Notes Mental Status: alert / awake / arousable Patient Amnestic to Procedure: Yes Nausea / Vomiting: adequately controlled Pain: adequately controlled Airway Patency, RR, SpO2: stable & adequate BP & HR: stable & adequate Hydration State: stable & adequate Anesthetic Complications: no major complications apparent and Pt Satisfied with anesthetic care Notes: Postop BSG was 157.
[2020-12-25] MEDS: SODIUM CHLORIDE 0.9% 1000ML 1,000 ML IV SCH (19:26)
[2020-12-25] MEDS: SERTRALINE HCL 50 MG TABLET PO SCH (20:09)
[2020-12-25] MEDS: TAMSULOSIN HCL 0.4 MG CAP PO SCH (20:10)
[2020-12-25] MEDS ORDERED: INSULIN GLARGINE SOLOSTAR 100 UNITS/ML 3 ML PEN SC STA (21:01)
[2020-12-26] MEDS: oxyCODONE HCL IR 5 MG TAB (IMMEDIATE RELEASE) PO PRN ×2 (05:39→14:44)
[2020-12-26 07:50] LABS: Hematocrit (blood only) 42.9 % (42-52); Mean Corpuscular Hemoglobin 32.6 pg (25-34); Mean Corpuscular Volume 93.3 fL (80-100); RDW Coefficient of Variation 12.8 % (11.5-14.5); RDW Standard Deviation 43.7 fL (36.4-46.3); White Blood Count 6.94 K/uL (4.8-10.8)
[2020-12-26 07:51] LABS: Mean Platelet Volume 10.4 fL (7.4-10.4); Platelet Count 98 K/uL (130-400)
[2020-12-26 08:32] LABS: BUN Creatinine Ratio 17.9 (10-20); Calcium 9.9 mg/dl (8.5-10.1); Creatinine Clr Calc Pharmacy 149.1 ml/min; Est GFR (African American) 123.7; Est GFR (Non-African American) 106.7; Potassium 4.5 mmol/L (3.5-5.1)
[2020-12-26] MEDS: lisinopril 2.5 MG TAB PO SCH (09:04)
[2020-12-26] MEDS: PHENAZOPYRIDINE HCL 200 MG TAB PO SCH ×3 (09:04→21:48)
[2020-12-26] MEDS: MULTIVITAMIN TAB PO SCH ×2 (09:05→21:46)
[2020-12-26] MEDS: INSULIN GLARGINE SOLOSTAR 100 UNITS/ML 3 ML PEN SC SCH ×2 (09:05→21:46)
[2020-12-26] MEDS: PANTOprazole 40 MG TAB PO SCH (09:05)
[2020-12-26] MEDS: INSULIN ASPART 100 UNITS/ML 3 ML PEN SC SCH ×4 (09:06→21:48)
--- NOTE | 2020-12-26 09:19 | Hospitalist Progress Note ---
Date of Service December 26, 2020 Assessment & Plan (1) Right ureteral calculus: Status post right ureteral stent placement on 12/21. Post operative stent discomfort is severe and this was the case for him historically with other stones per his report. Scheduled Pyridium and use B&O suppositories and systemic narcotics as needed. Limit Toradol use in setting of thrombocytopenia. Continue Flomax nightly. Continue Dilaudid TECHNICAL SUPPORT 1 SOFTWARE ENGINEER for now to help him get more continuous pain management. Considered imaging of abdomen, however, the pain he is experiencing has not increased in intensity and is not at all changed from his postoperative state immediately out of PACU. More controlled on the dilaudid TECHNICAL SUPPORT 1 SOFTWARE ENGINEER. Definitive management per Urology (2) Diabetes mellitus type 2, controlled: uncontrolled with an A1C 8.9. Cont basal bolus insulin while ho spitalized. Inpatient glucose is controlled. 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 No evidence of bleeding. 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 (6) DVT prophylaxis: Lovenox Full Code Dispo-to home when medically stable. Per patient, urology is planning to remove stent this week. Admission and Anticipated Discharge Date Admission Date: December 21, 2020 Subjective Patient seen in follow up of pain, renal stone s/p ur. stent Pt is currently sitting up in bed, eating Continues with intermittent right flank pain, utilizing TECHNICAL SUPPORT 1 SOFTWARE ENGINEER for pain Still some dysuria and notes dark orange/leilani urine. Having some urinary urgency frequency. Feels he is emptying bladder. Denies fevers or chills. Some mild nausea, no vomiting. Review of Systems Review of Systems: All systems reviewed & are unremarkable except as noted in HPI & below Constitutional: no fever and no chills Respiratory: no cough and no dyspnea Cardiovascular: no chest pain and no palpitations Gastrointestinal: + abdominal pain (R lower quadrant/ R flank); no nausea and no vomiting Physical Exam Physical Exam: CONSTITUTIONAL: WNWD, vitals as above, in NAD EYES: normal conjunctivae, no scleral icterus ENT: external ear and nose normal, oropharynx clear, MMM RESPIRATORY: clear to auscultation bilaterally, no crackles, rales or wheezes, normal respiratory effort CARDIOVASCULAR: regular rate and rhythm, S1 and 2 heard without murmurs, gallops or rubs, no JVD, no peripheral edema GASTROINTESTINAL: soft, suprapubic pain to palpation, diffuse TTP, nondistended. +R CVA tenderness. MUSCULOSKELETAL: strength 5/5 throughout, head is normocephalic and atraumatic, moves extremities SKIN: warm and dry NEUROLOGIC: CN 2-12 grossly intact, no gross focal deficits, speech fluent, moves extremities PSYCHIATRIC: alert cooperative and oriented to person, place and time. Results & Data Results & Data ([facility]) Vital Signs (Past 12 Hours) Vital Signs Temp Pulse Resp BP Pulse Ox 12/26/20 07:57 36.6 C 71 16 136/78 96 12/26/20 04:30 36.6 C 63 16 145/79 H 93 12/25/20 23:39 36.6 C 73 16 122/73 92 Laboratory Results 12/26/20 12/26/20 12/26/20 Range/Units 08:14 07:36 07:36 WBC 6.94 (4.8-10.8) K/uL RBC 4.60 L (4.7-6.1) M/uL Hgb 15.0 (14.0-18.0) g/dL Hct 42.9 (42-52) % MCV 93.3 (80-100) fL MCH 32.6 (25-34) pg MCHC 35.0 (32-36) g/dL RDW Std Deviation 43.7 (36.4-46.3) fL RDW Coeff of Flavio 12.8 (11.5-14.5) % Plt Count 98 L (130-400) K/uL MPV 10.4 (7.4-10.4) fL Sodium 135 L (136-145) mmol/L Potassium 4.5 (3.5-5.1) mmol/L Chloride 103 (98-107) mmol/L Carbon Dioxide 27 (21-32) mmol/L Anion Gap 5.0 (3-11) BUN 16 (7-18) mg/dl Creatinine 0.88 (0.6-1.4) mg/dl Est Cr Clr Drug Dosing 149.1 ml/min Est GFR ( Amer) 123.7 Est GFR (Non-Af Amer) 106.7 BUN/Creatinine Ratio 17.9 (10-20) Glucose 208 H (70-99) mg/dl POC Glucose 191 H (70-99) mg/dl Calcium 9.9 (8.5-10.1) mg/dl 12/25/20 12/25/20 12/25/20 Range/Units 20:44 18:18 16:21 WBC (4.8-10.8) K/uL RBC (4.7-6.1) M/uL Hgb (14.0-18.0) g/dL Hct (42-52) % MCV (80-100) fL MCH (25-34) pg MCHC (32-36) g/dL RDW Std Deviation (36.4-46.3) fL RDW Coeff of Flavio (11.5-14.5) % Plt Count (130-400) K/uL MPV (7.4-10.4) fL Sodium (136-145) mmol/L Potassium (3.5-5.1) mmol/L Chloride (98-107) mmol/L Carbon Dioxide (21-32) mmol/L Anion Gap (3-11) BUN (7-18) mg/dl Creatinine (0.6-1.4) mg/dl Est Cr Clr Drug Dosing ml/min Est GFR ( Amer) Est GFR (Non-Af Amer) BUN/Creatinine Ratio (10-20) Glucose (70-99) mg/dl POC Glucose 318 H* 213 H 157 H (70-99) mg/dl Calcium (8.5-10.1) mg/dl 12/25/20 Range/Units 12:06 WBC (4.8-10.8) K/uL RBC (4.7-6.1) M/uL Hgb (14.0-18.0) g/dL Hct (42-52) % MCV (80-100) fL MCH (25-34) pg MCHC (32-36) g/dL RDW Std Deviation (36.4-46.3) fL RDW Coeff of Flavio (11.5-14.5) % Plt Count (130-400) K/uL MPV (7.4-10.4) fL Sodium (136-145) mmol/L Potassium (3.5-5.1) mmol/L Chloride (98-107) mmol/L Carbon Dioxide (21-32) mmol/L Anion Gap (3-11) BUN (7-18) mg/dl Creatinine (0.6-1.4) mg/dl Est Cr Clr Drug Dosing ml/min Est GFR ( Amer) Est GFR (Non-Af Amer) BUN/Creatinine Ratio (10-20) Glucose (70-99) mg/dl POC Glucose 159 H (70-99) mg/dl Calcium (8.5-10.1) mg/dl Medications Administered Current Inpatient Medications Acetaminophen (Acetaminophen 325 Mg Tab) 325 mg PO Q6H PRN PRN Reason: Mild Pain Stop: 01/20/21 08:24 Belladonna Alkaloids/Opium (Belladonna/Opium Supp 60 Mg Supp) 60 mg DC Q12H PRN PRN Reason: bladder/stent pain Stop: 01/05/21 09:03 Last Admin: 12/23/20 09:04 Dose: 60 mg Documented by: Dextrose (Dextrose 50% 50 Ml Syringe) 25 - 50 ml IV UD PRN; Protocol PRN Reason: Hypoglycemia Protocol Stop: 01/20/21 08:24 Glucagon (Glucagon For Inj 1 Mg Vial) 1 mg SQ UD PRN; Protocol PRN Reason: Hypoglycemia Protocol Stop: 01/20/21 08:24 Glucose (Glucose 10 Tabs/Tube) 4 - 8 tabs PO UD PRN; Protocol PRN Reason: Hypoglycemia Protocol Stop: 01/20/21 08:24 Glucose (Glucose 40% Gel 15 Gm Tube) 15 - 30 gm PO UD PRN; Protocol PRN Reason: Hypoglycemia Protocol Stop: 01/20/21 08:24 Hydromorphone HCl (Hydromorphone International Account Executive 30 Mg/30 Ml) 30 mg IV PRN PRN; Protocol PRN Reason: TECHNICAL SUPPORT 1 SOFTWARE ENGINEER Pain Titration Stop: 01/06/21 09:28 Last Admin: 12/24/20 23:50 Dose: 30 mg Documented by: Lorazepam (Ativan) 0.5 mg in 1 mls @ 1 mls/min IV Q4H PRN PRN Reason: Anxiety/Agitation Stop: 01/20/21 08:24 Promethazine HCl 12.5 mg/ (Sodium Chloride) 50.5 mls @ 202 mls/hr IV Q6H PRN PRN Reason: Nausea And Vomiting Stop: 01/20/21 08:24 Last Infusion: 12/25/20 22:20 Dose: Infused Documented by: Sodium Chloride (Nss 1000ml) 1,000 mls @ 15 mls/hr IV .Q24H TITA Stop: 01/06/21 09:29 Last Admin: 12/25/20 19:26 Dose: 15 mls/hr Documented by: Insulin Aspart (Insulin Aspart 100 Units/Ml 3 Ml Pen) 0 units SC ACHS TITA Stop: 01/24/21 20:59 Last Admin: 12/26/20 09:06 Dose: 5 units Documented by: Insulin Glargine (Insulin Glargine Solostar 100 Units/Ml 3 Ml Pen) 20 units SC BID TITA Stop: 01/25/21 08:59 Last Admin: 12/26/20 09:05 Dose: 20 units Documented by: Lisinopril (Lisinopril 2.5 Mg Tab) 2.5 mg PO DAILY TITA Stop: 01/20/21 08:59 Last Admin: 12/26/20 09:04 Dose: 2.5 mg Documented by: Melatonin (Melatonin 3 Mg Tab) 1.5 mg PO HS PRN PRN Reason: Sleep Stop: 01/20/21 08:38 Miscellaneous (Carbohydrates For Hypoglycemia ) 15 - 30 gm PO UD PRN PRN Reason: Hypoglycemia Protocol Stop: 01/20/21 08:24 Multivitamins (Multivitamin Tab) 1 tab PO BID [facility] Stop: 01/20/21 08:59 Last Admin: 12/26/20 09:05 Dose: 1 tab Documented by: Naloxone HCl (Naloxone Hcl 0.4 Mg/1 Ml Vial/Carp) 0.1 mg IV Q5M PRN; Protocol PRN Reason: Oversedation/Resp Depression Stop: 01/06/21 09:28 Oxybutynin Chloride (Oxybutynin Chloride 5 Mg Tab) 5 mg PO Q12H PRN PRN Reason: bladder/stent pain Stop: 01/21/21 09:14 Last Admin: 12/25/20 19:39 Dose: 5 mg Documented by: Oxycodone HCl (Oxycodone Hcl Ir 5 Mg Tab (Immediate Release)) 5 - 10 mg PO QID PRN PRN Reason: Pain Stop: 01/04/21 08:24 Last Admin: 12/26/20 05:39 Dose: 10 mg Documented by: Pantoprazole Sodium (Pantoprazole 40 Mg Tab) 40 mg PO QAM TITA Stop: 01/20/21 08:59 Last Admin: 12/26/20 09:05 Dose: 40 mg Documented by: Phenazopyridine HCl (Phenazopyridine Hcl 200 Mg Tab) 200 mg PO TID [facility] Stop: 01/20/21 20:59 Last Admin: 12/26/20 09:04 Dose: 200 mg Documented by: Polyethylene Glycol (Polyethylene (Miralax) 17 Gm Pack) 17 gm PO DAILY PRN PRN Reason: Constipation Stop: 01/20/21 23:10 Last Admin: 12/24/20 07:46 Dose: 17 gm Documented by: Senna/Docusate Sodium (Docusate Sodium/Senna 50/8.6mg Tab) 1 tab PO BID [facility] Stop: 01/20/21 23:14 Last Admin: 12/25/20 20:09 Dose: 1 tab Documented by: Sertraline HCl (Sertraline Hcl 50 Mg Tablet) 50 mg PO [facility] Stop: 01/20/21 20:59 Last Admin: 12/25/20 20:09 Dose: 50 mg Documented by: Tamsulosin HCl (Tamsulosin Hcl 0.4 Mg Cap) 0.4 mg PO [facility] Stop: 01/20/21 20:59 Last Admin: 12/25/20 20:10 Dose: 0.4 mg Documented by:
[2020-12-26] MEDS: OXYBUTYNIN CHLORIDE 5 MG TAB PO PRN (09:56)
[2020-12-26] MEDS: DOCUSATE SODIUM/SENNA 50/8.6MG TAB PO SCH ×2 (09:56→21:53)
[2020-12-26] MEDS: PROMETHAZINE HCL 12.5 MG in SODIUM CHLORIDE 0.9% 50 ML IV PRN ×2 (09:57→21:41)
[2020-12-26] MEDS: SODIUM CHLORIDE 0.9% 1000ML 1,000 ML IV SCH ×2 (09:57→17:53)
--- NOTE | 2020-12-26 11:00 | Urology Progress Note ---
Date of Service December 26, 2020 Assessment & Plan (1) Right ureteral calculus: (2) Renal colic on right side: - POD #1 s/p Cystoscopy, Right Ureteroscopy, Laser Lithotripsy, Stent Exchange with Dr. Bonilla - Afebrile, VSS. - Labs reviewed, Wbc and creatinine stable - Patient poorly tolerating right ureteral stent, controlling pain currently with Dilaudid FIRST COOK - No further intervention at this time - Plan for outpatient follow-up with urology for stent removal on 12/31/20. - Recommend home with tamsulosin, prn pyridium, prn oxybutynin, and prn analgesia on discharge - Expected clinical course reviewed with patient, all questions were answered - Continue supportive care and pain management per primary team - Thank you for allowing us to participate in the acute care of Mr. Swartz - Please reconsult us with additional questions, concerns or changes in patient status. Admission and Anticipated Discharge Date Admission Date: December 21, 2020 Subjective Patient awake, resting in bed on arrival. Continues with intermittent right flank pain, utilizing FIRST COOK for pain Still some dysuria and notes dark orange/leilani urine. Having some urinary urgency frequency. Feels he is emptying bladder. Denies fevers or chills. Some mild nausea, no vomiting. No dizziness. Chart review: Afebrile, Wbc 6.94, Hgb 15.0, Cr 0.88 Review of Systems Constitutional: as per Subjective / HPI Gastrointestinal: as per Subjective / HPI Genitourinary: + as per Subjective / HPI Physical Exam Constitutional: well developed and well nourished; no acute distress Respiratory: normal respiratory effort and able to speak in complete sentences Gastrointestinal (Abdomen): Inspection/Auscultation: abdomen normal to inspection; abdomen not distended Skin: no rashes, warm and dry Neurologic: moves all extremities and awake Psychiatric: Orientation: alert, oriented x 3 and cooperative Results & Data ([place]) Vital Signs (Past 12 Hours) Vital Signs Temp Pulse Resp BP Pulse Ox 12/26/20 07:57 36.6 C 71 16 136/78 96 12/26/20 04:30 36.6 C 63 16 145/79 H 93 12/25/20 23:39 36.6 C 73 16 122/73 92 PG Care Time/CCT Total # of Minutes Spent Total Time Spent with Patient: Total time spent is greater than 50% in coordination of care (as documented) at patient's floor/unit and/or counseling patient: Coding Level of Care Code 66094 Subseq Hosp Care Lvl 2 Diagnoses Right ureteral calculus N20.1 Renal colic on right side N23
[2020-12-26] MEDS ORDERED: oxyCODONE HCL IR 5 MG TAB (IMMEDIATE RELEASE) PO STA (17:49)
--- NOTE | 2020-12-26 18:21 | XRay Report ---
KUB HISTORY: Follow-up study in a patient with a right ureteral stent abd. pain, s/p uret. stent COMPARISON: CT 12/21/2020 FINDINGS: Nonobstructive bowel gas pattern. Moderate fecal retention. Cholelithiasis. A right uretera l stent is noted which appears to be in satisfactory positioning. No ureteral calculi identified. The known bilateral nephrolithiasis are not identified. No pneumoperitoneum or pneumatosis. No fracture. IMPRESSION: 1. Right ureteral stent in place. No ureteral calculi identified. 2. The known bilateral nephrolithiasis are obscured by bowel gas. 3. Cholelithiasis. ACT 112: Negative or not required by law. The above report was generated using voice recognition software. It may contain grammatical, syntax o r spelling errors. Electronically signed by: Yvan Manriquez M.D. 12/26/2020 6:19 PM
[2020-12-26] MEDS: HYDROmorphone PCA 30 MG/30 ML IV PRN (19:07)
[2020-12-26] MEDS: TAMSULOSIN HCL 0.4 MG CAP PO SCH (21:45)
[2020-12-26] MEDS: SERTRALINE HCL 50 MG TABLET PO SCH (21:49)
[2020-12-27] MEDS: HYDROmorphone PCA 30 MG/30 ML IV PRN ×2 (02:54→07:20)
[2020-12-27] MEDS: SODIUM CHLORIDE 0.9% 1000ML 1,000 ML IV SCH ×3 (03:03→18:21)
[2020-12-27 06:43] LABS: Hematocrit (blood only) 40.9 % (42-52); Mean Corpuscular Hemoglobin 32.3 pg (25-34); Mean Corpuscular Hgb Conc 34.2 g/dL (32-36); Mean Corpuscular Volume 94.5 fL (80-100); RDW Coefficient of Variation 13.1 % (11.5-14.5); RDW Standard Deviation 45.4 fL (36.4-46.3); Red Blood Count 4.33 M/uL (4.7-6.1); White Blood Count 5.78 K/uL (4.8-10.8)
[2020-12-27 07:02] LABS: Mean Platelet Volume 10.9 fL (7.4-10.4); Platelet Count 95 K/uL (130-400)
[2020-12-27 07:17] LABS: Calcium 8.5 mg/dl (8.5-10.1); Creatinine Clr Calc Pharmacy 145.8 ml/min; Est GFR (African American) 122.5; Est GFR (Non-African American) 105.7; Potassium 4.1 mmol/L (3.5-5.1)
[2020-12-27] MEDS: PHENAZOPYRIDINE HCL 200 MG TAB PO SCH ×3 (09:41→20:27)
[2020-12-27] MEDS: PANTOprazole 40 MG TAB PO SCH (09:41)
[2020-12-27] MEDS: MULTIVITAMIN TAB PO SCH ×2 (09:41→20:27)
[2020-12-27] MEDS: lisinopril 2.5 MG TAB PO SCH (09:42)
[2020-12-27] MEDS: INSULIN ASPART 100 UNITS/ML 3 ML PEN SC SCH ×4 (09:42→20:56)
[2020-12-27] MEDS: INSULIN GLARGINE SOLOSTAR 100 UNITS/ML 3 ML PEN SC SCH ×2 (09:43→20:56)
[2020-12-27] MEDS: POLYETHYLENE (MIRALAX) 17 GM PACK PO SCH (09:50)
[2020-12-27] MEDS: SENNA 8.6 MG TAB PO SCH (09:51)
[2020-12-27] MEDS: DOCUSATE SODIUM/SENNA 50/8.6MG TAB PO SCH ×2 (09:51→20:32)
--- NOTE | 2020-12-27 09:51 | Hospitalist Progress Note ---
Date of Service December 27, 2020 Assessment & Plan (1) Right ureteral calculus: Status post right ureteral stent placement on 12/21. Post operative stent discomfort is severe and this was the case for him historically with other stones per his report. Scheduled Pyridium and use B&O suppositories and systemic narcotics as needed. Limit Toradol use in setting of thrombocytopenia. Continue Flomax nightly. Added Dilaudid LOW EMISSION AUTOMOBILE DESIGNER for now to help him get more continuous pain management. Ultimately switched to Dilaudid LOW EMISSION AUTOMOBILE DESIGNER. Pt is s/p cystoscopy with right ureteral stent exchange and laser lithotripsy by Dr. Bonilla. Continue supportive care. Pain better controlled on LOW EMISSION AUTOMOBILE DESIGNER. Plan to remove stent this week or early next week. (2) Diabetes mellitus type 2, controlled: uncontrolled with an A1C 8.9. Cont basal bolus insulin while hospitalized. Inpatient glucose is controlled. 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 No evidence of bleeding. 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 (6) DVT prophylaxis: Lovenox Full Code Dispo-to home when medically stable. Admission and Anticipated Discharge Date Admission Date: December 21, 2020 Subjective 40 yo M presented with severe R renal colic 2/2 ureteral stone, s/p cystoscopy with right ureteral stent placement and subsequent severe post-operative stent pain Patient seen in follow up of pain, renal stone s/p ur. stent Pt is currently sitting up in bed, in NAD Continues with intermittent right flank pain, utilizing LOW EMISSION AUTOMOBILE DESIGNER for pain Still some dysuria and notes dark orange/leilani urine. Denies fevers or chills. Review of Systems Review of Systems: All systems reviewed & are unremarkable except as noted in HPI & below Constitutional: no fever and no chills Respiratory: no cough and no dyspnea Cardiovascular: no chest pain and no palpitations Gastrointestinal: + abdominal pain (R lower quadrant/ R flank); no nausea and no vomiting Physical Exam Physical Exam: CONSTITUTIONAL: WNWD, vitals as above, in NAD EYES: normal conjunctivae, no scleral icterus ENT: external ear and nose normal, oropharynx clear, MMM RESPIRATORY: clear to auscultation bilaterally, no crackles, rales or wheezes, normal respiratory effort CARDIOVASCULAR: regular rate and rhythm, S1 and 2 heard without murmurs, gallops or rubs, no JVD, no peripheral edema GASTROINTESTINAL: soft, suprapubic pain to palpation, diffuse TTP, nondistended. +R CVA tenderness. MUSCULOSKELETAL: strength 5/5 throughout, head is normocephalic and atraumatic, moves extremities SKIN: warm and dry NEUROLOGIC: CN 2-12 grossly intact, no gross focal deficits, speech fluent, moves extremities PSYCHIATRIC: alert cooperative and oriented to person, place and time. Results & Data Results & Data ([facility]) Vital Signs (Past 12 Hours) Vital Signs Temp Pulse Pulse Resp BP BP Pulse Ox 12/27/20 08:54 36.7 C 76 18 118/64 96 12/27/20 03:00 36.6 C 58 L 16 119/70 96 12/26/20 23:34 36.9 C 60 16 103/55 L 94 Laboratory Results 12/27/20 12/27/20 12/27/20 Range/Units 08:29 06:05 06:05 WBC 5.78 (4.8-10.8) K/uL RBC 4.33 L (4.7-6.1) M/uL Hgb 14.0 (14.0-18.0) g/dL Hct 40.9 L (42-52) % MCV 94.5 (80-100) fL MCH 32.3 (25-34) pg MCHC 34.2 (32-36) g/dL RDW Std Deviation 45.4 (36.4-46.3) fL RDW Coeff of Flavio 13.1 (11.5-14.5) % Plt Count 95 L (130-400) K/uL MPV 10.9 H (7.4-10.4) fL Sodium 138 (136-145) mmol/L Potassium 4.1 (3.5-5.1) mmol/L Chloride 107 (98-107) mmol/L Carbon Dioxide 28 (21-32) mmol/L Anion Gap 3.0 (3-11) BUN 21 H (7-18) mg/dl Creatinine 0.90 (0.6-1.4) mg/dl Est Cr Clr Drug Dosing 145.8 ml/min Est GFR ( Amer) 122.5 Est GFR (Non-Af Amer) 105.7 BUN/Creatinine Ratio 23.0 H (10-20) Glucose 163 H (70-99) mg/dl POC Glucose 152 H (70-99) mg/dl Calcium 8.5 (8.5-10.1) mg/dl 12/26/20 12/26/20 12/26/20 Range/Units 20:31 17:06 12:09 WBC (4.8-10.8) K/uL RBC (4.7-6.1) M/uL Hgb (14.0-18.0) g/dL Hct (42-52) % MCV (80-100) fL MCH (25-34) pg MCHC (32-36) g/dL RDW Std Deviation (36.4-46.3) fL RDW Coeff of Flavio (11.5-14.5) % Plt Count (130-400) K/uL MPV (7.4-10.4) fL Sodium (136-145) mmol/L Potassium (3.5-5.1) mmol/L Chloride (98-107) mmol/L Carbon Dioxide (21-32) mmol/L Anion Gap (3-11) BUN (7-18) mg/dl Creatinine (0.6-1.4) mg/dl Est Cr Clr Drug Dosing ml/min Est GFR ( Amer) Est GFR (Non-Af Amer) BUN/Creatinine Ratio (10-20) Glucose (70-99) mg/dl POC Glucose 257 H 198 H 175 H (70-99) mg/dl Calcium (8.5-10.1) mg/dl Medications Administered Current Inpatient Medications Acetaminophen (Acetaminophen 325 Mg Tab) 325 mg PO Q6H PRN PRN Reason: Mild Pain Stop: 01/20/21 08:24 Belladonna Alkaloids/Opium (Belladonna/Opium Supp 60 Mg Supp) 60 mg RI Q12H PRN PRN Reason: bladder/stent pain Stop: 01/05/21 09:03 Last Admin: 12/23/20 09:04 Dose: 60 mg Documented by: Dextrose (Dextrose 50% 50 Ml Syringe) 25 - 50 ml IV UD PRN; Protocol PRN Reason: Hypoglycemia Protocol Stop: 01/20/21 08:24 Glucagon (Glucagon For Inj 1 Mg Vial) 1 mg SQ UD PRN; Protocol PRN Reason: Hypoglycemia Protocol Stop: 01/20/21 08:24 Glucose (Glucose 10 Tabs/Tube) 4 - 8 tabs PO UD PRN; Protocol PRN Reason: Hypoglycemia Protocol Stop: 01/20/21 08:24 Glucose (Glucose 40% Gel 15 Gm Tube) 15 - 30 gm PO UD PRN; Protocol PRN Reason: Hypoglycemia Protocol Stop: 01/20/21 08:24 Hydromorphone HCl (Hydromorphone It Security Engineer 30 Mg/30 Ml) 30 mg IV PRN PRN; Protocol PRN Reason: LOW EMISSION AUTOMOBILE DESIGNER Pain Titration Stop: 01/06/21 09:28 Last Admin: 12/27/20 07:20 Dose: 30 mg Documented by: Lorazepam (Ativan) 0.5 mg in 1 mls @ 1 mls/min IV Q4H PRN PRN Reason: Anxiety/Agitation Stop: 01/20/21 08:24 Promethazine HCl 12.5 mg/ (Sodium Chloride) 50.5 mls @ 202 mls/hr IV Q6H PRN PRN Reason: Nausea And Vomiting Stop: 01/20/21 08:24 Last Infusion: 12/26/20 21:56 Dose: Infused Documented by: Sodium Chloride (Nss 1000ml) 1,000 mls @ 15 mls/hr IV .Q24H [facility] Stop: 01/06/21 09:29 Last Admin: 12/26/20 09:57 Dose: 15 mls/hr Documented by: Sodium Chloride (Nss 1000ml) 1,000 mls @ 80 mls/hr IV .[id number] [facility] Stop: 01/25/21 17:44 Last Admin: 12/27/20 03:03 Dose: 80 mls/hr Documented by: Insulin Aspart (Insulin Aspart 100 Units/Ml 3 Ml Pen) 0 units SC ACHS [facility] Stop: 01/24/21 20:59 Last Admin: 12/26/20 21:48 Dose: 4 units Documented by: Insulin Glargine (Insulin Glargine Solostar 100 Units/Ml 3 Ml Pen) 20 units SC BID [facility] Stop: 01/25/21 08:59 Last Admin: 12/26/20 21:46 Dose: 20 units Documented by: Lisinopril (Lisinopril 2.5 Mg Tab) 2.5 mg PO DAILY [facility] Stop: 01/20/21 08:59 Last Admin: 12/26/20 09:04 Dose: 2.5 mg Documented by: Melatonin (Melatonin 3 Mg Tab) 1.5 mg PO HS PRN PRN Reason: Sleep Stop: 01/20/21 08:38 Miscellaneous (Carbohydrates For Hypoglycemia ) 15 - 30 gm PO UD PRN PRN Reason: Hypoglycemia Protocol Stop: 01/20/21 08:24 Multivitamins (Multivitamin Tab) 1 tab PO BID [facility] Stop: 01/20/21 08:59 Last Admin: 12/26/20 21:46 Dose: 1 tab Documented by: Naloxone HCl (Naloxone Hcl 0.4 Mg/1 Ml Vial/Carp) 0.1 mg IV Q5M PRN; Protocol PRN Reason: Oversedation/Resp Depression Stop: 01/06/21 09:28 Oxybutynin Chloride (Oxybutynin Chloride 5 Mg Tab) 5 mg PO Q12H PRN PRN Reason: bladder/stent pain Stop: 01/21/21 09:14 Last Admin: 12/26/20 09:56 Dose: 5 mg Documented by: Oxycodone HCl (Oxycodone Hcl Ir 5 Mg Tab (Immediate Release)) 5 - 10 mg PO QID PRN PRN Reason: Pain Stop: 01/04/21 08:24 Last Admin: 12/26/20 14:44 Dose: 10 mg Documented by: Pantoprazole Sodium (Pantoprazole 40 Mg Tab) 40 mg PO QAM [facility] Stop: 01/20/21 08:59 Last Admin: 12/26/20 09:05 Dose: 40 mg Documented by: Phenazopyridine HCl (Phenazopyridine Hcl 200 Mg Tab) 200 mg PO TID [facility] Stop: 01/20/21 20:59 Last Admin: 12/26/20 21:48 Dose: 200 mg Documented by: Polyethylene Glycol (Polyethylene (Miralax) 17 Gm Pack) 17 gm PO DAILY [facility] Stop: 01/26/21 08:59 Senna/Docusate Sodium (Docusate Sodium/Senna 50/8.6mg Tab) 1 tab PO BID [facility] Stop: 01/20/21 23:14 Last Admin: 12/26/20 21:53 Dose: 1 tab Documented by: Sennosides (Senna 8.6 Mg Tab) 8.6 mg PO QAM [facility] Stop: 01/26/21 08:59 Sertraline HCl (Sertraline Hcl 50 Mg Tablet) 50 mg PO HS [facility] Stop: 01/20/21 20:59 Last Admin: 12/26/20 21:49 Dose: 50 mg Documented by: Tamsulosin HCl (Tamsulosin Hcl 0.4 Mg Cap) 0.4 mg PO [facility] Stop: 01/20/21 20:59 Last Admin: 12/26/20 21:45 Dose: 0.4 mg Documented by:
[2020-12-27] MEDS: oxyCODONE HCL IR 5 MG TAB (IMMEDIATE RELEASE) PO PRN (10:33)
[2020-12-27] MEDS: OXYBUTYNIN CHLORIDE 5 MG TAB PO PRN ×2 (11:31→20:27)
[2020-12-27] MEDS: SERTRALINE HCL 50 MG TABLET PO SCH (20:27)
[2020-12-27] MEDS: TAMSULOSIN HCL 0.4 MG CAP PO SCH (20:28)
[2020-12-27] MEDS: PROMETHAZINE HCL 12.5 MG in SODIUM CHLORIDE 0.9% 50 ML IV PRN (21:17)
[2020-12-28] MEDS: SODIUM CHLORIDE 0.9% 1000ML 1,000 ML IV SCH ×3 (04:49→16:36)
[2020-12-28 07:01] LABS: Hematocrit (blood only) 40.9 % (42-52); Hemoglobin 13.6 g/dL (14.0-18.0); Mean Corpuscular Hemoglobin 31.6 pg (25-34); Mean Corpuscular Hgb Conc 33.3 g/dL (32-36); Mean Corpuscular Volume 95.1 fL (80-100); RDW Standard Deviation 45.3 fL (36.4-46.3); White Blood Count 4.78 K/uL (4.8-10.8)
[2020-12-28 07:04] LABS: Mean Platelet Volume 10.5 fL (7.4-10.4); Platelet Count 83 K/uL (130-400)
[2020-12-28 07:26] LABS: BUN Creatinine Ratio 17.6 (10-20); Calcium 8.9 mg/dl (8.5-10.1); Creatinine Clr Calc Pharmacy 139.6 ml/min; Est GFR (African American) 116.3; Est GFR (Non-African American) 100.3; Magnesium 2.1 mg/dl (1.8-2.4)
[2020-12-28 07:27] LABS: Phosphorus 3.8 mg/dl (2.5-4.9)
[2020-12-28] MEDS ORDERED: oxyCODONE HCL IR 5 MG TAB (IMMEDIATE RELEASE) PO PRN (08:00)
[2020-12-28] MEDS: HYDROmorphone PCA 30 MG/30 ML IV PRN ×2 (08:05→19:04)
--- NOTE | 2020-12-28 08:11 | Hospitalist Progress Note ---
Date of Service December 28, 2020 Assessment & Plan (1) Right ureteral calculus: Status post right ureteral stent placement on 12/21. Post operative stent discomfort is severe and this was the case for him historically with other stones per his report. Scheduled Pyridium and use B&O suppositories and systemic narcotics as needed. Limit Toradol use in setting of thrombocytopenia. Continue Flomax nightly. Added Dilaudid SEWER PIPE PRESS OPERATOR for now to help him get more continuous pain management. Ultimately switched to Dilaudid SEWER PIPE PRESS OPERATOR. Pt is s/p cystoscopy with right ureteral stent exchange and laser lithotripsy by Dr. Bonilla. Continue supportive care. Pain better controlled on SEWER PIPE PRESS OPERATOR, will try to minimize SEWER PIPE PRESS OPERATOR use and see if we can transition to PO pain meds and poss. DC over the weekend. Plan to remove stent on 12/31 (2) Diabetes mellitus type 2, controlled: uncontrolled with an A1C 8.9. Cont basal bolus insulin while hospitalized. Inpatient glucose is controlled. 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 No evidence of bleeding. 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 (6) DVT prophylaxis: Lovenox Full Code Dispo-to home when medically stable. Admission and Anticipated Discharge Date Admission Date: December 21, 2020 Subjective 40 yo M presented with severe R renal colic 2/2 ureteral stone, s/p cystoscopy with right ureteral stent placement and subsequent severe post-operative stent pain Patient seen in follow up of pain, renal stone s/p ur. stent Pt is currently laying in bed, in NAD Continues with intermittent right flank pain, utilizing SEWER PIPE PRESS OPERATOR for pain (yesterday was off SEWER PIPE PRESS OPERATOR for some time), discussed to try minimize SEWER PIPE PRESS OPERATOR and poss. DC over the weekend. Denies fevers or chills. Had 2 BMs yesterday Review of Systems Review of Systems: All systems reviewed & are unremarkable except as noted in HPI & below Constitutional: no fever and no chills Respiratory: no cough and no dyspnea Cardiovascular: no chest pain and no palpitations Gastrointestinal: + abdominal pain (R lower quadrant/ R flank); no nausea and no vomiting Physical Exam Physical Exam: CONSTITUTIONAL: WNWD, vitals as above, in NAD EYES: normal conjunctivae, no scleral icterus ENT: external ear and nose normal, oropharynx clear, MMM RESPIRATORY: clear to auscultation bilaterally, no crackles, rales or wheezes, normal respiratory effort CARDIOVASCULAR: regular rate and rhythm, S1 and 2 heard without murmurs, gallops or rubs, no JVD, no peripheral edema GASTROINTESTINAL: soft, suprapubic pain to palpation, diffuse TTP, nondistended. +R CVA tenderness. MUSCULOSKELETAL: strength 5/5 throughout, head is normocephalic and atraumatic, moves extremities SKIN: warm and dry NEUROLOGIC: CN 2-12 grossly intact, no gross focal deficits, speech fluent, moves extremities PSYCHIATRIC: alert cooperative and oriented to person, place and time. Results & Data Results & Data ([facility]) Vital Signs (Past 12 Hours) Vital Signs Temp Pulse Resp BP Pulse Ox 12/28/20 07:45 36.9 C 68 18 130/78 95 12/28/20 00:40 36.8 C 62 14 107/68 96 Laboratory Results 12/28/20 12/28/20 12/28/20 Range/Units 07:57 06:40 06:40 WBC 4.78 L (4.8-10.8) K/uL RBC 4.30 L (4.7-6.1) M/uL Hgb 13.6 L (14.0-18.0) g/dL Hct 40.9 L (42-52) % MCV 95.1 (80-100) fL MCH 31.6 (25-34) pg MCHC 33.3 (32-36) g/dL RDW Std Deviation 45.3 (36.4-46.3) fL RDW Coeff of Flavio 13.0 (11.5-14.5) % Plt Count 83 L (130-400) K/uL MPV 10.5 H (7.4-10.4) fL Sodium 140 (136-145) mmol/L Potassium 4.0 (3.5-5.1) mmol/L Chloride 109 H (98-107) mmol/L Carbon Dioxide 28 (21-32) mmol/L Anion Gap 3.0 (3-11) BUN 17 (7-18) mg/dl Creatinine 0.94 (0.6-1.4) mg/dl Est Cr Clr Drug Dosing 139.6 ml/min Est GFR ( Amer) 116.3 Est GFR (Non-Af Amer) 100.3 BUN/Creatinine Ratio 17.6 (10-20) Glucose 138 H (70-99) mg/dl POC Glucose 147 H (70-99) mg/dl Calcium 8.9 (8.5-10.1) mg/dl Phosphorus 3.8 (2.5-4.9) mg/dl Magnesium 2.1 (1.8-2.4) mg/dl 12/27/20 12/27/20 12/27/20 Range/Units 20:54 17:35 12:23 WBC (4.8-10.8) K/uL RBC (4.7-6.1) M/uL Hgb (14.0-18.0) g/dL Hct (42-52) % MCV (80-100) fL MCH (25-34) pg MCHC (32-36) g/dL RDW Std Deviation (36.4-46.3) fL RDW Coeff of Flavio (11.5-14.5) % Plt Count (130-400) K/uL MPV (7.4-10.4) fL Sodium (136-145) mmol/L Potassium (3.5-5.1) mmol/L Chloride (98-107) mmol/L Carbon Dioxide (21-32) mmol/L Anion Gap (3-11) BUN (7-18) mg/dl Creatinine (0.6-1.4) mg/dl Est Cr Clr Drug Dosing ml/min Est GFR ( Amer) Est GFR (Non-Af Amer) BUN/Creatinine Ratio (10-20) Glucose (70-99) mg/dl POC Glucose 153 H 133 H 162 H (70-99) mg/dl Calcium (8.5-10.1) mg/dl Phosphorus (2.5-4.9) mg/dl Magnesium (1.8-2.4) mg/dl 12/27/20 Range/Units 08:29 WBC (4.8-10.8) K/uL RBC (4.7-6.1) M/uL Hgb (14.0-18.0) g/dL Hct (42-52) % MCV (80-100) fL MCH (25-34) pg MCHC (32-36) g/dL RDW Std Deviation (36.4-46.3) fL RDW Coeff of Flavio (11.5-14.5) % Plt Count (130-400) K/uL MPV (7.4-10.4) fL Sodium (136-145) mmol/L Potassium (3.5-5.1) mmol/L Chloride (98-107) mmol/L Carbon Dioxide (21-32) mmol/L Anion Gap (3-11) BUN (7-18) mg/dl Creatinine (0.6-1.4) mg/dl Est Cr Clr Drug Dosing ml/min Est GFR ( Amer) Est GFR (Non-Af Amer) BUN/Creatinine Ratio (10-20) Glucose (70-99) mg/dl POC Glucose 152 H (70-99) mg/dl Calcium (8.5-10.1) mg/dl Phosphorus (2.5-4.9) mg/dl Magnesium (1.8-2.4) mg/dl Medications Administered Current Inpatient Medications Acetaminophen (Acetaminophen 325 Mg Tab) 325 mg PO Q6H PRN PRN Reason: Mild Pain Stop: 01/20/21 08:24 Belladonna Alkaloids/Opium (Belladonna/Opium Supp 60 Mg Supp) 60 mg [place] Q12H PRN PRN Reason: bladder/stent pain Stop: 01/05/21 09:03 Last Admin: 12/23/20 09:04 Dose: 60 mg Documented by: Dextrose (Dextrose 50% 50 Ml Syringe) 25 - 50 ml IV UD PRN; Protocol PRN Reason: Hypoglycemia Protocol Stop: 01/20/21 08:24 Glucagon (Glucagon For Inj 1 Mg Vial) 1 mg SQ UD PRN; Protocol PRN Reason: Hypoglycemia Protocol Stop: 01/20/21 08:24 Glucose (Glucose 10 Tabs/Tube) 4 - 8 tabs PO UD PRN; Protocol PRN Reason: Hypoglycemia Protocol Stop: 01/20/21 08:24 Glucose (Glucose 40% Gel 15 Gm Tube) 15 - 30 gm PO UD PRN; Protocol PRN Reason: Hypoglycemia Protocol Stop: 01/20/21 08:24 Hydromorphone HCl (Hydromorphone Mat Making Machine Tender 30 Mg/30 Ml) 30 mg IV PRN PRN; Protocol PRN Reason: SEWER PIPE PRESS OPERATOR Pain Titration Stop: 01/06/21 09:28 Last Admin: 12/27/20 07:20 Dose: 30 mg Documented by: Lorazepam (Ativan) 0.5 mg in 1 mls @ 1 mls/min IV Q4H PRN PRN Reason: Anxiety/Agitation Stop: 01/20/21 08:24 Promethazine HCl 12.5 mg/ (Sodium Chloride) 50.5 mls @ 202 mls/hr IV Q6H PRN PRN Reason: Nausea And Vomiting Stop: 01/20/21 08:24 Last Infusion: 12/27/20 21:40 Dose: Infused Documented by: Sodium Chloride (Nss 1000ml) 1,000 mls @ 15 mls/hr IV .Q24H [facility] Stop: 01/06/21 09:29 Last Admin: 12/27/20 18:21 Dose: Not Given Documented by: Sodium Chloride (Nss 1000ml) 1,000 mls @ 80 mls/hr IV .[id number] [facility] Stop: 01/25/21 17:44 Last Admin: 12/28/20 04:49 Dose: 80 mls/hr Documented by: Insulin Aspart (Insulin Aspart 100 Units/Ml 3 Ml Pen) 0 units SC ACHS [facility] Stop: 01/24/21 20:59 Last Admin: 12/27/20 20:56 Dose: Not Given Documented by: Insulin Glargine (Insulin Glargine Solostar 100 Units/Ml 3 Ml Pen) 20 units SC BID [facility] Stop: 01/25/21 08:59 Last Admin: 12/27/20 20:56 Dose: 20 units Documented by: Lisinopril (Lisinopril 2.5 Mg Tab) 2.5 mg PO DAILY [facility] Stop: 01/20/21 08:59 Last Admin: 12/27/20 09:42 Dose: 2.5 mg Documented by: Melatonin (Melatonin 3 Mg Tab) 1.5 mg PO HS PRN PRN Reason: Sleep Stop: 01/20/21 08:38 Miscellaneous (Carbohydrates For Hypoglycemia ) 15 - 30 gm PO UD PRN PRN Reason: Hypoglycemia Protocol Stop: 01/20/21 08:24 Multivitamins (Multivitamin Tab) 1 tab PO BID [facility] Stop: 01/20/21 08:59 Last Admin: 12/27/20 20:27 Dose: 1 tab Documented by: Naloxone HCl (Naloxone Hcl 0.4 Mg/1 Ml Vial/Carp) 0.1 mg IV Q5M PRN; Protocol PRN Reason: Oversedation/Resp Depression Stop: 01/06/21 09:28 Oxybutynin Chloride (Oxybutynin Chloride 5 Mg Tab) 5 mg PO Q12H PRN PRN Reason: bladder/stent pain Stop: 01/21/21 09:14 Last Admin: 12/27/20 20:27 Dose: 5 mg Documented by: Oxycodone HCl (Oxycodone Hcl Ir 5 Mg Tab (Immediate Release)) 5 - 10 mg PO Q4H PRN PRN Reason: Pain Stop: 01/04/21 08:24 Pantoprazole Sodium (Pantoprazole 40 Mg Tab) 40 mg PO QAM [facility] Stop: 01/20/21 08:59 Last Admin: 12/27/20 09:41 Dose: 40 mg Documented by: Phenazopyridine HCl (Phenazopyridine Hcl 200 Mg Tab) 200 mg PO TID [facility] Stop: 01/20/21 20:59 Last Admin: 12/27/20 20:27 Dose: 200 mg Documented by: Polyethylene Glycol (Polyethylene (Miralax) 17 Gm Pack) 17 gm PO DAILY [facility] Stop: 01/26/21 08:59 Last Admin: 12/27/20 09:50 Dose: 17 gm Documented by: Senna/Docusate Sodium (Docusate Sodium/Senna 50/8.6mg Tab) 1 tab PO BID [facility] Stop: 01/20/21 23:14 Last Admin: 12/27/20 20:32 Dose: 1 tab Documented by: Sennosides (Senna 8.6 Mg Tab) 8.6 mg PO QAM [facility] Stop: 01/26/21 08:59 Last Admin: 12/27/20 09:51 Dose: 8.6 mg Documented by: Sertraline HCl (Sertraline Hcl 50 Mg Tablet) 50 mg PO [facility] Stop: 01/20/21 20:59 Last Admin: 12/27/20 20:27 Dose: 50 mg Documented by: Tamsulosin HCl (Tamsulosin Hcl 0.4 Mg Cap) 0.4 mg PO [facility] Stop: 01/20/21 20:59 Last Admin: 12/27/20 20:28 Dose: 0.4 mg Documented by:
[2020-12-28] MEDS: PHENAZOPYRIDINE HCL 200 MG TAB PO SCH ×3 (08:26→20:53)
[2020-12-28] MEDS: lisinopril 2.5 MG TAB PO SCH (08:26)
[2020-12-28] MEDS: MULTIVITAMIN TAB PO SCH ×2 (08:26→20:54)
[2020-12-28] MEDS: PANTOprazole 40 MG TAB PO SCH (08:26)
[2020-12-28] MEDS: SENNA 8.6 MG TAB PO SCH (08:26)
[2020-12-28] MEDS: POLYETHYLENE (MIRALAX) 17 GM PACK PO SCH (08:27)
[2020-12-28] MEDS: DOCUSATE SODIUM/SENNA 50/8.6MG TAB PO SCH ×2 (08:32→21:00)
[2020-12-28] MEDS: INSULIN ASPART 100 UNITS/ML 3 ML PEN SC SCH ×4 (09:21→20:56)
[2020-12-28] MEDS: INSULIN GLARGINE SOLOSTAR 100 UNITS/ML 3 ML PEN SC SCH ×2 (09:22→20:57)
[2020-12-28] MEDS ORDERED: ONDANSETRON INJ 2 MG/ML 2 ML VIAL IV ONE (14:11)
[2020-12-28] MEDS ORDERED: oxyCODONE/ACETAMINOPHEN 5mg/325mg TAB PO PRN (14:26)
[2020-12-28] MEDS ORDERED: oxyCODONE/ACETAMINOPHEN 10-325 TAB PO PRN (14:27)
[2020-12-28] MEDS: OXYBUTYNIN CHLORIDE 5 MG TAB PO PRN (20:10)
[2020-12-28] MEDS: SERTRALINE HCL 50 MG TABLET PO SCH (20:54)
[2020-12-28] MEDS: TAMSULOSIN HCL 0.4 MG CAP PO SCH (20:54)
[2020-12-28] MEDS: PROMETHAZINE HCL 12.5 MG in SODIUM CHLORIDE 0.9% 50 ML IV PRN (22:48)
[2020-12-29] MEDS: SODIUM CHLORIDE 0.9% 1000ML 1,000 ML IV SCH ×2 (03:54→16:16)
[2020-12-29 05:44] LABS: Hemoglobin 13.7 g/dL (14.0-18.0); Mean Corpuscular Hemoglobin 31.7 pg (25-34); Mean Corpuscular Hgb Conc 33.4 g/dL (32-36); Mean Corpuscular Volume 94.9 fL (80-100); RDW Coefficient of Variation 12.9 % (11.5-14.5); RDW Standard Deviation 44.8 fL (36.4-46.3); Red Blood Count 4.32 M/uL (4.7-6.1); White Blood Count 4.73 K/uL (4.8-10.8)
[2020-12-29 05:59] LABS: Mean Platelet Volume 10.3 fL (7.4-10.4); Platelet Count 85 K/uL (130-400)
[2020-12-29 06:10] LABS: Creatinine Clr Calc Pharmacy 141.1 ml/min; Est GFR (African American) 117.8; Est GFR (Non-African American) 101.6; Potassium 3.8 mmol/L (3.5-5.1)
--- NOTE | 2020-12-29 07:10 | Hospitalist Progress Note ---
Date of Service December 29, 2020 Assessment & Plan (1) Right ureteral calculus: Pt is s/p cystoscopy with right ureteral stent exchange and laser lithotripsy by Dr. Bonilla on 12/21. Post operative stent discomfort is severe and this was the case for him historically with other stones per his report. Scheduled Pyridium and use B&O suppositories and systemic narcotics as needed. Limit Toradol use in setting of thrombocytopenia. Continue Flomax nightly. Added Dilaudid SALAD CHEF for now to help him get more continuous pain management. Try to minimize SALAD CHEF use, and switch patient to p.o. medications, plan for discharge over the weekend, however it did not work well and therefore pain medications changed and patient still continues to use SALAD CHEF as well (12/29). Plan to remove stent on 12/31 (2) Diabetes mellitus type 2, controlled: uncontrolled with an A1C 8.9. Cont basal bolus insulin while hospitalized. Inpatient glucose is controlled. 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 No evidence of bleeding. 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 (6) DVT prophylaxis: Lovenox Full Code Dispo-to home when medically stable. Admission and Anticipated Discharge Date Admission Date: December 21, 2020 Subjective 40 yo M presented with severe R renal colic 2/2 ureteral stone, s/p cystoscopy with right ureteral stent placement and subsequent severe post-operative stent pain Patient seen in follow up of pain, renal stone s/p ur. stent Pt is currently laying in bed, in NAD Continues with intermittent right flank pain, utilizing SALAD CHEF for pain, tried to minimize SALAD CHEF use yesterday, as we were trying to get him to p.o. medications and possible DC over the weekend. Unfortunately he did not go as well and therefore pain medications now changed again, and patient continues to be on SALAD CHEF as well. Denies fevers or chills. No chest pain or shortness of breath. Had a BM yesterday Review of Systems Review of Systems: All systems reviewed & are unremarkable except as noted in HPI & below Constitutional: no fever and no chills Respiratory: no cough and no dyspnea Cardiovascular: no chest pain and no palpitations Gastrointestinal: + abdominal pain (R lower quadrant/ R flank); no nausea and no vomiting Physical Exam Physical Exam: CONSTITUTIONAL: WNWD, vitals as above, in NAD EYES: normal conjunctivae, no scleral icterus ENT: external ear and nose normal, oropharynx clear, MMM RESPIRATORY: clear to auscultation bilaterally, no crackles, rales or wheezes, normal respiratory effort CARDIOVASCULAR: regular rate and rhythm, S1 and 2 heard without murmurs, gallops or rubs, no JVD, no peripheral edema GASTROINTESTINAL: soft, suprapubic pain to palpation, diffuse TTP, nondistended. +R CVA tenderness. MUSCULOSKELETAL: strength 5/5 throughout, head is normocephalic and atraumatic, moves extremities SKIN: warm and dry NEUROLOGIC: CN 2-12 grossly intact, no gross focal deficits, speech fluent, moves extremities PSYCHIATRIC: alert cooperative and oriented to person, place and time. Results & Data Results & Data ([facility]) Vital Signs (Past 12 Hours) Vital Signs Temp Pulse Pulse Resp BP Pulse Ox 12/29/20 03:54 36.8 C 62 16 123/76 95 12/29/20 00:00 36.6 C 60 12 128/71 95 12/28/20 22:28 36.6 C 66 15 115/68 93 12/28/20 19:21 36.9 C 65 15 125/66 94 Laboratory Results 12/29/20 12/29/20 12/28/20 Range/Units 05:30 05:30 20:38 WBC 4.73 L (4.8-10.8) K/uL RBC 4.32 L (4.7-6.1) M/uL Hgb 13.7 L (14.0-18.0) g/dL Hct 41.0 L (42-52) % MCV 94.9 (80-100) fL MCH 31.7 (25-34) pg MCHC 33.4 (32-36) g/dL RDW Std Deviation 44.8 (36.4-46.3) fL RDW Coeff of Flavio 12.9 (11.5-14.5) % Plt Count 85 L (130-400) K/uL MPV 10.3 (7.4-10.4) fL Sodium 139 (136-145) mmol/L Potassium 3.8 (3.5-5.1) mmol/L Chloride 108 H (98-107) mmol/L Carbon Dioxide 28 (21-32) mmol/L Anion Gap 3.0 (3-11) BUN 15 (7-18) mg/dl Creatinine 0.93 (0.6-1.4) mg/dl Est Cr Clr Drug Dosing 141.1 ml/min Est GFR ( Amer) 117.8 Est GFR (Non-Af Amer) 101.6 BUN/Creatinine Ratio 16.0 (10-20) Glucose 149 H (70-99) mg/dl POC Glucose 139 H (70-99) mg/dl Calcium 9.0 (8.5-10.1) mg/dl Phosphorus (2.5-4.9) mg/dl Magnesium (1.8-2.4) mg/dl 12/28/20 12/28/20 12/28/20 Range/Units 17:16 12:08 07:57 WBC (4.8-10.8) K/uL RBC (4.7-6.1) M/uL Hgb (14.0-18.0) g/dL Hct (42-52) % MCV (80-100) fL MCH (25-34) pg MCHC (32-36) g/dL RDW Std Deviation (36.4-46.3) fL RDW Coeff of Flavio (11.5-14.5) % Plt Count (130-400) K/uL MPV (7.4-10.4) fL Sodium (136-145) mmol/L Potassium (3.5-5.1) mmol/L Chloride (98-107) mmol/L Carbon Dioxide (21-32) mmol/L Anion Gap (3-11) BUN (7-18) mg/dl Creatinine (0.6-1.4) mg/dl Est Cr Clr Drug Dosing ml/min Est GFR ( Amer) Est GFR (Non-Af Amer) BUN/Creatinine Ratio (10-20) Glucose (70-99) mg/dl POC Glucose 122 H 141 H 147 H (70-99) mg/dl Calcium (8.5-10.1) mg/dl Phosphorus (2.5-4.9) mg/dl Magnesium (1.8-2.4) mg/dl 12/28/20 Range/Units 06:40 WBC (4.8-10.8) K/uL RBC (4.7-6.1) M/uL Hgb (14.0-18.0) g/dL Hct (42-52) % MCV (80-100) fL MCH (25-34) pg MCHC (32-36) g/dL RDW Std Deviation (36.4-46.3) fL RDW Coeff of Flavio (11.5-14.5) % Plt Count (130-400) K/uL MPV (7.4-10.4) fL Sodium 140 (136-145) mmol/L Potassium 4.0 (3.5-5.1) mmol/L Chloride 109 H (98-107) mmol/L Carbon Dioxide 28 (21-32) mmol/L Anion Gap 3.0 (3-11) BUN 17 (7-18) mg/dl Creatinine 0.94 (0.6-1.4) mg/dl Est Cr Clr Drug Dosing 139.6 ml/min Est GFR ( Amer) 116.3 Est GFR (Non-Af Amer) 100.3 BUN/Creatinine Ratio 17.6 (10-20) Glucose 138 H (70-99) mg/dl POC Glucose (70-99) mg/dl Calcium 8.9 (8.5-10.1) mg/dl Phosphorus 3.8 (2.5-4.9) mg/dl Magnesium 2.1 (1.8-2.4) mg/dl Medications Administered Current Inpatient Medications Acetaminophen (Acetaminophen 325 Mg Tab) 325 mg PO Q6H PRN PRN Reason: Mild Pain Stop: 01/20/21 08:24 Belladonna Alkaloids/Opium (Belladonna/Opium Supp 60 Mg Supp) 60 mg DE Q12H PRN PRN Reason: bladder/stent pain Stop: 01/05/21 09:03 Last Admin: 12/23/20 09:04 Dose: 60 mg Documented by: Dextrose (Dextrose 50% 50 Ml Syringe) 25 - 50 ml IV UD PRN; Protocol PRN Reason: Hypoglycemia Protocol Stop: 01/20/21 08:24 Glucagon (Glucagon For Inj 1 Mg Vial) 1 mg SQ UD PRN; Protocol PRN Reason: Hypoglycemia Protocol Stop: 01/20/21 08:24 Glucose (Glucose 10 Tabs/Tube) 4 - 8 tabs PO UD PRN; Protocol PRN Reason: Hypoglycemia Protocol Stop: 01/20/21 08:24 Glucose (Glucose 40% Gel 15 Gm Tube) 15 - 30 gm PO UD PRN; Protocol PRN Reason: Hypoglycemia Protocol Stop: 01/20/21 08:24 Hydromorphone HCl (Hydromorphone Material Expeditor 30 Mg/30 Ml) 30 mg IV PRN PRN; Protocol PRN Reason: SALAD CHEF Pain Titration Stop: 01/06/21 09:28 Last Admin: 12/28/20 19:04 Dose: 30 mg Documented by: Lorazepam (Ativan) 0.5 mg in 1 mls @ 1 mls/min IV Q4H PRN PRN Reason: Anxiety/Agitation Stop: 01/20/21 08:24 Promethazine HCl 12.5 mg/ (Sodium Chloride) 50.5 mls @ 202 mls/hr IV Q6H PRN PRN Reason: Nausea And Vomiting Stop: 01/20/21 08:24 Last Infusion: 12/28/20 23:05 Dose: Infused Documented by: Sodium Chloride (Nss 1000ml) 1,000 mls @ 80 mls/hr IV .[id number] TITA Stop: 01/25/21 17:44 Last Infusion: 12/29/20 06:43 Dose: 80 mls/hr Documented by: Insulin Aspart (Insulin Aspart 100 Units/Ml 3 Ml Pen) 0 units SC ACHS TITA Stop: 01/24/21 20:59 Last Admin: 12/28/20 20:56 Dose: 1 units Documented by: Insulin Glargine (Insulin Glargine Solostar 100 Units/Ml 3 Ml Pen) 20 units SC BID TITA Stop: 01/25/21 08:59 Last Admin: 12/28/20 20:57 Dose: 20 units Documented by: Lisinopril (Lisinopril 2.5 Mg Tab) 2.5 mg PO DAILY TITA Stop: 01/20/21 08:59 Last Admin: 12/28/20 08:26 Dose: 2.5 mg Documented by: Melatonin (Melatonin 3 Mg Tab) 1.5 mg PO HS PRN PRN Reason: Sleep Stop: 01/20/21 08:38 Miscellaneous (Carbohydrates For Hypoglycemia ) 15 - 30 gm PO UD PRN PRN Reason: Hypoglycemia Protocol Stop: 01/20/21 08:24 Multivitamins (Multivitamin Tab) 1 tab PO BID TITA Stop: 01/20/21 08:59 Last Admin: 12/28/20 20:54 Dose: 1 tab Documented by: Naloxone HCl (Naloxone Hcl 0.4 Mg/1 Ml Vial/Carp) 0.1 mg IV Q5M PRN; Protocol PRN Reason: Oversedation/Resp Depression Stop: 01/06/21 09:28 Oxybutynin Chloride (Oxybutynin Chloride 5 Mg Tab) 5 mg PO Q12H PRN PRN Reason: bladder/stent pain Stop: 01/21/21 09:14 Last Admin: 12/28/20 20:10 Dose: 5 mg Documented by: Oxycodone/Acetaminophen (Oxycodone/Acetaminophen 5mg/325mg Tab) 1 tab PO Q4H PRN PRN Reason: PAIN 1,2,3,4,5 Stop: 01/11/21 14:25 Oxycodone/Acetaminophen (Oxycodone/Acetaminophen 10-325 Tab) 1 tab PO Q4H PRN PRN Reason: PAIN 6,7,8,9,10 Stop: 01/11/21 14:26 Last Admin: 12/28/20 19:06 Dose: 1 tab Documented by: Pantoprazole Sodium (Pantoprazole 40 Mg Tab) 40 mg PO QAM TITA Stop: 01/20/21 08:59 Last Admin: 12/28/20 08:26 Dose: 40 mg Documented by: Phenazopyridine HCl (Phenazopyridine Hcl 200 Mg Tab) 200 mg PO TID TITA Stop: 01/20/21 20:59 Last Admin: 12/28/20 20:53 Dose: 200 mg Documented by: Polyethylene Glycol (Polyethylene (Miralax) 17 Gm Pack) 17 gm PO DAILY [facility] Stop: 01/26/21 08:59 Last Admin: 12/28/20 08:27 Dose: 17 gm Documented by: Senna/Docusate Sodium (Docusate Sodium/Senna 50/8.6mg Tab) 1 tab PO BID [facility] Stop: 01/20/21 23:14 Last Admin: 12/28/20 21:00 Dose: 1 tab Documented by: Sennosides (Senna 8.6 Mg Tab) 8.6 mg PO QAM [facility] Stop: 01/26/21 08:59 Last Admin: 12/28/20 08:26 Dose: 8.6 mg Documented by: Sertraline HCl (Sertraline Hcl 50 Mg Tablet) 50 mg PO [facility] Stop: 01/20/21 20:59 Last Admin: 12/28/20 20:54 Dose: 50 mg Documented by: Tamsulosin HCl (Tamsulosin Hcl 0.4 Mg Cap) 0.4 mg PO [facility] Stop: 01/20/21 20:59 Last Admin: 12/28/20 20:54 Dose: 0.4 mg Documented by:
[2020-12-29] MEDS: HYDROmorphone PCA 30 MG/30 ML IV PRN ×2 (07:18→17:07)
[2020-12-29] MEDS ORDERED: HYDROmorphone HCL 2 MG TAB PO PRN (07:22)
[2020-12-29] MEDS: INSULIN GLARGINE SOLOSTAR 100 UNITS/ML 3 ML PEN SC SCH (08:42)
[2020-12-29] MEDS: INSULIN ASPART 100 UNITS/ML 3 ML PEN SC SCH ×2 (08:43→12:36)
[2020-12-29] MEDS: POLYETHYLENE (MIRALAX) 17 GM PACK PO SCH (08:43)
[2020-12-29] MEDS: MULTIVITAMIN TAB PO SCH (08:45)
[2020-12-29] MEDS: lisinopril 2.5 MG TAB PO SCH (08:45)
[2020-12-29] MEDS: PHENAZOPYRIDINE HCL 200 MG TAB PO SCH ×2 (08:45→14:42)
[2020-12-29] MEDS: PANTOprazole 40 MG TAB PO SCH (08:46)
[2020-12-29] MEDS: SENNA 8.6 MG TAB PO SCH (08:46)
[2020-12-29] MEDS: DOCUSATE SODIUM/SENNA 50/8.6MG TAB PO SCH (08:49)
--- NOTE | 2020-12-29 16:47 | Hospitalist Progress Note ---
Date of Service December 29, 2020 Assessment & Plan Admission and Anticipated Discharge Date Admission Date: December 21, 2020 Subjective This afternoon, patient reports that he really feels that he is okay to go home. 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 He took 1 p.o. Dilaudid. Given that patient has been here and did well on the medication, and he is eager to be discharged, will prescribe him medications he has been taking in the hospital. He is scheduled for his stent removal for December 31 which is less than 48 hours from now. Patient believes that he will be okay at home when he rests. He was in detail informed about the medications , especially opiate/Dilaudid, and he fully understands how they work and he plans them to take as prescribed. MD Efrain Results & Data Results & Data ([facility]) Vital Signs (Past 12 Hours) Vital Signs Temp Pulse Resp BP Pulse Ox 12/29/20 14:37 36.8 C 79 16 146/85 H 95 12/29/20 12:10 36.8 C 69 16 127/80 95 12/29/20 07:14 36.8 C 61 16 119/73 96
--- NOTE | 2020-12-29 16:53 | Discharge Summary ---
Date of Service December 29, 2020 Admission HPI Per Admitting Provider History obtained from patient, family, and records. Medical history significant for HTN, DM2 on oral medications, NAFLD cirrhosis, chronic thrombocytopenia, LINDA on CPAP, recurrent urolithiasis, past tobacco abuse. Last confinement May 2020 for acute pyelonephritis. Patient roused from sleep early this morning with achy sharp right flank pain reminiscent of kidney stone pain without fever, chills, hematuria symptoms. No headache, no chest pain, no S OB. Patient given Flomax at the ER for obstructive uropathy. 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 Admission Exam Per Admitting Provider GENERAL: Comfortable, pleasant, morbidly obese, no respiratory distress, looks older than stated age SKIN: Normal color, warm HEENT: [place] palpebral conjunctivae, no ptosis, dry buccal mucosa NECK : Supple, short neck, no tenderness CHEST : CTA, no tenderness HEART : RRR, no obvious murmurs ABDOMEN: Some distention, nontender BACK : Right flank tenderness EXTREMITIES : Minimal LE swelling, no LE tenderness, no other conspicuous deformities noted NEUROLOGIC : Coherent, no facial asymmetry, no other gross focality Principal Diagnosis Right ureteral calculus Renal colic on right side s/p Cystoscopy, Right Ureteroscopy, Laser Lithotripsy, Stent Exchange with Dr. Bonilla Post - procedural pain Discharge Exam CONSTITUTIONAL: WNWD, vitals as above, in NAD EYES: normal conjunctivae, no scleral icterus ENT: external ear and nose normal, oropharynx clear, MMM RESPIRATORY: clear to auscultation bilaterally, no crackles, rales or wheezes, normal respiratory effort CARDIOVASCULAR: regular rate and rhythm, S1 and 2 heard without murmurs, gallops or rubs, no JVD, no peripheral edema GASTROINTESTINAL: soft, suprapubic pain to palpation, diffuse TTP, nondistended. +R CVA tenderness. MUSCULOSKELETAL: strength 5/5 throughout, head is normocephalic and atraumatic, moves extremities SKIN: warm and dry NEUROLOGIC: CN 2-12 grossly intact, no gross focal deficits, speech fluent, moves extremities PSYCHIATRIC: alert cooperative and oriented to person, place and time. Discharge Data Allergies Allergy/AdvReac Type Severity Reaction Status Date / Time bee venom protein (honey bee) Allergy Severe Anaphylaxis Unverified 12/21/20 07:03 pineapple Allergy Severe THROAT Verified 12/21/20 07:03 CLOSES TO THE FRUIT cephalexin Allergy Intermediate HIVES Verified 12/21/20 07:03 menthol Allergy Intermediate WELTS Verified 12/21/20 07:03 Penicillins Allergy Intermediate RASH Verified 12/21/20 07:03 Consultations 12/21/20 06:08 ED Decision to Admit Stat 12/21/20 08:25 Consult Urology Routine Procedures Performed Operation Date: 12/21/20 10:55 Actual Procedures p Cystoscopy, Right Ureteral Stent Placement(Right) - Chad Bonilla MD Operation Date: 12/25/20 14:50 Actual Procedures p Cystoscopy, Right Ureteroscopy, Laser Lithotropsy, Stent Exchange(Right) - Chad Bonilla MD Ordered Studies 12/21/20 05:40 CT abd pelvis wo con Urgent IMPRESSION: 1. 6 mm right ureteropelvic junction calculus which results in moderate hydronephrosis. Additional 4 mm proximal right ureteral calculus. 2. 6 mm left renal calculus. 3. Cirrhosis, hepatic steatosis and splenomegaly which are unchanged. 4. Cholelithiasis. 5. No bowel obstruction. 12/21/20 14:36 FL fluoroscopy <1hr Routine 12/21/20 14:37 FL KUB Routine 12/21/20 22:11 CT abd pelvis wo con Stat IMPRESSION: 1. Interval placement of a right ureteral stent which appears to be in satisfactory positioning. No ureteral calculi. 2. Nonobstructing bilateral nephrolithiasis. 3. Hepatic steatosis and cirrhosis with hepatosplenomegaly. 4. Cholelithiasis. 5. No bowel obstruction. Normal appendix. 12/25/20 14:00 FL KUB Routine FL fluoroscopy <1hr Routine Hospital Course (1) Right ureteral calculus: Pt is s/p cystoscopy with right ureteral stent exchange and laser lithotripsy by Dr. Bonilla on 12/21. Post operative stent discomfort was severe and this was the case for him historically with other stones per his report. Scheduled Pyridium and use B&O suppositories and systemic narcotics as needed. Limit Toradol use in setting of thrombocytopenia. Continue Flomax nightly. 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 Patient tried to minimize the SINGLE STAYER OPERATOR use and only use p.o., as he wishes to be discharged over the weekend. Currently patient is eager for discharge. Plan to remove stent on 12/31 w/ urology (2) Diabetes mellitus type 2, controlled: uncontrolled with an A1C 8.9. Cont basal bolus insulin while hospitalized. Inpatient glucose is controlled. Recommend outpatient follow-up (3) Depression: stable, cont sertraline per home regimen (4) Thrombocytopenia due to hypersplenism: chronic, at baseline. No evidence of bleeding. 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 (6) DVT prophylaxis: Lovenox Full Code Dispo-to home with close follow-up with urology on Thursday, December 31 and PCP on January 01 Total Time Total Time Spent Total Time Spent (In Minutes): 35 Total Time Includes: Examination of the Patient, Discharge Planning, Medication Reconciliation and Communication With Other Providers Discharge Plan Discharge Items Patient Disposition: Home - Self-Care Reason For Visit: HTN URG, OBS UROPATHY Discharge Diagnosis: Right ureteral calculus Renal colic on right side s/p Cystoscopy, Right Ureteroscopy, Laser Lithotripsy, Stent Exchange with Dr. Bonilla Post - procedural pain Condition on Discharge: Good Activity: Per Instructions section Non-emergency contact: Primary Care Provider and Urologist Call non-emergency contact if: you have any medication questions and your symptoms worsen Follow-up/Referrals: Jacqueline Portillo DO [Primary Care Provider] - (Date & Time 01/01/2021 11:20 AM Provider Hanane John PA-C Department [facility] ) Diet: Carb Consistent or DM2 and Heart Healthy Addtl Attending Provider Instructions: From Urology - Outpatient follow-up for stent removal on 12/31/20 at 1:50pm with Dr. Bauer at our office at [address] [place] [address]. Please call with any questions or concerns. [phone] Follow-up with a primary care doctor on January 01. Reviewed all your medications with your primary care physician. For pain, use Pyridium, belladonna, oxybutynin, Dilaudid was also prescribed for you. As this is opiate, make sure that you do not operate heavy machinery, drive, or make any important decisions while using it. You should not drink any alcohol or use any other medications that are not prescribed for you. Opiate medications can cause severe constipation, continue using MiraLAX and senna as prescribed. Continue using Flomax/tamsulosin. Lisinopril was prescribed for your blood pressure. Pending Studies at Discharge: No Stand-Alone Forms: My [facility], Smoking Cessation Medications and DC Order Prescriptions: New tamsulosin 0.4 mg Capsule 0.4 mg PO HS Qty: 14 RF: 0 belladonna alkaloids-opium 16.2-60 mg Suppository 1 supp [place] Q12H PRN (Reason: pain) Qty: 4 RF: 0 polyethylene glycol 3350 [Miralax] 17 gram Powder In Packet 17 g PO DAILY Qty: 14 RF: 0 sennosides [Senokot] 8.6 mg Tablet 8.6 mg PO QAM Qty: 10 RF: 0 phenazopyridine [Pyridium] 200 mg Tablet 200 mg PO TID Qty: 20 RF: 0 oxybutynin chloride 5 mg Tablet 5 mg PO Q12H PRN (Reason: bladder spasms) Qty: 10 RF: 0 lisinopril 2.5 mg Tablet 2.5 mg PO DAILY Qty: 30 RF: 0 hydromorphone [Dilaudid] 2 mg Tablet 2 mg PO Q6H PRN (Reason: pain) Qty: 7 RF: 0 Continued metformin 500 mg Tablet Extended Release 24 Hr 1,000 mg PO BIDM RF: 0 hydrocortisone-pramoxine [Analpram-HC] 2.5-1 % Cream 1 applic [place] DIRECTED PRN (Reason: Hemorrhoids) RF: 0 sertraline 50 mg Tablet 50 mg PO HS RF: 0 omeprazole 20 mg Tablet,Delayed Release (Dr/Ec) 20 mg PO QAM RF: 0 Victoza 2-Charlse 0.6 mg/0.1 mL (18 mg/3 mL) Pen Injector 1.8 mg SUBCUT QPM RF: 0 melatonin 1 mg Tablet 1 mg PO HS PRN (Reason: Sleep) RF: 0 epinephrine [EpiPen 2-Charles] 0.3 mg/0.3 mL auto-injector 0.3 mg IM Q3H PRN (Reason: bronchodilation) Qty: 2 RF: 0 multivitamin Tablet 1 tab PO BID RF: 0 Discharge Orders: Discharge Order (Routine); Ordered 12/29/20 Ordered By: Jose Magaña/Other Patient Handouts: High Blood Sugar (Hyperglycemia), Hypoglycemia (Low Blood Sugar), Managing Type 2 Diabetes, 5 Steps for Eating Healthier, Managing Diabetes: The A1C Test Admission Data Admit Date/Time: 12/21/20 07:06 Attending Provider: Jose Horne Admit Provider: Pablito Bunn Primary Care Provider: Jacqueline Portillo Other Providers: Pablito Bunn ; Ashok Cheatham ; Kodi Bauer ; Chad Bonilla ; Nita Harper ; Juan Gibson ; Flore[address] ; Deisi Momin ; Sulema Carias ; Jv Tyson ; Sofía Lua ; Lise Gilmore ; Karley Hall
== END 2020-12-29 17:48 | disposition home or self-care (01) | DRG 660 ==
LOC: ED 05:33 → SUATTDRO 07:06 → 2W 07:06 → 3W 12-23 10:29

== ENCOUNTER 2021-03-21 03:13 | Inpatient (IN) ==
[2021-03-21] MEDS ORDERED: SODIUM CHLORIDE 0.9% 500 ML IV STA (03:18)
[2021-03-21] MEDS ORDERED: KETOROLAC TROMETHAMINE 15 MG/ML VIAL IV STA (03:18)
[2021-03-21] MEDS ORDERED: ONDANSETRON INJ 2 MG/ML 2 ML VIAL IV STA ×3 (03:18→21:51)
[2021-03-21] MEDS ORDERED: MoRPHine SULFATE 4 MG/ML 1 ML CARP\\VIAL IV STA (03:20)
--- NOTE | 2021-03-21 03:27 | Emergency Department Note ---
History of Present Illness General Chief complaint: Kidney Stone Stated complaint: KIDNEY STONE Time Seen by Provider: 03/21/21 03:18 History of Present Illness This 41-year-old had lithotripsy the other day presents to the ER complaining of severe left flank pain Location: Left flank Quality: Severe Severity: Severe Duration: Tonight Timing: Tonight Context: Pain persisted and patient came in Modifying factors: better with nothing; worse with nothing This is the first time the patient is a lithotripsy. Patient denies chest pain, dyspnea, fevers, flulike illness. Home Medications Medication Instructions Recorded Confirmed Type Victoza 2-Charles 1.8 mg SUBCUT QPM 08/11/18 03/15/21 History hydrocortisone-pramoxine 1 applic MD DIRECTED PRN 08/11/18 03/15/21 History [Analpram-HC] omeprazole 20 mg PO QAM 08/11/18 03/15/21 History sertraline 50 mg PO HS 08/11/18 03/15/21 History epinephrine [EpiPen 2-Charles] 0.3 mg IM Q3H PRN #2 ea 03/19/19 03/15/21 Rx melatonin 1 mg PO HS PRN 03/19/19 03/15/21 History metformin 1,000 mg PO BIDM 06/02/20 03/15/21 History multivitamin 1 tab PO BID 12/21/20 03/15/21 History oxybutynin chloride 5 mg PO Q12H PRN #10 tab 12/29/20 03/15/21 Rx sennosides [Senokot] 8.6 mg PO QAM #10 tab 12/29/20 03/15/21 Rx tamsulosin 0.4 mg capsule 0.4 mg PO HS #30 cap 03/04/21 03/15/21 Rx phenazopyridine [Pyridium] 200 mg PO TID 03/07/21 03/15/21 History polyethylene glycol 3350 [Miralax] 17 g PO DAILY PRN 03/07/21 03/15/21 History lisinopril 2.5 mg PO QAM 03/12/21 03/15/21 History hydrocodone-acetaminophen 1 tab PO Q6H PRN #15 tab 03/15/21 Rx Allergies Allergy/AdvReac Type Severity Reaction Status Date / Time bee venom protein (honey bee) Allergy Severe Anaphylaxis Verified 03/15/21 08:34 pineapple Allergy Severe THROAT Verified 03/15/21 08:34 CLOSES TO THE FRUIT cephalexin Allergy Intermediate HIVES Verified 03/15/21 08:34 menthol Allergy Intermediate WELTS Verified 03/15/21 08:34 Penicillins Allergy Intermediate RASH Verified 03/15/21 08:34 Past Med/Surg History Medical History Depression Diabetes mellitus type 2, controlled GERD (gastroesophageal reflux disease) HTN (hypertension) Kidney stones Obesity LINDA (obstructive sleep apnea) c pap Thrombocytopenia Surgical History H/O cystoscopy H/O shoulder surgery right H/O wisdom tooth extraction History of open reduction and internal fixation (ORIF) procedure "Finger " Family History Other Family history not known due to adoption Social History Smoking Status: Never smoker Tobacco Type: Cigarettes Second Hand Exposure: No; Hx Alcohol Use: No Hx Substance Use: No Preferred Language: Kittitian Communication Ability: Effective Writer Producer Required: No Beliefs That Will Affect Care: None marital status: Current Living Situation: Spouse Feels Safe at Home: Yes Assistive Devices: None Review of Systems A total of 10 systems reviewed and were otherwise negative Physical Exam Vital Signs Vital Signs - 24 hr 03/21/21 03:22 03/21/21 04:36 Temperature 36.6 C Temperature Source Temporal Artery Scan Pulse Rate 88 Pulse Rate [Right Finger] 88 Respiratory Rate 22 18 Blood Pressure 159/97 H Blood Pressure [Right Arm] 162/85 H Blood Pressure Mean 117 Blood Pressure Mean [Right Arm] 110 Blood Pressure Position Sitting Blood Pressure Position [Right Arm] Sitting Pulse Oximetry 98 97 Oxygen Delivery Method Room Air Room Air Sepsis Recent Fever Within 48 Hours No Sepsis New/Unexplained Change in Mental Status No Sepsis Action Taken by Nursing No Action Required VITALS: Vitals are noted on the nurse's note and reviewed by myself. Vital signs stable. GENERAL: Pleasant male who appears in pain, in no acute distress, nondiaphoreti c, well-developed well-nourished. SKIN: Capillary reflex less than 2 seconds. HEENT: Normocephalic. PERRLA. EOMI. Nares patent. Mucous membranes moist. Neck is supple without nuchal rigidity. HEART: Regular rate and rhythm without murmurs gallops or rubs. LUNGS: Clear to auscultation bilaterally without wheezes, rales or rhonchi. No retractions or accessory muscle use. ABDOMEN: Positive bowel sounds x 4. Normal tympanic percussion. Soft, nontender, without masses or organomegaly. Garcia sign negative. No guarding or rebound tenderness. Left CVA tenderness MUSCULOSKELETAL: No gross musculoskeletal defects. NEURO: Patient was alert and oriented to person place and time. No focal neurological deficits. Course Administered Medications Discontinued Medications Hydromorphone HCl (Hydromorphone Inj 1 Mg/Ml Syringe) 1 mg IV NOW STA Stop: 03/21/21 03:45 Last Admin: 03/21/21 03:46 Dose: 1 mg Documented by: [id number] Hydromorphone HCl (Hydromorphone Inj 1 Mg/Ml Syringe) Confirm Administered Dose 1 mg .ROUTE .STK-MED ONE Stop: 03/21/21 03:46 Last Admin: 03/21/21 03:46 Dose: Not Given Documented by: [id number] Hydromorphone HCl (Hydromorphone Inj 1 Mg/Ml Syringe) 1 mg IV NOW STA Stop: 03/21/21 04:13 Last Admin: 03/21/21 04:14 Dose: 1 mg Documented by: [id number] Sodium Chloride (Nss) 500 mls @ 999 mls/hr IV .Q31M STA Stop: 03/21/21 03:48 Last Infusion: 03/21/21 04:16 Dose: 0 mls/hr Documented by: [id number] Admin: 03/21/21 03:39 Dose: 999 mls/hr Documented by: [id number] Ketorolac Tromethamine (Ketorolac Tromethamine 15 Mg/Ml Vial) 10 mg IV NOW STA Stop: 03/21/21 03:19 Last Admin: 03/21/21 03:40 Dose: 10 mg Documented by: [id number] Morphine Sulfate (Morphine Sulfate 4 Mg/Ml 1 Ml Carp\\Vial) 4 mg IV NOW STA Stop: 03/21/21 03:21 Last Admin: 03/21/21 03:40 Dose: 4 mg Documented by: [id number] Ondansetron HCl (Ondansetron Inj 2 Mg/Ml 2 Ml Vial) 4 mg IV NOW STA Stop: 03/21/21 03:19 Last Admin: 03/21/21 03:40 Dose: 4 mg Documented by: [id number] Ondansetron HCl (Ondansetron Inj 2 Mg/Ml 2 Ml Vial) 4 mg IV NOW STA Stop: 03/21/21 04:13 Last Admin: 03/21/21 04:14 Dose: 4 mg Documented by: [id number] Medical Decision Making Medical Records Attestation: I reviewed the patient's medical records. Home Medications Current Medication List: was personally reviewed by me Laboratory Data Attestation: I reviewed the patient's lab results. Result diagrams: 03/21/21 03:35 03/21/21 03:35 Lab Results 03/21/21 03/21/21 03/21/21 Range/Units 03:35 03:35 03:35 WBC 4.27 L (4.8-10.8) K/uL RBC 4.63 L (4.7-6.1) M/uL Hgb 15.2 (14.0-18.0) g/dL Hct 44.0 (42-52) % MCV 95.0 (80-100) fL MCH 32.8 (25-34) pg MCHC 34.5 (32-36) g/dL RDW Std Deviation 46.2 (36.4-46.3) fL RDW Coeff of Flavio 13.4 (11.5-14.5) % Plt Count 77 L (130-400) K/uL MPV 10.7 H (7.4-10.4) fL Sodium 137 (136-145) mmol/L Potassium 4.2 (3.5-5.1) mmol/L Chloride 105 (98-107) mmol/L Carbon Dioxide 27 (21-32) mmol/L Anion Gap 5.0 (3-11) BUN 14 (7-18) mg/dl Creatinine 0.86 (0.6-1.4) mg/dl Est Cr Clr Drug Dosing 149.7 ml/min Est GFR ( Amer) 124.0 ml/min Est GFR (Non-Af Amer) 107.0 ml/min BUN/Creatinine Ratio 16.1 (10-20) Glucose 256 H (70-99) mg/dl Calcium 9.6 (8.5-10.1) mg/dl Specimen Hemolysis Urine Color Yellow Urine Appearance Clear (Clear) Urine pH 5.5 (4.5-7.5) Ur Specific [place] 1.022 (1.000-1.030) Urine Protein Negative (Negative) Urine Glucose (UA) 1+ H (Negative) Urine Ketones Trace H (Negative) Urine Blood 3+ H (Negative) Urine Nitrite Negative (Negative) Urine Bilirubin Negative (Negative) Urine Urobilinogen Negative (Negative) Ur Leukocyte Esterase Negative (Negative) Urine WBC (Auto) 1-5 (0-5) /hpf Urine RBC (Auto) >30 H (0-4) /hpf U Hyaline Cast (Auto) 1-5 (0-5) /lpf U Epithel Cells (Auto) 10-20 H (0-5) /lpf Urine Bacteria (Auto) Negative (Negative) COVID-19 Eval Order 03/21/21 Range/Units 04:30 WBC (4.8-10.8) K/uL RBC (4.7-6.1) M/uL Hgb (14.0-18.0) g/dL Hct (42-52) % MCV (80-100) fL MCH (25-34) pg MCHC (32-36) g/dL RDW Std Deviation (36.4-46.3) fL RDW Coeff of Flavio (11.5-14.5) % Plt Count (130-400) K/uL MPV (7.4-10.4) fL Sodium (136-145) mmol/L Potassium (3.5-5.1) mmol/L Chloride (98-107) mmol/L Carbon Dioxide (21-32) mmol/L Anion Gap (3-11) BUN (7-18) mg/dl Creatinine (0.6-1.4) mg/dl Est Cr Clr Drug Dosing ml/min Est GFR ( Amer) ml/min Est GFR (Non-Af Amer) ml/min BUN/Creatinine Ratio (10-20) Glucose (70-99) mg/dl Calcium (8.5-10.1) mg/dl Specimen Hemolysis Urine Color Urine Appearance (Clear) Urine pH (4.5-7.5) Ur Specific [place] (1.000-1.030) Urine Protein (Negative) Urine Glucose (UA) (Negative) Urine Ketones (Negative) Urine Blood (Negative) Urine Nitrite (Negative) Urine Bilirubin (Negative) Urine Urobilinogen (Negative) Ur Leukocyte Esterase (Negative) Urine WBC (Auto) (0-5) /hpf Urine RBC (Auto) (0-4) /hpf U Hyaline Cast (Auto) (0-5) /lpf U Epithel Cells (Auto) (0-5) /lpf Urine Bacteria (Auto) (Negative) COVID-19 Eval Order Covid19 at [facility] Imaging Data Attestation: I personally reviewed and interpreted this imaging study as follows: MDM Narrative Prior records/ancillary studies reviewed. Triage Nursing notes reviewed. Additional history obtained from the family. The patient's history was concerning for left flank pain. Differential diagnosis: Etiologies such as renal colic, appendicitis, diverticulitis, mesenteric ischemia, aortic pathology, infections, inflammatory bowel disease, PUD, biliary pathology, UTI, as well as others were entertained. Physical examination findings: As above. ER treatment provided: Morphine, Toradol, Zofran, IV fluids On reassessment the patient felt better. Diagnostic interpretation by me: The labs revealed hyperglycemia without DKA. Urinalysis revealed There was no sign of UTI. Imaging studies: Preliminary Findings Only See Final Report For Complete Findings ADDENDUM - Added by Nereida Clarke MD on 03/21/2021 4:47 AM (-07:00) Mild left periatrial stranding with fullness of the left renal collecting system noted due to a distal left ureteral stone measuring 5.[address] ABDOMEN & PELVIS Without Contrast: Comparison: 03/07/2021. Clear lung bases. Normal cardiac size. Diffuse fatty liver. Nodular margins through the liver anteriorly, cannot exclude chronic liver disease or early cirrhosis. Splenomegaly, spleen measuring 17.9 cm. Questionable mass with nodular margins of the gallbladder fundus, cannot exclude a gallbladder neoplasm versus volume averaging related to surrounding liver tissue. There are a adjacent calcifications within the region of the gallbladder wall, cannot exclude proximal gallbladder versus postoperative clips. Bilateral adrenal glands are normal. Normal pancreas. Right lower renal pole stone measuring 2.1 mm. Otherwise unremarkable right kidney. Left upper renal pole stone measuring 4 mm otherwise normal left kidney. Atherosclerotic disease of aorta with no aneurysm. Unremarkable small bowel. Normal appendix. Normal colon. Normal urinary bladder. Normal size of prostate gland. Mild degenerative disease of the spine. Radiologist: Nereida Clarke MD Consultation: A consultation was placed with the hospitalist. The case was discussed and diagnostics were reviewed. The patient was evaluated in the ER for further treatment. It appears that the patient has isolated renal colic from a left sided stone. Pain persisted. He was still in moderate amount of pain despite multiple rounds of pain medicine. Medicine was consulted. He will be evaluated for admission. By the evaluation outlined above emergent etiologies such as appendicitis, diverticulitis, mesenteric ischemia, aortic pathology, infections, inflammatory bowel disease, PUD, biliary pathology, UTI, as well as others were deemed rela tively unlikely. The pt informed about the findings as listed above. All questions were answered and pleased with the treatment. The chart was completed utilizing [employer] Speech voice recognition software. Grammatical errors, random word insertions, pronoun errors, and incomplete sentences are an occassional consequence of this system due to software limitations, ambient noise, and hardware issues. Any formal questions or concerns about the content, text, or information contained within the body of this dictation should be directly addressed to the physician field assistant for clarification. Impression & Plan Left ureteral stone, Ureterolithiasis Discharge Plan Visit Data Chief Complaint: Kidney Stone Stated Complaint: KIDNEY STONE ED Provider: Sreedhar Cruz ED Midlevel Provider: Yuli Mchugh Discharge Problem: Left ureteral stone, Ureterolithiasis Patient Disposition: Being Evaluated by Hospitalist Condition: Good Forms Stand Alone Forms: My [facility] [employer] Prescriptions Prescriptions: No Action tamsulosin 0.4 mg capsule 0.4 mg PO HS Qty: 30 RF: 1 metformin 500 mg Tablet Extended Release 24 Hr 1,000 mg PO BIDM RF: 0 hydrocortisone-pramoxine [Analpram-HC] 2.5-1 % Cream 1 applic MD DIRECTED PRN (Reason: Hemorrhoids) RF: 0 sertraline 50 mg Tablet 50 mg PO HS RF: 0 omeprazole 20 mg Tablet,Delayed Release (Dr/Ec) 20 mg PO QAM RF: 0 Victoza 2-Charles 0.6 mg/0.1 mL (18 mg/3 mL) Pen Injector 1.8 mg SUBCUT QPM RF: 0 melatonin 1 mg Tablet 1 mg PO HS PRN (Reason: Sleep) RF: 0 epinephrine [EpiPen 2-Charles] 0.3 mg/0.3 mL auto-injector 0.3 mg IM Q3H PRN (Reason: bronchodilation) Qty: 2 RF: 0 lisinopril 2.5 mg tablet 2.5 mg PO QAM RF: 0 hydrocodone-acetaminophen 5-325 mg tablet 1 tab PO Q6H PRN (Reason: pain) Qty: 15 RF: 0 multivitamin Tablet 1 tab PO BID RF: 0 sennosides [Senokot] 8.6 mg Tablet 8.6 mg PO QAM Qty: 10 RF: 0 oxybutynin chloride 5 mg Tablet 5 mg PO Q12H PRN (Reason: bladder spasms) Qty: 10 RF: 0 polyethylene glycol 3350 [Miralax] 17 gram powder in packet 17 g PO DAILY PRN (Reason: Constipation) RF: 0 phenazopyridine [Pyridium] 200 mg tablet 200 mg PO TID RF: 0 Referrals Referrals: Shiloh Fontana PA-C [Primary Care Provider] -
[2021-03-21 03:44] LABS: Hemoglobin 15.2 g/dL (14.0-18.0); Mean Corpuscular Hemoglobin 32.8 pg (25-34); Mean Corpuscular Hgb Conc 34.5 g/dL (32-36); RDW Coefficient of Variation 13.4 % (11.5-14.5); RDW Standard Deviation 46.2 fL (36.4-46.3); Red Blood Count 4.63 M/uL (4.7-6.1); White Blood Count 4.27 K/uL (4.8-10.8)
[2021-03-21] MEDS ORDERED: HYDROmorphone INJ 1 MG/ML SYRINGE IV STA ×2 (03:44→04:12)
[2021-03-21] MEDS ORDERED: HYDROmorphone INJ 1 MG/ML SYRINGE ONE (03:45)
[2021-03-21 03:49] LABS: Mean Platelet Volume 10.7 fL (7.4-10.4); Platelet Count 77 K/uL (130-400)
[2021-03-21 03:59] LABS: Appearance Urine Clear (Clear); Bacteria Urine Automated Negative (Negative); Bilirubin Urine Negative (Negative); Blood Urine 3+ (Negative); Color Urine Yellow; Glucose Urine UA 1+ (Negative); Ketones Urine Trace (Negative); Leukocyte Esterase Urine Negative (Negative); Nitrite Urine Negative (Negative); Protein Urine Negative (Negative); RBC Urine Automated >30 /hpf (0-4); Specific Gravity Urine 1.022 (1.000-1.030); Urobilinogen Urine Negative (Negative); pH Urine 5.5 (4.5-7.5)
[2021-03-21 04:01] LABS: BUN Creatinine Ratio 16.1 (10-20); Calcium 9.6 mg/dl (8.5-10.1); Creatinine Clr Calc Pharmacy 149.7 ml/min; Potassium 4.2 mmol/L (3.5-5.1)
--- NOTE | 2021-03-21 04:39 | Urology Consultation ---
Date of Consultation March 21, 2021 Assessment & Plan (1) Left ureteral stone: I discussed the case with the treating clinician emergency department and due to the amount of pain medication the patient is requiring admission is felt to be warranted. Patient is being admitted by the hospitalist service. We recommend proceeding as follows: Provide antiemetics Provide analgesics Provide Flomax for expulsive therapy Hydration with IV fluids Straining all urine saving any kidney stones that are obtained We will keep the patient n.p.o. for the present time until evaluated by the attending urologist this morning to determine if any additional procedures such as cystoscopy or ureteral stent will be required. We will continue to follow along while patient is hospitalized. History of Present Illness Reason for Consultation: Nephrolithiasis History of Present Illness This is a 41-year-old male with a known history of nephrolithiasis. The patient recently underwent lithotripsy as directed by Dr. Bonilla on 03/15/2021. Dr. Bonilla's operative note was reviewed from this procedure and patient received 2500 shocks and at the time of the procedure there appeared to be good fragmentation of the noted kidney stone. Ureteral stent was not noted to be in place. Patient says he was initially doing well until several days ago he has been develop some back pain. He notes the back pain became progressively worse and became quite severe. He notes that the pain is located primarily in the left flank with some radiation to the left anterior abdomen and left groin. He does have some nausea without vomiting but he denies any fevers, shakes, chills. He denies any dysuria or hematuria. Because of his symptoms he presented to the emergency department. In the emergency department patient had labs and imaging which I independently reviewed. CBC revealed white blood cell count was 4.2. Hemoglobin, hematocrit, were noted to be normal. His platelet count was slightly low at 77,000. Chemistry profile showed sodium, potassium, BUN, and creatinine were all within normal range. Urinalysis did show 3+ blood. The study was not indicative of urinary tract infection. A Covid test was performed and is pending at this time. Patient also had a CT scan of the abdomen and pelvis. Patient was noted to have a right kidney stone in the right renal pole measuring approximate 2.1 mm. Patient was also noted to have a kidney stone of the left upper renal pole measuring 4 mm. At the time of my interview patient had just received some intravenous Dilaudid and his pain had improved but he was still having some pain but was in no distress. Allergies Allergy/AdvReac Type Severity Reaction Status Date / Time bee venom protein (honey bee) Allergy Severe Anaphylaxis Verified 03/15/21 08:34 pineapple Allergy Severe THROAT Verified 03/15/21 08:34 CLOSES TO THE FRUIT cephalexin Allergy Intermediate HIVES Verified 03/15/21 08:34 menthol Allergy Intermediate WELTS Verified 03/15/21 08:34 Penicillins Allergy Intermediate RASH Verified 03/15/21 08:34 Home Medications Medication Instructions Recorded Confirmed Type Victoza 2-Charles 1.8 mg SUBCUT QPM 08/11/18 03/15/21 History hydrocortisone-pramoxine 1 applic [place] DIRECTED PRN 08/11/18 03/15/21 History [Analpram-HC] omeprazole 20 mg PO QAM 08/11/18 03/15/21 History sertraline 50 mg PO HS 08/11/18 03/15/21 History epinephrine [EpiPen 2-Charles] 0.3 mg IM Q3H PRN #2 ea 03/19/19 03/15/21 Rx melatonin 1 mg PO HS PRN 03/19/19 03/15/21 History metformin 1,000 mg PO BIDM 06/02/20 03/15/21 History multivitamin 1 tab PO BID 12/21/20 03/15/21 History oxybutynin chloride 5 mg PO Q12H PRN #10 tab 12/29/20 03/15/21 Rx sennosides [Senokot] 8.6 mg PO QAM #10 tab 12/29/20 03/15/21 Rx tamsulosin 0.4 mg capsule 0.4 mg PO HS #30 cap 03/04/21 03/15/21 Rx phenazopyridine [Pyridium] 200 mg PO TID 03/07/21 03/15/21 History polyethylene glycol 3350 [Miralax] 17 g PO DAILY PRN 03/07/21 03/15/21 History lisinopril 2.5 mg PO QAM 03/12/21 03/15/21 History hydrocodone-acetaminophen 1 tab PO Q6H PRN #15 tab 03/15/21 Rx Patient History Medical History Depression Diabetes mellitus type 2, controlled GERD (gastroesophageal reflux disease) HTN (hypertension) Kidney stones Obesity LINDA (obstructive sleep apnea) c pap Thrombocytopenia Surgical History H/O cystoscopy H/O shoulder surgery right H/O wisdom tooth extraction History of open reduction and internal fixation (ORIF) procedure "Finger " Family History Other Family history not known due to adoption Social History Smoking Status: Never smoker Tobacco Type: Cigarettes Second Hand Exposure: No; Hx Alcohol Use: No Hx Substance Use: No Preferred Language: Persian Communication Ability: Effective Interior Painter Required: No Beliefs That Will Affect Care: None marital status: Current Living Situation: Spouse Feels Safe at Home: Yes Assistive Devices: None Review of Systems Constitutional: no fever and no chills Eyes: no diplopia Ear, Nose, Mouth, Throat: no ear pain Respiratory: no cough and no dyspnea Cardiovascular: no chest pain Gastrointestinal: + abdominal pain and + nausea; no vomiting Genitourinary: + flank pain (Left-sided); no dysuria and no hematuria Musculoskeletal: + back pain Integumentary: no rash Neurologic: no localized weakness Physical Exam Constitutional: well developed and well nourished; no acute distress Eyes: no conjunctival abnormality ENMT: Ears: no hearing impairment Neck: trachea midline Respiratory: normal respiratory effort; no respiratory distress and no labored breathing Cardiovascular: Rate/Rhythm: regular rate and regular rhythm Gastrointestinal (Abdomen): Abdomen is rotund. Bowel sounds are present. There is no rebound tenderness or guarding. Patient did have some pain with palpation on the left side. Musculoskeletal: No calf tenderness Skin: no rashes, warm and dry Neurologic: moves all extremities Psychiatric: A+Ox3, euthymic affect Results & Data ([facility]) Vital Signs (Past 12 Hours) Vital Signs Temp Pulse Resp BP Pulse Ox 03/21/21 03:22 36.6 C 88 22 159/97 H 98 PG Care Time/CCT Total # of Minutes Spent Total Time Spent with Patient: Total time spent is greater than 50% in coordination of care (as documented) at patient's floor/unit and/or counseling patient: Coding Level of Care Code 05783 Inpt Consult Level 5 Diagnoses Left ureteral stone N20.1
[2021-03-21] MEDS ORDERED: ACETAMINOPHEN 1,000 MG/100 ML VIAL IV STA (05:00)
--- NOTE | 2021-03-21 05:34 | History & Physical Report ---
Date of Service March 21, 2021 History of Present Illness Primary Care Provider: Shiloh Fontana PA-C Allergies Allergy/AdvReac Type Severity Reaction Status Date / Time bee venom protein (honey bee) Allergy Severe Anaphylaxis Verified 03/15/21 08:34 pineapple Allergy Severe THROAT Verified 03/15/21 08:34 CLOSES TO THE FRUIT cephalexin Allergy Intermediate HIVES Verified 03/15/21 08:34 menthol Allergy Intermediate WELTS Verified 03/15/21 08:34 Penicillins Allergy Intermediate RASH Verified 03/15/21 08:34 Home Medications Medication Instructions Recorded Confirmed Type Victoza 2-Charles 1.8 mg SUBCUT QPM 08/11/18 03/15/21 History hydrocortisone-pramoxine 1 applic [place] DIRECTED PRN 08/11/18 03/15/21 History [Analpram-HC] omeprazole 20 mg PO QAM 08/11/18 03/15/21 History sertraline 50 mg PO HS 08/11/18 03/15/21 History epinephrine [EpiPen 2-Charles] 0.3 mg IM Q3H PRN #2 ea 03/19/19 03/15/21 Rx melatonin 1 mg PO HS PRN 03/19/19 03/15/21 History metformin 1,000 mg PO BIDM 06/02/20 03/15/21 History multivitamin 1 tab PO BID 12/21/20 03/15/21 History oxybutynin chloride 5 mg PO Q12H PRN #10 tab 12/29/20 03/15/21 Rx sennosides [Senokot] 8.6 mg PO QAM #10 tab 12/29/20 03/15/21 Rx tamsulosin 0.4 mg capsule 0.4 mg PO HS #30 cap 03/04/21 03/15/21 Rx phenazopyridine [Pyridium] 200 mg PO TID 03/07/21 03/15/21 History polyethylene glycol 3350 [Miralax] 17 g PO DAILY PRN 03/07/21 03/15/21 History lisinopril 2.5 mg PO QAM 03/12/21 03/15/21 History hydrocodone-acetaminophen 1 tab PO Q6H PRN #15 tab 03/15/21 Rx Past Med/Surg History Medical History Depression Diabetes mellitus type 2, controlled GERD (gastroesophageal reflux disease) HTN (hypertension) Kidney stones Obesity LINDA (obstructive sleep apnea) c pap Thrombocytopenia Surgical History H/O cystoscopy H/O shoulder surgery right H/O wisdom tooth extraction History of open reduction and internal fixation (ORIF) procedure "Finger " Family History Other Family history not known due to adoption Social History Smoking Status: Never smoker Tobacco Type: Cigarettes Second Hand Exposure: No; Hx Alcohol Use: No Hx Substance Use: No Preferred Language: Bengali Communication Ability: Effective Hand Tube Bender Required: No Beliefs That Will Affect Care: None marital status: Current Living Situation: Spouse Feels Safe at Home: Yes Assistive Devices: None Review of Systems Constitutional: + chills Gastrointestinal: + nausea; no vomiting Physical Exam Constitutional: well developed, well nourished, + acute distress, + obese and cooperative Eyes: + anicteric sclerae ENMT: external ear and nose normal, oropharynx normal Neck: normal visual inspection and trachea midline Respiratory: normal respiratory effort, lungs clear to auscultation Cardiovascular: RRR, no murmur, no edema Heart Sounds: normal S1 and normal S2 Gastrointestinal (Abdomen): Percussion/Palpation: + abdomen tender (right and left upper quadrants) and abdomen soft; no guarding Skin: no rashes, warm and dry Neurologic: moves all extremities Psychiatric: A+Ox3, euthymic affect Genitourinary: + CVA tenderness (left) Results & Data Results & Data ([facility]) Vital Signs (Past 12 Hours) Vital Signs Temp Pulse Pulse Resp BP BP Pulse Ox 03/21/21 04:36 88 18 162/85 H 97 03/21/21 03:22 36.6 C 88 22 159/97 H 98 Resident Activity Tracking Resident Involvement: Resident Care Provided Care Provided: Adult Hospital Medicine
[2021-03-21] MEDS ORDERED: HYDROmorphone INJ 0.5 MG/0.5 ML SYR ONE (06:04)
[2021-03-21] MEDS ORDERED: HYDROmorphone INJ 0.5 MG/0.5 ML SYR IV STA ×3 (06:06→16:54)
--- NOTE | 2021-03-21 07:44 | CT Scan Report ---
ABDOMEN AND PELVIS CT WITHOUT CONTRAST CT DOSE: 2225.26 mGy.cm HISTORY: Acute left-sided flank pain with renal calculi and recent lithotripsy flank pain, stone, li thotrypsy TECHNIQUE: Multiaxial CT images of the abdomen and pelvis were performed without contrast. A dose lo wering technique was utilized adhering to the principles of ALARA. COMPARISON STUDY: CT abdomen pelvis 03/07/2021, 02/28/2016 FINDINGS: Clear lung bases. No pneumatosis or pneumoperitoneum. The imaged inferior cardiac chambers are unremarkable. Spleen is enlarged measuring up to 22.9 cm. Unremarkable pancreas and adrenal gland s. Cholelithiasis with postoperative changes of the gallbladder redemonstrated. Hepatomegaly with hep atic steatosis and marginal nodularity of the liver suggestive of cirrhosis. Mild fatty sparing in th e castillo hepatis. 4 mm nonobstructing calculus of the inferior pole right kidney. Status post left-sided lithotripsy wi th fragmentation of the inferior pole calculus. Tiny stone fragments within the inferior pole left ki dney measure up to 4 mm. There is mild left-sided hydroureter without significant hydronephrosis seco ndary to a 6 x 4 mm calculus of the distal left ureter on image 379 series 3. A few tiny stone fragme nts are noted within the dependent urinary bladder measuring up to 2 mm. Moderate bladder wall thicke silvio with partial distention. Unremarkable prostate. Aorta and IVC are within normal limits. No adeno trupti. No bowel obstruction or bowel wall thickening. Mild colonic diverticulosis. Normal appendix. No ascit es or mesenteric inflammation. No acute fracture. Spondylitic spurring and facet arthrosis of the lum bar spine. IMPRESSION: 1. Status post lithotripsy with interval fragmentation of the lower pole left renal calculus. Stone f ragments in the inferior pole measure up to 4 mm. 2. Mild left-sided hydroureter secondary to an obstructing 6 mm calculus of the distal left ureter. T iny stone fragments are also noted within the dependent urinary bladder. This finding was called/faxe d to the emergency department at time of dictation. 3. Nonobstructing right nephrolithiasis. 4. Hepatic steatosis with cirrhosis and splenomegaly suggestive of stigmata of portal venous hyperten emma. 5. Cholelithiasis. ACT 112: Negative or not required by law. The above report was generated using voice recognition software. It may contain grammatical, syntax o r spelling errors. Electronically signed by: Keron Manriquez M.D. 03/21/2021 7:43 AM
--- NOTE | 2021-03-21 07:46 | History and Physical Report ---
DATE OF ADMISSION: 03/21/2021. CHIEF COMPLAINT: Renal colic. HISTORY OF PRESENT ILLNESS: This is a 41-year-old male with past medical history significant for type 2 diabetes, hyperlipidemia, obstructive sleep apnea, on CPAP, hypertension, morbid obesity, irritable bowel syndrome, hepatic steatosis, hepatic adenoma, irritability and anger, history of kidney stones, who presents with left flank pain. The patient recently had lithotripsy done on the left side. He says in the middle of the night at 1:00 a.m., he started to have severe left flank pain, which prompted him to come to the ER. Preliminary CAT scan report is showing distal left ureteral stone measuring 5.7 cm. The patient required significant pain medications in the ER. The patient is afebrile. Denies any chest pain, no shortness of breath, no cough. Has some mild headache, no blurred visions. No earache, no runny nose, no sore throat, but has felt nauseous. No diarrhea or constipation. No burning micturitions. His hemodynamics are stable. ALLERGIES: BEE VENOM, PINEAPPLE, CEPHALEXIN, MENTHOL, PENICILLINS. PAST MEDICAL HISTORY: As mentioned above. PAST SURGICAL HISTORY: Significant for lithotripsy, colonoscopies, cystourethrolithotripsy, cystoscopy with insertion of stent, cystoscopy and stone removal, dental surgery, EGDs, EGD with endoscopic ultrasound, laparoscopic cholecystectomy, vasectomy. MEDICATIONS: The patient is on epinephrine p.r.n., hydrocodone/acetaminophen 1 tab p.o. q. 6 hours p.r.n., Analpram-HC p.r.n., lisinopril 2.5 mg p.o. a.m., melatonin 1 mg p.o. at bedtime p.r.n., metformin 1000 mg p.o. b.i.d., multivitamin 1 tab daily, omeprazole 20 mg p.o. daily, Pyridium 200 mg p.o. t.i.d. p.r.n., MiraLax 17 g p.o. daily p.r.n., Senokot 8.6 mg p.o. a.m., sertraline 50 mg p.o. at bedtime, Flomax 0.4 mg p.o. at bedtime, Victoza 1.8 mg subcutaneous p.m. FAMILY HISTORY: Significant for patient is adopted. SOCIAL HISTORY: . Smoked for 5 years, quit at age of 18. Alcohol occasional. No drug use. REVIEW OF SYSTEMS: As per HPI. Rest of the review of systems negative. PHYSICAL EXAMINATION: GENERAL: The patient is morbidly obese, not in acute distress. VITAL SIGNS: Temperature 36.6, pulse 85, respiratory rate 18, blood pressure 151/79, oxygen 98% on room air. HEENT: Pupils equal, round, and reactive to light. Oral mucosa dry. NECK: NO JVD, no neck masses. CARDIOVASCULAR: S1 and S2 heard. Regular rate and rhythm. No murmur, no gallop. RESPIRATORY SYSTEM: Normal AP diameter. No accessory muscle use. No wheeze, no crackles. ABDOMEN: Soft, bowel sounds present. Left flank tenderness present. Mild guarding, no rigidity, no distention. CENTRAL NERVOUS SYSTEM: Cranial nerves II-XII grossly intact, nonfocal. EXTREMITIES: No edema, no erythema. LABORATORY DATA: WBC 4.2, hemoglobin 15.2, hematocrit 44, platelets 77. Sodium 137, potassium 4.2, chloride 105, bicarbonate 27, BUN 14, creatinine 0.8, serum glucose 256, calcium 9.6. Urinalysis, +1 glucose, +3 blood. Urine bacteria negative. SARS-CoV-2 PCR negative. IMAGING DATA: CT of abdomen and pelvis, preliminary report, 5.7 cm distal left ureteral stone. ASSESSMENT AND PLAN: A 41-year-old male who presents with renal colic. 1. Left renal colic: History of multiple kidney stones in the past. Recently had lithotripsy in the left side, now comes in with left flank pain and found to have 5 cm left distal ureteral kidney stone. Required significant pain medication in the ER. Will continue with IV Dilaudid 0.5 mg p.o. q. 3 hours p.r.n., oxycodone p.r.n., n.p.o., IV fluids. Continue Flomax and consult urology. 2. History of diabetes: Hold home medications. Placed on insulin sliding scale. Will monitor the blood sugars. 3. Depression: Continue sertraline. 4. History of thrombocytopenia due to hypersplenism. Will monitor the labs. 5. History of cirrhosis of the liver: Not due to alcohol. We will monitor for any volume overload. 6. Deep venous thrombosis prophylaxis: Sequential compression devices for now. DISPOSITION: Code status, level 1 full code. Expect to discharge home and follow up with family doctor and urology. Job ID: [id number] [facility]
[2021-03-21] MEDS ORDERED: POLYETHYLENE (MIRALAX) 17 GM PACK PO PRN (07:56)
[2021-03-21] MEDS ORDERED: MELATONIN 3 MG TAB PO PRN (08:07)
[2021-03-21] MEDS ORDERED: EPINEPHrine INJ 1 MG/ML AMP IM PRN (08:09)
[2021-03-21] MEDS ORDERED: GLUCOSE 40% GEL 15 GM TUBE PO PRN (08:15)
[2021-03-21] MEDS ORDERED: CARBOHYDRATES FOR HYPOGLYCEMIA PO PRN (08:15)
[2021-03-21] MEDS ORDERED: GLUCOSE 10 TABS/TUBE PO PRN (08:15)
[2021-03-21] MEDS ORDERED: GLUCAGON FOR INJ 1 MG VIAL IM PRN (08:15)
[2021-03-21] MEDS ORDERED: DEXTROSE 50% 50 ML SYRINGE IV PRN (08:15)
[2021-03-21] MEDS: SODIUM CHLORIDE 0.9% 1000ML 1,000 ML IV SCH ×2 (09:13→17:16)
[2021-03-21] MEDS: HYDROmorphone INJ 0.5 MG/0.5 ML SYR IV PRN ×3 (09:14→21:36)
[2021-03-21] MEDS: PANTOprazole 40 MG TAB PO SCH (10:00)
[2021-03-21] MEDS: SENNA 8.6 MG TAB PO SCH (10:00)
[2021-03-21] MEDS: lisinopril 2.5 MG TAB PO SCH (10:00)
[2021-03-21] MEDS: INSULIN ASPART 100 UNITS/ML 3 ML PEN SC SCH ×3 (11:44→21:38)
--- NOTE | 2021-03-21 12:53 | Urology Progress Note ---
Date of Service March 21, 2021 Assessment & Plan (1) Left ureteral stone: 41 year old male admitted for left flank pain secondary to 6 mm distal left ureteral stone. - Afebrile, nontoxic, VSS, lab work reviewed - creatinine 0.86, WBC 4.27 - Case reviewed with Dr. 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 Thank you for the consultation and we will continue to monitor closely with primary ciera cardenas. Admission and Anticipated Discharge Date Admission Date: March 21, 2021 Subjective Patient awake and resting in bed Reports left flank pain radiating to groin, rated 6-7 at present, recently received IV Dilaudid Hematuria this morning in ED, no dysuria Notes some difficulty voiding No nausea or vomiting No fever or chills No additional concerns today. Review of Systems Constitutional: as per Subjective / HPI Respiratory: no dyspnea Cardiovascular: no chest pain Gastrointestinal: as per Subjective / HPI Genitourinary: + as per Subjective / HPI Physical Exam Constitutional: well developed, well nourished and + obese; no acute distress and not ill appearing Respiratory: normal respiratory effort and able to speak in complete sentences; no respiratory distress and no labored breathing Cardiovascular: Extremities: no pedal edema Gastrointestinal (Abdomen): abdomen soft, mild tenderness to palpation of the left side, no rebound or guarding Musculoskeletal: Head/Neck/Chest: head atraumatic Skin: no rashes, warm and dry Neurologic: moves all extremities and awake Psychiatric: Orientation: alert and oriented x 3 Results & Data ([facility]) Vital Signs (Past 12 Hours) Vital Signs Temp Pulse Pulse Resp BP BP Pulse Ox 03/21/21 09:00 37.1 C 64 16 117/69 96 03/21/21 07:17 67 18 151/79 H 97 03/21/21 06:07 85 18 151/79 H 98 03/21/21 04:36 88 18 162/85 H 97 03/21/21 03:22 36.6 C 88 22 159/97 H 98
[2021-03-21] MEDS: LIDOCAINE 5% 1 PATCH TD SCH (17:16)
[2021-03-21] MEDS ORDERED: INSULIN ASPART 100 UNITS/ML 3 ML PEN SC SCH (18:00)
[2021-03-21] MEDS: TAMSULOSIN HCL 0.4 MG CAP PO SCH (21:37)
[2021-03-21] MEDS: SERTRALINE HCL 50 MG TABLET PO SCH (21:38)
[2021-03-21] MEDS ORDERED: PROMETHAZINE HCL 12.5 MG in SODIUM CHLORIDE 0.9% 50 ML IV PRN (23:05)
[2021-03-22] MEDS: SODIUM CHLORIDE 0.9% 1000ML 1,000 ML IV SCH ×3 (00:22→16:06)
[2021-03-22 05:40] LABS: Hematocrit (blood only) 40.4 % (42-52); Hemoglobin 13.8 g/dL (14.0-18.0); Mean Corpuscular Hemoglobin 31.9 pg (25-34); Mean Corpuscular Hgb Conc 34.2 g/dL (32-36); Mean Corpuscular Volume 93.5 fL (80-100); RDW Coefficient of Variation 13.3 % (11.5-14.5); Red Blood Count 4.32 M/uL (4.7-6.1); White Blood Count 4.58 K/uL (4.8-10.8)
[2021-03-22 06:04] LABS: BUN Creatinine Ratio 12.9 (10-20); Calcium 8.4 mg/dl (8.5-10.1); Creatinine Clr Calc Pharmacy 158.9 ml/min; Est GFR (African American) 127.7 ml/min; Est GFR (Non-African American) 110.2 ml/min
[2021-03-22 06:07] LABS: Basophils # (auto) 0.01 K/uL (0-0.2); Basophils % (auto) 0.2 %; Eosinophils % (auto) 2.2 %; Immature Granulocytes # (auto) 0.01 K/uL (0.00-0.02); Immature Granulocytes % (auto) 0.2 %; Lymphocytes # (auto) 1.33 K/uL (1.2-3.4); Mean Platelet Volume 10.2 fL (7.4-10.4); Monocytes % (auto) 6.6 %; Neutrophils # (auto) 2.83 K/uL (1.4-6.5); Neutrophils % (auto) 61.8 %; Platelet Count 61 K/uL (130-400); Platelet Estimate Decreased (Normal)
[2021-03-22 06:44] LABS: Estimated Average Glucose 189 mg/dl; Hemoglobin A1C 8.2 % (4.5-5.6)
[2021-03-22] MEDS: PANTOprazole 40 MG TAB PO SCH (08:49)
[2021-03-22] MEDS: SENNA 8.6 MG TAB PO SCH (08:49)
[2021-03-22] MEDS: INSULIN ASPART 100 UNITS/ML 3 ML PEN SC SCH ×4 (08:50→21:25)
[2021-03-22] MEDS: lisinopril 2.5 MG TAB PO SCH (08:50)
--- NOTE | 2021-03-22 10:59 | Urology Progress Note ---
Date of Service March 22, 2021 Assessment & Plan (1) Left ureteral stone: 41 year old male admitted for left flank pain secondary to 6 mm distal left ureteral stone. - Afebrile, nontoxic, VSS, lab work reviewed - creatinine 0.80, WBC 4.58 - Patient spontaneously passed stone yesterday evening - Stone sent for analysis - pending - No acute intervention indicated at this time - KUB ordered to evaluate for stone passage - Further recommendations pending results - Reviewed maximum expulsion therapy and outpatient ESWL next week if ureteral stone has not passed - He poorly tolerated ureteral stent in the past, requiring prolonged hospital stay utilizing METER ENGINEER analgesic - Will avoid stent placement given poor tolerance unless patient becomes febrile or acute changes in clinical status - Strain urine - Bladder scan qshift and prn - Continue supportive care and management per primary team Please consult our service urgently if patient develops fever >101F, intractable pain or nausea, as this will necessitate urgent surgical intervention. Thank you for the consultation and we will continue to monitor closely with primary service. Admission and Anticipated Discharge Date Admission Date: March 21, 2021 Subjective Patient seen at bedside this AM Resting in bed, arouses easily Reports stone passage yesterday evening, stone sent for analysis No left flank pain or groin pain He reports vomiting overnight, but has resolved Notes some abdominal pain and diarrhea ongoing No dysuria or hematuria Feels he is emptying his bladder No fever or chills Chart review: Afebrile, VSS, creatinine 0.80, WBC 4.58, Hgb 13.8. Stone analysis pending. No additional concerns at this time. Review of Systems Constitutional: as per Subjective / HPI Gastrointestinal: as per Subjective / HPI Genitourinary: + as per Subjective / HPI Physical Exam Constitutional: well developed, well nourished and + obese; no acute distress nontoxic Respiratory: normal respiratory effort and able to speak in complete sentences; no respiratory distress and no labored breathing Gastrointestinal (Abdomen): Inspection/Auscultation: abdomen normal to inspection Musculoskeletal: Head/Neck/Chest: normocephalic and head atraumatic Neurologic: moves all extremities and awake Psychiatric: Orientation: alert and oriented x 3 Results & Data ([facility]) Vital Signs (Past 12 Hours) Vital Signs Temp Pulse Resp BP Pulse Ox 03/22/21 07:59 36.7 C 67 16 111/63 98 03/21/21 23:42 36.9 C 92 H 18 161/78 H 97
--- NOTE | 2021-03-22 11:39 | XRay Report ---
XR KUB/Abdomen 1 view CLINICAL HISTORY: ureteral stone evaluation COMPARISON STUDY: 03/15/2021, CT scan dated 03/21/2021 FINDINGS: There is no pathologic bowel dilatation. There is a right upper quadrant eggshell calcifica tion. This is felt to be extrarenal, and likely represents a gallstone.. There is a 2 mm lower pole r ight renal calcifications suspicious for a calculus. There are 2 faint left pelvic basin opacities. I t is conceivable that one of these corresponds to the previously described distal left ureteral calcu gris although this is by no means certain. IMPRESSION: 1. Nonobstructive bowel gas pattern 2. Suspected cholelithiasis 3. Right-sided nephrolithiasis 4. The distal left ureteral calculus described on the recent CT scan, is difficult to visualize on co nventional radiographic imaging. ACT 112: Negative or not required by law. Electronically signed by: Martin Mcdaniel M.D. 03/22/2021 11:37 AM
--- NOTE | 2021-03-22 11:51 | Hospitalist Progress Note ---
Date of Service March 22, 2021 Assessment & Plan (1) Renal calculi: (2) Renal colic: Ureteral stone A 41-year-old male who presents with renal colic. 1. Left renal colic: History of multiple kidney stones in the past. Recently had lithotripsy on the left side, now comes in with left flank pain and found to have 5 mm left distal ureteral kidney stone. Required significant pain medication in the ER. Continue with IV Dilaudid 0.5 mg p.o. q. 3 hours p.r.n., oxycodone p.r.n., n.p.o., IV fluids. Continue Flomax and consult urology. Per urology -patient did not tolerate stent in the past very well, therefore continue with current treatment IV fluids Flomax Contact urology if patient has worsening pain, fever etc. Patient passed kidney stone last evening (03/21) KUB obtained by urology, however unclear if the stone passed is this time questi on Flank pain much improved However now patient presents with nausea, emesis, and generalized abdominal pain (patient feels from having emesis) 2. History of diabetes: Seems poorly controlled as hemoglobin A1c above 8 Patient will need to follow-up as outpatient with his PCP While inpt, hold home medications. Placed on insulin sliding scale. Will monitor the blood sugars. 3. Depression: Continue sertraline. 4. History of thrombocytopenia due to hypersplenism. Will monitor the labs. 5. History of cirrhosis of the liver: Not due to alcohol. We will monitor for any volume overload. DVT prophylaxis: Sequential compression devices for now. Code:Full DISPOSITION: Plan to discharge home and follow up with family doctor and urology. Admission and Anticipated Discharge Date Admission Date: March 21, 2021 Subjective Patient seen in follow-up of kidney stone, flank pain Last evening patient passed a kidney stone, now pain has improved He is however very nauseous, emesis overnight Now feels weak and achy No fevers or chills KUB ordered by urology, cannot reliably say if patient passed the stone in question Review of Systems Review of Systems: All systems reviewed & are unremarkable except as noted in HPI & below Constitutional: no fever and no chills Respiratory: no cough and no dyspnea Cardiovascular: no chest pain and no palpitations Gastrointestinal: no abdominal pain and no vomiting Physical Exam Physical Exam: GENERAL: The patient is morbidly obese, not in acute distress. HEENT: NC/AT, Pupils equal, round, and reactive to light. Oral mucosa dry. NECK: NO JVD, no neck masses. CARDIOVASCULAR: S1 and S2 heard. Regular rate and rhythm. No murmur, no gallop. RESPIRATORY SYSTEM: Normal AP diameter. No accessory muscle use. No wheeze, no crackles. ABDOMEN: Soft, bowel sounds present. Left flank tenderness improved. no rigidity, no distention. NEURO: Alert and oriented x3, speech fluent, patient answers questions appropriately, moves extremities EXTREMITIES: No edema, no erythema. Results & Data Results & Data ([facility]) Vital Signs (Past 12 Hours) Vital Signs Temp Pulse Resp BP Pulse Ox 03/22/21 07:59 36.7 C 67 16 111/63 98 Laboratory Results 03/22/21 03/22/21 03/22/21 Range/Units 08:12 05:27 05:27 WBC (4.8-10.8) K/uL RBC (4.7-6.1) M/uL Hgb (14.0-18.0) g/dL Hct (42-52) % MCV (80-100) fL MCH (25-34) pg MCHC (32-36) g/dL RDW Std Deviation (36.4-46.3) fL RDW Coeff of Flavio (11.5-14.5) % Plt Count (130-400) K/uL MPV (7.4-10.4) fL Immature Gran % (Auto) % Neut % (Auto) % Lymph % (Auto) % Loving % (Auto) % Eos % (Auto) % Baso % (Auto) % Neut # (Auto) (1.4-6.5) K/uL Lymph # (Auto) (1.2-3.4) K/uL Loving # (Auto) (0.11-0.59) K/uL Eos # (Auto) (0-0.5) K/uL Baso # (Auto) (0-0.2) K/uL Immature Gran # (Auto) (0.00-0.02) K/uL Platelet Estimate (Normal) Sodium 139 (136-145) mmol/L Potassium 4.0 (3.5-5.1) mmol/L Chloride 109 H (98-107) mmol/L Carbon Dioxide 30 (21-32) mmol/L Anion Gap 0 L (3-11) BUN 10 (7-18) mg/dl Creatinine 0.80 (0.6-1.4) mg/dl Est Cr Clr Drug Dosing 158.9 ml/min Est GFR ( Amer) 127.7 ml/min Est GFR (Non-Af Amer) 110.2 ml/min BUN/Creatinine Ratio 12.9 (10-20) Glucose 186 H (70-99) mg/dl POC Glucose 146 H (70-99) mg/dl Estimat Average Glucose 189 mg/dl Hemoglobin A1c 8.2 H (4.5-5.6) % Calcium 8.4 L (8.5-10.1) mg/dl Magnesium 2.0 (1.8-2.4) mg/dl Stone Source Stone Weight Stone Composition Stone Composition 2 03/22/21 03/21/21 03/21/21 Range/Units 05:27 20:30 18:06 WBC 4.58 L (4.8-10.8) K/uL RBC 4.32 L (4.7-6.1) M/uL Hgb 13.8 L (14.0-18.0) g/dL Hct 40.4 L (42-52) % MCV 93.5 (80-100) fL MCH 31.9 (25-34) pg MCHC 34.2 (32-36) g/dL RDW Std Deviation 46.0 (36.4-46.3) fL RDW Coeff of Flavio 13.3 (11.5-14.5) % Plt Count 61 L (130-400) K/uL MPV 10.2 (7.4-10.4) fL Immature Gran % (Auto) 0.2 % Neut % (Auto) 61.8 % Lymph % (Auto) 29.0 % Loving % (Auto) 6.6 % Eos % (Auto) 2.2 % Baso % (Auto) 0.2 % Neut # (Auto) 2.83 (1.4-6.5) K/uL Lymph # (Auto) 1.33 (1.2-3.4) K/uL Loving # (Auto) 0.30 (0.11-0.59) K/uL Eos # (Auto) 0.10 (0-0.5) K/uL Baso # (Auto) 0.01 (0-0.2) K/uL Immature Gran # (Auto) 0.01 (0.00-0.02) K/uL Platelet Estimate Decreased L (Normal) Sodium (136-145) mmol/L Potassium (3.5-5.1) mmol/L Chloride (98-107) mmol/L Carbon Dioxide (21-32) mmol/L Anion Gap (3-11) BUN (7-18) mg/dl Creatinine (0.6-1.4) mg/dl Est Cr Clr Drug Dosing ml/min Est GFR ( Amer) ml/min Est GFR (Non-Af Amer) ml/min BUN/Creatinine Ratio (10-20) Glucose (70-99) mg/dl POC Glucose 139 H (70-99) mg/dl Estimat Average Glucose mg/dl Hemoglobin A1c (4.5-5.6) % Calcium (8.5-10.1) mg/dl Magnesium (1.8-2.4) mg/dl Stone Source Pending Stone Weight Pending Stone Composition Pending Stone Composition 2 Pending 03/21/21 Range/Units 17:49 WBC (4.8-10.8) K/uL RBC (4.7-6.1) M/uL Hgb (14.0-18.0) g/dL Hct (42-52) % MCV (80-100) fL MCH (25-34) pg MCHC (32-36) g/dL RDW Std Deviation (36.4-46.3) fL RDW Coeff of Flavio (11.5-14.5) % Plt Count (130-400) K/uL MPV (7.4-10.4) fL Immature Gran % (Auto) % Neut % (Auto) % Lymph % (Auto) % Loving % (Auto) % Eos % (Auto) % Baso % (Auto) % Neut # (Auto) (1.4-6.5) K/uL Lymph # (Auto) (1.2-3.4) K/uL Loving # (Auto) (0.11-0.59) K/uL Eos # (Auto) (0-0.5) K/uL Baso # (Auto) (0-0.2) K/uL Immature Gran # (Auto) (0.00-0.02) K/uL Platelet Estimate (Normal) Sodium (136-145) mmol/L Potassium (3.5-5.1) mmol/L Chloride (98-107) mmol/L Carbon Dioxide (21-32) mmol/L Anion Gap (3-11) BUN (7-18) mg/dl Creatinine (0.6-1.4) mg/dl Est Cr Clr Drug Dosing ml/min Est GFR ( Amer) ml/min Est GFR (Non-Af Amer) ml/min BUN/Creatinine Ratio (10-20) Glucose (70-99) mg/dl POC Glucose 130 H (70-99) mg/dl Estimat Average Glucose mg/dl Hemoglobin A1c (4.5-5.6) % Calcium (8.5-10.1) mg/dl Magnesium (1.8-2.4) mg/dl Stone Source Stone Weight Stone Composition Stone Composition 2 Medications Administered Current Inpatient Medications Dextrose (Dextrose 50% 50 Ml Syringe) 25 - 50 ml IV UD PRN; Protocol PRN Reason: Hypoglycemia Protocol Stop: 04/20/21 08:14 Epinephrine HCl (Epinephrine Inj 1 Mg/Ml Amp) 0.3 mg IM Q3H PRN PRN Reason: bronchodilation Stop: 04/20/21 08:08 Glucagon (Glucagon For Inj 1 Mg Vial) 1 mg IM UD PRN; Protocol PRN Reason: Hypoglycemia Protocol Stop: 04/20/21 08:14 Glucose (Glucose 40% Gel 15 Gm Tube) 15 - 30 gm PO UD PRN; Protocol PRN Reason: Hypoglycemia Protocol Stop: 04/20/21 08:14 Glucose (Glucose 10 Tabs/Tube) 4 - 8 tabs PO UD PRN; Protocol PRN Reason: Hypoglycemia Protocol Stop: 04/20/21 08:14 Hydromorphone HCl (Hydromorphone Inj 0.5 Mg/0.5 Ml Syr) 0.5 mg IV Q3H PRN PRN Reason: Pain Stop: 04/04/21 07:55 Last Admin: 03/21/21 21:36 Dose: 0.5 mg Documented by: Sodium Chloride (Nss 1000ml) 1,000 mls @ 125 mls/hr IV .Q8H TITA Stop: 04/20/21 07:55 Last Admin: 03/22/21 08:50 Dose: 125 mls/hr Documented by: Promethazine HCl 12.5 mg/ (Sodium Chloride) 50.5 mls @ 202 mls/hr IV Q6H PRN PRN Reason: Nausea And Vomiting Stop: 04/20/21 23:04 Last Infusion: 03/22/21 00:40 Dose: Infused Documented by: Insulin Aspart (Insulin Aspart 100 Units/Ml 3 Ml Pen) 0 units SC ACHS [facility] Stop: 04/20/21 20:59 Last Admin: 03/22/21 08:50 Dose: 2 units Documented by: Lidocaine (Lidocaine 5% 1 Patch) 1 patch TD [facility] Stop: 04/20/21 17:14 Last Admin: 03/21/21 17:16 Dose: 1 patch Documented by: Lisinopril (Lisinopril 2.5 Mg Tab) 2.5 mg PO [facility] Stop: 04/20/21 08:59 Last Admin: 03/22/21 08:50 Dose: 2.5 mg Documented by: Melatonin (Melatonin 3 Mg Tab) 3 mg PO HSZ PRN; Protocol PRN Reason: Sleep Stop: 04/20/21 08:06 Miscellaneous (Carbohydrates For Hypoglycemia ) 15 - 30 gm PO UD PRN PRN Reason: Hypoglycemia Treatment Stop: 04/20/21 08:14 Miscellaneous (Remove Lidoderm Patch) 1 ea N/A [facility] Stop: 04/21/21 05:59 Last Admin: 03/22/21 05:32 Dose: 1 ea Documented by: Ondansetron HCl (Ondansetron Inj 2 Mg/Ml 2 Ml Vial) 2 mg IV Q4H PRN PRN Reason: Nausea Stop: 04/21/21 11:07 Oxycodone HCl (Oxycodone Hcl Ir 5 Mg Tab (Immediate Release)) 5 mg PO Q4H PRN PRN Reason: Pain Stop: 04/04/21 07:55 Pantoprazole Sodium (Pantoprazole 40 Mg Tab) 40 mg PO [facility]; Protocol Stop: 04/20/21 08:59 Last Admin: 03/22/21 08:49 Dose: 40 mg Documented by: Polyethylene Glycol (Polyethylene (Miralax) 17 Gm Pack) 17 gm PO DAILY PRN PRN Reason: Constipation Stop: 04/20/21 07:55 Sennosides (Senna 8.6 Mg Tab) 8.6 mg PO [facility] Stop: 04/20/21 08:59 Last Admin: 03/22/21 08:49 Dose: 8.6 mg Documented by: Sertraline HCl (Sertraline Hcl 50 Mg Tablet) 50 mg PO [facility] Stop: 04/20/21 20:59 Last Admin: 03/21/21 21:38 Dose: 50 mg Documented by: Tamsulosin HCl (Tamsulosin Hcl 0.4 Mg Cap) 0.4 mg PO [facility] Stop: 04/20/21 20:59 Last Admin: 03/21/21 21:37 Dose: 0.4 mg Documented by:
[2021-03-22] MEDS: ONDANSETRON INJ 2 MG/ML 2 ML VIAL IV PRN (11:53)
[2021-03-22] MEDS: oxyCODONE HCL IR 5 MG TAB (IMMEDIATE RELEASE) PO PRN ×2 (11:54→16:06)
[2021-03-22] MEDS: LIDOCAINE 5% 1 PATCH TD SCH (21:28)
[2021-03-22] MEDS: TAMSULOSIN HCL 0.4 MG CAP PO SCH (21:28)
[2021-03-22] MEDS: SERTRALINE HCL 50 MG TABLET PO SCH (21:28)
[2021-03-23] MEDS: SODIUM CHLORIDE 0.9% 1000ML 1,000 ML IV SCH ×4 (00:33→22:38)
[2021-03-23 06:18] LABS: Hematocrit (blood only) 40.5 % (42-52); Hemoglobin 13.8 g/dL (14.0-18.0); Mean Corpuscular Hgb Conc 34.1 g/dL (32-36); Mean Corpuscular Volume 96.9 fL (80-100); RDW Coefficient of Variation 13.5 % (11.5-14.5); RDW Standard Deviation 47.9 fL (36.4-46.3); Red Blood Count 4.18 M/uL (4.7-6.1); White Blood Count 4.08 K/uL (4.8-10.8)
[2021-03-23 06:27] LABS: Mean Platelet Volume 10.9 fL (7.4-10.4); Platelet Count 74 K/uL (130-400)
[2021-03-23 06:37] LABS: BUN Creatinine Ratio 10.6 (10-20); Calcium 8.4 mg/dl (8.5-10.1); Creatinine Clr Calc Pharmacy 167.3 ml/min; Est GFR (African American) 130.4 ml/min; Est GFR (Non-African American) 112.5 ml/min; Potassium 3.9 mmol/L (3.5-5.1)
[2021-03-23 06:38] LABS: Phosphorus 2.2 mg/dl (2.5-4.9)
--- NOTE | 2021-03-23 06:53 | Hospitalist Progress Note ---
Date of Service March 23, 2021 Assessment & Plan (1) Renal calculi: (2) Renal colic: Ureteral stone A 41-year-old male who presents with renal colic. 1. Left renal colic: History of multiple kidney stones in the past. Recently had lithotripsy on the left side, now comes in with left flank pain and found to have 5 mm left distal ureteral kidney stone. Required significant pain medication in the ER. Continue with IV Dilaudid 0.5 mg p.o. q. 3 hours p.r.n., oxycodone p.r.n., n.p.o., IV fluids. Continue Flomax and consult urology. Per urology -patient did not tolerate stent in the past very well, therefore continue with current treatment IV fluids Flomax Contact urology if patient has worsening pain, fever etc. Patient passed kidney stone in the evening evening (03/21) KUB obtained by urology, however unclear if the stone passed is the stone in question Flank pain much improved Then developed nausea, emesis, and generalized abdominal pain (patient feels from having emesis) Now improved nausea, diet advanced 2. History of diabetes: Seems poorly controlled as hemoglobin A1c above 8 Patient will need to follow-up as outpatient with his PCP While inpt, hold home medications. Placed on insulin sliding scale. Will monitor the blood sugars. 3. Depression: Continue sertraline. 4. History of thrombocytopenia due to hypersplenism. Will monitor the labs. 5. History of cirrhosis of the liver: Not due to alcohol. We will monitor for any volume overload. DVT prophylaxis: SCDs for now. Code:Full DISPOSITION: Plan to discharge home and follow up with family doctor and halima gil. Admission and Anticipated Discharge Date Admission Date: March 21, 2021 Subjective Patient seen in follow-up of kidney stone, flank pain Patient passed a kidney stone, now pain has improved Yesterday he was very nauseous, had emesis now tolerates food better, nausea m uch improved No fevers or chills KUB ordered by urology yesterday, cannot reliably say if patient passed the stone in question Review of Systems Review of Systems: All systems reviewed & are unremarkable except as noted in HPI & below Constitutional: no fever and no chills Respiratory: no cough and no dyspnea Cardiovascular: no chest pain and no palpitations Gastrointestinal: + abdominal pain (flank pain - improved); no nausea and no vomiting Physical Exam Physical Exam: GENERAL: The patient is morbidly obese, not in acute distress. HEENT: NC/AT, Pupils equal, round, and reactive to light. Oral mucosa dry. NECK: NO JVD, no neck masses. CARDIOVASCULAR: S1 and S2 heard. Regular rate and rhythm. No murmur, no gallop. RESPIRATORY SYSTEM: Normal AP diameter. No accessory muscle use. No wheeze, no crackles. ABDOMEN: Soft, bowel sounds present. Left flank tenderness improved. no rigidity, no distention. NEURO: Alert and oriented x3, speech fluent, patient answers questions appropriately, moves extremities EXTREMITIES: No edema, no erythema. Results & Data Results & Data ([facility]) Vital Signs (Past 12 Hours) Vital Signs Temp Pulse Resp BP Pulse Ox 03/22/21 23:18 36.7 C 70 18 146/76 H 98 Laboratory Results 03/23/21 03/23/21 03/22/21 Range/Units 05:59 05:59 20:36 WBC 4.08 L (4.8-10.8) K/uL RBC 4.18 L (4.7-6.1) M/uL Hgb 13.8 L (14.0-18.0) g/dL Hct 40.5 L (42-52) % MCV 96.9 (80-100) fL MCH 33.0 (25-34) pg MCHC 34.1 (32-36) g/dL RDW Std Deviation 47.9 H (36.4-46.3) fL RDW Coeff of Flavio 13.5 (11.5-14.5) % Plt Count 74 L (130-400) K/uL MPV 10.9 H (7.4-10.4) fL Sodium 140 (136-145) mmol/L Potassium 3.9 (3.5-5.1) mmol/L Chloride 110 H (98-107) mmol/L Carbon Dioxide 28 (21-32) mmol/L Anion Gap 2.0 L (3-11) BUN 8 (7-18) mg/dl Creatinine 0.76 (0.6-1.4) mg/dl Est Cr Clr Drug Dosing 167.3 ml/min Est GFR ( Amer) 130.4 ml/min Est GFR (Non-Af Amer) 112.5 ml/min BUN/Creatinine Ratio 10.6 (10-20) Glucose 172 H (70-99) mg/dl POC Glucose 137 H (70-99) mg/dl Calcium 8.4 L (8.5-10.1) mg/dl Phosphorus 2.2 L (2.5-4.9) mg/dl Magnesium 2.0 (1.8-2.4) mg/dl 03/22/21 03/22/21 03/22/21 Range/Units 16:55 12:03 08:12 WBC (4.8-10.8) K/uL RBC (4.7-6.1) M/uL Hgb (14.0-18.0) g/dL Hct (42-52) % MCV (80-100) fL MCH (25-34) pg MCHC (32-36) g/dL RDW Std Deviation (36.4-46.3) fL RDW Coeff of Flavio (11.5-14.5) % Plt Count (130-400) K/uL MPV (7.4-10.4) fL Sodium (136-145) mmol/L Potassium (3.5-5.1) mmol/L Chloride (98-107) mmol/L Carbon Dioxide (21-32) mmol/L Anion Gap (3-11) BUN (7-18) mg/dl Creatinine (0.6-1.4) mg/dl Est Cr Clr Drug Dosing ml/min Est GFR ( Amer) ml/min Est GFR (Non-Af Amer) ml/min BUN/Creatinine Ratio (10-20) Glucose (70-99) mg/dl POC Glucose 227 H 173 H 146 H (70-99) mg/dl Calcium (8.5-10.1) mg/dl Phosphorus (2.5-4.9) mg/dl Magnesium (1.8-2.4) mg/dl Medications Administered Current Inpatient Medications Dextrose (Dextrose 50% 50 Ml Syringe) 25 - 50 ml IV UD PRN; Protocol PRN Reason: Hypoglycemia Protocol Stop: 04/20/21 08:14 Epinephrine HCl (Epinephrine Inj 1 Mg/Ml Amp) 0.3 mg IM Q3H PRN PRN Reason: bronchodilation Stop: 04/20/21 08:08 Glucagon (Glucagon For Inj 1 Mg Vial) 1 mg IM UD PRN; Protocol PRN Reason: Hypoglycemia Protocol Stop: 04/20/21 08:14 Glucose (Glucose 40% Gel 15 Gm Tube) 15 - 30 gm PO UD PRN; Protocol PRN Reason: Hypoglycemia Protocol Stop: 04/20/21 08:14 Glucose (Glucose 10 Tabs/Tube) 4 - 8 tabs PO UD PRN; Protocol PRN Reason: Hypoglycemia Protocol Stop: 04/20/21 08:14 Hydromorphone HCl (Hydromorphone Inj 0.5 Mg/0.5 Ml Syr) 0.5 mg IV Q3H PRN PRN Reason: Pain Stop: 04/04/21 07:55 Last Admin: 03/21/21 21:36 Dose: 0.5 mg Documented by: Sodium Chloride (Nss 1000ml) 1,000 mls @ 125 mls/hr IV .Q8H [facility] Stop: 04/20/21 07:55 Last Admin: 03/23/21 00:33 Dose: 125 mls/hr Documented by: Promethazine HCl 12.5 mg/ (Sodium Chloride) 50.5 mls @ 202 mls/hr IV Q6H PRN PRN Reason: Nausea And Vomiting Stop: 04/20/21 23:04 Last Infusion: 03/22/21 00:40 Dose: Infused Documented by: Insulin Aspart (Insulin Aspart 100 Units/Ml 3 Ml Pen) 0 units SC [facility] Stop: 04/20/21 20:59 Last Admin: 03/22/21 21:25 Dose: 4 units Documented by: Lidocaine (Lidocaine 5% 1 Patch) [address] patch TD [facility] Stop: 04/20/21 17:14 Last Admin: 03/22/21 21:28 Dose: 1 patch Documented by: Lisinopril (Lisinopril 2.5 Mg Tab) 2.5 mg PO [facility] Stop: 04/20/21 08:59 Last Admin: 03/22/21 08:50 Dose: 2.5 mg Documented by: Melatonin (Melatonin 3 Mg Tab) 3 mg PO HSZ PRN; Protocol PRN Reason: Sleep Stop: 04/20/21 08:06 Miscellaneous (Carbohydrates For Hypoglycemia ) 15 - 30 gm PO UD PRN PRN Reason: Hypoglycemia Treatment Stop: 04/20/21 08:14 Miscellaneous (Remove Lidoderm Patch) 1 ea N/A [facility] Stop: 04/21/21 05:59 Last Admin: 03/22/21 05:32 Dose: 1 ea Documented by: Ondansetron HCl (Ondansetron Inj 2 Mg/Ml 2 Ml Vial) 2 mg IV Q4H PRN PRN Reason: Nausea Stop: 04/21/21 11:07 Last Admin: 03/22/21 11:53 Dose: 2 mg Documented by: Oxycodone HCl (Oxycodone Hcl Ir 5 Mg Tab (Immediate Release)) 5 mg PO Q4H PRN PRN Reason: Pain Stop: 04/04/21 07:55 Last Admin: 03/22/21 16:06 Dose: 5 mg Documented by: Pantoprazole Sodium (Pantoprazole 40 Mg Tab) 40 mg PO [facility]; Protocol Stop: 04/20/21 08:59 Last Admin: 03/22/21 08:49 Dose: 40 mg Documented by: Polyethylene Glycol (Polyethylene (Miralax) 17 Gm Pack) 17 gm PO DAILY PRN PRN Reason: Constipation Stop: 04/20/21 07:55 Sennosides (Senna 8.6 Mg Tab) 8.6 mg PO [facility] Stop: 04/20/21 08:59 Last Admin: 03/22/21 08:49 Dose: 8.6 mg Documented by: Sertraline HCl (Sertraline Hcl 50 Mg Tablet) 50 mg PO [facility] Stop: 04/20/21 20:59 Last Admin: 03/22/21 21:28 Dose: 50 mg Documented by: Tamsulosin HCl (Tamsulosin Hcl 0.4 Mg Cap) 0.4 mg PO [facility] Stop: 04/20/21 20:59 Last Admin: 03/22/21 21:28 Dose: 0.4 mg Documented by:
[2021-03-23] MEDS: INSULIN ASPART 100 UNITS/ML 3 ML PEN SC SCH ×4 (09:12→20:58)
[2021-03-23] MEDS: oxyCODONE HCL IR 5 MG TAB (IMMEDIATE RELEASE) PO PRN ×3 (09:17→19:42)
[2021-03-23] MEDS: PANTOprazole 40 MG TAB PO SCH (09:18)
[2021-03-23] MEDS: SENNA 8.6 MG TAB PO SCH (09:18)
[2021-03-23] MEDS: lisinopril 2.5 MG TAB PO SCH (09:19)
[2021-03-23] MEDS: ONDANSETRON INJ 2 MG/ML 2 ML VIAL IV PRN ×2 (11:02→21:03)
[2021-03-23] MEDS: HYDROmorphone INJ 0.5 MG/0.5 ML SYR IV PRN ×3 (11:02→20:54)
--- NOTE | 2021-03-23 12:11 | XRay Report ---
XR KUB/Abdomen 1 view CLINICAL HISTORY: R sided flank pain COMPARISON STUDY: 03/22/2021 FINDINGS: There is no pathologic bowel dilatation. A tiny right pelvic basin calcification remains un changed from the prior study and likely represents a phlebolith. There is a rounded right upper quadr ant calcification consistent with a gallstone. The renal shadows are partially obscured by overlying bowel gas and fecal material. The previously described right renal calculus is difficult to visualize . IMPRESSION: 1. Nonobstructive bowel gas pattern 2. Suspected cholelithiasis 3. No definite urinary tract calculi are visualized ACT 112: Negative or not required by law. Electronically signed by: Martin Mcdaniel M.D. 03/23/2021 12:10 PM
--- NOTE | 2021-03-23 17:29 | Urology Progress Note ---
Date of Service March 23, 2021 Assessment & Plan (1) Left ureteral stone: It possible that the left ureteral stone has passed. Recent pain on right side. He did have a 4mm stone on the right but nothing is visible on the KUB. Rec continued observation for another 24 hours. It is possible that the right side stone dropped, but if so it is likely passable. If pain is severe tomorrow, would rec CT Scan to re-eval exact location of remaining stones. (2) Left flank pain: Admission and Anticipated Discharge Date Admission Date: March 21, 2021 Subjective Pt was doing well earlier today. Had passed a stone. Unsure if it was the stone in questions. Pt had sudden return of sig pain. Right side. Nausea. KUB ordered. No sign of any urologic stone. (Previous CT scan showed a 4mm right renal stone, 4mm left renal stone, 6mm left distal stone. Review of Systems Review of Systems: All systems reviewed & are unremarkable except as noted in HPI & below Physical Exam Constitutional: WD/WN, vitals as above Respiratory: normal respiratory effort, lungs clear to auscultation Cardiovascular: RRR, no murmur, no edema Gastrointestinal (Abdomen): Percussion/Palpation: + abdomen tender Results & Data ([facility]) Vital Signs (Past 12 Hours) Vital Signs Temp Pulse Resp BP Pulse Ox 03/23/21 15:49 36.9 C 79 22 127/74 97 03/23/21 07:14 36.7 C 69 18 129/64 97 PG Care Time/CCT Total # of Minutes Spent Total Time Spent with Patient: Total time spent is greater than 50% in coordination of care (as documented) at patient's floor/unit and/or counseling patient: 30 Coding Level of Care Code 29064 Subseq Hosp Care Lvl 2 Diagnoses Left ureteral stone N20.1 Left flank pain R10.9
[2021-03-23] MEDS: SERTRALINE HCL 50 MG TABLET PO SCH (20:55)
[2021-03-23] MEDS: LIDOCAINE 5% 1 PATCH TD SCH (20:55)
[2021-03-23] MEDS: TAMSULOSIN HCL 0.4 MG CAP PO SCH (20:55)
[2021-03-23] MEDS ORDERED: HYDROmorphone INJ 0.5 MG/0.5 ML SYR IV STA (22:24)
[2021-03-24] MEDS: HYDROmorphone INJ 0.5 MG/0.5 ML SYR IV PRN ×5 (02:32→21:03)
[2021-03-24] MEDS: oxyCODONE HCL IR 5 MG TAB (IMMEDIATE RELEASE) PO PRN ×2 (03:23→08:19)
[2021-03-24] MEDS: ONDANSETRON INJ 2 MG/ML 2 ML VIAL IV PRN ×3 (04:05→13:37)
[2021-03-24] MEDS ORDERED: HYDROmorphone INJ 0.5 MG/0.5 ML SYR IV STA ×4 (04:12→21:40)
[2021-03-24] MEDS ORDERED: ZOLPIDEM TARTRATE 5 MG TAB PO STA ×2 (04:12→21:40)
[2021-03-24] MEDS: SODIUM CHLORIDE 0.9% 1000ML 1,000 ML IV SCH ×3 (05:33→20:32)
[2021-03-24 06:17] LABS: Hematocrit (blood only) 38.9 % (42-52); Hemoglobin 13.2 g/dL (14.0-18.0); Mean Corpuscular Hemoglobin 32.2 pg (25-34); Mean Corpuscular Hgb Conc 33.9 g/dL (32-36); Mean Corpuscular Volume 94.9 fL (80-100); RDW Coefficient of Variation 13.3 % (11.5-14.5); RDW Standard Deviation 46.2 fL (36.4-46.3); White Blood Count 3.99 K/uL (4.8-10.8)
[2021-03-24 06:18] LABS: Mean Platelet Volume 10.3 fL (7.4-10.4); Platelet Count 64 K/uL (130-400)
[2021-03-24 06:53] LABS: BUN Creatinine Ratio 13.7 (10-20); Calcium 8.5 mg/dl (8.5-10.1); Creatinine Clr Calc Pharmacy 165.1 ml/min; Est GFR (African American) 129.7 ml/min; Est GFR (Non-African American) 111.9 ml/min; Potassium 3.9 mmol/L (3.5-5.1)
[2021-03-24] MEDS: PANTOprazole 40 MG TAB PO SCH (08:20)
[2021-03-24] MEDS: SENNA 8.6 MG TAB PO SCH (08:20)
[2021-03-24] MEDS: lisinopril 2.5 MG TAB PO SCH (08:20)
--- NOTE | 2021-03-24 08:24 | Hospitalist Progress Note ---
Date of Service March 24, 2021 Assessment & Plan (1) Renal calculi: (2) Renal colic: Ureteral stone A 41-year-old male who presents with renal colic. 1. Left renal colic: History of multiple kidney stones in the past. Recently had lithotripsy on the left side, now comes in with left flank pain and found to have 5 mm left distal ureteral kidney stone. Required significant pain medication in the ER. Continue with IV Dilaudid 0.5 mg p.o. q. 3 hours p.r.n., oxycodone p.r.n., n.p.o., IV fluids. Continue Flomax and consult urology. Per urology -patient did not tolerate stent in the past very well, therefore continue with current treatment IV fluids Flomax Contact urology if patient has worsening pain, fever etc. Patient passed kidney stone in the evening (03/21) KUB obtained by urology, however unclear if the stone passed is the stone in question Flank pain on left then much improved Then developed nausea, emesis, and generalized abdominal pain (patient feels from having emesis) Now improved nausea, diet advanced Now pt developed R flank pain (03/23), KUB obtained Per CT pt had 4 mm stone on the R sie, not visible on current KUB (03/24) Currently reports flank pain on both sides, however pain seems to be not as severe as previously Cont. to closely monitor, if worsen, consider to repeat CT scan to eval location of remaining stones Cont. to strain urine 2. History of diabetes: Seems poorly controlled as hemoglobin A1c above 8 Patient will need to follow-up as outpatient with his PCP While inpt, hold home medications. Placed on insulin sliding scale. Will monitor the blood sugars. 3. Depression: Continue sertraline. 4. History of thrombocytopenia due to hypersplenism. Will monitor the labs. 5. History of cirrhosis of the liver: Not due to alcohol. We will monitor for any volume overload. DVT prophylaxis: SCDs for now. Code:Full DISPOSITION: Plan to discharge home when pain controlled, and follow up with family doctor and urology. Admission and Anticipated Discharge Date Admission Date: March 21, 2021 Subjective Patient seen in follow-up of kidney stone, flank pain Patient passed a kidney stone, then pain improved on the left side KUB ordered by urology, cannot reliably say if patient passed the stone in question Yesterday later in a day developed pain at Right flank KUB obtained - not showing stone, but per previous CT though 4mm on the R side No fevers or chills Currently reports back / flank pain on both sides, says he had difficulty sleeping He is lying in bed overall in NAD, using ice pack on his back which seems to be helping Review of Systems Review of Systems: All systems reviewed & are unremarkable except as noted in HPI & below Constitutional: no fever and no chills Respiratory: no cough and no dyspnea Cardiovascular: no chest pain and no palpitations Gastrointestinal: no abdominal pain, no nausea and no vomiting Physical Exam Physical Exam: GENERAL: The patient is morbidly obese, not in acute distress. HEENT: NC/AT, Pupils equal, round, and reactive to light. Oral mucosa dry. NECK: NO JVD, no neck masses. CARDIOVASCULAR: S1 and S2 heard. Regular rate and rhythm. No murmur, no gal lop. RESPIRATORY SYSTEM: Normal AP diameter. No accessory muscle use. No wheeze, no crackles. ABDOMEN: Soft, bowel sounds present. Left flank tenderness improved. no rigidity, no distention. NEURO: Alert and oriented x3, speech fluent, patient answers questions appropriately, moves extremities EXTREMITIES: No edema, no erythema. Results & Data Results & Data ([facility]) Vital Signs (Past 12 Hours) Vital Signs Temp Pulse Resp BP BP Pulse Ox 03/24/21 07:16 36.9 C 65 18 129/83 99 03/23/21 22:35 36.6 C 66 20 133/70 98 Laboratory Results 03/24/21 03/24/21 03/24/21 Range/Units 08:06 05:54 05:54 WBC 3.99 L (4.8-10.8) K/uL RBC 4.10 L (4.7-6.1) M/uL Hgb 13.2 L (14.0-18.0) g/dL Hct 38.9 L (42-52) % MCV 94.9 (80-100) fL MCH 32.2 (25-34) pg MCHC 33.9 (32-36) g/dL RDW Std Deviation 46.2 (36.4-46.3) fL RDW Coeff of Flavio 13.3 (11.5-14.5) % Plt Count 64 L (130-400) K/uL MPV 10.3 (7.4-10.4) fL Sodium 138 (136-145) mmol/L Potassium 3.9 (3.5-5.1) mmol/L Chloride 108 H (98-107) mmol/L Carbon Dioxide 28 (21-32) mmol/L Anion Gap 2.0 L (3-11) BUN 10 (7-18) mg/dl Creatinine 0.77 (0.6-1.4) mg/dl Est Cr Clr Drug Dosing 165.1 ml/min Est GFR ( Amer) 129.7 ml/min Est GFR (Non-Af Amer) 111.9 ml/min BUN/Creatinine Ratio 13.7 (10-20) Glucose 157 H (70-99) mg/dl POC Glucose 164 H (70-99) mg/dl Calcium 8.5 (8.5-10.1) mg/dl 03/23/21 03/23/21 03/23/21 Range/Units 20:53 17:16 11:44 WBC (4.8-10.8) K/uL RBC (4.7-6.1) M/uL Hgb (14.0-18.0) g/dL Hct (42-52) % MCV (80-100) fL MCH (25-34) pg MCHC (32-36) g/dL RDW Std Deviation (36.4-46.3) fL RDW Coeff of Flavio (11.5-14.5) % Plt Count (130-400) K/uL MPV (7.4-10.4) fL Sodium (136-145) mmol/L Potassium (3.5-5.1) mmol/L Chloride (98-107) mmol/L Carbon Dioxide (21-32) mmol/L Anion Gap (3-11) BUN (7-18) mg/dl Creatinine (0.6-1.4) mg/dl Est Cr Clr Drug Dosing ml/min Est GFR ( Amer) ml/min Est GFR (Non-Af Amer) ml/min BUN/Creatinine Ratio (10-20) Glucose (70-99) mg/dl POC Glucose 152 H 132 H 190 H (70-99) mg/dl Calcium (8.5-10.1) mg/dl Medications Administered Current Inpatient Medications Dextrose (Dextrose 50% 50 Ml Syringe) 25 - 50 ml IV UD PRN; Protocol PRN Reason: Hypoglycemia Protocol Stop: 04/20/21 08:14 Epinephrine HCl (Epinephrine Inj 1 Mg/Ml Amp) 0.3 mg IM Q3H PRN PRN Reason: bronchodilation Stop: 04/20/21 08:08 Glucagon (Glucagon For Inj 1 Mg Vial) 1 mg IM UD PRN; Protocol PRN Reason: Hypoglycemia Protocol Stop: 04/20/21 08:14 Glucose (Glucose 40% Gel 15 Gm Tube) 15 - 30 gm PO UD PRN; Protocol PRN Reason: Hypoglycemia Protocol Stop: 04/20/21 08:14 Glucose (Glucose 10 Tabs/Tube) 4 - 8 tabs PO UD PRN; Protocol PRN Reason: Hypoglycemia Protocol Stop: 04/20/21 08:14 Hydromorphone HCl (Hydromorphone Inj 0.5 Mg/0.5 Ml Syr) 0.5 mg IV Q3H PRN PRN Reason: Pain Stop: 04/04/21 07:55 Last Admin: 03/24/21 02:32 Dose: 0.5 mg Documented by: Sodium Chloride (Nss 1000ml) 1,000 mls @ 125 mls/hr IV .Q8H [facility] Stop: 04/20/21 07:55 Last Admin: 03/24/21 05:33 Dose: 125 mls/hr Documented by: Promethazine HCl 12.5 mg/ (Sodium Chloride) 50.5 mls @ 202 mls/hr IV Q6H PRN PRN Reason: Nausea And Vomiting Stop: 04/20/21 23:04 Last Infusion: 03/22/21 00:40 Dose: Infused Documented by: Insulin Aspart (Insulin Aspart 100 Units/Ml 3 Ml Pen) 0 units SC [facility] Stop: 04/20/21 20:59 Last Admin: 03/23/21 20:58 Dose: 1 units Documented by: Lidocaine (Lidocaine 5% 1 Patch) 1 patch TD [facility] Stop: 04/20/21 17:14 Last Admin: 03/23/21 20:55 Dose: 1 patch Documented by: Lisinopril (Lisinopril 2.5 Mg Tab) 2.5 mg PO QAM [facility] Stop: 04/20/21 08:59 Last Admin: 03/24/21 08:20 Dose: 2.5 mg Documented by: Melatonin (Melatonin 3 Mg Tab) 3 mg PO HSZ PRN; Protocol PRN Reason: Sleep Stop: 04/20/21 08:06 Miscellaneous (Carbohydrates For Hypoglycemia ) 15 - 30 gm PO UD PRN PRN Reason: Hypoglycemia Treatment Stop: 04/20/21 08:14 Miscellaneous (Remove Lidoderm Patch) 1 ea N/A [facility] Stop: 04/21/21 05:59 Last Admin: 03/24/21 08:20 Dose: 1 ea Documented by: Ondansetron HCl (Ondansetron Inj 2 Mg/Ml 2 Ml Vial) 2 mg IV Q4H PRN PRN Reason: Nausea Stop: 04/21/21 11:07 Last Admin: 03/24/21 04:05 Dose: 2 mg Documented by: Oxycodone HCl (Oxycodone Hcl Ir 5 Mg Tab (Immediate Release)) 5 mg PO Q4H PRN PRN Reason: Pain Stop: 04/04/21 07:55 Last Admin: 03/24/21 08:19 Dose: 5 mg Documented by: Pantoprazole Sodium (Pantoprazole 40 Mg Tab) 40 mg PO [facility]; Protocol Stop: 04/20/21 08:59 Last Admin: 03/24/21 08:20 Dose: 40 mg Documented by: Polyethylene Glycol (Polyethylene (Miralax) 17 Gm Pack) 17 gm PO DAILY PRN PRN Reason: Constipation Stop: 04/20/21 07:55 Sennosides (Senna 8.6 Mg Tab) 8.6 mg PO [facility] Stop: 04/20/21 08:59 Last Admin: 03/24/21 08:20 Dose: 8.6 mg Documented by: Sertraline HCl (Sertraline Hcl 50 Mg Tablet) 50 mg PO [facility] Stop: 04/20/21 20:59 Last Admin: 03/23/21 20:55 Dose: 50 mg Documented by: Tamsulosin HCl (Tamsulosin Hcl 0.4 Mg Cap) 0.4 mg PO [facility] Stop: 04/20/21 20:59 Last Admin: 03/23/21 20:55 Dose: 0.4 mg Documented by:
[2021-03-24] MEDS: INSULIN ASPART 100 UNITS/ML 3 ML PEN SC SCH ×4 (09:18→20:58)
[2021-03-24] MEDS ORDERED: LIDOCAINE 5% 1 PATCH TD SCH (10:15)
--- NOTE | 2021-03-24 11:30 | Urology Progress Note ---
Date of Service March 24, 2021 Assessment & Plan (1) Left ureteral stone: Still having pain. Seems improved. Observe for another day. If pain continues, repeat CT Scan. Continue pain control, IV hydration. (2) Renal colic: Admission and Anticipated Discharge Date Admission Date: March 21, 2021 Subjective Pt continues to have pain. Seems slightly better than yesterday. KUB did not show any stones. No fevers. No chills. He has not passed any other stones in the last 24 hours. Review of Systems Review of Systems: All systems reviewed & are unremarkable except as noted in HPI & below Physical Exam Constitutional: WD/WN, vitals as above Cardiovascular: RRR, no murmur, no edema Chest (Breasts): normal inspection/palpation of breasts Results & Data ([facility]) Vital Signs (Past 12 Hours) Vital Signs Temp Pulse Resp BP Pulse Ox 03/24/21 07:16 36.9 C 65 18 129/83 99 PG Care Time/CCT Total # of Minutes Spent Total Time Spent with Patient: Total time spent is greater than 50% in coordination of care (as documented) at patient's floor/unit and/or counseling patient: 30 Coding Level of Care Code 94103 Subseq Hosp Care Lvl 2 Diagnoses Left ureteral stone N20.1 Renal colic N23
[2021-03-24] MEDS: TAMSULOSIN HCL 0.4 MG CAP PO SCH (20:32)
[2021-03-24] MEDS: SERTRALINE HCL 50 MG TABLET PO SCH (20:32)
[2021-03-24] MEDS: LIDOCAINE 5% 1 PATCH TD SCH (20:33)
[2021-03-25] MEDS: HYDROmorphone INJ 0.5 MG/0.5 ML SYR IV PRN ×5 (01:20→16:29)
[2021-03-25] MEDS: SODIUM CHLORIDE 0.9% 1000ML 1,000 ML IV SCH ×3 (04:16→21:19)
[2021-03-25 07:58] LABS: Hematocrit (blood only) 39.4 % (42-52); Hemoglobin 13.8 g/dL (14.0-18.0); Mean Corpuscular Hemoglobin 32.8 pg (25-34); Mean Corpuscular Volume 93.6 fL (80-100); RDW Coefficient of Variation 13.3 % (11.5-14.5); RDW Standard Deviation 45.4 fL (36.4-46.3); Red Blood Count 4.21 M/uL (4.7-6.1); White Blood Count 4.05 K/uL (4.8-10.8)
[2021-03-25 08:03] LABS: Platelet Count 66 K/uL (130-400)
[2021-03-25] MEDS: PANTOprazole 40 MG TAB PO SCH (08:13)
[2021-03-25] MEDS: lisinopril 2.5 MG TAB PO SCH (08:13)
[2021-03-25] MEDS: SENNA 8.6 MG TAB PO SCH (08:13)
--- NOTE | 2021-03-25 08:19 | Hospitalist Progress Note ---
Date of Service March 25, 2021 Assessment & Plan (1) Renal calculi: (2) Renal colic: Ureteral stone A 41-year-old male who presents with renal colic. 1. Left renal colic: History of multiple kidney stones in the past. Recently had lithotripsy on the left side, now comes in with left flank pain and found to have 5 mm left distal ureteral kidney stone. Required significant pain medication in the ER. Continue with IV Dilaudid 0.5 mg p.o. q. 3 hours p.r.n., oxycodone p.r.n., n.p.o., IV fluids. Continue Flomax and consult urology. Per urology -patient did not tolerate stent in the past very well, therefore continue with current treatment IV fluids Flomax Contact urology if patient has worsening pain, fever etc. Patient passed kidney stone in the evening (03/21) KUB obtained by urology, however unclear if the stone passed is the stone in question Flank pain on left then much improved Then developed nausea, emesis, and generalized abdominal pain (patient feels from having emesis) Now improved nausea, diet advanced Now pt developed R flank pain (03/23), KUB obtained Per CT pt had 4 mm stone on the R sie, not visible on current KUB (03/24, ) Currently reports flank pain on both sides, however pain seems to be not as severe as previously Cont. to closely monitor, if worsen, consider to repeat CT scan to eval location of remaining stones Cont. to strain urine Urology following 2. History of diabetes: Seems poorly controlled as hemoglobin A1c above 8 Patient will need to follow-up as outpatient with his PCP While inpt, hold home medications. Placed on insulin sliding scale. Will monitor the blood sugars. 3. Depression: Continue sertraline. 4. History of thrombocytopenia due to hypersplenism. Will monitor the labs. 5. History of cirrhosis of the liver: Not due to alcohol. We will monitor for any volume overload. DVT prophylaxis: SCDs for now. Code:Full DISPOSITION: Plan to discharge home when pain controlled, and follow up with family doctor and urology. Admission and Anticipated Discharge Date Admission Date: March 21, 2021 Subjective Patient seen in follow-up of kidney stone, flank pain Patient passed a kidney stone, then pain improved on the left side KUB ordered by urology, cannot reliably say if patient passed the stone in question Next day developed pain at Right flank KUB obtained - not showing stone, but per previous CT though 4mm on the R side No fevers or chills Currently reports back / flank pain on both sides He is lying in bed overall in NAD, sleeping but when waken up he asks about pain meds Urology following Review of Systems Review of Systems: All systems reviewed & are unremarkable except as noted in HPI & below Constitutional: no fever and no chills Respiratory: no cough and no dyspnea Cardiovascular: no chest pain and no palpitations Physical Exam Physical Exam: GENERAL: The patient is morbidly obese, not in acute distress. HEENT: NC/AT, Pupils equal, round, and reactive to light. Oral mucosa dry. NECK: NO JVD, no neck masses. CARDIOVASCULAR: S1 and S2 heard. Regular rate and rhythm. No murmur, no gallop. RESPIRATORY SYSTEM: Normal AP diameter. No accessory muscle use. No wheeze, no crackles. ABDOMEN: Soft, bowel sounds present. Left flank tenderness improved. no rig idity, no distention. NEURO: Alert and oriented x3, speech fluent, patient answers questions appropriately, moves extremities EXTREMITIES: No edema, no erythema. Results & Data Results & Data ([facility]) Vital Signs (Past 12 Hours) Vital Signs Temp Pulse Pulse Resp BP Pulse Ox 03/25/21 07:25 36.7 C 61 13 126/78 99 03/24/21 21:21 36.9 C 64 20 137/88 97 Laboratory Results 03/25/21 03/25/21 03/25/21 Range/Units 07:59 07:39 07:39 WBC 4.05 L (4.8-10.8) K/uL RBC 4.21 L (4.7-6.1) M/uL Hgb 13.8 L (14.0-18.0) g/dL Hct 39.4 L (42-52) % MCV 93.6 (80-100) fL MCH 32.8 (25-34) pg MCHC 35.0 (32-36) g/dL RDW Std Deviation 45.4 (36.4-46.3) fL RDW Coeff of Flavio 13.3 (11.5-14.5) % Plt Count 66 L (130-400) K/uL MPV 10.0 (7.4-10.4) fL Sodium 141 (136-145) mmol/L Potassium 3.9 (3.5-5.1) mmol/L Chloride 108 H (98-107) mmol/L Carbon Dioxide 27 (21-32) mmol/L Anion Gap 5.0 (3-11) BUN 10 (7-18) mg/dl Creatinine 0.86 (0.6-1.4) mg/dl Est Cr Clr Drug Dosing 147.8 ml/min Est GFR ( Amer) 124.0 ml/min Est GFR (Non-Af Amer) 107.0 ml/min BUN/Creatinine Ratio 11.1 (10-20) Glucose 154 H (70-99) mg/dl POC Glucose 146 H (70-99) mg/dl Calcium 9.0 (8.5-10.1) mg/dl Magnesium 1.9 (1.8-2.4) mg/dl 03/24/21 03/24/21 03/24/21 Range/Units 20:44 17:07 12:04 WBC (4.8-10.8) K/uL RBC (4.7-6.1) M/uL Hgb (14.0-18.0) g/dL Hct (42-52) % MCV (80-100) fL MCH (25-34) pg MCHC (32-36) g/dL RDW Std Deviation (36.4-46.3) fL RDW Coeff of Flavio (11.5-14.5) % Plt Count (130-400) K/uL MPV (7.4-10.4) fL Sodium (136-145) mmol/L Potassium (3.5-5.1) mmol/L Chloride (98-107) mmol/L Carbon Dioxide (21-32) mmol/L Anion Gap (3-11) BUN (7-18) mg/dl Creatinine (0.6-1.4) mg/dl Est Cr Clr Drug Dosing ml/min Est GFR ( Amer) ml/min Est GFR (Non-Af Amer) ml/min BUN/Creatinine Ratio (10-20) Glucose (70-99) mg/dl POC Glucose 177 H 119 H 151 H (70-99) mg/dl Calcium (8.5-10.1) mg/dl Magnesium (1.8-2.4) mg/dl Medications Administered Current Inpatient Medications Dextrose (Dextrose 50% 50 Ml Syringe) 25 - 50 ml IV UD PRN; Protocol PRN Reason: Hypoglycemia Protocol Stop: 04/20/21 08:14 Epinephrine HCl (Epinephrine Inj 1 Mg/Ml Amp) 0.3 mg IM Q3H PRN PRN Reason: bronchodilation Stop: 04/20/21 08:08 Glucagon (Glucagon For Inj 1 Mg Vial) 1 mg IM UD PRN; Protocol PRN Reason: Hypoglycemia Protocol Stop: 04/20/21 08:14 Glucose (Glucose 40% Gel 15 Gm Tube) 15 - 30 gm PO UD PRN; Protocol PRN Reason: Hypoglycemia Protocol Stop: 04/20/21 08:14 Glucose (Glucose 10 Tabs/Tube) 4 - 8 tabs PO UD PRN; Protocol PRN Reason: Hypoglycemia Protocol Stop: 04/20/21 08:14 Hydromorphone HCl (Hydromorphone Inj 0.5 Mg/0.5 Ml Syr) 0.5 mg IV Q3H PRN PRN Reason: Pain Stop: 04/04/21 07:55 Last Admin: 03/25/21 08:13 Dose: 0.5 mg Documented by: Sodium Chloride (Nss 1000ml) 1,000 mls @ 125 mls/hr IV .Q8H TITA Stop: 04/20/21 07:55 Last Admin: 03/25/21 04:16 Dose: 125 mls/hr Documented by: Promethazine HCl 12.5 mg/ (Sodium Chloride) 50.5 mls @ 202 mls/hr IV Q6H PRN PRN Reason: Nausea And Vomiting Stop: 04/20/21 23:04 Last Infusion: 03/22/21 00:40 Dose: Infused Documented by: Insulin Aspart (Insulin Aspart 100 Units/Ml 3 Ml Pen) 0 units SC ACHS TITA Stop: 04/20/21 20:59 Last Admin: 03/24/21 20:58 Dose: 4 units Documented by: Lidocaine (Lidocaine 5% 1 Patch) 2 patch TD HS [facility] Stop: 04/23/21 20:59 Last Admin: 03/24/21 20:33 Dose: 2 patch Documented by: Lisinopril (Lisinopril 2.5 Mg Tab) 2.5 mg PO QAM [facility] Stop: 04/20/21 08:59 Last Admin: 03/25/21 08:13 Dose: 2.5 mg Documented by: Melatonin (Melatonin 3 Mg Tab) 3 mg PO HSZ PRN; Protocol PRN Reason: Sleep Stop: 04/20/21 08:06 Miscellaneous (Carbohydrates For Hypoglycemia ) 15 - 30 gm PO UD PRN PRN Reason: Hypoglycemia Treatment Stop: 04/20/21 08:14 Miscellaneous (Remove Lidoderm Patch) 2 ea N/A [facility] Stop: 04/24/21 08:59 Last Admin: 03/25/21 08:18 Dose: 2 ea Documented by: Ondansetron HCl (Ondansetron Inj 2 Mg/Ml 2 Ml Vial) 2 mg IV Q4H PRN PRN Reason: Nausea Stop: 04/21/21 11:07 Last Admin: 03/24/21 13:37 Dose: 2 mg Documented by: Oxycodone HCl (Oxycodone Hcl Ir 5 Mg Tab (Immediate Release)) 5 mg PO Q4H PRN PRN Reason: Pain Stop: 04/04/21 07:55 Last Admin: 03/24/21 08:19 Dose: 5 mg Documented by: Pantoprazole Sodium (Pantoprazole 40 Mg Tab) 40 mg PO [facility]; Protocol Stop: 04/20/21 08:59 Last Admin: 03/25/21 08:13 Dose: 40 mg Documented by: Polyethylene Glycol (Polyethylene (Miralax) 17 Gm Pack) 17 gm PO DAILY PRN PRN Reason: Constipation Stop: 04/20/21 07:55 Sennosides (Senna 8.6 Mg Tab) 8.6 mg PO [facility] Stop: 04/20/21 08:59 Last Admin: 03/25/21 08:13 Dose: 8.6 mg Documented by: Sertraline HCl (Sertraline Hcl 50 Mg Tablet) 50 mg PO [facility] Stop: 04/20/21 20:59 Last Admin: 03/24/21 20:32 Dose: 50 mg Documented by: Tamsulosin HCl (Tamsulosin Hcl 0.4 Mg Cap) 0.4 mg PO [facility] Stop: 04/20/21 20:59 Last Admin: 03/24/21 20:32 Dose: 0.4 mg Documented by:
[2021-03-25 08:29] LABS: BUN Creatinine Ratio 11.1 (10-20); Creatinine Clr Calc Pharmacy 147.8 ml/min; Magnesium 1.9 mg/dl (1.8-2.4); Potassium 3.9 mmol/L (3.5-5.1)
--- NOTE | 2021-03-25 08:32 | Urology Progress Note ---
Date of Service March 25, 2021 Assessment & Plan (1) Left flank pain: (2) Left ureteral stone: 41 year old male admitted for left flank pain secondary to 6 mm distal left ureteral stone s/p ESWL on 03/15. - Plan of care reviewed with Dr. Gibson, forest fire prevention specialist urologist. - Patient remains afebrile. - Labs reviewed - white count and creatinine remain stable. - Left flank pain has continued despite stone passage on 03/21. - Repeat KUB without definite urinary tract calculi visualized. - Passed stone sent for analysis, currently pending. - Given persistent pain despite stone passage, will plan for repeat CT abd/pelvis without contrast today. - He poorly tolerated ureteral stent in the past, requiring prolonged hospital stay utilizing METAL MOLDER analgesic. - Will avoid stent placement given poor tolerance unless patient becomes febrile or acute changes in clinical status. - Continue to strain urine. - Continue supportive care, pain control, and management per primary team. - Will continue to follow while inpatient. Admission and Anticipated Discharge Date Admission Date: March 21, 2021 Subjective Patient seen and examined at bedside. He is awake, alert, and comfortable. States overnight, he did have severe left-sided flank pain, stating pain "brought tears to my eyes." Left flank pain has continued this morning, requiring IV Dilaudid. Does have right-sided flank tenderness, although reports this as not severe. Denies abdominal pain. Notes mild dysuria, denies hematuria. Denies significant urinary frequency/urgency. No stone passage since 03/21, stone composition pending. Denies fevers or chills. Noted mild nausea with severe pain last evening, but denies nausea or vomiting currently. Overall, pain has continued despite stone passage. Chart review: Afebrile Wbc 4.05 Hgb 13.7 Creatinine 0.86 Urine culture 03/13 no growth. Denies additional urologic concerns today. Review of Systems Constitutional: as per Subjective / HPI; no fever and no chills Gastrointestinal: as per Subjective / HPI Genitourinary: + as per Subjective / HPI Physical Exam Constitutional: well developed and well nourished; no acute distress and not ill appearing Respiratory: normal respiratory effort and able to speak in complete sente nces; no respiratory distress and no audible wheezes Gastrointestinal (Abdomen): Inspection/Auscultation: abdomen normal to inspection; abdomen not distended Percussion/Palpation: abdomen soft; abdomen nontender and no guarding Psychiatric: Orientation: alert, oriented x 3 and cooperative Affect: euthymic affect Genitourinary: + CVA tenderness (Diffuse tenderness to b/l flank area upon palpation) Results & Data ([facility]) Vital Signs (Past 12 Hours) Vital Signs Temp Pulse Pulse Resp BP Pulse Ox 03/25/21 07:25 36.7 C 61 13 126/78 99 03/24/21 21:21 36.9 C 64 20 137/88 97 PG Care Time/CCT Total # of Minutes Spent Total Time Spent with Patient: Total time spent is greater than 50% in coordination of care (as documented) at patient's floor/unit and/or counseling patient: Coding Level of Care Code 16882 Subseq Hosp Care Lvl 2 Diagnoses Left flank pain R10.9 Left ureteral stone N20.1
[2021-03-25] MEDS: INSULIN ASPART 100 UNITS/ML 3 ML PEN SC SCH ×4 (09:00→21:16)
--- NOTE | 2021-03-25 13:40 | CT Scan Report ---
CT SCAN OF THE ABDOMEN AND PELVIS WITHOUT IV CONTRAST CLINICAL HISTORY: Left flank pain. Ureteral stone. COMPARISON STUDY: Abdominal CT dated 03/21/2021. TECHNIQUE: CT scan of the abdomen and pelvis is performed from the lung bases to the proximal femora. Images are reviewed in the axial, sagittal, and coronal planes. IV contrast was not administered for this examination. A dose lowering technique was utilized adhering to the principles of ALARA. CT DOSE: 1129.23 mGycm FINDINGS: Lung bases: The heart is normal in size and without pericardial effusion. The lung bases are clear. T here is a tiny hiatal hernia. Liver: The unenhanced liver is enlarged, measuring 25.6 cm in length. The liver demonstrates diffusel y diminished attenuation consistent with steatosis. Nodularity of the hepatic surface contour indicat es early change of cirrhosis. There is no intrahepatic biliary ductal dilatation. Gallbladder: There are calcified gallstones. Postoperative change is seen in the region of the fundus . Spleen: The spleen is markedly enlarged measuring 20.1 cm in length. Pancreas: Unremarkable. Adrenal glands: Unremarkable. Kidneys: The unenhanced kidneys are normal in size and without hydronephrosis. A punctate nonobstruct ing stone is seen in the left lower pole. There is a 3 mm nonobstructing right renal calculus. No ure teral stone is identified. 0There is no evidence of contour deforming renal mass lesion. Abdominal vasculature: The abdominal aorta is normal in course and caliber. There is a small fat-cont aining umbilical hernia. Bowel: There is no bowel obstruction. The appendix is well-visualized and normal. Peritoneum: There is no intraperitoneal free air or abdominal ascites. Lymphadenopathy: None. Pelvic viscera: The bladder, prostate, and seminal vesicles are normal as visualized. There are small bilateral fat-containing inguinal hernias, left larger than right. Skeletal structures: No lytic or blastic lesions are seen. IMPRESSION: 1. The distal left ureteral stone seen on 03/21/2021 is no longer identified. There is no hydronephros is. 2. Small bilateral nonobstructing renal calculi as above. 3. The liver is enlarged and heterogeneous with evidence of steatosis and cirrhosis. 4. Marked splenomegaly. 5. Cholelithiasis. 6. Additional findings as above. ACT 112: Negative or not required by law. Electronically signed by: Cristo Jean M.D. 03/25/2021 1:38 PM
[2021-03-25] MEDS: oxyCODONE HCL IR 5 MG TAB (IMMEDIATE RELEASE) PO PRN (20:12)
[2021-03-25] MEDS: SERTRALINE HCL 50 MG TABLET PO SCH (20:12)
[2021-03-25] MEDS: TAMSULOSIN HCL 0.4 MG CAP PO SCH (20:12)
[2021-03-25] MEDS: LIDOCAINE 5% 1 PATCH TD SCH (20:13)
[2021-03-25] MEDS: CYCLOBENZAPRINE HCL 10 MG TAB PO PRN (22:46)
[2021-03-26] MEDS: SODIUM CHLORIDE 0.9% 1000ML 1,000 ML IV SCH ×2 (05:20→13:25)
[2021-03-26 07:28] LABS: Mean Corpuscular Hemoglobin 33.4 pg (25-34); Mean Corpuscular Volume 95.5 fL (80-100); RDW Coefficient of Variation 13.3 % (11.5-14.5); RDW Standard Deviation 46.1 fL (36.4-46.3); Red Blood Count 4.19 M/uL (4.7-6.1); White Blood Count 4.22 K/uL (4.8-10.8)
[2021-03-26 07:30] LABS: Platelet Count 82 K/uL (130-400)
[2021-03-26 07:59] LABS: BUN Creatinine Ratio 11.8 (10-20); Calcium 8.9 mg/dl (8.5-10.1); Est GFR (African American) 126.4 ml/min; Est GFR (Non-African American) 109.1 ml/min; Potassium 3.9 mmol/L (3.5-5.1)
[2021-03-26] MEDS: CYCLOBENZAPRINE HCL 10 MG TAB PO PRN ×2 (09:25→22:29)
[2021-03-26] MEDS: lisinopril 2.5 MG TAB PO SCH (09:26)
[2021-03-26] MEDS: PANTOprazole 40 MG TAB PO SCH (09:26)
[2021-03-26] MEDS: SENNA 8.6 MG TAB PO SCH (09:26)
[2021-03-26] MEDS: INSULIN ASPART 100 UNITS/ML 3 ML PEN SC SCH ×4 (09:29→21:09)
--- NOTE | 2021-03-26 10:10 | Hospitalist Progress Note ---
Date of Service March 26, 2021 Assessment & Plan (1) Renal calculi: (2) Renal colic: Ureteral stone A 41-year-old male who presents with renal colic. 1. Left renal colic: History of multiple kidney stones in the past. Recently had lithotripsy on the left side, now comes in with left flank pain and found to have 5 mm left distal ureteral kidney stone. Required significant pain medication in the ER. Continue with IV Dilaudid 0.5 mg p.o. q. 3 hours p.r.n., oxycodone p.r.n., n.p.o., IV fluids. Continue Flomax and consult urology. Per urology -patient did not tolerate stent in the past very well, therefore continue with current treatment IV fluids Flomax Contact urology if patient has worsening pain, fever etc. Patient passed kidney stone in the evening (03/21) KUB obtained by urology, however unclear if the stone passed is the stone in question Flank pain on left then much improved Then developed nausea, emesis, and generalized abdominal pain (patient feels from having emesis) Now improved nausea, diet advanced Then pt developed R flank pain (03/23), KUB obtained Per CT pt had 4 mm stone on the R sie, not visible on current KUB (03/24, , ) Currently reports flank / back pain on both sides, however pain seems to be not as severe as previously CT scan repeated and confirms that patient did pass the Left ureteral stone, there are no ureteral stones Reports improvement of back pain overnight with Flexeril Now would like to try Advil instead of Dilaudid 2. History of diabetes: Seems poorly controlled as hemoglobin A1c above 8 Patient will need to follow-up as outpatient with his PCP While inpt, hold home medications. Placed on insulin sliding scale. Will monitor the blood sugars. 3. Depression: Continue sertraline. 4. History of thrombocytopenia due to hypersplenism. Will monitor the labs. 5. History of cirrhosis of the liver: Not due to alcohol. We will monitor for any volume overload. DVT prophylaxis: SCDs for now, ambulation Code:Full DISPOSITION: Plan to discharge home when pain controlled, and follow up with family doctor and urology. Admission and Anticipated Discharge Date Admission Date: March 21, 2021 Subjective Patient seen in follow-up of kidney stone, flank pain Patient passed a kidney stone, then pain improved CT obtained and confirmed that pt passed the stone No fevers or chills Currently reports back / flank pain on both sides He is lying in bed overall in NAD, reports improvement w/ flexeril Review of Systems Review of Systems: All systems reviewed & are unremarkable except as noted in HPI & below Constitutional: no fever and no chills Respiratory: no cough and no dyspnea Cardiovascular: no chest pain and no palpitations Gastrointestinal: no abdominal pain, no nausea and no vomiting Physical Exam Physical Exam: GENERAL: The patient is morbidly obese, not in acute distress. HEENT: NC/AT, Pupils equal, round, and reactive to light. Oral mucosa dry. NECK: NO JVD, no neck masses. CARDIOVASCULAR: S1 and S2 heard. Regular rate and rhythm. No murmur, no gallop. RESPIRATORY SYSTEM: Normal AP diameter. No accessory muscle use. No wheeze, no crackles. ABDOMEN: Soft, bowel sounds present. Left flank tenderness improved. no rigidity, no distention. NEURO: Alert and oriented x3, speech fluent, patient answers questions appropriately, moves extremities EXTREMITIES: No edema, no erythema. Results & Data Results & Data ([facility]) Vital Signs (Past 12 Hours) Vital Signs Temp Pulse Resp BP Pulse Ox 03/26/21 08:41 69 03/26/21 07:16 36.5 C 55 L 137/90 93 03/25/21 23:01 36.9 C 61 20 130/76 99 Laboratory Results 03/26/21 03/26/21 03/26/21 Range/Units 07:54 07:00 07:00 WBC 4.22 L (4.8-10.8) K/uL RBC 4.19 L (4.7-6.1) M/uL Hgb 14.0 (14.0-18.0) g/dL Hct 40.0 L (42-52) % MCV 95.5 (80-100) fL MCH 33.4 (25-34) pg MCHC 35.0 (32-36) g/dL RDW Std Deviation 46.1 (36.4-46.3) fL RDW Coeff of Flavio 13.3 (11.5-14.5) % Plt Count 82 L (130-400) K/uL MPV 11.0 H (7.4-10.4) fL Sodium 141 (136-145) mmol/L Potassium 3.9 (3.5-5.1) mmol/L Chloride 109 H (98-107) mmol/L Carbon Dioxide 27 (21-32) mmol/L Anion Gap 5.0 (3-11) BUN 10 (7-18) mg/dl Creatinine 0.82 (0.6-1.4) mg/dl Est Cr Clr Drug Dosing 155.0 ml/min Est GFR ( Amer) 126.4 ml/min Est GFR (Non-Af Amer) 109.1 ml/min BUN/Creatinine Ratio 11.8 (10-20) Glucose 144 H (70-99) mg/dl POC Glucose 139 H (70-99) mg/dl Calcium 8.9 (8.5-10.1) mg/dl Magnesium 2.0 (1.8-2.4) mg/dl 03/25/21 03/25/21 03/25/21 Range/Units 20:52 16:54 11:44 WBC (4.8-10.8) K/uL RBC (4.7-6.1) M/uL Hgb (14.0-18.0) g/dL Hct (42-52) % MCV (80-100) fL MCH (25-34) pg MCHC (32-36) g/dL RDW Std Deviation (36.4-46.3) fL RDW Coeff of Flavio (11.5-14.5) % Plt Count (130-400) K/uL MPV (7.4-10.4) fL Sodium (136-145) mmol/L Potassium (3.5-5.1) mmol/L Chloride (98-107) mmol/L Carbon Dioxide (21-32) mmol/L Anion Gap (3-11) BUN (7-18) mg/dl Creatinine (0.6-1.4) mg/dl Est Cr Clr Drug Dosing ml/min Est GFR ( Amer) ml/min Est GFR (Non-Af Amer) ml/min BUN/Creatinine Ratio (10-20) Glucose (70-99) mg/dl POC Glucose 171 H 141 H 173 H (70-99) mg/dl Calcium (8.5-10.1) mg/dl Magnesium (1.8-2.4) mg/dl Diagnostic Findings CT abdomen/ pelvis IMPRESSION: 1. The distal left ureteral stone seen on 03/21/2021 is no longer identified. There is no hydronephrosis. 2. Small bilateral nonobstructing renal calculi as above. 3. The liver is enlarged and heterogeneous with evidence of steatosis and cirrhosis. 4. Marked splenomegaly. 5. Cholelithiasis. Medications Administered Current Inpatient Medications Cyclobenzaprine HCl (Cyclobenzaprine Hcl 10 Mg Tab) 10 mg PO BID PRN PRN Reason: Muscle Spasm Stop: 04/24/21 21:59 Last Admin: 03/26/21 09:25 Dose: 10 mg Documented by: Dextrose (Dextrose 50% 50 Ml Syringe) 25 - 50 ml IV UD PRN; Protocol PRN Reason: Hypoglycemia Protocol Stop: 04/20/21 08:14 Epinephrine HCl (Epinephrine Inj 1 Mg/Ml Amp) 0.3 mg IM Q3H PRN PRN Reason: bronchodilation Stop: 04/20/21 08:08 Glucagon (Glucagon For Inj 1 Mg Vial) 1 mg IM UD PRN; Protocol PRN Reason: Hypoglycemia Protocol Stop: 04/20/21 08:14 Glucose (Glucose 40% Gel 15 Gm Tube) 15 - 30 gm PO UD PRN; Protocol PRN Reason: Hypoglycemia Protocol Stop: 04/20/21 08:14 Glucose (Glucose 10 Tabs/Tube) 4 - 8 tabs PO UD PRN; Protocol PRN Reason: Hypoglycemia Protocol Stop: 04/20/21 08:14 Hydromorphone HCl (Hydromorphone Inj 0.5 Mg/0.5 Ml Syr) 0.5 mg IV Q3H PRN PRN Reason: Pain Stop: 04/04/21 07:55 Last Admin: 03/25/21 16:29 Dose: 0.5 mg Documented by: Sodium Chloride (Nss 1000ml) 1,000 mls @ 125 mls/hr IV .Q8H TITA Stop: 04/20/21 07:55 Last Admin: 03/26/21 05:20 Dose: 125 mls/hr Documented by: Promethazine HCl 12.5 mg/ (Sodium Chloride) 50.5 mls @ 202 mls/hr IV Q6H PRN PRN Reason: Nausea And Vomiting Stop: 04/20/21 23:04 Last Infusion: 03/22/21 00:40 Dose: Infused Documented by: Insulin Aspart (Insulin Aspart 100 Units/Ml 3 Ml Pen) 0 units SC ACHS [facility] Stop: 04/20/21 20:59 Last Admin: 03/26/21 09:29 Dose: 7 units Documented by: Lidocaine (Lidocaine 5% 1 Patch) 2 patch TD HS TITA Stop: 04/23/21 20:59 Last Admin: 03/25/21 20:13 Dose: 2 patch Documented by: Lisinopril (Lisinopril 2.5 Mg Tab) [facility] Stop: 04/20/21 08:59 Last Admin: 03/26/21 09:26 Dose: 2.5 mg Documented by: Melatonin (Melatonin 3 Mg Tab) 3 mg PO HSZ PRN; Protocol PRN Reason: Sleep Stop: 04/20/21 08:06 Miscellaneous (Carbohydrates For Hypoglycemia ) 15 - 30 gm PO UD PRN PRN Reason: Hypoglycemia Treatment Stop: 04/20/21 08:14 Miscellaneous (Remove Lidoderm Patch) 2 ea N/A [facility] Stop: 04/24/21 08:59 Last Admin: 03/26/21 09:26 Dose: 2 ea Documented by: Ondansetron HCl (Ondansetron Inj 2 Mg/Ml 2 Ml Vial) 2 mg IV Q4H PRN PRN Reason: Nausea Stop: 04/21/21 11:07 Last Admin: 03/24/21 13:37 Dose: 2 mg Documented by: Oxycodone HCl (Oxycodone Hcl Ir 5 Mg Tab (Immediate Release)) 5 mg PO Q4H PRN PRN Reason: Pain Stop: 04/04/21 07:55 Last Admin: 03/25/21 20:12 Dose: 5 mg Documented by: Pantoprazole Sodium (Pantoprazole 40 Mg Tab) [facility]; Protocol Stop: 04/20/21 08:59 Last Admin: 03/26/21 09:26 Dose: 40 mg Documented by: Polyethylene Glycol (Polyethylene (Miralax) 17 Gm Pack) 17 gm PO DAILY PRN PRN Reason: Constipation Stop: 04/20/21 07:55 Sennosides (Senna 8.6 Mg Tab) 8.6 mg PO [facility] Stop: 04/20/21 08:59 Last Admin: 03/26/21 09:26 Dose: 8.6 mg Documented by: Sertraline HCl (Sertraline Hcl 50 Mg Tablet) 50 mg PO [facility] Stop: 04/20/21 20:59 Last Admin: 03/25/21 20:12 Dose: 50 mg Documented by: Tamsulosin HCl (Tamsulosin Hcl 0.4 Mg Cap) 0.4 mg PO [facility] Stop: 04/20/21 20:59 Last Admin: 03/25/21 20:12 Dose: 0.4 mg Documented by:
[2021-03-26] MEDS ORDERED: KETOROLAC TROMETHAMINE 15 MG/ML VIAL IV ONE (14:37)
[2021-03-26] MEDS ORDERED: KETOROLAC 30 MG/ML VIAL IV ONE (19:23)
[2021-03-26] MEDS: LIDOCAINE 5% 1 PATCH TD SCH (19:42)
[2021-03-26] MEDS: SERTRALINE HCL 50 MG TABLET PO SCH (19:43)
[2021-03-26] MEDS: TAMSULOSIN HCL 0.4 MG CAP PO SCH (19:43)
[2021-03-27 00:10] LABS: Component 2 DNR; Source KIDNEY STONE
[2021-03-27 06:58] LABS: Hematocrit (blood only) 41.2 % (42-52); Hemoglobin 14.1 g/dL (14.0-18.0); Mean Corpuscular Hemoglobin 32.7 pg (25-34); Mean Corpuscular Hgb Conc 34.2 g/dL (32-36); Mean Corpuscular Volume 95.6 fL (80-100); RDW Coefficient of Variation 13.3 % (11.5-14.5); RDW Standard Deviation 45.7 fL (36.4-46.3); Red Blood Count 4.31 M/uL (4.7-6.1); White Blood Count 4.31 K/uL (4.8-10.8)
[2021-03-27 06:59] LABS: Mean Platelet Volume 10.8 fL (7.4-10.4); Platelet Count 79 K/uL (130-400)
[2021-03-27 07:27] LABS: BUN Creatinine Ratio 15.3 (10-20); Creatinine Clr Calc Pharmacy 139.7 ml/min; Est GFR (African American) 120.1 ml/min; Est GFR (Non-African American) 103.6 ml/min; Potassium 3.9 mmol/L (3.5-5.1)
[2021-03-27] MEDS: PANTOprazole 40 MG TAB PO SCH (09:09)
[2021-03-27] MEDS: SENNA 8.6 MG TAB PO SCH (09:10)
[2021-03-27] MEDS: lisinopril 2.5 MG TAB PO SCH (09:10)
[2021-03-27] MEDS: CYCLOBENZAPRINE HCL 10 MG TAB PO PRN (09:12)
[2021-03-27] MEDS: INSULIN ASPART 100 UNITS/ML 3 ML PEN SC SCH ×2 (09:14→12:47)
--- NOTE | 2021-03-27 13:18 | Hospitalist Progress Note ---
Date of Service March 27, 2021 Assessment & Plan (1) Renal calculi: (2) Renal colic: Ureteral stone A 41-year-old male who presents with renal colic. 1. Left renal colic: History of multiple kidney stones in the past. Recently had lithotripsy on the left side, now comes in with left flank pain and found to have 5 mm left distal ureteral kidney stone. Required significant pain medication in the ER. Continue with IV Dilaudid 0.5 mg p.o. q. 3 hours p.r.n., oxycodone p.r.n., n.p.o., IV fluids. Continue Flomax and consult urology. Per urology -patient did not tolerate stent in the past very well, therefore continue with current treatment IV fluids Flomax Contact urology if patient has worsening pain, fever etc. Patient passed kidney stone in the evening (03/21) KUB obtained by urology, however unclear if the stone passed is the stone in question Flank pain on left then much improved Then developed nausea, emesis, and generalized abdominal pain (patient feels from having emesis) Now improved nausea, diet advanced Then pt developed R flank pain (03/23), KUB obtained Per CT pt had 4 mm stone on the R sie, not visible on current KUB (03/24, , ) Currently reports flank / back pain on both sides, however pain seems to be not as severe as previously CT scan repeated and confirms that patient did pass the Left ureteral stone, there are no ureteral stones Reports improvement of back pain overnight with Flexeril Now would like to try Advil instead of Dilaudid 2. History of diabetes: Seems poorly controlled as hemoglobin A1c above 8 Patient will need to follow-up as outpatient with his PCP While inpt, hold home medications. Placed on insulin sliding scale. Will monitor the blood sugars. 3. Depression: Continue sertraline. 4. History of thrombocytopenia due to hypersplenism. Will monitor the labs. 5. History of cirrhosis of the liver: Not due to alcohol. We will monitor for any volume overload. DVT prophylaxis: SCDs for now, ambulation Code:Full DISPOSITION: Plan to discharge home when pain controlled, and follow up with family doctor and urology. Admission and Anticipated Discharge Date Admission Date: March 21, 2021 Results & Data Results & Data ([facility]) Vital Signs (Past 12 Hours) Vital Signs Temp Pulse Resp BP Pulse Ox 03/27/21 07:21 36.5 C 60 18 109/63 96
--- NOTE | 2021-03-27 14:28 | Discharge Summary ---
Date of Service March 27, 2021 Admission HPI Per Admitting Provider CHIEF COMPLAINT: Renal colic. HISTORY OF PRESENT ILLNESS: This is a 41-year-old male with past medical history significant for type 2 diabetes, hyperlipidemia, obstructive sleep apnea, on CPAP, hypertension, morbid obesity, irritable bowel syndrome, hepatic steatosis, hepatic adenoma, irritability and anger, history of kidney stones, who presents with left flank pain. The patient recently had lithotripsy done on the left side. He says in the middle of the night at 1:00 a.m., he started to have severe left flank pain, which prompted him to come to the ER. Preliminary CAT scan report is showing distal left ureteral stone measuring 5.7 cm. The patient required significant pain medications in the ER. The patient is afebrile. Denies any chest pain, no shortness of breath, no cough. Has some mild headache, no blurred visions. No earache, no runny nose, no sore throat, but has felt nauseous. No diarrhea or constipation. No burning micturitions. His hemodynamics are stable. Admission Exam Per Admitting Provider GENERAL: The patient is morbidly obese, not in acute distress. VITAL SIGNS: Temperature 36.6, pulse 85, respiratory rate 18, blood pressure 151/79, oxygen 98% on room air. HEENT: Pupils equal, round, and reactive to light. Oral mucosa dry. NECK: NO JVD, no neck masses. CARDIOVASCULAR: S1 and S2 heard. Regular rate and rhythm. No murmur, no gallop. RESPIRATORY SYSTEM: Normal AP diameter. No accessory muscle use. No wheeze, no crackles. ABDOMEN: Soft, bowel sounds present. Left flank tenderness present. Mild guarding, no rigidity, no distention. CENTRAL NERVOUS SYSTEM: Cranial nerves II-XII grossly intact, nonfocal. EXTREMITIES: No edema, no erythema. Principal Diagnosis Renal calculi Renal colic History of diabetes Depression History of thrombocytopenia History of cirrhosis of the liver Discharge Exam General- No acute distress Head- atraumatic Eyes- PERRL, EOMI, ENT- oropharynx clear Neck- supple, no JVD Lungs- clear to auscultation Heart- regular rhythm; no murmur Abdomen- normal bowel sounds, soft, nontender, very mild Left flank tenderness Extremities- no calf tenderness Neuro- alert, oriented x 3; PERRL, EOMI; no facial palsy; no dysarthria Skin- warm & dry Discharge Data Allergies Allergy/AdvReac Type Severity Reaction Status Date / Time bee venom protein (honey bee) Allergy Severe Anaphylaxis Verified 03/15/21 08:34 pineapple Allergy Severe THROAT Verified 03/15/21 08:34 CLOSES TO THE FRUIT cephalexin Allergy Intermediate HIVES Verified 03/15/21 08:34 menthol Allergy Intermediate WELTS Verified 03/15/21 08:34 Penicillins Allergy Intermediate RASH Verified 03/15/21 08:34 Consultations 03/21/21 05:40 ED Decision to Admit Stat 03/21/21 08:00 Consult Urology Routine Ordered Studies 03/21/21 03:20 CT abd pelvis wo con Urgent 03/25/21 11:31 CT abd pelvis wo con Routine CT SCAN OF THE ABDOMEN AND PELVIS WITHOUT IV CONTRAST CLINICAL HISTORY: Left flank pain. Ureteral stone. COMPARISON STUDY: Abdominal CT dated 03/21/2021. TECHNIQUE: CT scan of the abdomen and pelvis is performed from the lung bases to the proximal femora. Images are reviewed in the axial, sagittal, and coronal planes. IV contrast was not administered for this examination. A dose lowering technique was utilized adhering to the principles of ALARA. CT DOSE: 1129.23 mGycm FINDINGS: Lung bases: The heart is normal in size and without pericardial effusion. The lung bases are clear. There is a tiny hiatal hernia. Liver: The unenhanced liver is enlarged, measuring 25.6 cm in length. The liver demonstrates diffusely diminished attenuation consistent with steatosis. Nodularity of the hepatic surface contour indicates early change of cirrhosis. There is no intrahepatic biliary ductal dilatation. Gallbladder: There are calcified gallstones. Postoperative change is seen in the region of the fundus. Spleen: The spleen is markedly enlarged measuring 20.1 cm in length. Pancreas: Unremarkable. Adrenal glands: Unremarkable. Kidneys: The unenhanced kidneys are normal in size and without hydronephrosis. A punctate nonobstructing stone is seen in the left lower pole. There is a 3 mm nonobstructing right renal calculus. No ureteral stone is identified. 0There is no evidence of contour deforming renal mass lesion. Abdominal vasculature: The abdominal aorta is normal in course and caliber. There is a small fat-containing umbilical hernia. Bowel: There is no bowel obstruction. The appendix is well-visualized and normal. Peritoneum: There is no intraperitoneal free air or abdominal ascites. Lymphadenopathy: None. Pelvic viscera: The bladder, prostate, and seminal vesicles are normal as visualized. There are small bilateral fat-containing inguinal hernias, left larger than right. Skeletal structures: No lytic or blastic lesions are seen. IMPRESSION: 1. The distal left ureteral stone seen on 03/21/2021 is no longer identified. There is no hydronephrosis. 2. Small bilateral nonobstructing renal calculi as above. 3. The liver is enlarged and heterogeneous with evidence of steatosis and cirrhosis. 4. Marked splenomegaly. 5. Cholelithiasis. 6. Additional findings as above. ACT 112: Negative or not required by law. Electronically signed by: Cristo Jean M.D. 03/25/2021 1:38 PM Dictated: 03/25/21 1331Transcribed: 03/25/211330 XR KUB/Abdomen 1 view CLINICAL HISTORY: R sided flank pain COMPARISON STUDY: 03/22/2021 FINDINGS: There is no pathologic bowel dilatation. A tiny right pelvic basin calcification remains unchanged from the prior study and likely represents a phlebolith. There is a rounded right upper quadrant calcification consistent with a gallstone. The renal shadows are partially obscured by overlying bowel gas and fecal material. The previously described right renal calculus is dif ficult to visualize. IMPRESSION: 1. Nonobstructive bowel gas pattern 2. Suspected cholelithiasis 3. No definite urinary tract calculi are visualized ACT 112: Negative or not required by law. Electronically signed by: Martin Mcdaniel M.D. 03/23/2021 12:10 PM Dictated: 03/23/21 1208Transcribed: 03/23/21 1208 XR KUB/Abdomen 1 view CLINICAL HISTORY: ureteral stone evaluation COMPARISON STUDY: 03/15/2021, CT scan dated 03/21/2021 FINDINGS: There is no pathologic bowel dilatation. There is a right upper quadrant eggshell calcification. This is felt to be extrarenal, and likely repre sents a gallstone.. There is a 2 mm lower pole right renal calcifications suspicious for a calculus. There are 2 faint left pelvic basin opacities. It is conceivable that one of these corresponds to the previously described distal left ureteral calculus although this is by no means certain. IMPRESSION: 1. Nonobstructive bowel gas pattern 2. Suspected cholelithiasis 3. Right-sided nephrolithiasis 4. The distal left ureteral calculus described on the recent CT scan, is difficult to visualize on conventional radiographic imaging. ACT 112: Negative or not required by law. Electronically signed by: Martin Mcdaniel M.D. 03/22/2021 11:37 AM Dictated: 03/22/21 1134Transcribed: 03/22/[address] WITHOUT CONTRAST CT DOSE: 2225.26 mGy.cm HISTORY: Acute left-sided flank pain with renal calculi and recent lithotripsy flank pain, stone, lithotrypsy TECHNIQUE: Multiaxial CT images of the abdomen and pelvis were performed without contrast. A dose lowering technique was utilized adhering to the principles of ALARA. COMPARISON STUDY: CT abdomen pelvis 03/07/2021, 02/28/2016 FINDINGS: Clear lung bases. No pneumatosis or pneumoperitoneum. The imaged inferior cardiac chambers are unremarkable. Spleen is enlarged measuring up to 22.9 cm. Unremarkable pancreas and adrenal glands. Cholelithiasis with postoperative changes of the gallbladder redemonstrated. Hepatomegaly with hepatic steatosis and marginal nodularity of the liver suggestive of cirrhosis. Mild fatty sparing in the castillo hepatis. 4 mm nonobstructing calculus of the inferior pole right kidney. Status post left-sided lithotripsy with fragmentation of the inferior pole calculus. Tiny stone fragments within the inferior pole left kidney measure up to 4 mm. There is mild left-sided hydroureter without significant hydronephrosis secondary to a 6 x 4 mm calculus of the distal left ureter on image 379 series 3. A few tiny stone fragments are noted within the dependent urinary bladder measuring up to 2 mm. Moderate bladder wall thickening with partial distention. Unremarkable prostate. Aorta and IVC are within normal limits. No adenopathy. No bowel obstruction or bowel wall thickening. Mild colonic diverticulosis. Normal appendix. No ascites or mesenteric inflammation. No acute fracture. Spondylitic spurring and facet arthrosis of the lumbar spine. IMPRESSION: 1. Status post lithotripsy with interval fragmentation of the lower pole left renal calculus. Stone fragments in the inferior pole measure up to 4 mm. 2. Mild left-sided hydroureter secondary to an obstructing 6 mm calculus of the distal left ureter. Tiny stone fragments are also noted within the dependent urinary bladder. This finding was called/faxed to the emergency department at time of dictation. 3. Nonobstructing right nephrolithiasis. 4. Hepatic steatosis with cirrhosis and splenomegaly suggestive of stigmata of portal venous hypertension. 5. Cholelithiasis. ACT 112: Negative or not required by law. The above report was generated using voice recognition software. It may contain grammatical, syntax or spelling errors. Electronically signed by: Keron Manriquez M.D. 03/21/2021 7:43 AM Dictated: 03/21/21731Transcribed: 03/21/21731 Hospital Course (1) Renal calculi: (2) Renal colic: Ureteral stone A 41-year-old male who presents with renal colic. 1. Left renal colic: History of multiple kidney stones in the past. Recently had lithotripsy on the left side, now comes in with left flank pain and found to have 5 mm left distal ureteral kidney stone. Required significant pain medication in the ER. Continue with IV Dilaudid 0.5 mg p.o. q. 3 hours p.r.n., oxycodone p.r.n., n.p.o., IV fluids. Continue Flomax and consult urology. Per urology -patient did not tolerate stent in the past very well, therefore continue with current treatment IV fluids Flomax Contact urology if patient has worsening pain, fever etc. Patient passed kidney stone in the evening (03/21) KUB obtained by urology, however unclear if the stone passed is the stone in question Flank pain on left then much improved Then developed nausea, emesis, and generalized abdominal pain (patient feels from having emesis) Now improved nausea, diet advanced Then pt developed R flank pain (03/23), KUB obtained Per CT pt had 4 mm stone on the R sie, not visible on current KUB (03/24, , ) Currently reports flank / back pain on both sides, however pain seems to be not as severe as previously CT scan repeated and confirms that patient did pass the Left ureteral stone, there are no ureteral stones Reports improvement of back pain overnight with Flexeril Now would like to try Advil instead of Dilaudid 2. History of diabetes: Seems poorly controlled as hemoglobin A1c above 8 Patient will need to follow-up as outpatient with his PCP While inpt, hold home medications. Placed on insulin sliding scale. Will monitor the blood sugars. 3. Depression: Continue sertraline. 4. History of thrombocytopenia due to hypersplenism. Will monitor the labs. 5. History of cirrhosis of the liver: Not due to alcohol. We will monitor for any volume overload. DVT prophylaxis: SCDs for now, ambulation Code:Full DISPOSITION: Plan to discharge home when pain controlled, and follow up with family doctor and urology. Total Time Total Time Spent Total Time Spent (In Minutes): 35 minutes Total Time Includes: Examination of the Patient, Discharge Planning, Medication Reconciliation, Communication With Other Providers and Other Discharge Plan Discharge Items Patient Disposition: Home - Self-Care Reason For Visit: KIDNEY STONE Discharge Diagnosis: Renal calculi Renal colic History of diabetes Depression History of thrombocytopenia History of cirrhosis of the liver Condition on Discharge: Good Activity: Resume your previous activity Non-emergency contact: Primary Care Provider and Urologist Call non-emergency contact if: you have any medication questions and your symptoms worsen Follow-up/Referrals: Shiloh Fontana PA-C [Primary Care Provider] - Diet: Carb Count or DM1 Addtl Attending Provider Instructions: Follow up with your primary care provider care provider within 1 week Follow up with urology outpatient for the stone management (please call for the appointment) Seek medical attention if your symptoms worsening Pending Studies at Discharge: No Stand-Alone Forms: My [facility], Smoking Cessation Medications and DC Order Prescriptions: New cyclobenzaprine 10 mg Tablet 10 mg PO BID PRN (Reason: muscle spasm) Qty: 30 RF: 0 Continued tamsulosin 0.4 mg capsule 0.4 mg PO HS Qty: 30 RF: 1 metformin 500 mg Tablet Extended Release 24 Hr 1,000 mg PO BIDM RF: 0 hydrocortisone-pramoxine [Analpram-HC] 2.5-1 % Cream 1 applic DC DIRECTED PRN (Reason: Hemorrhoids) RF: 0 sertraline 50 mg Tablet 50 mg PO HS RF: 0 omeprazole 20 mg Tablet,Delayed Release (Dr/Ec) 20 mg PO QAM RF: 0 Victoza 2-Charles 0.6 mg/0.1 mL (18 mg/3 mL) Pen Injector 1.8 mg SUBCUT QPM RF: 0 melatonin 1 mg Tablet 1 mg PO HS PRN (Reason: Sleep) RF: 0 epinephrine [EpiPen 2-Charles] 0.3 mg/0.3 mL auto-injector 0.3 mg IM Q3H PRN (Reason: bronchodilation) Qty: 2 RF: 0 lisinopril 2.5 mg tablet 2.5 mg PO QAM RF: 0 hydrocodone-acetaminophen 5-325 mg tablet 1 tab PO Q6H PRN (Reason: pain) Qty: 15 RF: 0 multivitamin Tablet 1 tab PO BID RF: 0 sennosides [Senokot] 8.6 mg Tablet 8.6 mg PO QAM Qty: 10 RF: 0 oxybutynin chloride 5 mg Tablet 5 mg PO Q12H PRN (Reason: bladder spasms) Qty: 10 RF: 0 polyethylene glycol 3350 [Miralax] 17 gram powder in packet 17 g PO DAILY PRN (Reason: Constipation) RF: 0 phenazopyridine [Pyridium] 200 mg tablet 200 mg PO TID RF: 0 Discharge Orders: Discharge Order (Routine); Ordered 03/27/21 Ordered By: Des Magaña/Other Patient Handouts: Diabetes Carbs Fats Protein Admission Data Admit Date/Time: 03/21/21 06:25 Attending Provider: Des Parrish Admit Provider: Ko Guallpa Primary Care Provider: Shiloh Fontana Other Providers: Ko Guallpa ; Chad Bonilla ; Jose Horne Other Interventions: Discharge Summary Assessment (RN) Last Done: 03/27/21 13:32
== END 2021-03-27 15:55 | disposition home or self-care (01) | DRG 694 ==
LOC: ED 03:13 → 3N 05:22 → SUATTDRO 06:25 → 3N 07:38

== ENCOUNTER 2021-10-21 14:37 | Inpatient (IN) ==
--- NOTE | 2021-10-21 15:07 | Emergency Department Note ---
History of Present Illness General Chief complaint: Neck Injury/Pain Stated complaint: NECK AND JAW PAIN, CAN'T MOVE NECK OR JAW Time Seen by Provider: 10/21/21 15:05 History of Present Illness Maximum Pain Intensity: 8 This is a 41-year-old male that presents to the emergency department via private vehicle with complaints of "neck and jaw pain, cannot move neck or jaw". The patient notes a history of neck injury while at work in May of 2021. 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 He woke up on the ground and was initially evaluated here. He has been going to physical therapy for his shoulder, neck, and concussion. The patient does note that today while at therapy he was doing ear to shoulder touches and did 3-4 ear to shoulder touches on the left. He then went to do this on the right and as he went to touch his right ear to the right shoulder he felt a pop in the middle of his neck. He now notes pressure that extends towards his throat region. He has trouble moving his jaw secondary to pain now in his neck. He denies any pain radiating down his arms or numbness/tingling at the present time. No chest pain or shortness of breath. No fevers or chills. This occurred today shortly before 11 AM while at therapy. Pain has persisted therefore prompting arrival here today. Current pain 05/07. Patient cannot move the head or neck beyond midline without discomfort. Patient tried ibuprofen prior to arrival without relief. Home Medications Medication Instructions Recorded Confirmed Type hydrocortisone-pramoxine 2.5 %-1 % 1 applic SC DIRECTED PRN 08/11/18 10/22/21 History rectal cream (Analpram-HC) liraglutide 0.6 mg/0.1 mL (18 mg/3 1.8 mg SUBCUT QPM 08/11/18 10/22/21 History mL) subcutaneous pen injector (Victoza 2-Charles) sertraline 50 mg tablet (Zoloft) 50 mg PO HS 08/11/18 10/22/21 History epinephrine 0.3 mg/0.3 mL 0.3 mg IM Q3H PRN #2 ea 03/19/19 10/22/21 Rx injection, auto-injector (EpiPen 2-Charles) melatonin 1 mg tablet 1 mg PO HS PRN 03/19/19 10/22/21 History metformin 500 mg tablet,extended 1,000 mg PO BIDM 06/02/20 10/22/21 History release 24 hr multivitamin (Daily Multi-Vitamin) 1 tab PO BID 12/21/20 10/22/21 History cyclobenzaprine 10 mg tablet 10 mg PO BID PRN #30 tab 03/27/21 10/22/21 Rx lisinopril 2.5 mg tablet (Zestril) 2.5 mg PO QAM #30 tab 08/29/21 10/22/21 Rx omeprazole 20 mg tablet,delayed 20 mg PO QAM tab 08/30/21 10/22/21 History release potassium citrate 15 mEq (1,620 15 meq PO BID #60 tab 08/30/21 10/22/21 Rx mg) tablet,extended release gabapentin 300 mg tablet 300 mg PO TID 10/22/21 10/22/21 History hydrochlorothiazide 50 mg tablet 25 mg PO DAILY 10/22/21 10/22/21 History ondansetron 8 mg disintegrating 8 mg PO PRN 10/22/21 History tablet potassium chloride 8 mEq 5 meq PO BID 10/22/21 10/22/21 History capsule,extended release Allergies Allergy/AdvReac Type Severity Reaction Status Date / Time bee venom protein (honey bee) Allergy Severe Anaphylaxis Verified 08/30/21 14:46 pineapple Allergy Severe THROAT Verified 08/30/21 14:46 CLOSES TO THE FRUIT cephalexin Allergy Intermediate HIVES Verified 08/30/21 14:46 menthol Allergy Intermediate WELTS Verified 08/30/21 14:46 Penicillins Allergy Intermediate RASH Verified 08/30/21 14:46 Past Med/Surg History Medical History Depression Diabetes mellitus type 2, controlled GERD (gastroesophageal reflux disease) HTN (hypertension) Hypercalcemia Kidney stones Left flank pain Left ureteral stone Obesity LINDA (obstructive sleep apnea) c pap Renal calculi Renal colic Thrombocytopenia Ureterolithiasis Vitamin D deficiency Surgical History H/O cystoscopy H/O shoulder surgery right H/O wisdom tooth extraction History of open reduction and internal fixation (ORIF) procedure "Finger " Family History Other Family history not known due to adoption Social History Smoking Status: Never smoker Tobacco Type: Cigarettes Second Hand Exposure: No; Hx Alcohol Use: No Hx Substance Use: Yes Last Used Substance Other:: last used over 20 years ago Preferred Language: Wallisian Communication Ability: Effective 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 Beliefs That Will Affect Care: None marital status: Current Living Situation: Spouse Feels Safe at Home: Yes Assistive Devices: None, Denture - Upper and Denture - Lower Review of Systems A total of 10 systems reviewed and were otherwise negative Physical Exam Vital Signs Vital Signs - 24 hr 10/21/21 14:40 10/21/21 16:15 10/21/21 18:00 Temperature 36.7 C Temperature Source Temporal Artery Scan Pulse Rate 99 H Pulse Rate [Radial] 86 76 Pulse Rhythm [Radial] Regular Respiratory Rate 18 18 20 Respiratory Effort / Characteristics Non-Labored Non-Labored Spontaneous Respiratory Depth Normal Normal Respiratory Pattern Regular Regular Blood Pressure 143/83 H Blood Pressure [Right Arm] 137/84 144/88 H Blood Pressure Mean 103 Blood Pressure Mean [Right Arm] 101 106 Blood Pressure Position [Right Arm] Lying Pulse Oximetry 97 94 97 Oxygen Delivery Method Room Air Room Air Room Air Sepsis Recent Fever Within 48 Hours No Sepsis New/Unexplained Change in Mental Status N/A Sepsis Action Taken by Nursing No Action Required 10/21/21 20:34 10/21/21 22:44 Temperature Temperature Source Pulse Rate 80 Pulse Rate [Radial] 80 82 Pulse Rhythm [Radial] Respiratory Rate Respiratory Effort / Characteristics Respiratory Depth Respiratory Pattern Blood Pressure Blood Pressure [Right Arm] Blood Pressure Mean Blood Pressure Mean [Right Arm] Blood Pressure Position [Right Arm] Pulse Oximetry 97 95 Oxygen Delivery Method Room Air Room Air Sepsis Recent Fever Within 48 Hours Sepsis New/Unexplained Change in Mental Status Sepsis Action Taken by Nursing VITAL SIGNS - Vital signs and nursing notes were reviewed. Stable and afebrile. GENERAL - 41-year-old male appearing his stated age who is in no acute distress. Patient is wearing sunglasses. Patient appears to be in pain and is sitting upright on the side of the examination bed with his head in a forward facing position. Communicates well with provider and answers questions appropriately. SKIN - Without rashes. HEAD - NC/AT. EYES - PERRL with EOMI bilaterally. Sclera anicteric. EARS - No deformities of external structures noted on gross examination bilaterally. No pain elicited with palpation of the tragus bilaterally. External auditory canals without discharge or otorrhea. Tympanic membranes pearly villanueva without retraction or bulging. No fluid or purulent material visualized behind the TM. Handle of malleus, umbo, cone of light, pars tensa/flaccid all easily visualized. NOSE - Midline and without cyanosis. No epistaxis or purulent drainage noted. Septum midline without deviation or septal hematoma noted. MOUTH/OROPHARYNX - Without perioral cyanosis. Buccal mucosa pink and moist and without leukoplakia. Tongue midline with equal elevation of palate bilaterally. No tonsillar hypertrophy, erythema, or exudates noted. Good dentition noted. No drooling, stridor, trismus, wheezing or tripoding. Normal phonation. Patient does have what appears to be discomfort when opening the mouth noting pain radiating to the neck. NECK - Neck with significantly decreased range of motion. There is palpable muscle spasm noted in the posterior paraspinous musculature of the C-spine. No C-spine tenderness. LUNGS - Chest wall symmetric without accessory muscle use, intercostals retractions, or central cyanosis. Normal vesicular breath sounds CTA B/L. No wheezes, rales, or rhonchi appreciated. CARDIAC - RRR with S1/S2. No murmur, rubs, or gallops appreciated. EXTREMITIES - No clubbing or peripheral cyanosis. No pretibial edema present. Biceps reflex normal bilaterally, tip puncher strength intact bilaterally. +5/5 strength noted in UE/LE bilaterally. NEUROLOGIC - Cranial nerves II through XII grossly intact. Sensory intact to light touch throughout. PSYCH - A&Ox3 and cooperates fully with examiner. Pt is very pleasant and i nteracts well with examiner. Course Administered Medications Hydromorphone HCl (Hydromorphone Inj 0.5 Mg/0.5 Ml Syr) 0.5 mg IV Q3H PRN PRN Reason: Pain Stop: 11/05/21 01:05 Last Admin: 10/22/21 02:09 Dose: 0.5 mg Documented by: [id number] Sodium Chloride (Nss 1000ml) 1,000 mls @ 125 mls/hr IV .Q8H TITA Stop: 11/21/21 01:05 Last Admin: 10/22/21 01:57 Dose: 125 mls/hr Documented by: [id number] Discontinued Medications Acetaminophen (Acetaminophen 500 Mg Tab) 1,000 mg PO NOW STA Stop: 10/21/21 17:45 Last Admin: 10/21/21 18:21 Dose: 1,000 mg Documented by: [id number] Diazepam (Diazepam 5 Mg/Ml Inj 10ml Vial) 5 mg IV NOW STA Stop: 10/21/21 21:49 Last Admin: 10/21/21 21:55 Dose: 5 mg Documented by: [id number] Diazepam (Diazepam 5 Mg/Ml Inj 10ml Vial) 5 mg IV NOW ONE Stop: 10/22/21 01:01 Last Admin: 10/22/21 00:05 Dose: 5 mg Documented by: [id number] Hydromorphone HCl (Hydromorphone Inj 1 Mg/Ml Syringe) 1 mg IV NOW STA Stop: 10/21/21 15:21 Last Admin: 10/21/21 15:49 Dose: 1 mg Documented by: [id number] Hydromorphone HCl (Hydromorphone Inj 0.5 Mg/0.5 Ml Syr) 0.5 mg IV Q30M PRN PRN Reason: Pain Stop: 11/04/21 15:59 Last Admin: 10/21/21 20:45 Dose: 0.5 mg Documented by: [id number] Admin: 10/21/21 18:22 Dose: 0.5 mg Documented by: [id number] Potassium Chloride (K Miguel / Wtr) 10 meq in 100 mls @ 100 mls/hr IV Q1H STA; Protocol Stop: 10/22/21 01:16 Last Infusion: 10/22/21 02:21 Dose: 0 mls/hr Documented by: [id number] Admin: 10/22/21 01:34 Dose: 100 mls/hr Documented by: [id number] Ioversol (Optiray 320 125ml) 118 ml IV ONCE ONE Stop: 10/21/21 17:13 Last Admin: 10/21/21 17:17 Dose: 118 ml Documented by: [id number] Ketorolac Tromethamine (Ketorolac Tromethamine 15 Mg/Ml Vial) 15 mg IV NOW STA Stop: 10/21/21 18:08 Last Admin: 10/21/21 18:21 Dose: 15 mg Documented by: [id number] Ondansetron HCl (Ondansetron Inj 2 Mg/Ml 2 Ml Vial) 4 mg IV NOW STA Stop: 10/21/21 15:21 Last Admin: 10/21/21 15:49 Dose: 4 mg Documented by: [id number] Medical Decision Making Laboratory Data Result diagrams: 10/21/21 15:43 10/21/21 15:43 Lab Results 10/21/21 10/21/21 10/21/21 Range/Units 15:43 15:43 21:48 WBC 4.54 L (4.8-10.8) K/uL RBC 4.74 (4.7-6.1) M/uL Hgb 15.6 (14.0-18.0) g/dL Hct 44.3 (42-52) % MCV 93.5 (80-100) fL MCH 32.9 (25-34) pg MCHC 35.2 (32-36) g/dL RDW Std Deviation 42.9 (36.4-46.3) fL RDW Coeff of Flavio 12.7 (11.5-14.5) % Plt Count 76 L (130-400) K/uL MPV 10.2 (7.4-10.4) fL Immature Gran % (Auto) 0.0 % Neut % (Auto) 57.0 % Lymph % (Auto) 33.3 % [place] % (Auto) 6.4 % Eos % (Auto) 3.1 % Baso % (Auto) 0.2 % Neut # (Auto) 2.59 (1.4-6.5) K/uL Lymph # (Auto) 1.51 (1.2-3.4) K/uL [place] # (Auto) 0.29 (0.11-0.59) K/uL Eos # (Auto) 0.14 (0-0.5) K/uL Baso # (Auto) 0.01 (0-0.2) K/uL Immature Gran # (Auto) 0.00 (0.00-0.02) K/uL Platelet Estimate Decreased L (Normal) Sodium 134 L (136-145) mmol/L Potassium 3.4 L (3.5-5.1) mmol/L Chloride 97 L (98-107) mmol/L Carbon Dioxide 26 (21-32) mmol/L Anion Gap 11 (3-11) BUN 15 (6-23) mg/dl Creatinine 0.70 (0.6-1.4) mg/dl Est Cr Clr Drug Dosing 180.6 ml/min Est GFR ( Amer) 134.9 ml/min Est GFR (Non-Af Amer) 116.4 ml/min BUN/Creatinine Ratio 21.4 H (10-20) Glucose 158 H (70-99(Fasting)) mg/dl POC Glucose 130 H (70-99) mg/dl Calcium 9.9 (8.5-10.1) mg/dl Total Bilirubin 0.9 (0.2-1.0) mg/dl AST 38 (13-39) U/L ALT 47 (7-52) U/L Alkaline Phosphatase 103 (34-104) U/L Total Protein 7.7 (6.0-8.3) gm/dl Albumin 4.3 (3.4-5.0) gm/dl Globulin 3.4 (2.5-4.0) gm/dl Albumin/Globulin Ratio 1.3 (0.9-2) SARS-CoV-2, RNA, NAAT (NEGATIVE) 10/21/21 Range/Units 22:01 WBC (4.8-10.8) K/uL RBC (4.7-6.1) M/uL Hgb (14.0-18.0) g/dL Hct (42-52) % MCV (80-100) fL MCH (25-34) pg MCHC (32-36) g/dL RDW Std Deviation (36.4-46.3) fL RDW Coeff of Flavio (11.5-14.5) % Plt Count (130-400) K/uL MPV (7.4-10.4) fL Immature Gran % (Auto) % Neut % (Auto) % Lymph % (Auto) % [place] % (Auto) % Eos % (Auto) % Baso % (Auto) % Neut # (Auto) (1.4-6.5) K/uL Lymph # (Auto) (1.2-3.4) K/uL [place] # (Auto) (0.11-0.59) K/uL Eos # (Auto) (0-0.5) K/uL Baso # (Auto) (0-0.2) K/uL Immature Gran # (Auto) (0.00-0.02) K/uL Platelet Estimate (Normal) Sodium (136-145) mmol/L Potassium (3.5-5.1) mmol/L Chloride (98-107) mmol/L Carbon Dioxide (21-32) mmol/L Anion Gap (3-11) BUN (6-23) mg/dl Creatinine (0.6-1.4) mg/dl Est Cr Clr Drug Dosing ml/min Est GFR ( Amer) ml/min Est GFR (Non-Af Amer) ml/min BUN/Creatinine Ratio (10-20) Glucose (70-99(Fasting)) mg/dl POC Glucose (70-99) mg/dl Calcium (8.5-10.1) mg/dl Total Bilirubin (0.2-1.0) mg/dl AST (13-39) U/L ALT (7-52) U/L Alkaline Phosphatase (34-104) U/L Total Protein (6.0-8.3) gm/dl Albumin (3.4-5.0) gm/dl Globulin (2.5-4.0) gm/dl Albumin/Globulin Ratio (0.9-2) SARS-CoV-2, RNA, NAAT NEGATIVE (NEGATIVE) Imaging Data Radiologist's Impression: Head CTA 10/21/21 15:20 CT angio neck with con CLINICAL HISTORY: Headache, neck pain, felt pop in neck, throat TECHNIQUE: Contiguous axial CT images of the head were acquired from the base of the skull to the vertex without intravenous contrast administration. CT angiography of the head and neck was performed following intravenous administra tion of iodinated contrast. Coronal and sagittal MIPS were obtained from the axial data set and were submitted for review. Automated dose lowering techniques and/or adjustment according to patient size were utilized for this examination. All measurements were calculated based on NASCET criteria. Comparison: None available at the time of this dictation. FINDINGS: CT head: There is no acute intracranial hemorrhage or evidence of acute territorial infarction. No shift of the midline structures, mass effect, or extra-axial abnormalities are shown. Lungs and soft tissues are unremarkable. CTA Neck: A 3 vessel aortic arch is shown. There is no significant atheros clerotic plaque in the aortic arch or the origins of the innominate, left common carotid, and left subclavian arteries. The common carotid, external carotid, cervical segments of the internal carotid arteries, and the cervical segments of the vertebral arteries are patent without hemodynamically significant stenosis. The left vertebral artery is dominant. CTA Head: The anterior and posterior cerebral circulations are patent. No hemodynamically significant stenosis, aneurysm, dissection, or arteriovenous malformation is shown. Atherosclerotic disease is noted. IMPRESSION: 1. No acute intracranial hemorrhage, evidence of acute territorial infarction, or other acute intracranial disease process. 2. No occlusion, hemodynamically significant stenosis, aneurysm, dissection, or arteriovenous malformation in the major intracranial arteries. 3. No occlusion, hemodynamically significant stenosis, or dissection in the major cervical arteries. Assessment of stenosis of the internal carotid arteries is based on NASCET criteria. ACT 112: Negative or not required by law. Electronically signed by: Brian Hackett M.D. 10/21/2021 5:58 PM Neck CTA 10/21/21 15:20 CT angio neck with con CLINICAL HISTORY: Headache, neck pain, felt pop in neck, throat TECHNIQUE: Contiguous axial CT images of the head were acquired from the base of the skull to the vertex without intravenous contrast administration. CT angiography of the head and neck was performed following intravenous administration of iodinated contrast. Coronal and sagittal MIPS were obtained from the axial data set and were submitted for review. Automated dose lowering techniques and/or adjustment according to patient size were utilized for this examination. All measurements were calculated based on NASCET criteria. Comparison: None available at the time of this dictation. FINDINGS: CT head: There is no acute intracranial hemorrhage or evidence of acute territorial infarction. No shift of the midline structures, mass effect, or extra-axial abnormalities are shown. Lungs and soft tissues are unremarkable. CTA Neck: A 3 vessel aortic arch is shown. There is no significant atherosclerotic plaque in the aortic arch or the origins of the innominate, left common carotid, and left subclavian arteries. The common carotid, external carotid, cervical segments of the internal carotid arteries, and the cervical segments of the vertebral arteries are patent without hemodynamically significant stenosis. The left vertebral artery is dominant. CTA Head: The anterior and posterior cerebral circulations are patent. No hemodynamically significant stenosis, aneurysm, dissection, or arteriovenous malformation is shown. Atherosclerotic disease is noted. IMPRESSION: 1. No acute intracranial hemorrhage, evidence of acute territorial infarction, or other acute intracranial disease process. 2. No occlusion, hemodynamically significant stenosis, aneurysm, dissection, or arteriovenous malformation in the major intracranial arteries. 3. No occlusion, hemodynamically significant stenosis, or dissection in the major cervical arteries. Assessment of stenosis of the internal carotid arteries is based on NASCET criteria. ACT 112: Negative or not required by law. Electronically signed by: Brian Hackett M.D. 10/21/2021 5:58 PM Cervical Spine MRI 10/21/21 18:07 MR OF THE CERVICAL SPINE WITHOUT IV CONTRAST CLINICAL HISTORY: neck pain, cannot move, injury in may TECHNIQUE: MRI of the cervical spine is performed utilizing various T1 and T2 sequences in the axial and sagittal planes. IV contrast was not administered for this examination. Comparison: None available at the time of this dictation. FINDINGS: Cervical spine: Vertebral body height and alignment are maintained throughout the cervical spine. The atlantodental articulation appears maintained. No destructive bony lesion is seen. Intervertebral discs: Disks are normal in height and signal. Spinal cord: The cervical spinal cord is normal in morphology and signal intensity. C2-C3: Unremarkable. C3-C4: Unremarkable. C4-C5: Unremarkable. C5-C6: Unremarkable. C6-C7: Unremarkable. C7-T1: Unremarkable. Soft tissues: The paraspinous and prevertebral soft tissues are normal in appearance. Brain parenchyma: Partially imaged brain parenchyma at the skull base is within normal limits. IMPRESSION: No evidence of acute abnormality. No spinal or neuroforaminal stenosis is seen. ACT 112: Negative or not required by law. Electronically signed by: Brian Hackett M.D. 10/21/2021 8:45 PM MDM Narrative Patient was seen and evaluated as above in room D1. Review was performed of nursing notes and vital signs. I did review pertinent previous visits and patient history. After obtaining a thorough history and physical examination the above work up was performed. Patient presents to us today for evaluation of neck pain that occurred earlier today while at physical therapy. He was doing different exercises and specifically was going to touch his right ear to his right shoulder and then felt a pop in the middle of his neck. He now notes pain radiating throughout his neck and around his throat. He states he cannot move his head or neck without significant pain. Current discomfort /10. No numbnes s or tingling acutely. No weakness in the upper extremities. No fevers or chills. No chest pain or shortness of breath. On examination the patient appears to be in pain and is sitting upright on the examination bed forward facing. He will not turn his head to the left or right or move his neck. On 06/21/2021 the patient did undergo testing here as this seems to be the initial evaluation status post fall that occurred at work. He had x-rays of some of the extremities but also a CT scan of the head, C-spine, chest, abdomen and pelvis. I did review imaging from that visit. No fractures/acute traumatic injuries were identified and specifically upon review of the CT of the C-spine it not reveal any acute abnormality. Options of care were discussed with the patient. IV access was established and labs were drawn. There is no leukocytosis or concerning anemia. Mild leukopenia 4.54. Thrombocytopenia noted but this is similar to previous. Mild hyponatremia at 134. Mild hypokalemia 3.4. Hyperglycemia noted at 158. IV analgesics and antiemetics were ordered. Differentials include but not limited to arterial dissection in the neck, ligamentous injury, nerve injury, disc injury, muscle strain, among others. At this time I do believe that a CTA of the head and neck are warranted given the mechanism and discomfort at the present time. It is felt that it would be most appropriate to rule out acute vessel injury initially. This was ordered. Results as above. This was normal. Patient was reevaluated and continued to require IV analgesics and would not move his head or neck. He even noted that open his jaw created significant discomfort in his neck. At this time it was felt that based on the patient's symptoms it would be reasonable to proceed with an MRI of the C-spine to rule out injury that could have occurred earlier today. MRI results as above. This was negative. I then reassessed the patient and he continued to note significant discomfort in his neck. The patient does not have any findings to suggest meningitis or encephalitis. No findings to suggest infectious process. I suspect muscle strain/spasm. He is neurovascularly intact in the upper ex tremities. He was then given a dose of IV Valium. Although he noted this helped his headache a little bit he noted that his neck pain persisted. He noted that he could still not move his head without significant pain in his neck. This discomfort is reproducible with palpation of the posterior neck region and musculature. I discussed options with the patient. The patient expresses concern about going home with his discomfort that he is currently experiencing. Decision was made to proceed with inpatient management. I discussed this with the hospitalist. Covid test negative. He evaluated the patient. Please refer to further documentation regarding the patient's stay. Case was discussed with the attending physician. GCS: 15 In the evaluation and treatment of this patient, the following differential diagnoses were considered: Musculoskeletal Strain, Discitis, Cervical Spine Fracture, cervical ligament injury, meningitis, encephalitis, dissection, CVA, cervical Spine Dislocation, Cervical Spine Subluxation, Cervical Spondylosis, Fibromyalgia, Osteoarthritis, among others. Impression & Plan Intractable pain, Neck pain, Headache, Spasm of cervical paraspinous muscle Discharge Plan Visit Data Chief Complaint: Neck Injury/Pain Stated Complaint: NECK AND JAW PAIN, CAN'T MOVE NECK OR JAW ED Provider: Cristo Rob ED Midlevel Provider: Gilberto Watson Discharge Problem: Intractable pain, Neck pain, Headache, Spasm of cervical paraspinous muscle Patient Disposition: Admitted As Inpatient Condition: Good Discharge Instructions Interventions: ED Discharge Assessment Last Done: 10/22/21 01:09
[2021-10-21] MEDS ORDERED: HYDROmorphone INJ 1 MG/ML SYRINGE IV STA (15:20)
[2021-10-21] MEDS ORDERED: ONDANSETRON INJ 2 MG/ML 2 ML VIAL IV STA (15:20)
[2021-10-21 16:13] LABS: Albumin Globulin Ratio 1.3 (0.9-2); Albumin Level 4.3 gm/dl (3.4-5.0); BUN Creatinine Ratio 21.4 (10-20); Bilirubin,Total 0.9 mg/dl (0.2-1.0); Calcium 9.9 mg/dl (8.5-10.1); Creatinine Clr Calc Pharmacy 180.6 ml/min; Est GFR (African American) 134.9 ml/min; Est GFR (Non-African American) 116.4 ml/min; Globulin 3.4 gm/dl (2.5-4.0); Potassium 3.4 mmol/L (3.5-5.1); Total Protein 7.7 gm/dl (6.0-8.3)
[2021-10-21 16:15] LABS: Basophils # (auto) 0.01 K/uL (0-0.2); Basophils % (auto) 0.2 %; Eosinophils # (auto) 0.14 K/uL (0-0.5); Eosinophils % (auto) 3.1 %; Hematocrit (blood only) 44.3 % (42-52); Hemoglobin 15.6 g/dL (14.0-18.0); Lymphocytes # (auto) 1.51 K/uL (1.2-3.4); Lymphocytes % (auto) 33.3 %; Mean Corpuscular Hemoglobin 32.9 pg (25-34); Mean Corpuscular Hgb Conc 35.2 g/dL (32-36); Mean Corpuscular Volume 93.5 fL (80-100); Mean Platelet Volume 10.2 fL (7.4-10.4); Monocytes # (auto) 0.29 K/uL (0.11-0.59); Monocytes % (auto) 6.4 %; Neutrophils # (auto) 2.59 K/uL (1.4-6.5); Platelet Count 76 K/uL (130-400); Platelet Estimate Decreased (Normal); RDW Coefficient of Variation 12.7 % (11.5-14.5); RDW Standard Deviation 42.9 fL (36.4-46.3); Red Blood Count 4.74 M/uL (4.7-6.1); White Blood Count 4.54 K/uL (4.8-10.8)
[2021-10-21] MEDS ORDERED: OPTIRAY 320 125ml IV ONE (17:12)
[2021-10-21] MEDS ORDERED: ACETAMINOPHEN 500 MG TAB PO STA (17:44)
--- NOTE | 2021-10-21 17:59 | CT Scan Report ---
CT angio neck with con CLINICAL HISTORY: Headache, neck pain, felt pop in neck, throat TECHNIQUE: Contiguous axial CT images of the head were acquired from the base of the skull to the cyndi maria del carmen without intravenous contrast administration. CT angiography of the head and neck was performed f ollowing intravenous administration of iodinated contrast. Coronal and sagittal MIPS were obtained fr om the axial data set and were submitted for review. Automated dose lowering techniques and/or adjus tment according to patient size were utilized for this examination. All measurements were calculated based on NASCET criteria. Comparison: None available at the time of this dictation. FINDINGS: CT head: There is no acute intracranial hemorrhage or evidence of acute territorial infarction. No sh ift of the midline structures, mass effect, or extra-axial abnormalities are shown. Lungs and soft tissues are unremarkable. CTA Neck: A 3 vessel aortic arch is shown. There is no significant atherosclerotic plaque in the aor tic arch or the origins of the innominate, left common carotid, and left subclavian arteries. The c ommon carotid, external carotid, cervical segments of the internal carotid arteries, and the cervical segments of the vertebral arteries are patent without hemodynamically significant stenosis. The left vertebral artery is dominant. CTA Head: The anterior and posterior cerebral circulations are patent. No hemodynamically significan t stenosis, aneurysm, dissection, or arteriovenous malformation is shown. Atherosclerotic disease is noted. IMPRESSION: 1. No acute intracranial hemorrhage, evidence of acute territorial infarction, or other acute intrac ranial disease process. 2. No occlusion, hemodynamically significant stenosis, aneurysm, dissection, or arteriovenous malfor mation in the major intracranial arteries. 3. No occlusion, hemodynamically significant stenosis, or dissection in the major cervical arteries. Assessment of stenosis of the internal carotid arteries is based on NASCET criteria. ACT 112: Negative or not required by law. Electronically signed by: Brian Hackett M.D. 10/21/2021 5:58 PM
[2021-10-21] MEDS ORDERED: KETOROLAC TROMETHAMINE 15 MG/ML VIAL IV STA (18:07)
[2021-10-21] MEDS: HYDROmorphone INJ 0.5 MG/0.5 ML SYR IV PRN ×2 (18:22→20:45)
--- NOTE | 2021-10-21 20:46 | Magnetic Resonance Report ---
MR OF THE CERVICAL SPINE WITHOUT IV CONTRAST CLINICAL HISTORY: neck pain, cannot move, injury in may TECHNIQUE: MRI of the cervical spine is performed utilizing various T1 and T2 sequences in the axial and sagittal planes. IV contrast was not administered for this examination. Comparison: None available at the time of this dictation. FINDINGS: Cervical spine: Vertebral body height and alignment are maintained throughout the cervical spine. The atlantodental articulation appears maintained. No destructive bony lesion is seen. Intervertebral discs: Disks are normal in height and signal. Spinal cord: The cervical spinal cord is normal in morphology and signal intensity. C2-C3: Unremarkable. C3-C4: Unremarkable. C4-C5: Unremarkable. C5-C6: Unremarkable. C6-C7: Unremarkable. C7-T1: Unremarkable. Soft tissues: The paraspinous and prevertebral soft tissues are normal in appearance. Brain parenchyma: Partially imaged brain parenchyma at the skull base is within normal limits. IMPRESSION: No evidence of acute abnormality. No spinal or neuroforaminal stenosis is seen. ACT 112: Negative or not required by law. Electronically signed by: Brian Hackett M.D. 10/21/2021 8:45 PM
[2021-10-22] MEDS ORDERED: POTASSIUM CHLORIDE / WTR 10 MEQ/100 ML PLCT IV STA (00:17)
[2021-10-22] MEDS ORDERED: NITROGLYCERIN SL 0.4 MG/TAB TAB SL PRN (01:06)
[2021-10-22] MEDS ORDERED: ACETAMINOPHEN 325 MG TAB PO PRN (01:06)
[2021-10-22] MEDS ORDERED: POLYETHYLENE (MIRALAX) 17 GM PACK PO PRN (01:06)
[2021-10-22] MEDS ORDERED: GLUCOSE 40% GEL 15 GM TUBE PO PRN (01:45)
[2021-10-22] MEDS ORDERED: DEXTROSE 50% 50 ML SYRINGE IV PRN (01:45)
[2021-10-22] MEDS ORDERED: GLUCOSE 10 TABS/TUBE PO PRN (01:45)
[2021-10-22] MEDS ORDERED: CARBOHYDRATES FOR HYPOGLYCEMIA PO PRN (01:45)
[2021-10-22] MEDS ORDERED: GLUCAGON FOR INJ 1 MG VIAL IM PRN (01:45)
[2021-10-22] MEDS: SODIUM CHLORIDE 0.9% 1000ML 1,000 ML IV SCH ×3 (01:57→16:44)
[2021-10-22] MEDS: HYDROmorphone INJ 0.5 MG/0.5 ML SYR IV PRN ×2 (02:09→05:17)
[2021-10-22 06:13] LABS: Hematocrit (blood only) 41.3 % (42-52); Hemoglobin 14.2 g/dL (14.0-18.0); Mean Corpuscular Hemoglobin 32.6 pg (25-34); Mean Corpuscular Hgb Conc 34.4 g/dL (32-36); Mean Corpuscular Volume 94.7 fL (80-100); RDW Coefficient of Variation 12.7 % (11.5-14.5); RDW Standard Deviation 44.2 fL (36.4-46.3); Red Blood Count 4.36 M/uL (4.7-6.1); White Blood Count 4.06 K/uL (4.8-10.8)
[2021-10-22 06:17] LABS: Mean Platelet Volume 10.5 fL (7.4-10.4); Platelet Count 72 K/uL (130-400)
[2021-10-22 06:30] LABS: BUN Creatinine Ratio 21.1 (10-20); Creatinine Clr Calc Pharmacy 178.1 ml/min; Est GFR (African American) 134.1 ml/min; Est GFR (Non-African American) 115.7 ml/min; Magnesium 1.6 mg/dl (1.7-2.4); Potassium 3.3 mmol/L (3.5-5.1)
[2021-10-22 06:47] LABS: Basophils # (auto) 0.02 K/uL (0-0.2); Basophils % (auto) 0.5 %; Eosinophils # (auto) 0.17 K/uL (0-0.5); Eosinophils % (auto) 4.2 %; Immature Granulocytes # (auto) 0.01 K/uL (0.00-0.02); Immature Granulocytes % (auto) 0.2 %; Lymphocytes # (auto) 1.42 K/uL (1.2-3.4); Monocytes # (auto) 0.35 K/uL (0.11-0.59); Monocytes % (auto) 8.6 %; Neutrophils # (auto) 2.09 K/uL (1.4-6.5); Neutrophils % (auto) 51.5 %
--- NOTE | 2021-10-22 06:59 | History and Physical Report ---
DATE OF ADMISSION: 10/21/2021. CHIEF COMPLAINT: Severe neck pain. HISTORY OF PRESENT ILLNESS: This is a 41-year-old male with past medical history significant for type 2 diabetes, hyperlipidemia, sleep apnea, CPAP, hypertension, morbid obesity, irritable bowel syndrome, hepatic steatosis, calculus of gallbladder, renal calculi, postconcussive syndrome, thrombocytopenia, splenomegaly, irritability and anger. Presents with severe neck pain. The patient says he fell from a semi-truck at the end of May and he hit on a wall and since then he had a bad concussion and also neck problems. He followed with orthopedics, currently following with pain management received steroid shots, last shot was about 2 weeks ago. He is also following with neurology and started on gabapentin and also getting physical therapy. He is wearing black glasses as lights bothering him since the concussion.Today when he was doing physical therapy he felt the middle of the neck popped up and since then he is not able to move his neck and he states he is also having some difficulty swallowing. His vitals are stable. Denies Shortness of breath.No weakness in the extremities. In the ER, CTA of the head and neck was done, which was unremarkable. Cervical spine MRI was also done, which was also unremarkable. Because of ongoing pain, we were called for admission. The patient is currently resting comfortably, hemodynamically stable. Except for the pain, and not able to move his neck and some difficulty swallowing, no other complaints. He has some mild headache. No blurred visions, no runny nose, no sore throat, no cough. Mary Alice chills earlier today. No fevers, no chest pain, no shortness of breath, no nausea, no vomiting, no abdominal pain. Normal bowel and bladder movements. ALLERGIES: BEE VENOM, PINEAPPLE, CEPHALEXIN, MENTHOL, PENICILLINS. PAST MEDICAL HISTORY: As mentioned above. PAST SURGICAL HISTORY: Colonoscopy, cystoscopy with stent placement, cystourethroscopy, lithotripsy, dental surgery, EGDs, EGD with endoscopic ultrasound, laparoscopic cholecystectomy, vasectomy. MEDICATIONS: The patient is on gabapentin 300 mg 2 tablets t.i.d., Humulin 70/30, 32 units under the skin before breakfast and 34 units before supper, cyclobenzaprine 10 mg p.o. b.i.d. p.r.n., sertraline 50 mg p.o. daily, metformin 1000 mg p.o. b.i.d., chlorthalidone 25 mg p.o. daily, Tylenol 500 mg p.r.n., potassium citrate 5 mEq 1 tablet b.i.d., lidocaine patch p.r.n., multivitamin daily, Victoza 1.8 mg under the skin daily, lisinopril 2.5 mg p.o. daily, MiraLax 17 g p.o. daily p.r.n., hydrocortisone pramoxine cream p.r.n., epinephrine p.r.n., omeprazole 20 mg p.o. daily, melatonin 1 mg p.o. at bedtime. FAMILY HISTORY: Significant for the patient is adopted. SOCIAL HISTORY: , former smoker, quit at age of 18. No alcohol use. No drug use. REVIEW OF SYSTEMS: As per HPI. Rest of the review of systems is negative. PHYSICAL EXAMINATION: GENERAL: The patient is obese, not in acute distress. VITAL SIGNS: Temperature 36.7, pulse 92, respiratory rate 20, blood pressure 141/98, oxygen 98% on room air. HEENT: Pupils equal, round and reactive to light. Oral mucosa dry. Painful neck movements. CARDIOVASCULAR: S1 and S2 heard, regular rate and rhythm. No murmur, no gallop. RESPIRATORY SYSTEM: Normal AP diameter. No accessory muscle use. No wheezing, no crackles. ABDOMEN: Soft, bowel sounds present, nontender, no distention. CENTRAL NERVOUS SYSTEM: Cranial nerves II through XII are grossly intact, nonfocal. EXTREMITIES: No edema, no erythema. LABORATORY DATA: WBC 4.5, hemoglobin 15.6, hematocrit 44.3, platelets 76. Sodium 134, potassium 3.4, chloride 97, bicarbonate 26, BUN 15, creatinine 0.7, serum glucose 158, calcium 9.9, total bilirubin 0.9, AST 38, ALT 47, alkaline phosphatase 103. SARS-CoV-2 RNA negative. IMAGING DATA: Cervical spine MRI, no acute findings. CTA of the head and neck, no acute findings. ASSESSMENT AND PLAN: This is a 41-year-old male who presents with severe neck pain. 1. Severe neck pain: The patient had a fall at the end of May and had concussion and also severe neck problems. Received steroid shots in the neck. Follows with neurology and pain medicine. Was started on gabapentin. Steroid shots were stopped because of high sugars. Comes with pain,when he felt neck popped during physical therapy today. Imaging studies are unremarkable. The patient has difficulty swallowing. We will place him on pain medication IV dilaudid p.r.n. and consult pain medicine and also neurology in the a.m. 2. History of obesity: Needs counseling. 3. Diabetes: Will place him on insulin sliding scale. Continue his home Humulin and monitor the blood sugars. 4. Sleep apnea: On CPAP at bedtime. 5. Hypertension: Continue his home medications. 6. Postconcussion syndrome: Follow with neurology. 7. Thrombocytopenia, splenomegaly: Needs followup. 8. Difficulty swallowing? speech evaluation 9. Deep venous thrombosis prophylaxis. Sequential compression devices as the patient has thrombocytopenia. DISPOSITION: Admit to [facility] tele. PT/OT prior to discharge. Social service to help with discharge planning. Job ID: [id number] MTDD
[2021-10-22] MEDS ORDERED: INSULIN ASPART PER UNIT SC SCH (07:30)
[2021-10-22 07:50] LABS: Estimated Average Glucose 200 mg/dl; Hemoglobin A1C 8.6 % (4.5-5.6)
[2021-10-22] MEDS: GABAPENTIN 600 MG TAB PO SCH ×3 (09:25→21:30)
[2021-10-22] MEDS: BACLOFEN 10 MG TAB PO SCH ×3 (09:25→21:30)
[2021-10-22] MEDS: HYDROmorphone INJ 1 MG/ML SYRINGE IV PRN ×4 (09:26→21:31)
[2021-10-22] MEDS: INSULIN GLARGINE SOLOSTAR 100 UNITS/ML 3 ML PEN SC SCH ×2 (09:27→21:29)
[2021-10-22] MEDS: INSULIN ASPART PER UNIT SC SCH ×4 (09:36→21:29)
--- NOTE | 2021-10-22 10:04 | Pain Management Consultation ---
Date of Consultation October 22, 2021 Assessment & Plan (1) Neck pain: (2) Cervicogenic headache: (3) Spasm of cervical paraspinous muscle: (4) Poorly controlled diabetes mellitus: 1. Patient with some chronic axial neck pain and cervicogenic headache complaints with postconcussive syndrome status post a work-related injury from May with acute axial neck pain and cervicogenic headache status post physical therapy intervention yesterday. Patient was offered occipital nerve block at today's visit and attempt to diminish his headache complaint and he was agreeable. Refer to procedure note below. 2. Will resume his gabapentin therapy at 600 mg 3 times daily 3. Will add baclofen 10 mg 3 times daily 4. Hydromorphone was adjusted from 0.5 to 1 mg every 3 hours for as needed pain 5. Toradol 15 mg IV every 6 hours as needed-patient was encouraged utilize Toradol due to anti-inflammatory effect and reserve hydromorphone for pain not well controlled with above 6. Consider Medrol Dosepak--will leave decision making the hospitalist team due to his poorly controlled diabetes mellitus Thank you for allowing us to participate in the care of Mr. Swartz GREATER OCCIPITAL, LESSER OCCIPITAL, AURICULOTEMPORAL, SUPRAORBITAL, AND SUPRATROCHLEAR NERVE BLOCK Diagnosis: Cervicogenic headache Side injected: Bilateral Surgeon: Ruslan Farias PA-C Prior to starting, the Patients diagnosis and the procedure were reviewed with the patient in detail. Possible risks and complications including infection, bleeding, damage to surrounding structures and increased pain were discussed. Alternative therapies were also reviewed. Patients questions were answered and they agreed to proceed. Informed consent was obtained. Allergies and medication list was reviewed. The patient was brought to the procedure room and placed in sitting position. Immediately prior to starting the procedure, a ``time out was conducted with the staff and the patient where the patient was identified, proposed procedure was verified, consent was reviewed and the proper site for the planned procedure was identified. Monitors used included intermittent blood pressure with automated device, continuous pulse oximetry and level of consciousness. Patient was not given any intravenous sedation and constant verbal contact was maintained throughout the procedure. On examination, no signs of skin breakdown or infection were noted at the injection site. The sites were cleansed with DuraPrep. Skeletal landmarks were used to identify the greater occipital, lesser occipital and auriculotemporal nerve on the appropriate side of injection. Using a 25-gauge, 1.5 inch needle 1 cc of a mixture of 6 mL of 0.5% ropivacaine MPF mixed with 20 mg of Kenalog was injected fan like fashion at each site after negative aspiration for blood. Next, utilizing a 27-gauge 0.5 inch needle the supraorbital and supratrochlear nerve were injected with 0.5 cc of the above solution in similar fashion after n egative aspiration for blood bilaterally and equal. Patient tolerated procedure well. No complications were noted and the patient's scalp was cleansed. The patient's vital signs remained stable throughout the procedure. History of Present Illness Reason for Consultation: Intractable neck pain and cervicogenic headache Requesting Physician: Ko Guallpa MD Attending Physician: Blade Booth DO History of Present Illness Mr. Swartz is a 41-year-old white male who was admitted due to acute on chronic axial neck pain. The patient reported acute onset of pain while performing physical therapy when he felt a "pop" in his neck with acute neck pain and contributing to global headache. 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 He has been dealing with chronic neck pain, shoulder pain, cervicogenic headache complaints and postconcussive syndrome. The patient has been following with Dr. Nathan in the outpatient setting and has undergone some "injection therapies" without any significant relief of his neck pain or headache complaints. His headaches originate in the occipital region right greater than left-sided and travel to the supraorbital region peer describes a pounding throbbing characteristic to the headache with some light sensitivity. He denies nausea or vomiting. His significant limitation of range of motion of the neck and shoulders due to discomfort. Describes the pain as aching and episodically sharp. He denies any cervical radicular component to his pain although does report some paresthesias traveling to level the hands. He further reports some difficulties with swallowing and neck tightness as a byproduct of his neck pain. Patient indicates he has been initiated on gabapentin therapy in the outpatient setting which was titrated to 600 mg 3 times daily over the past few weeks. He did un dergo up-to-date imaging of the cervical spine upon this admission with MRI, neck CT and head CT. Patient rates his neck pain and headache at a 4/10 at its best and 10/10 at its worst. He reports minimal relief from use of IV hydromorphone upon this admission. Patient has trialed some muscle relaxer therapy with minimal relief of symptoms. He has insulin-dependent currently with his type 2 diabetes mellitus. He does report prior tolerance of oral steroid therapies. Plan of care discussed with Dr. Sulema Alan. Pain Assessment Full Body Front + Back: 1. Neck/occipital headache 2. Right shoulder 3. Supraorbital headache Pain scale - at its best (0-10): 4 Pain scale - at its worst (0-10): 10 Allergies Allergy/AdvReac Type Severity Reaction Status Date / Time bee venom protein (honey bee) Allergy Severe Anaphylaxis Verified 08/30/21 14:46 pineapple Allergy Severe THROAT Verified 08/30/21 14:46 CLOSES TO THE FRUIT cephalexin Allergy Intermediate HIVES Verified 08/30/21 14:46 menthol Allergy Intermediate WELTS Verified 08/30/21 14:46 Penicillins Allergy Intermediate RASH Verified 08/30/21 14:46 Home Medications Medication Instructions Recorded Confirmed Type hydrocortisone-pramoxine 2.5 %-1 % 1 applic [place] DIRECTED PRN 08/11/18 10/22/21 History rectal cream (Analpram-HC) liraglutide 0.6 mg/0.1 mL (18 mg/3 1.8 mg SUBCUT QPM 08/11/18 10/22/21 History mL) subcutaneous pen injector (Victoza 2-Charles) sertraline 50 mg tablet (Zoloft) 50 mg PO HS 08/11/18 10/22/21 History epinephrine 0.3 mg/0.3 mL 0.3 mg IM Q3H PRN #2 ea 03/19/19 10/22/21 Rx injection, auto-injector (EpiPen 2-Charles) melatonin 1 mg tablet 1 mg PO HS PRN 03/19/19 10/22/21 History metformin 500 mg tablet,extended 1,000 mg PO BIDM 06/02/20 10/22/21 History release 24 hr multivitamin (Daily Multi-Vitamin) 1 tab PO BID 12/21/20 10/22/21 History cyclobenzaprine 10 mg tablet 10 mg PO BID PRN #30 tab 06/30/21 01/25/22 Rx lisinopril 2.5 mg tablet (Zestril) 2.5 mg PO QAM #30 tab 08/29/21 10/22/21 Rx omeprazole 20 mg tablet,delayed 20 mg PO QAM tab 08/30/21 10/22/21 History release potassium citrate 15 mEq (1,620 15 meq PO BID #60 tab 08/30/21 10/22/21 Rx mg) tablet,extended release gabapentin 300 mg tablet 300 mg PO TID 10/22/21 10/22/21 History hydrochlorothiazide 50 mg tablet 25 mg PO DAILY 10/22/21 10/22/21 History ondansetron 8 mg disintegrating 8 mg PO PRN 10/22/21 History tablet potassium chloride 8 mEq 5 meq PO BID 10/22/21 10/22/21 History capsule,extended release Pain History Pain Intensity Pain scale - at its best (0-10): 4 Pain scale - at its worst (0-10): 10 Patient History Medical History (Updated 10/22/21 @ 10:01 by Ruslan Farias PA-C) Cervicogenic headache Depression Diabetes mellitus type 2, controlled GERD (gastroesophageal reflux disease) HTN (hypertension) Hypercalcemia Kidney stones Left flank pain Left ureteral stone Obesity LINDA (obstructive sleep apnea) c pap Poorly controlled diabetes mellitus Renal calculi Renal colic Thrombocytopenia Ureterolithiasis Vitamin D deficiency Surgical History H/O cystoscopy H/O shoulder surgery right H/O wisdom tooth extraction History of open reduction and internal fixation (ORIF) procedure "Finger " Family History Other Family history not known due to adoption Social History Smoking Status: Former smoker Tobacco Type: Cigarettes Smoking End Date: 1998; Second Hand Exposure: No; Hx Alcohol Use: No Hx Substance Use: No Preferred Language: Hong Konger Communication Ability: Effective Aluminum Siding Applicator Required: No Beliefs That Will Affect Care: None marital status: Current Living Situation: Spouse Feels Safe at Home: Yes Assistive Devices: CPAP Physical Exam Physical Exam: General: Patient lying quietly in exam room in no acute distre ss with dark sunglasses in place. Speech and thought process appropriate. Mood and affect appropriate. Cognition intact. Head: Normocephalic and atraumatic. Patient is tender to direct palpation over the greater occipital, lesser occipital, auriculotemporal, supraorbital and supratrochlear nerve bilaterally. ENT: No evidence of nasal or oral mucosal lesions. Mucous membranes are moist. Eyes: Pupils equal round reactive to light. Neck: Supple without adenopathy. Limited range of motion in all planes. Patient is tender over the cervical paravertebral musculature right greater than left-sided extending into the trapezius. Scattered spasm. No definable myoneural trigger points. Patient is tender over the upper cervical facet joints on the right greater than left. Chest: Nontender to palpation of the costosternal junction. Abdomen: Soft and nondistended. No organomegaly. Bowel sounds active. Back/spine: Nontender to palpation over the midline of the thoracolumbar spine. No paravertebral tenderness. Upper extremities: Strength testing 5/5 and equal bilaterally. Noemí sign negative bilaterally. Sensation intact without deficit. No evidence of intrinsic muscular atrophy. Right shoulder with diminished range of motion. Discomfort was appreciated with Neer impingement and Sanchez maneuvering. Lower extremities: Strength testing 5/5 and equal. Sensation intact without deficit. Neurologic: Cranial nerves grossly intact. Ambulatory function not witnessed. Results (Pain Clinic) Diagnostic Review MRI Findings: [place], [place] [phone] Magnetic Resonance Report Patient:GOYO SWARTZ Admit Date:10/21/21 MR#:[id number] Address1:[address] [place] [address] Acct ID:[id number] Address2: Date:1980 [facility] Zip:[place] [address] Age:41 Location:ED Sex:M Room/Bed: Att Phy: Diagnosis:NECK AND JAW PAIN, CAN'T MOVE NECK OR JAW Alma Delia Phy:Shiloh Fontana PA-C Service Date:10/21/21 [facility] Phy: Interpreting Phy:Brian Hackett MDAkrunal Phy: Ordering Phy:Gilberto Watson PA-C cc: ~ MR OF THE CERVICAL SPINE WITHOUT IV CONTRAST CLINICAL HISTORY: neck pain, cannot move, injury in may TECHNIQUE: MRI of the cervical spine is performed utilizing various T1 and T2 sequences in the axial and sagittal planes. IV contrast was not administered for this examination. Comparison: None available at the time of this dictation. FINDINGS: Cervical spine: Vertebral body height and alignment are maintained throughout the cervical spine. The atlantodental articulation appears maintained. No destructive bony lesion is seen. Intervertebral discs: Disks are normal in height and signal. Spinal cord: The cervical spinal cord is normal in morphology and signal intensity. C2-C3: Unremarkable. C3-C4: Unremarkable. C4-C5: Unremarkable. C5-C6: Unremarkable. C6-C7: Unremarkable. C7-T1: Unremarkable. Soft tissues: The paraspinous and prevertebral soft tissues are normal in appearance. Brain parenchyma: Partially imaged brain parenchyma at the skull base is within normal limits. IMPRESSION: No evidence of acute abnormality. No spinal or neuroforaminal stenosis is seen. ACT 112: Negative or not required by law. Electronically signed by: Brian Hackett M.D. 10/21/2021 8:45 PM Dictated:10/21/212042 Transcribed: 10/21/212042 CT Findings: [place], [place] [phone] CT Scan Report Patient:GOYO SWARTZ Admit Date:10/21/21 MR#:[id number] Address1:[address] [place] [address] Acct ID:[id number] Address2: Date:[address] [facility] Zip:[place] [address] Age:41 Location:ED Sex:M Room/Bed: Att Phy: Diagnosis:NECK AND JAW PAIN, CAN'T MOVE NECK OR JAW Alma Delia Phy:Shiloh Fontana PA-C Service Date:10/21/21 [facility] Phy: Interpreting Phy:Brian Hackett MDAdmit Phy: Ordering Phy:Gilberto Watson PA-C cc: ~ CT angio neck with con CLINICAL HISTORY: Headache, neck pain, felt pop in neck, throat TECHNIQUE: Contiguous axial CT images of the head were acquired from the base of the skull to the vertex without intravenous contrast administration. CT angiography of the head and neck was performed following intravenous administration of iodinated contrast. Coronal and sagittal MIPS were obtained from the axial data set and were submitted for review. Automated dose lowering techniques and/or adjustment according to patient size were utilized for this examination. All measurements were calculated based on NASCET criteria. Comparison: None available at the time of this dictation. FINDINGS: CT head: There is no acute intracranial hemorrhage or evidence of acute territorial infarction. No shift of the midline structures, mass effect, or extra-axial abnormalities are shown. Lungs and soft tissues are unremarkable. CTA Neck: A 3 vessel aortic arch is shown. There is no significant atherosclerotic plaque in the aortic arch or the origins of the innominate, left common carotid, and left subclavian arteries. The common carotid, external carotid, cervical segments of the internal carotid arteries, and the cervical segments of the vertebral arteries are patent without hemodynamically significant stenosis. The left vertebral artery is dominant. CTA Head: The anterior and posterior cerebral circulations are patent. No hemodynamically significant stenosis, aneurysm, dissection, or arteriovenous malformation is shown. Atherosclerotic disease is noted. IMPRESSION: 1. No acute intracranial hemorrhage, evidence of acute territorial infarction, or other acute intracranial disease process. 2. No occlusion, hemodynamically significant stenosis, aneurysm, dissection, or arteriovenous malformation in the major intracranial arteries. 3. No occlusion, hemodynamically significant stenosis, or dissection in the major cervical arteries. Assessment of stenosis of the internal carotid arteries is based on NASCET criteria. ACT 112: Negative or not required by law. Electronically signed by: Brian Hackett M.D. 10/21/2021 5:58 PM Dictated:10/21/211745 Transcribed: 10/21/211745
--- NOTE | 2021-10-22 11:11 | Discharge Summary ---
Date of Service October 22, 2021 Admission HPI Per Admitting Provider This is a 41-year-old male with past medical history significant for type 2 diabetes, hyperlipidemia, sleep apnea, CPAP, hypertension, morbid obesity, irritable bowel syndrome, hepatic steatosis, calculus of gallbladder, renal calculi, postconcussive syndrome, thrombocytopenia, splenomegaly, irritability and anger. Presents with severe neck pain. The patient says he fell from a semi-truck at the end of May and he hit on a wall and since then he had a bad concussion and also neck problems. He followed with orthopedics, currently following with pain management received steroid shots, last shot was about 2 weeks ago. He is also following with neurology and started on gabapentin and also getting physical therapy. He is wearing black glasses as lights bothering him since the concussion.Today when he was doing physical therapy he felt the middle of the neck popped up and since then he is not able to move his neck and he states he is also having some difficulty swallowing. His vitals are stable. Denies Shortness of breath.No weakness in the extremities. In the ER, CTA of the head and neck was done, which was unremarkable. Cervical spine MRI was also done, which was also unremarkable. Because of ongoing pain, we were called for admission. The patient is currently resting comfortably, hemodynamically stable. Except for the pain, and not able to move his neck and some difficulty swallowing, no other complaints. He has some mild headache. No blurred visions, no runny nose, no sore throat, no cough. Cucumber chills earlier today. No fevers, no chest pain, no shortness of breath, no nausea, no vomiting, no abdominal pain. Normal bowel and bladder movements. Admission Exam Per Admitting Provider GENERAL: The patient is obese, not in acute distress. VITAL SIGNS: Temperature 36.7, pulse 92, respiratory rate 20, blood pressure 141/98, oxygen 98% on room air. HEENT: Pupils equal, round and reactive to light. Oral mucosa dry. Painful neck movements. CARDIOVASCULAR: S1 and S2 heard, regular rate and rhythm. No murmur, no gallop. RESPIRATORY SYSTEM: Normal AP diameter. No accessory muscle use. No wheezing, no crackles. ABDOMEN: Soft, bowel sounds present, nontender, no distention. CENTRAL NERVOUS SYSTEM: Cranial nerves II through XII are grossly intact, nonfocal. EXTREMITIES: No edema, no erythema. Principal Diagnosis 1. Severe neck pain: 2. History of obesity: 3. Diabetes: 4. Sleep apnea: 5. Hypertension: 6. Postconcussion syndrome: 7. Thrombocytopenia, splenomegaly:. Discharge Exam see below Discharge Data Allergies Allergy/AdvReac Type Severity Reaction Status Date / Time bee venom protein (honey bee) Allergy Severe Anaphylaxis Verified 08/30/21 14:46 pineapple Allergy Severe THROAT Verified 08/30/21 14:46 CLOSES TO THE FRUIT cephalexin Allergy Intermediate HIVES Verified 08/30/21 14:46 menthol Allergy Intermediate WELTS Verified 08/30/21 14:46 Penicillins Allergy Intermediate RASH Verified 08/30/21 14:46 Consultations 10/21/21 22:15 ED Decision to Admit Stat 10/22/21 08:00 Consult Neurology Routine Consult Pain Management Routine Current Diagnoses Type 2 diabetes mellitus with hyperglycemia (10/21/21) Cervicogenic headache (10/21/21) Cervicalgia (10/21/21) Other muscle spasm (10/21/21) Allergies bee venom protein (honey bee) Allergy (Severe, Verified 08/30/21 14:46) Anaphylaxis pineapple Allergy (Severe, Verified 08/30/21 14:46) THROAT CLOSES TO THE FRUIT cephalexin Allergy (Intermediate, Verified 08/30/21 14:46) HIVES menthol Allergy (Intermediate, Verified 08/30/21 14:46) WELTS Penicillins Allergy (Intermediate, Verified 08/30/21 14:46) RASH Height/Weight/Isolation Height 5 ft 10 in Weight 122.7 kg Chemistry 10/21/21 10/22/21 15:43 05:49 Sodium 134 L 134 L Potassium 3.4 L 3.3 L Chloride 97 L 100 Carbon Dioxide 26 27 Anion Gap 11 7 BUN 15 15 Creatinine 0.70 0.71 Glucose 158 H 150 H Ordered Studies 10/21/21 15:20 CT angio head wo/w Stat CT angio neck with con Stat 10/21/21 18:07 MR cervical spine wo con Stat Hospital Course (1) Poorly controlled diabetes mellitus: (2) Cervicogenic headache: (3) Intractable pain: (4) Neck pain: (5) Headache: (6) Spasm of cervical paraspinous muscle: (7) HTN (hypertension): Patient was seen by pain management, had an injection, 600 mg 3 times daily, baclofen 10 mg 3 times daily, Dilaudid 2 mg every 4 as needed pain Toradol 10 mg every 6 as needed pain and a Medrol Dosepak he can follow-up with pain and neurology as an outpatient. ROS-+ Headache, positive jaw pain, positive neck and back pain, no Visual Changes, No Nausea, No Vomiting, No Fever, No Chills, positive neck Pain or Stiffness, No Chest Pain, No Palpitations, No SOB, No SALMON, No Cough, No Sputum, No Wheezing, No Abdominal Pain, No Diarrhea, No Hematemesis, No Hemoptysis, No Unexpected Weight Loss, No Flank pain, No Melena, No Hematochezia, No Frequency, No Urgency, No Burning, No Hematuria, No Rashes, No Diaphoresis. Appetite is Normal, dysphagia Physical Exam Gen-AAO x 3, NAD, Afebrile, morbidly obese Head-NCAT, EOMI, PERRLA, Anicteric Sclera, No Posterior Pharyngeal Erythema Neck-stiff, in pain, no JVD, No Thyromegaly, No Masses, No LAD, No Bruits Lungs-Clear to Auscultation Bilaterally, No Rales, No Rhonchi, No Wheezing, No Crepitus Chest-No S4, +S1, +S2, No S3, No Murmurs, No Rubs, No Gallops, No Ectopy Abdomen-Soft, Bowel Sounds Present, Non Tender, Non Distended, No Hepatomegaly, No Splenomegaly, No Palpable Masses, No Rebound, No Rigidity, No Guarding Musculoskeletal-Full Range of Motion Bilaterally, No CVAT Extremities-No Cyanosis, No Clubbing, No Edema Nuero-Cranial Nerves II-XII grossly intact, Motor WNL, DTRs WNL, Strength WNL, Non Focal Psych-Normal Mood Total Time Total Time Spent Total Time Spent (In Minutes): 45 mins Discharge Plan Discharge Items Patient Disposition: Home - Self-Care Reason For Visit: NECK PAIN Discharge Diagnosis: 1. Severe neck pain: 2. History of obesity: 3. Diabetes: 4. Sleep apnea: 5. Hypertension: 6. Postconcussion syndrome: 7. Thrombocytopenia, splenomegaly:. Condition on Discharge: Good Activity: Resume your previous activity Lifting: None Bathing: No limitations Sexual Activity: When tolerated Exercise/Sports: Gradually increase as tolerated Driving/Machine Use: Resume 3 days after discharge Weightbearing: Full weightbearing Non-emergency contact: Primary Care Provider, Neurologist and Pain Management Call non-emergency contact if: you have any medication questions Follow-up/Referrals: Shelton Mejias MD, FIPP [Physician] - Aron Ham MD [Physician] - Shiloh Fontana PA-C [Primary Care Provider] - Diet: Carb Consistent or DM2 and Heart Healthy Addtl Attending Provider Instructions: Rest Pending Studies at Discharge: No Stand-Alone Forms: My [facility] [employer], Smoking Cessation Medications and DC Order Prescriptions: New acetaminophen 325 mg Tablet 650 mg PO Q4H PRN (Reason: fever or pain) Qty: 100 RF: 0 baclofen 10 mg Tablet 10 mg PO TID Qty: 60 RF: 0 gabapentin 600 mg Tablet 600 mg PO TID Qty: 90 RF: 0 ketorolac 10 mg tablet 10 mg PO Q8H PRN (Reason: pain) 2 Days Qty: 6 RF: 0 methylprednisolone [Medrol (Charles)] 4 mg tablets,dose pack 4 mg PO DAILY Qty: 21 RF: 0 hydromorphone [Dilaudid] 2 mg tablet 2 mg PO Q6H PRN (Reason: pain) Qty: 14 RF: 0 Continued lisinopril [Zestril] 2.5 mg tablet 2.5 mg PO QAM Qty: 30 RF: 5 potassium citrate 15 mEq tablet extended release 15 meq PO BID Qty: 60 RF: 5 metformin 500 mg Tablet Extended Release 24 Hr 1,000 mg PO BIDM RF: 0 hydrocortisone-pramoxine [Analpram-HC] 2.5-1 % Cream 1 applic [place] DIRECTED PRN (Reason: Hemorrhoids) RF: 0 sertraline [Zoloft] 50 mg Tablet 50 mg PO HS RF: 0 Victoza 2-Charles 0.6 mg/0.1 mL (18 mg/3 mL) Pen Injector 1.8 mg SUBCUT QPM RF: 0 omeprazole 20 mg tablet,delayed release (DR/EC) 20 mg PO QAM RF: 0 melatonin 1 mg Tablet 1 mg PO HS PRN (Reason: Sleep) RF: 0 hydrochlorothiazide 50 mg tablet 25 mg PO DAILY RF: 0 potassium chloride 8 mEq Capsule, Extended Release 5 meq PO BID RF: 0 ondansetron [Zofran ODT] 8 mg Tablet,Disintegrating 8 mg PO PRN (Reason: Nausea) RF: 0 multivitamin [Daily Multi-Vitamin] Tablet 1 tab PO BID RF: 0 Discontinued epinephrine [EpiPen 2-Charles] 0.3 mg/0.3 mL auto-injector 0.3 mg IM Q3H PRN (Reason: bronchodilation) Qty: 2 RF: 0 cyclobenzaprine 10 mg Tablet 10 mg PO BID PRN (Reason: muscle spasm) Qty: 30 RF: 0 gabapentin 300 mg Tablet 300 mg PO TID RF: 0 Discharge Orders: Discharge Order (Routine); Ordered 10/22/21 Ordered By: Blade Magaña/Other Patient Handouts: Managing Type 2 Diabetes Admission Data Admit Date/Time: 10/21/21 23:07 Attending Provider: Blade Booth Admit Provider: Ko Guallpa Primary Care Provider: Shiloh Fontana Other Providers: Ko Guallpa ; Aron Ham ; Shelton Mejias
[2021-10-22] MEDS: KETOROLAC TROMETHAMINE 15 MG/ML VIAL IV PRN ×2 (12:01→20:01)
[2021-10-22] MEDS: ONDANSETRON INJ 2 MG/ML 2 ML VIAL IV PRN ×2 (12:08→18:14)
--- NOTE | 2021-10-22 12:13 | Hospitalist Progress Note ---
Date of Service October 22, 2021 Assessment & Plan (1) Poorly controlled diabetes mellitus: (2) Cervicogenic headache: (3) Intractable pain: (4) Neck pain: (5) Headache: (6) Spasm of cervical paraspinous muscle: (7) HTN (hypertension): Plan: Patient was seen by pain management, had an injection, discharged on gabapentin 600 mg 3 times daily, baclofen 10 mg 3 times daily, Dilaudid 2 mg every 4 as needed pain Toradol 10 mg every 6 as needed pain and a Medrol Dosepak he can follow-up with pain and neurology as an outpatient when clinically stable for discharge. Discharge summary and scripts have all been sent. ROS-+ Headache, positive jaw pain, positive neck and back pain, no Visual Changes, No Nausea, No Vomiting, No Fever, No Chills, positive neck Pain or Stiffness, No Chest Pain, No Palpitations, No SOB, No SALMON, No Cough, No Sputum, No Wheezing, No Abdominal Pain, No Diarrhea, No Hematemesis, No Hemoptysis, No Unexpected Weight Loss, No Flank pain, No Melena, No Hematochezia, No Frequency, No Urgency, No Burning, No Hematuria, No Rashes, No Diaphoresis. Appetite is Normal, dysphagia Physical Exam Gen-AAO x 3, NAD, Afebrile, morbidly obese Head-NCAT, EOMI, PERRLA, Anicteric Sclera, No Posterior Pharyngeal Erythema Neck-stiff, in pain, no JVD, No Thyromegaly, No Masses, No LAD, No Bruits Lungs-Clear to Auscultation Bilaterally, No Rales, No Rhonchi, No Wheezing, No Crepitus Chest-No S4, +S1, +S2, No S3, No Murmurs, No Rubs, No Gallops, No Ectopy Abdomen-Soft, Bowel Sounds Present, Non Tender, Non Distended, No Hepatomegaly, No Splenomegaly, No Palpable Masses, No Rebound, No Rigidity, No Guarding Musculoskeletal-Full Range of Motion Bilaterally, No CVAT Extremities-No Cyanosis, No Clubbing, No Edema Nuero-Cranial Nerves II-XII grossly intact, Motor WNL, DTRs WNL, Strength WNL, Non Focal Psych-Normal Mood Admission and Anticipated Discharge Date Admission Date: October 21, 2021 Subjective Patient notes that he still into much pain to go home so I will cancel discharge. He will be seen by speech therapy and continue to be seen by his pain specialist. He said the block is not working Results & Data Results & Data ([facility]) Vital Signs (Past 12 Hours) Vital Signs Temp Pulse Pulse Resp BP Pulse Ox 10/22/21 11:31 36.6 C 87 88 12 119/71 95 10/22/21 10:58 36.6 C 87 12 119/71 95 10/22/21 09:41 36.6 C 84 16 137/89 98 10/22/21 08:00 36.5 C 82 16 125/68 99 10/22/21 05:18 88 20 123/86 95 10/22/21 02:40 69 20 116/68 95 10/22/21 01:35 85 20 141/98 H 97 10/22/21 01:31 85 20 141/98 H 97
[2021-10-23] MEDS ORDERED: diphenhydrAMINE HCL 25 MG/10 ML UDC PO ONE (00:11)
[2021-10-23] MEDS: HYDROmorphone INJ 1 MG/ML SYRINGE IV PRN ×5 (00:36→22:26)
[2021-10-23] MEDS: SODIUM CHLORIDE 0.9% 1000ML 1,000 ML IV SCH ×3 (01:16→18:22)
[2021-10-23] MEDS: KETOROLAC TROMETHAMINE 15 MG/ML VIAL IV PRN ×2 (05:00→11:38)
[2021-10-23 07:20] LABS: Hematocrit (blood only) 40.5 % (42-52); Hemoglobin 13.8 g/dL (14.0-18.0); Mean Corpuscular Hemoglobin 32.6 pg (25-34); Mean Corpuscular Hgb Conc 34.1 g/dL (32-36); Mean Corpuscular Volume 95.7 fL (80-100); RDW Coefficient of Variation 12.8 % (11.5-14.5); RDW Standard Deviation 44.6 fL (36.4-46.3); Red Blood Count 4.23 M/uL (4.7-6.1); White Blood Count 3.88 K/uL (4.8-10.8)
[2021-10-23] MEDS: GABAPENTIN 600 MG TAB PO SCH ×3 (07:30→22:08)
[2021-10-23] MEDS: BACLOFEN 10 MG TAB PO SCH (07:31)
[2021-10-23 07:41] LABS: BUN Creatinine Ratio 13.3 (10-20); Calcium 8.6 mg/dl (8.5-10.1); Creatinine Clr Calc Pharmacy 155.1 ml/min; Est GFR (African American) 125.8 ml/min; Est GFR (Non-African American) 108.5 ml/min; Potassium 3.6 mmol/L (3.5-5.1)
[2021-10-23] MEDS: INSULIN ASPART PER UNIT SC SCH ×4 (07:47→22:06)
[2021-10-23] MEDS: INSULIN GLARGINE SOLOSTAR 100 UNITS/ML 3 ML PEN SC SCH ×2 (07:47→22:10)
[2021-10-23 07:54] LABS: Mean Platelet Volume 10.2 fL (7.4-10.4); Platelet Count 73 K/uL (130-400)
[2021-10-23] MEDS ORDERED: BACLOFEN 10 MG TAB PO STA (09:20)
--- NOTE | 2021-10-23 09:52 | Communication Note ---
Date of Service: October 23, 2021 We have reviewed chart and agree with Pain Mgt note. We will address as outpatient his headaches during scheduled visit. call with any questions concerns. ok to discharge when medically stable. I know this man from a single remote outpatient visit to address his postconcussive headaches and from a more recent telephonic visit in which I increased his gabapentin to the current dose level. I reviewed the recommendations of the pain management team and agree that a trial of baclofen added to the gabapentin would seem reasonable and that a tapering course of steroids either iv or oral is also a reasonable consideration as well if his blood glucose levels can be monitored Neurology really does not have any further suggestions at this point If his pain can be stabilized while inpatient then we can follow him as an outpatient as previously scheduled and he is already followed for his cervical issues by an outpatient pain management service and neurology only addresses the headache component of all of this Aron Ham MD
--- NOTE | 2021-10-23 09:57 | Pain Management Progress Note ---
Date of Service October 23, 2021 Assessment & Plan (1) Neck pain: (2) Cervicogenic headache: (3) Spasm of cervical paraspinous muscle: (4) Poorly controlled diabetes mellitus: Plan: 1. Will defer any further interventional treatment at this time due to lack of efficacy from occipital nerve block. 2. Maintain gabapentin therapy at 600 mg 3 times daily 3. Will increase baclofen to 20 mg 3 times daily 4. Maintain hydromorphone and Toradol without change in dosing 5. Will consult neurology with Dr. Ham who the patient follows with in the outpatient setting 6. Consider Medrol Dosepak--will leave decision making the hospitalist team due to his poorly controlled diabetes mellitus. Possibly consider initiation of TCA therapy at bedtime. 7. Patient could consider evaluation for Botox myoneural injections into the cervical region upon discharge. Pain service will sign off on patient at this time. Admission and Anticipated Discharge Date Admission Date: October 21, 2021 Subjective Mr. Swartz is reporting persisting difficulties with global headache and axial neck pain bilaterally and equal which is minimally improved compared to yesterday. He reported no short-term or sustained improvement after undergoing the greater occipital, lesser occipital, auriculotemporal, supraorbital and supratrochlear nerve block yesterday morning. The patient continues to describe tightness in the neck but has been eating this morning with minimal difficulty swallowing. He reports a feeling of fullness in the throat. His axial neck pain remains aching with minimal improvement in range of motion compared to yesterday. He finds minimal relief from the hydromorphone and Toradol. He is uncertain as to any benefit from baclofen therapy. Patient is rating his current pain a 6-8/10. He describes a throbbing characteristic in the entire head but frequently points to the occipital scalp/upper axial neck with cervicogenic component to the headache. He continues to deny any radicular component to his pain in the upper extremities. He reported no side effects from the nerve block performed yesterday. Plan of care discussed with Dr. Sulema Alan. Pain Assessment Pain Assessment Full Body Front + Back: 1. Global headache 2. Global headache 3. Axial neck pain Pain scale - at its best (0-10): 6 Pain scale - at its worst (0-10): 8 Physical Exam Physical Exam: General: Patient was sitting up talking on the phone and eating breakfast upon entering. He had no dark sunglasses on. Patient was moving his head and neck with improved range of motion compared to yesterday. Head: Normocephalic and atraumatic. Patient remains moderately tender over the greater occipital, lesser occipital, auriculotemporal and supraorbital/supratrochlear nerve regions bilaterally. Some generalized global scalp pain upon palpation reported. Neck: Slightly improvement in range of motion compared to yesterday although range of motion remains somewhat limited with lateral rotation and ear to shoulder maneuvering. Patient tender over the entire cervical paravertebral and trapezius musculature. Scattered spasm. A few small scattered myoneural trigger points. Neurologic: Cranial nerves grossly intact. Ambulation not witnessed.
[2021-10-23] MEDS: BACLOFEN 20 MG TAB PO SCH ×2 (11:36→22:08)
[2021-10-23] MEDS: ONDANSETRON INJ 2 MG/ML 2 ML VIAL IV PRN ×2 (11:38→18:30)
--- NOTE | 2021-10-23 15:58 | Hospitalist Progress Note ---
Date of Service October 23, 2021 Assessment & Plan (1) Cervicogenic headache: (2) Intractable pain: (3) Neck pain: Plan: 41-year-old male with past medical history of type 2 diabetes, hyperlipidemia, sleep apnea, CPAP, hypertension, morbid obesity, irritable bowel syndrome, hepatic steatosis, calculus of gallbladder, renal calculi, postconcussive syndrome, thrombocytopenia, splenomegaly, irritability and anger presented 10/22 with severe neck pain that started after he fell from a semi-truck at the end of May 2021 and hit on the wall and during bad concussion and neck problem. Is being managed for the following: #. Severe neck pain: #. Cervicogenic Headache: The patient had a fall at the end of May and had concussion and also severe neck problems. Follows with pain clinic as an outpatient for neck pain and neurology for headache. Had received steroid shots in the past as an outpatient but stopped because of high sugars. Presented 10/22 with complaint of severe neck pain when he felt neck popped during physical therapy on the day of arrival. Imaging studies are unremarkable Patient has difficulty swallowing and some jaw pain which has been improving lately. Pain management evaluated the patient: s/p occipital nerve block; baclofen 10 tid, hydromorphone 0.5 mg --> 1 mg q3h prn; toradol; and is recommending medrol dose pack Neurology evaluated the patient: no further suggestions c/w Gabapentin; will give a trial of medrol dose pack 10/23 and consult glycemic pharmacy for DM Mx. Needs OP f/u w/ pain and neuro. 2. History of obesity:Counselled. 3. Diabetes:Poorly controlled DM. c/w insulin sliding scale. Continue his home Humulin and monitor the blood sugars. Glycemic pharmacy, pt started medrol dose pack 10/23. 4. Sleep apnea: On CPAP at bedtime. 5. Hypertension: Continue his home medications. 6. Postconcussion syndrome: Follow with neurology. 7. Thrombocytopenia, splenomegaly: Needs followup. 8. Difficulty swallowing? speech evaluation 9. Deep venous thrombosis prophylaxis. Sequential compression devices as the patient has thrombocytopenia. Full code. will need close OP f/u for DM/ ? MTM clinic. Admission and Anticipated Discharge Date Admission Date: October 21, 2021 Subjective Patient seen and examined at bedside for his cervicogenic headache and intractable neck pain. Patient was sitting up in bed, eating his lunch, on room air, NAD, no new acute events overnight. Patient reports no/minimal improvement in his neck pain/stiffness (can't turn his neck/head) but some improvement in his jaw pain. Patient reports ongoing headache. Patient denies chest pain/palpitation/belly pain/acute changes in bowel or bladder habits/other review of symptoms. Physical Exam Physical Exam: GENERAL: Alert and oriented x3. NAD, on RA. HEENT: No pallor, no icterus. Pupils equal, round and reactive to light. Oral mucosa moist. NECK: No JVD, no neck masses. Minimal cervical tenderness upon palpation, not able to turn head/neck. HEART: S1 and S2 heard. Regular rate and rhythm. No murmur, no gallop. RESPIRATORY SYSTEM: Normal AP diameter. No accessory muscle use. No wheezing, no crackles. ABDOMEN: Soft, bowel sounds present, nontender, no distention. CENTRAL NERVOUS SYSTEM: No facial droop. Speech is clear. Obeys simple commands. Moves extremities. EXTREMITIES: No edema, no erythema seen. Results & Data Results & Data ([facility]) Vital Signs (Past 12 Hours) Vital Signs Temp Pulse Pulse Resp BP Pulse Ox 10/23/21 08:03 70 10/23/21 07:53 36.7 C 72 18 113/73 97
[2021-10-23] MEDS ORDERED: PHARMACY GLYCEMIC MGMT CONSULT PRN (16:27)
[2021-10-23] MEDS ORDERED: methylPREDNISolone 4 MG TAB, 6 DAY TAPER PO SCH (16:30)
[2021-10-23] MEDS ORDERED: HYDROCORTISONE PRAMOXINE PR PRN (16:31)
[2021-10-23] MEDS ORDERED: MELATONIN 3 MG TAB PO PRN (16:31)
[2021-10-23] MEDS ORDERED: methylPREDNISolone 4 MG TAB PO ONE (17:45)
[2021-10-23] MEDS ORDERED: methylPREDNISolone 4 MG TAB PO SCH (21:00)
[2021-10-23] MEDS ORDERED: INSULIN GLARGINE SOLOSTAR 100 UNITS/ML 3 ML PEN SC SCH (21:00)
[2021-10-23] MEDS: POTASSIUM CITRATE 10 MEQ TAB PO SCH (22:08)
[2021-10-23] MEDS: MULTIVITAMIN TAB PO SCH (22:11)
[2021-10-23] MEDS: SERTRALINE HCL 50 MG TABLET PO SCH (22:12)
[2021-10-23] MEDS: PANTOprazole 40 MG TAB PO SCH (22:12)
[2021-10-24] MEDS ORDERED: diphenhydrAMINE 50 MG/ML VIAL IV STA (00:34)
[2021-10-24] MEDS: SODIUM CHLORIDE 0.9% 1000ML 1,000 ML IV SCH ×3 (00:58→18:15)
[2021-10-24] MEDS: KETOROLAC TROMETHAMINE 15 MG/ML VIAL IV PRN ×2 (04:33→10:00)
[2021-10-24] MEDS: methylPREDNISolone 4 MG TAB PO SCH ×3 (06:41→18:16)
[2021-10-24 07:12] LABS: Hematocrit (blood only) 40.6 % (42-52); Hemoglobin 13.9 g/dL (14.0-18.0); Mean Corpuscular Hemoglobin 32.7 pg (25-34); Mean Corpuscular Hgb Conc 34.2 g/dL (32-36); Mean Corpuscular Volume 95.5 fL (80-100); RDW Coefficient of Variation 12.7 % (11.5-14.5); RDW Standard Deviation 43.7 fL (36.4-46.3); Red Blood Count 4.25 M/uL (4.7-6.1)
[2021-10-24 07:14] LABS: Mean Platelet Volume 10.7 fL (7.4-10.4); Platelet Count 65 K/uL (130-400)
[2021-10-24] MEDS: POTASSIUM CITRATE 10 MEQ TAB PO SCH ×2 (09:19→20:49)
[2021-10-24] MEDS: BACLOFEN 20 MG TAB PO SCH ×3 (09:19→20:47)
[2021-10-24] MEDS: MULTIVITAMIN TAB PO SCH ×2 (09:20→21:03)
[2021-10-24] MEDS: hydroCHLOROthiazide 25 MG TAB PO SCH (09:20)
[2021-10-24] MEDS: GABAPENTIN 600 MG TAB PO SCH ×3 (09:20→20:50)
[2021-10-24] MEDS: lisinopril 2.5 MG TAB PO SCH (09:20)
[2021-10-24] MEDS: PANTOprazole 40 MG TAB PO SCH ×2 (09:21→20:47)
[2021-10-24] MEDS: POTASSIUM CHLORIDE 10 MEQ TABCR PO SCH (09:21)
[2021-10-24] MEDS: INSULIN GLARGINE SOLOSTAR 100 UNITS/ML 3 ML PEN SC SCH ×2 (09:22→20:45)
[2021-10-24] MEDS: INSULIN ASPART PER UNIT SC SCH ×4 (09:24→20:41)
--- NOTE | 2021-10-24 14:31 | Pharmacy Report ---
Pharmacy Glycemic Short Note 2 - Date of Service October 24, 2021 - Glycemic Short BSG Results (Last 24 hours): 10/23/21 10/23/21 10/24/21 16:26 20:08 07:36 POC Glucose 143 H 169 H 181 H 10/24/21 11:32 POC Glucose 176 H OUTPATIENT ANTIDIABETIC REGIMEN: * Victoza * Metformin ASSESSMENT: * Mr Swartz is a 41 y/o M with a PMH of T2DM who presents with neck pain. * Patient started a Medrol dose pack yesterday with 16 mg with dinner and 8 mg HS. Today's dose is 4 mg @ 0. 13, 18 and 8 mg HS. * BSGs yesterday were [phone] mg/dl and today are 181-176 mg/dL. * Patient received 30 units yesterday with 16 units of basal and 14 units of bolus. * Lantus increased slightly yesterday. Continue. * Tighten CR to 6 (weight-based stress of 3). * Hold outpatient agents PLAN FOR INPATIENT GLYCEMIC CONTROL: * Hold outpatient oral diabetes medications * Basal insulin * Lantus 9 units SQ BID * Bolus insulin * NovoLog per scale ACHS or Q6hrs while NPO * Goal Range: Low 110 mg/dL - High 140 mg/dL * Correction Factor: 25 mg/dL/unit * Nutritional / Prandial insulin per carb ratio of 1 unit per 6 grams CHO consumed PLAN FOR DISCHARGE: * Patient follows with MTM clinic in [place]. Continue there.
[2021-10-24] MEDS: HYDROmorphone INJ 1 MG/ML SYRINGE IV PRN ×2 (14:41→20:40)
[2021-10-24] MEDS ORDERED: CYCLOBENZAPRINE HCL 10 MG TAB PO STA (17:16)
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
[2021-10-24] MEDS: SERTRALINE HCL 50 MG TABLET PO SCH (20:50)
[2021-10-24] MEDS ORDERED: methylPREDNISolone 4 MG TAB PO SCH (21:00)
[2021-10-24] MEDS ORDERED: diphenhydrAMINE HCL 25 MG/10 ML UDC PO ONE (23:05)
[2021-10-25] MEDS: SODIUM CHLORIDE 0.9% 1000ML 1,000 ML IV SCH ×2 (01:48→09:49)
[2021-10-25] MEDS: methylPREDNISolone 4 MG TAB PO SCH ×2 (06:28→12:28)
[2021-10-25 07:02] LABS: Hematocrit (blood only) 40.9 % (42-52); Hemoglobin 13.8 g/dL (14.0-18.0); Mean Corpuscular Hemoglobin 32.6 pg (25-34); Mean Corpuscular Hgb Conc 33.7 g/dL (32-36); Mean Corpuscular Volume 96.7 fL (80-100); RDW Standard Deviation 45.5 fL (36.4-46.3); Red Blood Count 4.23 M/uL (4.7-6.1); White Blood Count 5.04 K/uL (4.8-10.8)
[2021-10-25 07:04] LABS: Mean Platelet Volume 10.1 fL (7.4-10.4); Platelet Count 73 K/uL (130-400)
[2021-10-25 07:31] LABS: BUN Creatinine Ratio 15.2 (10-20); Calcium 8.8 mg/dl (8.5-10.1); Creatinine Clr Calc Pharmacy 163.3 ml/min; Est GFR (African American) 128.4 ml/min; Est GFR (Non-African American) 110.8 ml/min; Magnesium 1.9 mg/dl (1.7-2.4); Phosphorus 3.2 mg/dl (2.5-4.9); Potassium 3.9 mmol/L (3.5-5.1)
[2021-10-25] MEDS: INSULIN ASPART PER UNIT SC SCH ×2 (09:14→12:29)
[2021-10-25] MEDS: MULTIVITAMIN TAB PO SCH (09:15)
[2021-10-25] MEDS: PANTOprazole 40 MG TAB PO SCH (09:15)
[2021-10-25] MEDS: lisinopril 2.5 MG TAB PO SCH (09:15)
[2021-10-25] MEDS: GABAPENTIN 600 MG TAB PO SCH ×2 (09:16→15:14)
[2021-10-25] MEDS: BACLOFEN 20 MG TAB PO SCH ×2 (09:16→13:34)
[2021-10-25] MEDS: POTASSIUM CHLORIDE 10 MEQ TABCR PO SCH (09:16)
[2021-10-25] MEDS: INSULIN GLARGINE SOLOSTAR 100 UNITS/ML 3 ML PEN SC SCH (09:17)
[2021-10-25] MEDS: POTASSIUM CITRATE 10 MEQ TAB PO SCH (09:17)
[2021-10-25] MEDS: hydroCHLOROthiazide 25 MG TAB PO SCH (09:18)
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
[2021-10-25] MEDS ORDERED: INSULIN GLARGINE SOLOSTAR 100 UNITS/ML 3 ML PEN SC SCH (21:00)
[2021-10-26] MEDS ORDERED: methylPREDNISolone 4 MG TAB PO SCH (07:00)
[2021-10-27] MEDS ORDERED: methylPREDNISolone 4 MG TAB PO SCH (07:00)
[2021-10-28] MEDS ORDERED: methylPREDNISolone 4 MG TAB PO SCH (07:00)
== END 2021-10-25 15:51 | disposition home or self-care (01) | DRG 948 ==
LOC: ED 14:37 → SUATTDRO 23:07 → EDINP 23:07 → 2N 10-22 14:12
DX: D69.6 Thrombocytopenia, unspecified; E87.6 Hypokalemia; E78.5 Hyperlipidemia, unspecified; Z88.8 Allergy status to other drugs, medicaments and biological substances; Z68.41 Body mass index [BMI] 40.0-44.9, adult; Z88.1 Allergy status to other antibiotic agents; G47.30 Sleep apnea, unspecified; Y93.H3 Activity, building and construction; F07.81 Postconcussional syndrome; Z79.899 Other long term (current) drug therapy; I10 Essential (primary) hypertension; Z91.018 Allergy to other foods; Z88.0 Allergy status to penicillin; G44.86 Cervicogenic headache; Z79.4 Long term (current) use of insulin; Z20.822 Contact with and (suspected) exposure to COVID-19; Z91.030 Bee allergy status; M54.2 Cervicalgia; R16.1 Splenomegaly, not elsewhere classified; V89.9XXS Person injured in unspecified vehicle accident, sequela; R13.10 Dysphagia, unspecified; G89.29 Other chronic pain; M62.830 Muscle spasm of back; Z79.84 Long term (current) use of oral hypoglycemic drugs; Y99.0 Civilian activity done for income or pay; K58.9 Irritable bowel syndrome, unspecified; Z87.891 Personal history of nicotine dependence; E11.65 Type 2 diabetes mellitus with hyperglycemia; E66.01 Morbid (severe) obesity due to excess calories; G89.11 Acute pain due to trauma; T14.90XS Injury, unspecified, sequela

== ENCOUNTER 2024-02-19 05:54 | Inpatient (IN) ==
[2024-02-19] MEDS: SODIUM CHLORIDE 0.9% 1,000 ML IV STA (06:44)
[2024-02-19] MEDS: ONDANSETRON INJ 2 MG/ML 2 ML VIAL IV STA ×2 (06:44→15:40)
[2024-02-19 06:54] LABS: Basophils # (auto) 0.02 K/uL (0.00-0.20); Basophils % (auto) 0.6 %; Eosinophils # (auto) 0.13 K/uL (0.00-0.50); Hematocrit (blood only) 39.1 % (42.0-52.0); Hemoglobin 13.3 g/dl (14.0-18.0); Immature Granulocytes # (auto) 0.02 K/uL (0.01-0.20); Immature Granulocytes % (auto) 0.6 %; Lymphocytes # (auto) 1.11 K/uL (1.20-3.40); Lymphocytes % (auto) 33.8 %; Mean Corpuscular Hemoglobin 34.1 pg (25.0-34.0); Mean Corpuscular Volume 100.3 fL (80.0-100.0); Mean Platelet Volume 10.3 fL (9.4-12.4); Monocytes # (auto) 0.29 K/uL (0.11-0.59); Monocytes % (auto) 8.8 %; Neutrophils # (auto) 1.71 K/uL (1.40-6.50); Neutrophils % (auto) 52.2 %; Platelet Count 67 K/uL (130-400); RDW Coefficient of Variation 12.4 % (11.5-14.5); RDW Standard Deviation 45.7 fL (36.4-46.3); White Blood Count 3.28 K/ul (4.8-10.8)
[2024-02-19] MEDS: KETOROLAC TROMETHAMINE 15 MG/ML VIAL IV ONE (07:01)
[2024-02-19 07:10] LABS: Alanine Aminotransferase 26 U/L (7-52); Albumin Globulin Ratio 1.2 (0.9-2); Albumin Level 3.9 gm/dl (3.4-5.0); Alkaline Phosphatase 82 U/L (34-104); Anion Gap 6 (3-11); Aspartate Aminotransferase 28 U/L (13-39); BUN Creatinine Ratio 12.7 (10-20); Bilirubin,Total 0.5 mg/dl (0.2-1.0); Blood Urea Nitrogen 13 mg/dl (6-23); Calcium 9.5 mg/dl (8.6-10.3); Carbon Dioxide 30 mmol/L (21-32); Chloride 104 mmol/L (98-107); Est GFR (African American) 102.4 ml/min; Est GFR (Non-African American) 88.4 ml/min; Globulin 3.3 gm/dl (2.5-4.0); Glucose 171 mg/dl (70-99(Fasting)); Lipase 48 U/L (11-82); Potassium 4.1 mmol/L (3.5-5.1); Sodium 140 mmol/L (136-145); Total Protein 7.2 gm/dl (6.0-8.3)
--- NOTE | 2024-02-19 07:22 | Emergency Department Note ---
Impression & Plan Renal colic on right side, Acquired pancytopenia ED Provider Note NAME: GOYO FARMER AGE: 44 SEX: M : 1980 ARRIVES VIA: Walk-In INFORMANT: Patient, ED PROVIDER(S): Susie Roman MD CHIEF COMPLAINT: Left flank pain HPI: This is a 44-year-old male here for right flank pain the patient states that he has a long send history of recurrent kidney stones. He notes that the pain started on Thursday, 2 days ago with a mild pain that suddenly worsened this morning when he went to the bathroom. He notes that this current pain feels like previous kidney stone pain but the pain for 2 days ago felt somewhat different because it was last severe. He notes that he has had dribbling of urine. No fevers or chills. No hematuria. ROS: See above HPI for pertinent positives & negatives. A total of 10 systems reviewed and were otherwise negative. PHYSICAL EXAMINATION: General: resting comfortably in no acute distress Head: Normocephalic and atraumatic Eyes: Normal inspection, extraocular muscles intact Ear, nose, throat: Normal external exam Neck: Normal range of motion Respiratory: lungs clear to auscultation bilaterally Cardiovascular: Regular rate/rhythm, no murmur GI: soft, nontender, no guarding or rebound Extremities: nontender, moves all extremities Neuro: The patient awake and alert, appropriately conversive, no focal deficits, symmetric faces Skin: Warm, dry, and intact MEDICAL DECISION MAKING: This is a 44-year-old male presented for right flank pain. Consider renal colic, renal abscess, pyelonephritis, diverticulitis, SBO. Will do blood work, urinalysis and CT without contrast to look for kidney stone. -Labs reviewed showing pancytopenia at this time. Otherwise patient is electrolytes are within normal limits. His LFTs and lipase are reassuring. - CT of the abdomen/pelvis does reveal a millimeter kidney stone -Patient states that he is unable to urinate due to significant pain. He does have over 200 cc of urine in the bladder. Will require straight cath at this time as must rule out UTI -After straight cath, patient's urinalysis reveals no signs of UTI. However he is still been unable to urinate and he is having escalating pain. He is worse received 3x opioid dose as well as Toradol without relief of pain. -Discussed with urology at initially who states patient is controlled in pain he can be discharged home however his pain currently is not controlled. Will admit for further workup. Differential diagnosis: See above ER treatment provided: See below Diagnostics interpreted by me: ECG: None Cardiac Monitoring: An order was placed for continuous cardiac monitoring. The monitor shows a rate of 99 with sinus rhythm. Laboratory studies: As stated above and show below. Imaging studies: See below. Past Med/Surg History Problem List (Updated 02/19/24 @ 14:05 by Susie Roman MD) Acquired pancytopenia (Acute) Renal colic on right side (Acute) Post-traumatic headache Carpal tunnel syndrome on both sides Cervical radicular pain Hyperparathyroidism Paresthesia Erectile dysfunction Lower urinary tract symptoms (LUTS) Vitamin B 12 deficiency Abnormal brain MRI Diplopia Postconcussive syndrome Chronic migraine Occipital neuralgia Poorly controlled diabetes mellitus Cervicogenic headache Intractable pain (Acute) Neck pain (Acute) Headache (Acute) Spasm of cervical paraspinous muscle (Acute) Hypercalcemia Vitamin D deficiency Finger fracture, left (Acute) UTI (urinary tract infection) (Acute) Kidney stone (Acute) Transaminitis (Acute) Thrombocytopenia due to 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 Bilateral nephrolithiasis Obesity Thrombocytopenia Diabetes (Chronic) HTN (hypertension) (Chronic) LINDA (obstructive sleep apnea) (Chronic) c pap GERD (gastroesophageal reflux disease) (Chronic) Depression (Chronic) Medical History Ureterolithiasis Renal colic Left flank pain Renal calculi Left ureteral stone Family History Other Family history not known due to adoption Social History Smoking Status: Never smoker Tobacco Type: Cigarettes Second Hand Exposure: No; Do You Dip or Chew Tobacco: No; Hx Alcohol Use: Yes Alcohol type: beer Alcohol Intake Frequency: Monthly or Less Hx Substance Use: No Preferred Language: Nepali Communication Ability: Effective Visual Impairment: No Limitations Hearing Ability: Normal Senior Technical Support Engineer Required: No Beliefs That Will Affect Care: None marital status: Current Living Situation: Spouse current occupational status: disabled How many Children do You have: 2 Feels Safe at Home: Yes Childhood Exposure to Second-Hand Smoke: No Diet: regular caffeine: Yes Assistive Devices: None Allergies Allergies Allergy/AdvReac Type Severity Reaction Status Date / Time bee venom protein (honey bee) Allergy Severe Anaphylaxis Verified 02/18/24 14:41 pineapple Allergy Severe THROAT Verified 02/18/24 14:41 CLOSES TO THE FRUIT cephalexin Allergy Intermediate HIVES Verified 02/18/24 14:41 menthol Allergy Intermediate WELTS Verified 02/18/24 14:41 Penicillins Allergy Intermediate Hives Verified 02/18/24 14:41 sulfamethoxazole AdvReac Severe SOB and Verified 02/18/24 14:41 [From Bactrim] Headache trimethoprim [From Bactrim] AdvReac Severe SOB and Verified 02/18/24 14:41 Headache Home Meds Home Medications Medication Instructions Recorded Confirmed metformin 500 mg tablet,extended 1,000 mg PO BIDM 05/01/22 02/19/24 release 24 hr omeprazole 20 mg tablet,delayed 20 mg PO DAILY 05/01/22 02/19/24 release propranolol 80 mg capsule,24 160 mg PO DAILY 05/01/22 02/19/24 hr,extended release tizanidine 4 mg tablet 8 mg PO HS 05/01/22 02/19/24 riboflavin (vitamin B2) 400 mg 400 mg PO DAILY 05/07/22 02/19/24 tablet duloxetine 60 mg capsule,delayed 30 mg PO DAILY 11/20/22 02/19/24 release (Cymbalta) magnesium 250 mg tablet 550 mg PO DAILY 11/20/22 02/19/24 semaglutide 1 mg/dose (4 mg/3 mL) 2 mg subcut AWAN 01/19/23 02/19/24 subcutaneous pen injector (Ozempic) insulin NPH-regular 70-30 U-100 See Rx Instructions subcut .COMPLEX 06/04/23 02/19/24 insulin 100 unit/mL subcutaneous pen (Novolin 70-30 FlexPen U-100 Insulin) melatonin 1 mg tablet 10 mg PO HS PRN Sleep 06/04/23 02/19/24 lisinopril 20 mg tablet 20 mg PO DAILY 02/19/24 02/19/24 Previous Rx's Medication Instructions Recorded syringe with needle 3 mL 23 x 1" #50 ea 07/01/22 (BD SafetyGlide Syringe) prochlorperazine maleate 10 mg 10 mg PO BID PRN nausea and 03/18/23 tablet vomiting 30 days #20 tabs tadalafil 5 mg tablet 10 mg (2 x 5 mg) PO DAILY PRN 04/13/23 sexual activity #14 tabs cyanocobalamin (vitamin B-12) 1,000 mcg IM MONTHLY 30 days #1 ea 07/02/23 1,000 mcg/mL injection kit zavegepant 10 mg/actuation nasal 1 spray intranasal ONCE PRN 07/12/23 spray (Zavzpret) migraine headache 30 days #6 ea digital therapeutic,PRIYANK device #1 ea 08/05/23 tamsulosin 0.4 mg capsule 0.4 mg PO DAILY #90 caps 10/28/23 divalproex 500 mg tablet,delayed 500 mg PO BID 90 days #180 tabs 11/02/23 release hydrochlorothiazide 25 mg tablet 25 mg PO DAILY #90 tabs 11/02/23 potassium citrate 15 mEq (1,620 15 meq PO BID #180 tabs 11/02/23 mg) tablet,extended release onabotulinumtoxinA 200 unit See Rx Instructions IM .COMPLEX #1 12/02/23 solution for injection (Botox) ea rimegepant 75 mg disintegrating 75 mg PO Q OTHER DAY migraine 02/18/24 tablet (Nurtec ODT) headache 30 days #15 tabs Results & Data (ED) Vital Signs Vital Signs - 24 hr 02/19/24 05:58 02/19/24 06:27 02/19/24 07:30 Temperature 36.2 C L Temperature Source Temporal Artery Scan Pulse Rate 80 84 Pulse Rate [Apical] Pulse Rate from SpO2 Sensor 83 Respiratory Rate 20 15 Blood Pressure 148/93 H Blood Pressure [Left Arm] Blood Pressure Mean 111 Blood Pressure Mean [Left Arm] Pulse Oximetry 100 97 Oxygen Delivery Method Room Air Room Air Sepsis Recent Fever Within 48 Hours No Sepsis New/Unexplained Change in Mental Status No Sepsis Action Taken by Nursing No Action Required 02/19/24 07:30 02/19/24 08:00 02/19/24 08:00 Temperature Temperature Source Pulse Rate 80 Pulse Rate [Apical] Pulse Rate from SpO2 Sensor 81 Respiratory Rate 12 Blood Pressure 110/80 109/71 Blood Pressure [Left Arm] Blood Pressure Mean 87 78 Blood Pressure Mean [Left Arm] Pulse Oximetry 96 Oxygen Delivery Method Sepsis Recent Fever Within 48 Hours Sepsis New/Unexplained Change in Mental Status Sepsis Action Taken by Nursing 02/19/24 08:26 02/19/24 08:30 02/19/24 08:30 Temperature Temperature Source Pulse Rate 81 81 Pulse Rate [Apical] Pulse Rate from SpO2 Sensor 81 Respiratory Rate 15 Blood Pressure 113/70 Blood Pressure [Left Arm] Blood Pressure Mean 81 Blood Pressure Mean [Left Arm] Pulse Oximetry 96 Oxygen Delivery Method Sepsis Recent Fever Within 48 Hours Sepsis New/Unexplained Change in Mental Status Sepsis Action Taken by Nursing 02/19/24 09:00 02/19/24 09:00 02/19/24 09:30 Temperature Temperature Source Pulse Rate 84 Pulse Rate [Apical] Pulse Rate from SpO2 Sensor 83 Respiratory Rate 12 Blood Pressure 113/70 123/81 Blood Pressure [Left Arm] Blood Pressure Mean 81 84 Blood Pressure Mean [Left Arm] Pulse Oximetry 97 Oxygen Delivery Method Room Air Sepsis Recent Fever Within 48 Hours Sepsis New/Unexplained Change in Mental Status Sepsis Action Taken by Nursing 02/19/24 09:30 02/19/24 10:00 02/19/24 10:00 Temperature Temperature Source Pulse Rate 86 88 Pulse Rate [Apical] Pulse Rate from SpO2 Sensor 87 91 H Respiratory Rate 14 20 Blood Pressure 115/73 Blood Pressure [Left Arm] Blood Pressure Mean 84 Blood Pressure Mean [Left Arm] Pulse Oximetry 98 96 Oxygen Delivery Method Sepsis Recent Fever Within 48 Hours Sepsis New/Unexplained Change in Mental Status Sepsis Action Taken by Nursing 02/19/24 10:30 02/19/24 11:42 02/19/24 12:27 Temperature Temperature Source Pulse Rate 74 99 H Pulse Rate [Apical] 69 Pulse Rate from SpO2 Sensor Respiratory Rate 19 18 Blood Pressure 130/87 Blood Pressure [Left Arm] 124/78 Blood Pressure Mean 101 Blood Pressure Mean [Left Arm] 93 Pulse Oximetry 96 99 Oxygen Delivery Method Room Air Sepsis Recent Fever Within 48 Hours Sepsis New/Unexplained Change in Mental Status Sepsis Action Taken by Nursing Laboratory Data 02/19/24 06:30 02/19/24 06:30 Lab Results 02/19/24 02/19/24 Range/Units 06:30 10:35 WBC 3.28 L (4.8-10.8) K/ul RBC 3.90 L (4.70-6.10) M/uL Hgb 13.3 L (14.0-18.0) g/dl Hct 39.1 L (42.0-52.0) % MCV 100.3 H (80.0-100.0) fL MCH 34.1 H (25.0-34.0) pg MCHC 34.0 (32.0-36.0) g/dL RDW Std Deviation 45.7 (36.4-46.3) fL RDW Coeff of Flavio 12.4 (11.5-14.5) % Plt Count 67 L (130-400) K/uL MPV 10.3 (9.4-12.4) fL Immature Gran % (Auto) 0.6 % Neut % (Auto) 52.2 % Lymph % (Auto) 33.8 % [place] % (Auto) 8.8 % Eos % (Auto) 4.0 % Baso % (Auto) 0.6 % Neut # (Auto) 1.71 (1.40-6.50) K/uL Lymph # (Auto) 1.11 L (1.20-3.40) K/uL [place] # (Auto) 0.29 (0.11-0.59) K/uL Eos # (Auto) 0.13 (0.00-0.50) K/uL Baso # (Auto) 0.02 (0.00-0.20) K/uL Immature Gran # (Auto) 0.02 (0.01-0.20) K/uL Sodium 140 (136-145) mmol/L Potassium 4.1 (3.5-5.1) mmol/L Chloride 104 (98-107) mmol/L Carbon Dioxide 30 (21-32) mmol/L Anion Gap 6 (3-11) BUN 13 (6-23) mg/dl Creatinine 1.02 (0.6-1.4) mg/dl Est Cr Clr Drug Dosing Not Reportable Est GFR ( Amer) 102.4 ml/min Est GFR (Non-Af Amer) 88.4 ml/min BUN/Creatinine Ratio 12.7 (10-20) Glucose 171 H (70-99(Fasting)) mg/dl Calcium 9.5 (8.6-10.3) mg/dl Total Bilirubin 0.5 (0.2-1.0) mg/dl AST 28 (13-39) U/L ALT 26 (7-52) U/L Alkaline Phosphatase 82 (34-104) U/L Total Protein 7.2 (6.0-8.3) gm/dl Albumin 3.9 (3.4-5.0) gm/dl Globulin 3.3 (2.5-4.0) gm/dl Albumin/Globulin Ratio 1.2 (0.9-2) Lipase 48 (11-82) U/L Urine Color Dark Yellow Urine Appearance Clear (Clear) Urine pH 6.0 (4.5-7.5) Ur Specific [place] 1.024 (1.000-1.030) Urine Protein 1+ H (Negative) Urine Glucose (UA) Negative (Negative) Urine Ketones Trace H (Negative) Urine Blood 1+ H (Negative) Urine Nitrite Negative (Negative) Urine Bilirubin 1+ H (Negative) Urine Urobilinogen Negative (Negative) Ur Leukocyte Esterase Negative (Negative) Urine WBC (Auto) 0-5 (0-5) /hpf Urine RBC (Auto) >20 H (0-2) /hpf U Hyaline Cast (Auto) 3-5 H (0-2) /lpf U Epithel Cells (Auto) 0-2 (0-2) /hpf Urine Bacteria (Auto) 1+ H (None Seen) Urine Mucus Present A (None Prsent) Administered Medications Sodium Chloride (Nss) 1,000 mls @ 200 mls/hr IV .Q5H ITTA Stop: 03/20/24 13:29 Last Admin: 02/19/24 13:51 Dose: 200 mls/hr Documented By: PAULO Discontinued Medications Hydromorphone HCl (Hydromorphone Inj 0.5 Mg/0.5 Ml Syr) 0.5 mg IV NOW STA Stop: 02/19/24 12:18 Last Admin: 02/19/24 12:22 Dose: 0.5 mg Documented By: PAULO Hydromorphone HCl (Hydromorphone Inj 0.5 Mg/0.5 Ml Syr) 0.5 mg IV NOW STA Stop: 02/19/24 13:01 Last Admin: 02/19/24 13:02 Dose: 0.5 mg Documented By: PAULO Sodium Chloride (Nss) 1,000 mls @ 999 mls/hr IV .Q1H1M STA Stop: 02/19/24 07:26 Last Infusion: 02/19/24 08:30 Dose: Infused Documented By: Admin: 02/19/24 06:44 Dose: 999 mls/hr Documented By: ARCHIE Ketorolac Tromethamine (Ketorolac Tromethamine 15 Mg/Ml Vial) 15 mg IV NOW ONE Stop: 02/19/24 06:52 Last Admin: 02/19/24 07:01 Dose: 15 mg Documented By: ASA Ketorolac Tromethamine (Ketorolac 30 Mg/Ml Vial) 30 mg IV NOW ONE Stop: 02/19/24 13:31 Last Admin: 02/19/24 13:51 Dose: 30 mg Documented By: PAULO Morphine Sulfate (Morphine Sulfate 4 Mg/Ml 1 Ml Carp\\Vial) 4 mg IV NOW STA Stop: 02/19/24 07:30 Last Admin: 02/19/24 07:47 Dose: 4 mg Documented By: ASA Morphine Sulfate (Morphine Sulfate 4 Mg/Ml 1 Ml Carp\\Vial) 4 mg IV NOW STA Stop: 02/19/24 08:52 Last Admin: 02/19/24 09:02 Dose: 4 mg Documented By: ASA Ondansetron HCl (Ondansetron Inj 2 Mg/Ml 2 Ml Vial) 4 mg IV NOW STA Stop: 02/19/24 06:27 Last Admin: 02/19/24 06:44 Dose: 4 mg Documented By: ARCHIE Imaging Data Radiologist's Impression: Abdomen/Pelvis CT 02/19/24 06:[address] WITHOUT CONTRAST CT DOSE: 1437.03 mGy.cm HISTORY: Acute right-sided flank pain Kidney stone, recurrent TECHNIQUE: Multiaxial CT images of the abdomen and pelvis were performed without contrast. A dose lowering technique was utilized adhering to the principles of ALARA. COMPARISON STUDY: CT 07/22/2022 FINDINGS: Clear lung bases. No free air. The spleen is enlarged, 17 cm. The liver is enlarged, 24 cm. Hepatic steatosis with cirrhosis redemonstrated. No hepatic mass identified. Unremarkable spleen and adrenal glands. Total versus complete cholecystectomy, likely with residual gallstones noted within the castillo hepatis. Unremarkable left kidney. Mild to moderate right-sided hydronephrosis secondary to an obstructing 7 x 5 x 8 mm calculus within the right ureteropelvic junction. Reactive perinephric stranding. Decompressed urinary bladder with wall thickening. 11 mm right retrocrural lymph node on image 67 series 3 is nonspecific. No bowel obstruction or bowel wall thickening. Normal appendix. Unremarkable soft tissues. No acute fracture. IMPRESSION: 1. Mild to moderate right-sided hydronephrosis secondary to an obstructing 8 mm calculus of the ureteropelvic junction. 2. Hepatosplenomegaly with hepatic steatosis and cirrhosis. 3. Postoperative changes suggestive of partial cholecystectomy with cholelithiasis. Correlate with surgical history. 4. Normal appendix. ACT 112: Negative or not required by law. The above report was generated using voice recognition software. It may contain grammatical, syntax or spelling errors. Electronically signed by: Keron Manriquez M.D. 02/19/2024 7:38 AM Discharge Plan Visit Data Chief Complaint: Kidney Stone Stated Complaint: KIDNEY STONE ED Provider: Susie Roman Discharge Problem: Renal colic on right side, Acquired pancytopenia Forms Stand Alone Forms: [facility] [employer] Prescriptions Prescriptions: No Action riboflavin (vitamin B2) 400 mg tablet 400 mg PO DAILY (DME) BD SafetyGlide Syringe 3 mL 23 x 1" syringe See Rx Instructions .ROUTE .MEDSUPPLY Qty: 50 0RF Rx Instructions: As directed cyanocobalamin (vitamin B-12) 1,000 mcg/mL kit 1,000 mcg IM MONTHLY 30 Days Qty: 1 5RF Rx Instructions: Inject 1,000 mcg (1 mL) IM once a month Zavzpret 10 mg/actuation spray,non-aerosol 1 spray intranasal ONCE PRN (Reason: migraine headache) 30 Days Qty: 6 2RF tamsulosin 0.4 mg capsule 0.4 mg PO DAILY Qty: 90 3RF divalproex 500 mg tablet,delayed release (DR/EC) 500 mg PO BID 90 Days Qty: 180 1RF Botox 200 unit recon soln See Rx Instructions IM .COMPLEX Qty: 1 3RF Rx Instructions: 155 UNITS IM IN THE FACE AND NECK MUSCLES EVERY 12 WEEKS PER MIGRAINE PROTOCOL Nurtec ODT 75 mg tablet,disintegrating 75 mg PO Q OTHER DAY 30 Days Qty: 15 4RF Rx Instructions: Take one tablet daily as needed for migraine. Max dose one tablet in 24 hours. Limit usage to 2-3 times a week. tadalafil 5 mg tablet 10 mg PO DAILY PRN (Reason: sexual activity) Qty: 14 2RF Rx Instructions: administer approximately 30min before sexual activity; do not use more than 1 dose per 24hrs. Works best on empty stomach. (DME) digital therapeutic,PRIYANK device Misc See Rx Instructions miscellaneous .MEDSUPPLY Qty: 1 0RF Rx Instructions: As directed prochlorperazine maleate 10 mg tablet 10 mg PO BID PRN (Reason: nausea and vomiting) 30 Days Qty: 20 1RF Novolin 70-30 FlexPen U-100 100 unit/mL (70-30) insulin pen See Rx Instructions subcut .COMPLEX Rx Instructions: 44 units in a.m. and 48 units after supper melatonin 1 mg tablet 10 mg PO HS PRN (Reason: Sleep) tizanidine 4 mg tablet 8 mg PO HS propranolol 80 mg capsule,extended release 24 hr 160 mg PO DAILY Ozempic 1 mg/dose (4 mg/3 mL) pen injector 2 mg subcut AWAN duloxetine [Cymbalta] 60 mg capsule,delayed release(DR/EC) 30 mg PO DAILY Rx Instructions: take for 7 more days through 02/23 magnesium 250 mg tablet 550 mg PO DAILY hydrochlorothiazide 25 mg tablet 25 mg PO DAILY Qty: 90 3RF potassium citrate 15 mEq tablet extended release 15 meq PO BID Qty: 180 3RF metformin 500 mg tablet extended release 24 hr 1,000 mg PO BIDM omeprazole 20 mg tablet,delayed release (DR/EC) 20 mg PO DAILY lisinopril 20 mg Tablet 20 mg PO DAILY Referrals Referrals: Barb Hughes CRNP [Primary Care Provider] -
--- NOTE | 2024-02-19 07:40 | CT Scan Report ---
ABDOMEN AND PELVIS CT WITHOUT CONTRAST CT DOSE: 1437.03 mGy.cm HISTORY: Acute right-sided flank pain Kidney stone, recurrent TECHNIQUE: Multiaxial CT images of the abdomen and pelvis were performed without contrast. A dose lo wering technique was utilized adhering to the principles of ALARA. COMPARISON STUDY: CT 07/22/2022 FINDINGS: Clear lung bases. No free air. The spleen is enlarged, 17 cm. The liver is enlarged, 24 cm. Hepatic steatosis with cirrhosis redemonstrated. No hepatic mass identified. Unremarkable spleen and adrenal glands. Total versus complete cholecystectomy, likely with residual gallstones noted within the castillo hepatis. Unremarkable left kidney. Mild to moderate right-sided hydronephrosis secondary to an obstructing 7 x 5 x 8 mm calculus within the right ureteropelvic junction. Reactive perinephric stranding. Decompres sed urinary bladder with wall thickening. 11 mm right retrocrural lymph node on image 67 series 3 is nonspecific. No bowel obstruction or bowel wall thickening. Normal appendix. Unremarkable soft tissue s. No acute fracture. IMPRESSION: 1. Mild to moderate right-sided hydronephrosis secondary to an obstructing 8 mm calculus of the urete ropelvic junction. 2. Hepatosplenomegaly with hepatic steatosis and cirrhosis. 3. Postoperative changes suggestive of partial cholecystectomy with cholelithiasis. Correlate with dowd rgical history. 4. Normal appendix. ACT 112: Negative or not required by law. The above report was generated using voice recognition software. It may contain grammatical, syntax o r spelling errors. Electronically signed by: Keron Manriquez M.D. 02/19/2024 7:38 AM
[2024-02-19] MEDS: MoRPHine SULFATE 4 MG/ML 1 ML CARP\\VIAL IV STA ×2 (07:47→09:02)
[2024-02-19 11:15] LABS: Appearance Urine Clear (Clear); Bacteria Urine Automated 1+ (None Seen); Bilirubin Urine 1+ (Negative); Blood Urine 1+ (Negative); Color Urine Dark Yellow; Epithelial Cell Urine Auto 0-2 /hpf (0-2); Glucose Urine UA Negative (Negative); Ketones Urine Trace (Negative); Leukocyte Esterase Urine Negative (Negative); Mucus Urine Present (None Prsent); Nitrite Urine Negative (Negative); Protein Urine 1+ (Negative); RBC Urine Automated >20 /hpf (0-2); Specific Gravity Urine 1.024 (1.000-1.030); Urobilinogen Urine Negative (Negative); WBC Urine Automated 0-5 /hpf (0-5)
[2024-02-19] MEDS: HYDROmorphone INJ 0.5 MG/0.5 ML SYR IV STA ×2 (12:22→13:02)
--- NOTE | 2024-02-19 13:08 | History & Physical Report ---
Date of Service February 19, 2024 Assessment & Plan (1) Kidney stone: (2) Diabetes: (3) HTN (hypertension): (4) LINDA (obstructive sleep apnea): (5) Renal colic: Plan This is a 44-year-old male who has significant past medical history of HTN, HLD, T2DM, LINDA on CPAP, morbid obesity, hepatic cirrhosis in setting of hepatic steatosis, history of chronic neck pain, migraine, history of TBI, postconcussive syndrome, thrombocytopenia and depression with anxiety who presents to ED secondary to right low back pain and right lower abdominal pain x 2 days. Right obstructing 8 mm UPJ stone Renal colic Admit to medical, he is not septic at this point Consult urology IV fluid 200 cc/h Flomax Pain control with as needed Toradol, Oxy IR 5 mg, IV Dilaudid 0.5 mg as needed Empiric stool softeners N.p.o. after midnight in event procedure required KUB in a.m. cover with empiric Cipro for now due to cephalosporin allergy HTN Chronic, stable Continue lisinopril Hold HCTZ, resume as able T2DM, insulin-dependent Obtain A1c in a.m. NPH twice daily, as needed NovoLog Consult glycemic pharmacy, appreciate their assistance LINDA CPAP at bedtime Morbid obesity Encourage diet and lifestyle modifications History of migraines History of chronic neck pain History of TBI Follows neurology with [facility], also follows Dr. Putnam for chronic pain recently started nurtec prn continue tizanidine Depression with anxiety currently dealing with active depression PCP working on Meds continue depakote he is weaning off cymbalta 30mg through 02/23, he will then take a drug holiday for 1 week before starting fluoxetine 20mg daily Cirrhosis Hepatic steatosis Hypersplenism currently not decompensated monitor Pancytopenia peripheral smear path consult pending known hx of thrombocytopenia DVT ppx: encourage ambulation, SCDS FULL CODE PCP: Barb Hughes, he also follows with [facility] family practice but this is for chronic pain with Dr. Putnam; all of his Primary care needs are taken care of through [facility] Dispo: med/surg Pt was seen and examined in collaboration with Dr. Carvalho, please see addendum A total of 76 minutes was spent coordinating, documenting, and providing care for this patient excluding time spent in the performance of separately billed services. This included personally viewing all current laboratories and imaging studies, medication reconciliation, outpatient chart review, and discussion with specialists. History of Present Illness Chief Complaint: Right low back pain and right lower abdominal pain x 2 days. Primary Care Provider: SHARIFA Brown This is a 44-year-old male who has significant past medical history of HTN, HLD, T2DM, LINDA on CPAP, morbid obesity, hepatic cirrhosis in setting of hepatic steatosis, history of chronic neck pain, migraine, history of TBI, postconcussive syndrome, thrombocytopenia and depression with anxiety who presents to ED secondary to right low back pain and right lower abdominal pain x 2 days. His mother is at bedside who also helps elicit history. He states he noticed symptoms approximately 2 days ago in which he was having discomfort to his right low back. He had been pushing Gatorade and hopes it would go away. He woke up this morning at 4:30 AM with severe right lower quadrant pain and right lower back pain. It was associated with nausea. He was unable to get comfortable. He has prior history to kidney stones and this felt similar. He did not feel the urge to urinate and was having difficulty urinating. Over the past 2 days he also described dysuria and decreased urinary urgency. He denies any fever, chills, sweats, lightheadedness, dizziness, chest pain, shortness of breath, URI symptoms, vomiting, hematemesis, hematuria, melena or hematochezia. He states he typically has IBS and moves his bowels multiple times a day. Prior hospitalizations in which narcotics were used he did develop some constipation. He admits to a very high pain tolerance. In ED patient was hemodynamically stable. Urinalysis with slight bacteria. CT scan of abdomen pelvis revealed a obstructing 8 mm right UPJ stone. In ED he received 1 L of IV fluid as well as multiple rounds of IV narcotics without improvement. Due to inability to control pain he was recommended for admission. He denies tobacco use. He chews tea leaves. He occasionally drinks alcohol on weekends. 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 Allergies Allergy/AdvReac Type Severity Reaction Status Date / Time bee venom protein (honey bee) Allergy Severe Anaphylaxis Verified 02/18/24 14:41 pineapple Allergy Severe THROAT Verified 02/18/24 14:41 CLOSES TO THE FRUIT cephalexin Allergy Intermediate HIVES Verified 02/18/24 14:41 menthol Allergy Intermediate WELTS Verified 02/18/24 14:41 Penicillins Allergy Intermediate Hives Verified 02/18/24 14:41 sulfamethoxazole AdvReac Severe SOB and Verified 02/18/24 14:41 [From Bactrim] Headache trimethoprim [From Bactrim] AdvReac Severe SOB and Verified 02/18/24 14:41 Headache Home Medications Medication Instructions Recorded Confirmed Type metformin 500 mg tablet,extended 1,000 mg PO BIDM 05/01/22 02/19/24 History release 24 hr omeprazole 20 mg tablet,delayed 20 mg PO DAILY 05/01/22 02/19/24 History release propranolol 80 mg capsule,24 160 mg PO DAILY 05/01/22 02/19/24 History hr,extended release tizanidine 4 mg tablet 8 mg PO HS 05/01/22 02/19/24 History riboflavin (vitamin B2) 400 mg 400 mg PO DAILY 05/07/22 02/19/24 History tablet syringe with needle 3 mL 23 x 1" #50 ea 07/01/22 02/18/24 Rx (BD SafetyGlide Syringe) duloxetine 60 mg capsule,delayed 30 mg PO DAILY 11/20/22 02/19/24 History release (Cymbalta) magnesium 250 mg tablet 550 mg PO DAILY 11/20/22 02/19/24 History semaglutide 1 mg/dose (4 mg/3 mL) 2 mg subcut AWAN 01/19/23 02/19/24 History subcutaneous pen injector (Ozempic) prochlorperazine maleate 10 mg 10 mg PO BID PRN nausea and 03/18/23 02/19/24 Rx tablet vomiting 30 days #20 tabs tadalafil 5 mg tablet 10 mg (2 x 5 mg) PO DAILY PRN 04/13/23 02/19/24 Rx sexual activity #14 tabs insulin NPH-regular 70-30 U-100 See Rx Instructions subcut .COMPLEX 06/04/23 02/19/24 History insulin 100 unit/mL subcutaneous pen (Novolin 70-30 FlexPen U-100 Insulin) melatonin 1 mg tablet 10 mg PO HS PRN Sleep 06/04/23 02/19/24 History cyanocobalamin (vitamin B-12) 1,000 mcg IM MONTHLY 30 days #1 ea 07/02/23 02/19/24 Rx 1,000 mcg/mL injection kit zavegepant 10 mg/actuation nasal 1 spray intranasal ONCE PRN 07/12/23 02/19/24 Rx spray (Zavzpret) migraine headache 30 days #6 ea digital therapeutic,PRIYANK device #1 ea 08/05/23 02/18/24 Rx tamsulosin 0.4 mg capsule 0.4 mg PO DAILY #90 caps 10/28/23 02/19/24 Rx divalproex 500 mg tablet,delayed 500 mg PO BID 90 days #180 tabs 11/02/23 02/19/24 Rx release hydrochlorothiazide 25 mg tablet 25 mg PO DAILY #90 tabs 11/02/23 02/19/24 Rx potassium citrate 15 mEq (1,620 15 meq PO BID #180 tabs 11/02/23 02/19/24 Rx mg) tablet,extended release onabotulinumtoxinA 200 unit See Rx Instructions IM .COMPLEX #1 12/02/23 02/19/24 Rx solution for injection (Botox) ea rimegepant 75 mg disintegrating 75 mg PO Q OTHER DAY migraine 02/18/24 02/19/24 Rx tablet (Nurtec ODT) headache 30 days #15 tabs lisinopril 20 mg tablet 20 mg PO DAILY 02/19/24 02/19/24 History Past Med/Surg History Problem List Renal colic Acquired pancytopenia (Acute) Renal colic on right side (Acute) Post-traumatic headache Carpal tunnel syndrome on both sides Cervical radicular pain Hyperparathyroidism Paresthesia Erectile dysfunction Lower urinary tract symptoms (LUTS) Vitamin B 12 deficiency Abnormal brain MRI Diplopia Postconcussive syndrome Chronic migraine Occipital neuralgia Poorly controlled diabetes mellitus Cervicogenic headache Intractable pain (Acute) Neck pain (Acute) Headache (Acute) Spasm of cervical paraspinous muscle (Acute) Hypercalcemia Vitamin D deficiency Finger fracture, left (Acute) UTI (urinary tract infection) (Acute) Kidney stone (Acute) Transaminitis (Acute) Thrombocytopenia due to 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 Bilateral nephrolithiasis Obesity Thrombocytopenia Diabetes (Chronic) HTN (hypertension) (Chronic) LINDA (obstructive sleep apnea) (Chronic) c pap GERD (gastroesophageal reflux disease) (Chronic) Depression (Chronic) Medical History Ureterolithiasis Left flank pain Renal calculi Left ureteral stone Family History Other Family history not known due to adoption Social History Smoking Status: Never smoker Tobacco Type: Cigarettes Second Hand Exposure: No; Do You Dip or Chew Tobacco: No; Hx Alcohol Use: Yes Alcohol type: beer Alcohol Intake Frequency: Monthly or Less Hx Substance Use: No Preferred Language: [place]ian Communication Ability: Effective Visual Impairment: No Limitations Hearing Ability: Normal Prosthetics Assistant Required: No Beliefs That Will Affect Care: None marital status: Current Living Situation: Spouse current occupational status: disabled How many Children do You have: 2 Feels Safe at Home: Yes Childhood Exposure to Second-Hand Smoke: No Diet: regular caffeine: Yes Assistive Devices: None Review of Systems Review of Systems: All systems reviewed & are unremarkable except as noted in HPI & below Physical Exam Physical Exam: Constitutional: WD/WN, obese, sitting up in bed, unable to get comfortable, vitals as above, NAD, sitting up in bed, pleasant, conversing easily Head: Normocephalic, Atraumatic Eyes: PERRL, conjunctivae normal, anicteric sclerae ENMT: external ear and nose normal, oropharynx normal Neck: trachea midline, no thyromegaly normal visual inspection Respiratory: normal respiratory effort, lungs clear to auscultation, no wheeze, rales, rhonchi. Normal insp/exp effort, no accessory muscle use Cardiovascular: RRR, no murmur, no edema Vessels: no JVD or carotid bruit Chest: normal inspection of chest Abdomen: normal bowel sounds, soft, nontender, no hepatosplenomegaly Musculoskeletal: no cyanosis or clubbing, extremities motor strength 5/5 , +pain to palpation R low back, no flank pain/cva tenderness Skin: no rashes, warm and dry normal turgor Neurologic: PERRL, EOMI, accommodation nl, no face palsy, no dysarthria CN's II-XI intact bilaterally and moves all extremities Psychiatric: A+Ox3, euthymic affect Lymphatic: no cervical or axillary lymphadenopathy : deferred Results & Data Results & Data Vital Signs (Past 12 Hours) Vital Signs Temp Pulse Pulse Resp BP BP Pulse Ox 02/19/24 12:27 99 H 02/19/24 11:42 69 18 124/78 99 02/19/24 10:30 74 19 130/87 96 02/19/24 10:00 88 20 96 02/19/24 10:00 115/73 02/19/24 09:30 86 14 98 02/19/24 09:30 123/81 02/19/24 09:00 113/70 02/19/24 09:00 84 12 97 02/19/24 08:30 113/70 02/19/24 08:30 81 15 96 02/19/24 08:26 81 02/19/24 08:00 80 12 96 02/19/24 08:00 109/71 02/19/24 07:30 110/80 02/19/24 07:30 84 15 97 02/19/24 06:27 02/19/24 05:58 36.2 C L 80 20 148/93 H 100 O2 Del Method 02/19/24 12:27 02/19/24 11:42 02/19/24 10:30 Room Air 02/19/24 10:00 02/19/24 10:00 02/19/24 09:30 02/19/24 09:30 02/19/24 09:00 02/19/24 09:00 Room Air 02/19/24 08:30 02/19/24 08:30 02/19/24 08:26 02/19/24 08:00 02/19/24 08:00 02/19/24 07:30 02/19/24 07:30 02/19/24 06:27 Room Air 02/19/24 05:58 Room Air Diagnostic Findings Abdomen/Pelvis CT 02/19/24 06:[address] WITHOUT CONTRAST CT DOSE: 1437.03 mGy.cm HISTORY: Acute right-sided flank pain Kidney stone, recurrent TECHNIQUE: Multiaxial CT images of the abdomen and pelvis were performed without contrast. A dose lowering technique was utilized adhering to the principles of ALARA. COMPARISON STUDY: CT 07/22/2022 FINDINGS: Clear lung bases. No free air. The spleen is enlarged, 17 cm. The liver is enlarged, 24 cm. Hepatic steatosis with cirrhosis redemonstrated. No hepatic mass identified. Unremarkable spleen and adrenal glands. Total versus complete cholecystectomy, likely with residual gallstones noted within the castillo hepatis. Unremarkable left kidney. Mild to moderate right-sided hydronephrosis secondary to an obstructing 7 x 5 x 8 mm calculus within the right ureteropelvic junction. Reactive perinephric stranding. Decompressed urinary bladder with wall thickening. 11 mm right retrocrural lymph node on image 67 series 3 is nonspecific. No bowel obstruction or bowel wall thickening. Normal appendix. Unremarkable soft tissues. No acute fracture. IMPRESSION: 1. Mild to moderate right-sided hydronephrosis secondary to an obstructing 8 mm calculus of the ureteropelvic junction. 2. Hepatosplenomegaly with hepatic steatosis and cirrhosis. 3. Postoperative changes suggestive of partial cholecystectomy with cholelithiasis. Correlate with surgical history. 4. Normal appendix. ACT 112: Negative or not required by law. The above report was generated using voice recognition software. It may contain grammatical, syntax or spelling errors. Electronically signed by: Keron Manriquez M.D. 02/19/2024 7:38 AM Medications Administered Medication List Discontinued Medications Hydromorphone HCl (Hydromorphone Inj 0.5 Mg/0.5 Ml Syr) 0.5 mg IV NOW STA Stop: 02/19/24 12:18 Last Admin: 02/19/24 12:22 Dose: 0.5 mg Documented By: PAULO Hydromorphone HCl (Hydromorphone Inj 0.5 Mg/0.5 Ml Syr) 0.5 mg IV NOW STA Stop: 02/19/24 13:01 Last Admin: 02/19/24 13:02 Dose: 0.5 mg Documented By: PAULO Sodium Chloride (Nss) 1,000 mls @ 999 mls/hr IV .Q1H1M STA Stop: 02/19/24 07:26 Last Infusion: 02/19/24 08:30 Dose: Infused Documented By: SRMichelle Admin: 02/19/24 06:44 Dose: 999 mls/hr Documented By: ARCHIE Ketorolac Tromethamine (Ketorolac Tromethamine 15 Mg/Ml Vial) 15 mg IV NOW ONE Stop: 02/19/24 06:52 Last Admin: 02/19/24 07:01 Dose: 15 mg Documented By: SRL Morphine Sulfate (Morphine Sulfate 4 Mg/Ml 1 Ml Carp\\Vial) 4 mg IV NOW STA Stop: 02/19/24 07:30 Last Admin: 02/19/24 07:47 Dose: 4 mg Documented By: SRL Morphine Sulfate (Morphine Sulfate 4 Mg/Ml 1 Ml Carp\\Vial) 4 mg IV NOW STA Stop: 02/19/24 08:52 Last Admin: 02/19/24 09:02 Dose: 4 mg Documented By: SRL Ondansetron HCl (Ondansetron Inj 2 Mg/Ml 2 Ml Vial) 4 mg IV NOW STA Stop: 02/19/24 06:27 Last Admin: 02/19/24 06:44 Dose: 4 mg Documented By: ARCHIE COVID-19 Results Results COVID-19 Adm Lab Results: RBC 3.90 M/uL (4.70-6.10) L 02/19/24 WBC 3.28 K/ul (4.8-10.8) L 02/19/24 Hgb 13.3 g/dl (14.0-18.0) L 02/19/24 Hct 39.1 % (42.0-52.0) L 02/19/24 Plt Count 67 K/uL (130-400) L 02/19/24 Neutrophils (%) (Auto) 52.2 % 02/19/24 Lymphocytes (%) (Auto) 33.8 % 02/19/24 Monocytes # (Auto) 0.29 K/uL (0.11-0.59) 02/19/24 Eosinophils # (Auto) 0.13 K/uL (0.00-0.50) 02/19/24 Immature Granulocyte % (Auto) 0.6 % 02/19/24 Neutrophils # (Auto) 1.71 K/uL (1.40-6.50) 02/19/24 Lymphocytes # (Auto) 1.11 K/uL (1.20-3.40) L 02/19/24 Monocytes # (Auto) 0.29 K/uL (0.11-0.59) 02/19/24 Eosinophils # (Auto) 0.13 K/uL (0.00-0.50) 02/19/24 Basophils # (Auto) 0.02 K/uL (0.00-0.20) 02/19/24 Immature Granulocyte # (Auto) 0.02 K/uL (0.01-0.20) 4 Na 140 mmol/L (136-145) 02/19/24 K 4.1 mmol/L (3.5-5.1) 02/19/24 Cl 104 mmol/L (98-107) 02/19/24 CO2 30 mmol/L (21-32) 02/19/24 Anion Gap 6 (3-11) 02/19/24 BUN 13 mg/dl (6-23) 02/19/24 Creatinine 1.02 mg/dl (0.6-1.4) 02/19/24 BUN/Creatinine Ratio 12.7 (10-20) 02/19/24 Glucose Level 171 mg/dl (70-99(Fasting)) H 02/19/24 Ca 9.5 mg/dl (8.6-10.3) 02/19/24 Total Bilirubin 0.5 mg/dl (0.2-1.0) 02/19/24 AST/SGOT 28 U/L (13-39) 02/19/24 ALT/SGPT 26 U/L (7-52) 02/19/24 Alkaline Phosphatase 82 U/L (34-104) 02/19/24 Total Protein 7.2 gm/dl (6.0-8.3) 02/19/24 Albumin 3.9 gm/dl (3.4-5.0) 02/19/24 Globulin 3.3 gm/dl (2.5-4.0) 02/19/24 Albumin/Globulin Ratio 1.2 (0.9-2) 02/19/24 Code Status & VTE Plan Code Status FULL CODE VTE Prophylaxis Plan VTE Prophylaxis will be ordered: Yes Supervising Physician Co-Signing Physician Notes Pt was seen and examined by myself, Colleen Carvalho MD on the day of service. Care was coordinated with , KYREE/SHARIFA. 44yo with complicated medical Hx including known bilateral nephrolithiasis with Hx of recurrent obstructive uropathy admitted with a right obstructing 8mm k idney stone once more. On exam, in mild distress due to pain. Abdomen tender to palpation in right lower abdominal quadrant. Urology consulted, appreciate recs Pain control, follow urine Cx and blood Cx, empiric abx New pancytopenia noted, CBC 3 weeks ago in EP[facility] only noted thrombocytopenia. Will work up with peripheral smear and tick borne screens given acuity (lyme/anaplasma known to cause this pattern) Otherwise as above. I spent a total [id number] coordinating, documenting, and providing care for this patient excluding time spent in the performance of separately billed services
[2024-02-19] MEDS: KETOROLAC 30 MG/ML VIAL IV ONE (13:51)
[2024-02-19] MEDS: SODIUM CHLORIDE 0.9% 1,000 ML IV SCH (13:51)
--- NOTE | 2024-02-19 14:26 | Urology Consultation ---
Date of Consultation February 19, 2024 Assessment & Plan (1) Renal colic on right side: 44 yo/M admitted for renal colic secondary to an obstructing 8 mm right UPJ stone Patient is afebrile and hemodynamically stable in the emergency department Labs reviewedcreatinine 1.02, no leukocytosis Straight cath urine sample showed 1+ blood, >20 RBC, 1+ bacteria Urine culture pendingcontinue antibiotics and follow cultures CT reviewed and discussed with patient and notable for an obstructing 8 mm right UPJ stone with hydronephrosis Given size of stone, there is lower probability of spontaneous passage We discussed options for stone management including right ureteral stent placement today versus outpatient stone treatment if pain can be controlled He has poorly tolerated stents in the past After long discussion, he elects to monitor for now with symptom management and reassess tomorrow No acute intervention at this time, make NPO at midnight to reassess Ideally if his pain can be controlled, then outpatient stone surgery would be preferable to minimize the length of time he has a stent Recommend continue with supportive care, tamsulosin and as needed analgesia He is having difficulty voiding, recommend continue to monitor with bladder scans as needed and straight cath as needed will follow, please contact our service with any questions or changes in status Supervising Physician Co-Signing Physician Notes I have discussed Mr. Swartz's case with SHARIFA Ledesma and agree with the above documentation. -Sreedhar Bradford MD. History of Present Illness History of Present Illness This is a 44-year-old male with history of nephrolithiasis who presented to the emergency department today for evaluation of worsening right flank pain. He was afebrile and hemodynamically stable on arrival. Workup in the emergency department included CT abdomen pelvis which showed an obstructing 8 mm calculus at the UPJ with mild to moderate right hydronephrosis. Lab work showed WBC 3.28, hemoglobin 13.3, creatinine 1.02. He was unable to urinate, so he was straight catheterized. Urinalysis showed 1+ protein, trace ketones, 1+ blood, 0-5 WBC, >20 RBC, 1+ bacteria and urine mucus present. ED course: IV fluids, ondansetron, multiple doses of hydromorphone, morphine and ketorolac. He was admitted to the hospital medicine service for pain management. Patient seen and examined in the emergency department. He is awake and sitting up on litter. Family member at bedside. He reports right flank pain for the past few days, which acutely worsened today. He continues to have significant pain despite multiple doses of narcotics and ketorolac so far. He reports he has been unable to void since 4 AM. He was straight catheterized for urine sample upon arrival. Denies nausea or vomiting at present. No fever or chills. History of nephrolithiasis. History of ESWL and ureteroscopy, laser lithotripsy and stent placement in the past. He has poorly tolerated stents in the past. Allergies Allergy/AdvReac Type Severity Reaction Status Date / Time bee venom protein (honey bee) Allergy Severe Anaphylaxis Verified 02/18/24 14:41 pineapple Allergy Severe THROAT Verified 02/18/24 14:41 CLOSES TO THE FRUIT cephalexin Allergy Intermediate HIVES Verified 02/18/24 14:41 menthol Allergy Intermediate WELTS Verified 02/18/24 14:41 Penicillins Allergy Intermediate Hives Verified 02/18/24 14:41 sulfamethoxazole AdvReac Severe SOB and Verified 02/18/24 14:41 [From Bactrim] Headache trimethoprim [From Bactrim] AdvReac Severe SOB and Verified 02/18/24 14:41 Headache Home Medications Medication Instructions Recorded Confirmed Type metformin 500 mg tablet,extended 1,000 mg PO BIDM 05/01/22 02/19/24 History release 24 hr omeprazole 20 mg tablet,delayed 20 mg PO DAILY 05/01/22 02/19/24 History release propranolol 80 mg capsule,24 160 mg PO DAILY 05/01/22 02/19/24 History hr,extended release tizanidine 4 mg tablet 8 mg PO HS 05/01/22 02/19/24 History riboflavin (vitamin B2) 400 mg 400 mg PO DAILY 05/07/22 02/19/24 History tablet syringe with needle 3 mL 23 x 1" #50 ea 07/01/22 02/18/24 Rx (BD SafetyGlide Syringe) duloxetine 60 mg capsule,delayed 30 mg PO DAILY 11/20/22 02/19/24 History release (Cymbalta) magnesium 250 mg tablet 550 mg PO DAILY 11/20/22 02/19/24 History semaglutide 1 mg/dose (4 mg/3 mL) 2 mg subcut AWAN 01/19/23 02/19/24 History subcutaneous pen injector (Ozempic) prochlorperazine maleate 10 mg 10 mg PO BID PRN nausea and 03/18/23 02/19/24 Rx tablet vomiting 30 days #20 tabs tadalafil 5 mg tablet 10 mg (2 x 5 mg) PO DAILY PRN 04/13/23 02/19/24 Rx sexual activity #14 tabs insulin NPH-regular 70-30 U-100 See Rx Instructions subcut .COMPLEX 06/04/23 02/19/24 History insulin 100 unit/mL subcutaneous pen (Novolin 70-30 FlexPen U-100 Insulin) melatonin 1 mg tablet 10 mg PO HS PRN Sleep 06/04/23 02/19/24 History cyanocobalamin (vitamin B-12) 1,000 mcg IM MONTHLY 30 days #1 ea 07/02/23 02/19/24 Rx 1,000 mcg/mL injection kit zavegepant 10 mg/actuation nasal 1 spray intranasal ONCE PRN 07/12/23 02/19/24 Rx spray (Zavzpret) migraine headache 30 days #6 ea digital therapeutic,PRIYANK device #1 ea 08/05/23 02/18/24 Rx tamsulosin 0.4 mg capsule 0.4 mg PO DAILY #90 caps 10/28/23 02/19/24 Rx divalproex 500 mg tablet,delayed 500 mg PO BID 90 days #180 tabs 11/02/23 02/19/24 Rx release hydrochlorothiazide 25 mg tablet 25 mg PO DAILY #90 tabs 11/02/23 02/19/24 Rx potassium citrate 15 mEq (1,620 15 meq PO BID #180 tabs 11/02/23 02/19/24 Rx mg) tablet,extended release onabotulinumtoxinA 200 unit See Rx Instructions IM .COMPLEX #1 12/02/23 02/19/24 Rx solution for injection (Botox) ea lisinopril 20 mg tablet 20 mg PO DAILY 02/19/24 02/19/24 History rimegepant 75 mg disintegrating 75 mg PO Q OTHER DAY migraine 02/19/24 Rx tablet (Nurtec ODT) headache 30 days #15 tabs Patient History Medical History Ureterolithiasis Left flank pain Renal calculi Left ureteral stone Family History Other Family history not known due to adoption Social History Smoking Status: Never smoker Tobacco Type: Cigarettes Second Hand Exposure: No; Do You Dip or Chew Tobacco: No; Hx Alcohol Use: Yes Alcohol type: beer and wine Alcohol Intake Frequency: Monthly or Less Hx Substance Use: No Preferred Language: Kiswahili Communication Ability: Effective Visual Impairment: No Limitations Hearing Ability: Normal Supervisor Continuous [employer] Required: No Beliefs That Will Affect Care: None marital status: Current Living Situation: Spouse current occupational status: disabled How many Children do You have: 2 Other Information That Helps Us Care for You: No Feels Safe at Home: Yes Safety Concerns: Feels Safe At This Time Childhood Exposure to Second-Hand Smoke: No Diet: regular caffeine: Yes Assistive Devices: Glasses Review of Systems Review of Systems: All systems reviewed & are unremarkable except as noted in HPI & below Physical Exam Constitutional: + morbidly obese; no acute distress and + uncomfortable Respiratory: normal respiratory effort; no respiratory distress and no labored breathing Cardiovascular: Rate/Rhythm: regular rate Gastrointestinal (Abdomen): Inspection/Auscultation: abdomen normal to inspection; abdomen not distended Musculoskeletal: Head/Neck/Chest: normocephalic Neurologic: moves all extremities and awake Psychiatric: Orientation: alert and oriented x 3 Results & Data Vital Signs (Past 12 Hours) Vital Signs Temp Pulse Pulse Resp BP BP Pulse Ox 02/19/24 12:27 99 H 02/19/24 11:42 69 18 124/78 99 02/19/24 10:30 74 19 130/87 96 02/19/24 10:00 88 20 96 02/19/24 10:00 115/73 02/19/24 09:30 86 14 98 02/19/24 09:30 123/81 02/19/24 09:00 113/70 02/19/24 09:00 84 12 97 02/19/24 08:30 113/70 02/19/24 08:30 81 15 96 02/19/24 08:26 81 02/19/24 08:00 80 12 96 02/19/24 08:00 109/71 02/19/24 07:30 110/80 05/24/24 07:30 84 15 97 02/19/24 06:27 02/19/24 05:58 36.2 C L 80 20 148/93 H 100 O2 Del Method 02/19/24 12:27 02/19/24 11:42 02/19/24 10:30 Room Air 02/19/24 10:00 02/19/24 10:00 02/19/24 09:30 02/19/24 09:30 02/19/24 09:00 02/19/24 09:00 Room Air 02/19/24 08:30 02/19/24 08:30 02/19/24 08:26 02/19/24 08:00 02/19/24 08:00 02/19/24 07:30 02/19/24 07:30 02/19/24 06:27 Room Air 02/19/24 05:58 Room Air PG Care Time/CCT Total # of Minutes Spent Total Time Spent with Patient: Total time spent is greater than 50% in coordination of care (as documented) at patient's floor/unit and/or counseling patient: Coding Level of Care Code 83035 IN/OBS CONSULT LVL 4,60M Diagnoses Renal colic on right side N23
[2024-02-19] MEDS: CIPROFLOXACIN / D5W 400 MG/200 ML BAG IV STA (15:27)
[2024-02-19] MEDS: HYDROmorphone INJ 0.5 MG/0.5 ML SYR IV PRN (15:28)
[2024-02-19] MEDS ORDERED: DEXTROSE 50% 50 ML SYRINGE IV PRN (19:42)
[2024-02-19] MEDS ORDERED: GLUCOSE 40% GEL 15 GM TUBE PO PRN (19:42)
[2024-02-19] MEDS ORDERED: ALUMINUM/MAGNESIUM SUSP 30 ML UDC PO PRN (19:42)
[2024-02-19] MEDS ORDERED: GLUCAGON FOR INJ 1 MG VIAL SQ PRN (19:42)
[2024-02-19] MEDS ORDERED: GLUCOSE 10 TAB/TUBE PO PRN (19:42)
[2024-02-19] MEDS ORDERED: MAGNESIUM HYDROXIDE SUSP 30 ML UDC PO PRN (19:42)
[2024-02-19] MEDS ORDERED: ACETAMINOPHEN 325 MG TAB PO PRN (19:42)
[2024-02-19] MEDS ORDERED: CARBOHYDRATES FOR HYPOGLYCEMIA PO PRN (19:42)
[2024-02-19] MEDS: ONDANSETRON INJ 2 MG/ML 2 ML VIAL IV PRN (20:21)
[2024-02-19] MEDS: KETOROLAC 30 MG/ML VIAL IV PRN (21:01)
[2024-02-19] MEDS: DIVALPROEX DELAY RELEASE 500 MG TAB PO SCH (21:03)
[2024-02-19] MEDS: INSULIN ASPART PER UNIT CHARGE SC SCH (21:03)
[2024-02-19] MEDS: DOCUSATE SODIUM/SENNA 50/8.6MG TAB PO SCH (21:04)
[2024-02-19] MEDS: tiZANidine HCL 4 MG TABLET PO SCH (21:05)
[2024-02-19] MEDS: INSULIN HUMAN NPH SC SCH (21:42)
[2024-02-19] MEDS ORDERED: Nursing to Pharmacy Communication SCH (23:30)
[2024-02-20] MEDS: INSULIN ASPART PER UNIT CHARGE SC SCH ×2 (00:24→14:22)
[2024-02-20] MEDS ORDERED: CIPROFLOXACIN / D5W 400 MG/200 ML BAG IV SCH (02:00)
[2024-02-20] MEDS: oxyCODONE HCL IR 5 MG TAB (IMMEDIATE RELEASE) PO PRN (02:16)
[2024-02-20] MEDS ORDERED: PHARMACY GLYCEMIC MGMT CONSULT PRN (05:00)
[2024-02-20] MEDS: levoFLOXacin/D5W 500 MG/100 ML BAG IV SCH (05:10)
[2024-02-20 06:49] LABS: Basophils # (auto) 0.02 K/uL (0.00-0.20); Basophils % (auto) 0.7 %; Eosinophils # (auto) 0.09 K/uL (0.00-0.50); Eosinophils % (auto) 3.3 %; Hematocrit (blood only) 37.1 % (42.0-52.0); Hemoglobin 12.5 g/dl (14.0-18.0); Immature Granulocytes # (auto) 0.01 K/uL (0.01-0.20); Immature Granulocytes % (auto) 0.4 %; Lymphocytes % (auto) 40.4 %; Mean Corpuscular Hemoglobin 33.9 pg (25.0-34.0); Mean Corpuscular Hgb Conc 33.7 g/dL (32.0-36.0); Mean Corpuscular Volume 100.5 fL (80.0-100.0); Mean Platelet Volume 9.9 fL (9.4-12.4); Monocytes # (auto) 0.22 K/uL (0.11-0.59); Monocytes % (auto) 8.1 %; Neutrophils # (auto) 1.28 K/uL (1.40-6.50); Neutrophils % (auto) 47.1 %; Platelet Count 59 K/uL (130-400); RDW Coefficient of Variation 12.3 % (11.5-14.5); RDW Standard Deviation 45.1 fL (36.4-46.3); Red Blood Count 3.69 M/uL (4.70-6.10); White Blood Count 2.72 K/ul (4.8-10.8)
[2024-02-20 07:01] LABS: Albumin Globulin Ratio 1.2 (0.9-2); Albumin Level 3.4 gm/dl (3.4-5.0); BUN Creatinine Ratio 16.7 (10-20); Bilirubin,Total 0.6 mg/dl (0.2-1.0); Calcium 8.5 mg/dl (8.6-10.3); Creatinine Clr Calc Pharmacy 132.8 ml/min; Est GFR (African American) 110.2 ml/min; Est GFR (Non-African American) 95.1 ml/min; Globulin 2.8 gm/dl (2.5-4.0); Magnesium 1.9 mg/dl (1.7-2.4); Potassium 4.1 mmol/L (3.5-5.1); Total Protein 6.2 gm/dl (6.0-8.3)
[2024-02-20 07:15] LABS: Estimated Average Glucose 126 mg/dl
[2024-02-20] MEDS: PROMETHAZINE HCL 6.25 MG in SODIUM CHLORIDE 0.9% 50 ML IV PRN (08:39)
--- NOTE | 2024-02-20 08:47 | Urology Progress Note ---
Date of Service February 20, 2024 Assessment & Plan (1) Renal colic on right side: (2) Ureterolithiasis: Plan We reviewed the stone at his right UPJ and that it is likely causing the pain. It is large enough that he is unlikely to pass spontaneously. Although urinalysis demonstrated 1+ bacteria, he has remained afebrile and hemodynamically stable. He is interested in minimizing the amount of time with the stent. We discussed options of continued monitoring or intervention with cystoscopy and stent placement, possibly with ureteroscopy. We extensively reviewed the risks and benefits of surgery including risks of bleeding, infection, injury to nearby structures, need for additional procedures, need for ureteral stent. After consideration of the options, he would like to proceed with surgery. Will plan for cystoscopy, right retrograde pyelogram, possible ureteroscopy and laser lithotripsy. Admission and Anticipated Discharge Date Admission Date: February 19, 2024 Subjective Still having pain this morning, has not passed stone Having some nausea but no vomiting Denies any fevers or chills Having some difficulty with urination Physical Exam Physical Exam: Uncomfortable appearing, NAD Results & Data Vital Signs (Past 12 Hours) Vital Signs Temp Pulse Pulse Resp BP Pulse Ox O2 Del Method 02/20/24 08:00 36.9 C 84 16 118/74 99 Room Air 02/19/24 21:16 36.5 C 97 H 20 129/78 98 Room Air PG Care Time/CCT Total # of Minutes Spent Total Time Spent with Patient: Total time spent is greater than 50% in coordination of care (as documented) at patient's floor/unit and/or counseling patient: Coding Level of Care Code 35566 SUB INP/OBS CARE 2/35MIN Diagnoses Renal colic on right side N23 Ureterolithiasis N20.1
--- NOTE | 2024-02-20 08:53 | Anesthesiology Consultation ---
Date of Service February 20, 2024 Assessment & Plan (1) Encounter for pre-operative examination: Chart Review Chart Review: Acceptable Risk for Surgery History Surgery Operation Date: 02/20/24 10:15 Proposed Procedures p Cystoscopy(Right) - Sreedhar Bradford MD Height/Weight Height: 5 ft 9 in Weight: 135.54 kg Allergies Allergy/AdvReac Type Severity Reaction Status Date / Time bee venom protein (honey bee) Allergy Severe Anaphylaxis Verified 02/18/24 14:41 pineapple Allergy Severe THROAT Verified 02/18/24 14:41 CLOSES TO THE FRUIT cephalexin Allergy Intermediate HIVES Verified 02/18/24 14:41 menthol Allergy Intermediate WELTS Verified 02/18/24 14:41 Penicillins Allergy Intermediate Hives Verified 02/18/24 14:41 sulfamethoxazole AdvReac Severe SOB and Verified 02/18/24 14:41 [From Bactrim] Headache trimethoprim [From Bactrim] AdvReac Severe SOB and Verified 02/18/24 14:41 Headache Medications Home Medications Medication Instructions Recorded Confirmed Last Taken metformin 500 mg tablet,extended 1,000 mg PO BIDM 05/01/22 02/19/24 Unknown release 24 hr omeprazole 20 mg tablet,delayed 20 mg PO DAILY 05/01/22 02/19/24 Unknown release propranolol 80 mg capsule,24 160 mg PO DAILY 05/01/22 02/19/24 Unknown hr,extended release tizanidine 4 mg tablet 8 mg PO HS 05/01/22 02/19/24 Unknown riboflavin (vitamin B2) 400 mg 400 mg PO DAILY 05/07/22 02/19/24 Unknown tablet syringe with needle 3 mL 23 x 1" #50 ea 07/01/22 02/18/24 Unknown (BD SafetyGlide Syringe) duloxetine 60 mg capsule,delayed 30 mg PO DAILY 11/20/22 02/19/24 Unknown release (Cymbalta) magnesium 250 mg tablet 550 mg PO DAILY 11/20/22 02/19/24 Unknown semaglutide 1 mg/dose (4 mg/3 mL) 2 mg subcut AWAN 01/19/23 02/19/24 Unknown subcutaneous pen injector (Ozempic) prochlorperazine maleate 10 mg 10 mg PO BID PRN nausea and 03/18/23 02/19/24 Unknown tablet vomiting 30 days #20 tabs tadalafil 5 mg tablet 10 mg (2 x 5 mg) PO DAILY PRN 04/13/23 02/19/24 Unknown sexual activity #14 tabs insulin NPH-regular 70-30 U-100 See Rx Instructions subcut .COMPLEX 06/04/23 02/19/24 Unknown insulin 100 unit/mL subcutaneous pen (Novolin 70-30 FlexPen U-100 Insulin) melatonin 1 mg tablet 10 mg PO HS PRN Sleep 06/04/23 02/19/24 Unknown cyanocobalamin (vitamin B-12) 1,000 mcg IM MONTHLY 30 days #1 ea 07/02/23 02/19/24 Unknown 1,000 mcg/mL injection kit zavegepant 10 mg/actuation nasal 1 spray intranasal ONCE PRN 07/12/23 02/19/24 Unknown spray (Zavzpret) migraine headache 30 days #6 ea digital therapeutic,PRIYANK device #1 ea 08/05/23 02/18/24 Unknown tamsulosin 0.4 mg capsule 0.4 mg PO DAILY #90 caps 10/28/23 02/19/24 Unknown divalproex 500 mg tablet,delayed 500 mg PO BID 90 days #180 tabs 11/02/23 02/19/24 Unknown release hydrochlorothiazide 25 mg tablet 25 mg PO DAILY #90 tabs 11/02/23 02/19/24 Unknown potassium citrate 15 mEq (1,620 15 meq PO BID #180 tabs 11/02/23 02/19/24 Unknown mg) tablet,extended release onabotulinumtoxinA 200 unit See Rx Instructions IM .COMPLEX #1 12/02/23 02/19/24 Unknown solution for injection (Botox) ea lisinopril 20 mg tablet 20 mg PO DAILY 02/19/24 02/19/24 Unknown rimegepant 75 mg disintegrating 75 mg PO Q OTHER DAY migraine 02/19/24 Unknown tablet (Nurtec ODT) headache 30 days #15 tabs Active Medications Generic Name Dose Route Start Last Admin Trade Name Freq PRN Reason Stop Dose Admin Divalproex Sodium 500 mg 02/19/24 21:00 02/19/24 21:03 Divalproex Delay Release 500 Mg Tab PO 03/20/24 20:59 500 mg BID TITA Administration Hydromorphone HCl 0.5 mg 02/19/24 13:53 02/20/24 07:59 Hydromorphone Inj 0.5 Mg/0.5 Ml Syr IV 03/04/24 13:52 0.5 mg Q3H PRN Administration Severe Pain (Scale 7, 8, 9,10) Sodium Chloride 1,000 mls @ 200 mls/hr 02/19/24 13:30 02/20/24 05:09 Nss IV 03/20/24 13:29 200 mls/hr .Q5H TITA Administration Promethazine HCl 6.25 mg/ 50.25 mls @ 201 mls/hr 02/20/24 07:58 02/20/24 08:39 Sodium Chloride IV 03/21/24 07:57 201 mls/hr Q6H PRN Administration Nausea And Vomiting Insulin Aspart 0 units 02/20/24 00:00 02/20/24 06:11 Insulin Aspart Per Unit Charge SC 03/21/24 00:00 Not Given Q6 TITA Protocol Insulin Human NPH 0 - 36 units 02/19/24 21:00 02/19/24 21:42 Insulin Human Nph SC 03/20/24 20:59 18 units BID TITA Administration Ketorolac Tromethamine 30 mg 02/19/24 20:53 02/20/24 06:13 Ketorolac 30 Mg/Ml Vial IV 02/24/24 20:52 30 mg Q6H PRN Administration Moderate Pain (Scale 4, 5, 6) Miscellaneous 1 each 02/20/24 00:00 02/20/24 00:24 Rimegepant [Nurtec Odt] 75 Mg Tablet,Disintegrating - Order Awaiting Action N/A 03/21/24 00:00 Not Given QS TITA Oxycodone HCl 5 mg 02/19/24 19:42 02/20/24 08:44 Oxycodone Hcl Ir 5 Mg Tab (Immediate Release) PO 03/04/24 19:41 5 mg Q4H PRN Administration Moderate Pain (Scale 4, 5, 6) Senna/Docusate Sodium 1 tab 02/19/24 21:00 02/19/24 21:04 Docusate Sodium/Senna 50/8.6mg Tab PO 03/20/24 20:59 1 tab BID TITA Administration Tizanidine HCl 8 mg 02/19/24 21:00 05/24/24 21:05 Tizanidine Hcl 4 Mg Tablet PO 03/20/24 20:59 8 mg HS TITA Administration Past Medical History Medical History (Updated 02/20/24 @ 08:53 by Sedrick Hernández MD) Acquired pancytopenia Hyperparathyroidism Occipital neuralgia Poorly controlled diabetes mellitus Obesity 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 LINDA (obstructive sleep apnea) c pap HTN (hypertension) Ureterolithiasis Renal calculi Left ureteral stone Past Family History Family History Other Family history not known due to adoption Past Surgical History Surgical History Hx of lithotripsy History of open reduction and internal fixation (ORIF) procedure "Finger " H/O shoulder surgery right H/O cystoscopy H/O wisdom tooth extraction Social History Smoking Status: Never smoker tobacco type: cigarettes Do You Dip or Chew Tobacco: No Hx Alcohol Use: Yes Alcohol type: beer and wine alcohol intake frequency: holidays/special occasions only Hx Substance Use: No substance use type: former substance user Last Used Substance Other:: last used over 20 years ago Physical Exam Vital Signs Last Vital Signs Temp 36.9 C 02/20/24 08:00 Pulse 84 02/20/24 08:00 Resp 16 02/20/24 08:00 BP 118/74 02/20/24 08:00 Pulse Ox 99 02/20/24 08:00 O2 Del Method Room Air 02/20/24 08:00 Testing Laboratory Results 02/20/24 06:18 02/20/24 06:18 Hemoglobin A1c 6.0 % (4.5-5.6) H 02/20/24 06:18 Urine Color Dark Yellow 02/19/24 10:35 Urine Appearance Clear (Clear) 02/19/24 10:35 Urine pH 6.0 (4.5-7.5) 02/19/24 10:35 Ur Specific [place] 1.024 (1.000-1.030) 02/19/24 10:35 Urine Protein 1+ (Negative) H 02/19/24 10:35 Urine Glucose (UA) Negative (Negative) 02/19/24 10:35 Urine Ketones Trace (Negative) H 02/19/24 10:35 Urine Nitrite Negative (Negative) 02/19/24 10:35 Ur Leukocyte Esterase Negative (Negative) 02/19/24 10:35 Urine WBC (Auto) 0-5 /hpf (0-5) 02/19/24 10:35 Urine RBC (Auto) >20 /hpf (0-2) H 02/19/24 10:35 U Hyaline Cast (Auto) 3-5 /lpf (0-2) H 02/19/24 10:35 U Epithel Cells (Auto) 0-2 /hpf (0-2) 02/19/24 10:35 Urine Bacteria (Auto) 1+ (None Seen) H 02/19/24 10:35 02/20/24 02/20/24 06:09 00:20 POC Glucose 97 120 H
[2024-02-20] MEDS: DULoxetine HCL 30 MG CAP PO SCH (09:11)
[2024-02-20] MEDS: PROPRANOLOL HCL LA 80 MG CAPCR PO SCH (09:11)
[2024-02-20] MEDS: PANTOprazole 40 MG TAB PO SCH (09:11)
[2024-02-20] MEDS: TAMSULOSIN HCL 0.4 MG CAP PO SCH (09:11)
[2024-02-20] MEDS: lisinopril 20 MG TAB PO SCH (09:12)
--- NOTE | 2024-02-20 09:15 | XRay Report ---
KUB HISTORY: R UPJ stone COMPARISON: Abdomen and pelvis CT 02/19/2024. FINDINGS: The bowel gas pattern is unremarkable. There are no dilated loops of small bowel to suggest an obstruction. Stable 6 mm stone within the right ureteropelvic junction adjacent to the right L4 transverse process. No additional renal calculi identified. Cholelithiasis again noted. No pneumoperi toneum or pneumatosis. IMPRESSION: Stable 6 mm stone within the right ureteropelvic junction. ACT 112: Negative or not required by law. Electronically signed by: Sinan Moon M.D. 02/20/2024 9:14 AM
[2024-02-20] MEDS: levoFLOXacin/D5W 250 MG/50 ML BAG IV ONE (09:21)
[2024-02-20] MEDS: HYDROmorphone INJ 1 MG/ML SYRINGE IV STA (09:39)
--- NOTE | 2024-02-20 10:08 | Pharmacy Report ---
Pharmacy Glycemic Short Note 2 - Date of Service February 20, 2024 - Glycemic Short BSG Results (Last 24 hours): 02/19/24 02/20/24 02/20/24 20:03 00:20 06:09 Glucose POC Glucose 147 H 120 H 97 02/20/24 06:18 Glucose 97 POC Glucose OUTPATIENT ANTIDIABETIC REGIMEN: * Novolin 70/30 - 44 units in AM, 48 units supper, metformin, semaglutide ASSESSMENT: * 44 year old admitting with kidney stone, plan for cystoscopy today - NPO this AM. Type 2 diabetic - pharmacy consulted to assist with management. Will hold AM NPH as patient NPO. Patient received NPH 18 units last evening, fasting BSG 97 mg/dL. * Patient back from surgery this afternoon, did receive IV dexamethasone intraoperatively - postop BSG 120 mg/dL, however anticipate steroid induced hyperglycemia. Will give NPH dose now to help cover steroid effects. PLAN FOR INPATIENT GLYCEMIC CONTROL: * Hold outpatient oral diabetes medications * Basal insulin * NPH 24 units x1 now ~1400 * Bolus insulin * NovoLog per scale ACHS or Q6hrs while NPO * Goal Range: Low 110 mg/dL - High 140 mg/dL * Correction Factor: 20 mg/dL/unit * Nutritional / Prandial insulin per carb ratio of 1 unit per 7 grams CHO consumed
[2024-02-20] MEDS ORDERED: PROMETHAZINE HCL 6.25 MG in SODIUM CHLORIDE 0.9% 50 ML IV PRN (10:29)
[2024-02-20] MEDS ORDERED: ATROPINE SULFATE 0.1 MG/ML 10ML SYR IV PRN (10:29)
[2024-02-20] MEDS ORDERED: fentaNYL citrate PF 100 MCG/2 ML VIAL IV PRN (10:29)
[2024-02-20] MEDS ORDERED: MIDAZOLAM HCL 1 MG/ML 2ML VIAL ONE (10:38)
[2024-02-20] MEDS ORDERED: PROPOFOL IV EMULSION 10 MG/ML 20 ML VIAL IV ONE (10:38)
[2024-02-20] MEDS ORDERED: ONDANSETRON INJ 2 MG/ML 2 ML VIAL ONE (10:38)
[2024-02-20] MEDS ORDERED: fentaNYL citrate PF 100 MCG/2 ML VIAL ONE (10:38)
[2024-02-20] MEDS ORDERED: LIDOCAINE 2% 2 ML VIAL/AMP(20MG/ML) INFIL ONE (10:38)
[2024-02-20] MEDS ORDERED: KETAMINE HCL 10MG/ML SYR ONE (10:40)
[2024-02-20] MEDS: DIATRIZOATE MEGLUMINE 30% 100ML VIAL INSTIL ONE (11:25)
[2024-02-20] MEDS ORDERED: DEXAMETHASONE SOD INJ 4 MG/ML VIAL ONE (11:27)
--- NOTE | 2024-02-20 11:51 | Operative Report ---
[facility] Post Operative Report Pre & Post Diagnosis Operation Date: 02/20/24 10:15 Pre-Op Diagnosis: obstructing Kidney Stone Post-Op Diagnosis: obstructing Kidney Stone I identified the patient and participated in the time-out.: Yes Procedure Operation Date: 02/20/24 10:15 Actual Procedures p Cystoscopy, Ureteronephroscopy, retrograde pyelogram, laser destruction with basket stone extration, insertion of right ureter stent(Right) - Sreedhar Bradford MD Surgeon Sreedhar Bradford MD Iuss Master Analyst None Estimated Blood Loss 0 Findings See Below Stone in the proximal ureter, fragmented with laser lithotripsy, stent left in place. Specimens Right ureteral stone Drains 6 [place] by 26 cm double-J ureteral stent to the right ureter Anesthesia Type General Complications none Disposition Accompanied Patient To Recovery: Yes Disposition: Recovery Room Indications This is a 44-year-old male with history of nephrolithiasis. He recently presented to the emergency department with right flank pain was found to have an obstructing right ureteral stone. Due to ongoing intractable pain, he is being brought to the OR for stent placement. Description of Procedure The patient was identified in the holding area and informed consent was confirmed. He was marked on the right side, then was taken to the operating room where general anesthesia was initiated. He was placed in the dorsal lithotomy position with all pressure points appropriately padded. He was prepped and draped in the usual sterile fashion and a preoperative timeout was performed. A well-lubricated cystoscope was inserted per urethra and panendoscopy was performed. The pendulous urethra was normal with no strictures or mucosal ab normalities. The prostate was of normal size. His bladder neck was somewhat high. His bladder appeared grossly normal with no tumors or stones appreciated. Ureteral orifices were in orthotopic position bilaterally A 5 [place] open-ended catheter was inserted and intubated into the right ureteral orifice. Using Cystografin, a retrograde pyelogram was performed. The distal ureter was normal with no filling defects. There was abrupt cessation of contrast in the proximal ureter, likely the location of the stone. A 0.038 inch zip wire was advanced under fluoroscopic guidance. There was a fair amount of resistance at the level of the suspected stone and the wire appeared to curl back upon itself. I opted to perform ureteroscopy to make sure that the wire was in good position. A 12 to 14 [place] ureteral access sheath was advanced over the wire. Through the lumen of the sheath, a second wire was placed and the sheath was then reinserted to exclude one of the wires as a safety wire. The flexible ureteroscope was then inserted and used to survey the proximal ureter and kidney. The stone was seen and found to be fairly impacted. To open a channel past the stone, the 200 m thulium laser fiber was introduced, then using high frequency / low amplitude settings, the stone was dusted and broken into smaller fragments. Eventually the stone was small enough that there was an acceptable channel past it. The final fragment was removed with a wire basket and sent for analysis. The wire was definitively seen to be in good position within the renal pelvis. The ureteroscope was withdrawn, surveying the ureter on the way out. There was no evidence of significant trauma or perforation. The cystoscope was reinserted over the wire, then a 6 [place] x 26 centimeter double-J ureteral stent was advanced. When the wire was removed, the proximal curl was visualized in the kidney with x-ray, and the distal curl visualized in the bladder with the cystoscope. At this point the bladder was drained and all instrumentation was removed. The patient was then awakened from anesthesia and was brought to the PACU in stable condition. I attest to the content of the Intraoperative Record and any orders documented therein. Any exceptions are noted below.
--- NOTE | 2024-02-20 12:05 | Fluoroscopy Report ---
FL KUB CLINICAL HISTORY: RT CYSTO COMPARISON STUDY: None. FLUOROSCOPY TIME: 13 seconds. FLUOROSCOPY IMAGES: 3 Ka,r: 8.3 mGy FINDINGS: Retrograde opacification of the right renal collecting system followed by placement of a ri ght ureteral stent. Only the proximal portion of the stent is identified and appears in good position . IMPRESSION: Fluoroscopic assistance as above. ACT 112: Negative or not required by law. Electronically signed by: Sinan Moon M.D. 02/20/2024 12:04 PM
--- NOTE | 2024-02-20 12:10 | Anesthesiology Progress Note ---
Date of Service February 20, 2024 Anesthesia Post Procedure Vital Signs Vital Signs: Temp Pulse Pulse Pulse Pulse Resp BP 02/20/24 12:00 75 13 111/80 02/20/24 11:50 76 15 123/73 02/20/24 11:41 36.6 C 79 13 114/66 02/20/24 08:00 36.9 C 84 16 118/74 02/19/24 21:16 36.5 C 97 H 20 129/78 02/19/24 15:34 102 H 02/19/24 15:16 94 H 18 122/70 02/19/24 14:49 93 H 16 148/86 H 02/19/24 12:27 99 H Pulse Ox O2 Del Method O2 Flow Rate 02/20/24 12:00 97 Oxymask 2 02/20/24 11:50 100 Oxymask 6 02/20/24 11:41 96 Oxymask 6 02/20/24 08:00 99 Room Air 02/19/24 21:16 98 Room Air 02/19/24 15:34 02/19/24 15:16 97 Room Air 02/19/24 14:49 96 02/19/24 12:27 Pain Intensity Flank: Pain Intensity: 10 Transfer of Care Handoff Completed per policy Notes Mental Status: alert / awake / arousable Patient Amnestic to Procedure: Yes Nausea / Vomiting: adequately controlled Pain: adequately controlled Airway Patency, RR, SpO2: stable & adequate BP & HR: stable & adequate Hydration State: stable & adequate Anesthetic Complications: no major complications apparent
[2024-02-20] MEDS ORDERED: Nursing to Pharmacy Communication SCH (13:15)
[2024-02-20] MEDS: INSULIN HUMAN NPH SC ONE (14:24)
[2024-02-20] MEDS: POLYETHYLENE (MIRALAX) 17 GM PACK PO PRN (14:33)
--- NOTE | 2024-02-20 16:12 | Hospitalist Progress Note ---
Date of Service February 20, 2024 Assessment & Plan (1) Kidney stone: (2) Diabetes: (3) HTN (hypertension): (4) LINDA (obstructive sleep apnea): (5) Renal colic: Plan This is a 44-year-old male who has significant past medical history of HTN, HLD, T2DM, LINDA on CPAP, morbid obesity, hepatic cirrhosis in setting of hepatic steatosis, history of chronic neck pain, migraine, history of TBI, postconcussive syndrome, thrombocytopenia and depression with anxiety who presents to ED secondary to right low back pain and right lower abdominal pain x 2 days. Right obstructing 8 mm UPJ stone Renal colic Status post cystoscopy with retrograde pyelogram, laser destruction with basket stone extraction and insertion of right ureteral stent on February 20, 2024 Patient presented with right lower abdominal pain for 2 days History of renal stones in the past No leukocytosis BUN/creatinine within normal limits CT abdomen and pelvis on admission showed mild to moderate right-sided hydronephrosis with obstructing 7 into 5 into 8 mm stone in right uteropelvic junction. Urinalysis suggestive of infection Monitor postprocedure. Continue IV fluids Continue IV antibiotics; will follow-up on final culture and sensitivity HTN Chronic, stable Continue lisinopril Hold HCTZ, resume as able T2DM, insulin-dependent 6.0% NPH twice daily, as needed NovoLog Consult glycemic pharmacy, appreciate their assistance LINDA CPAP at bedtime Morbid obesity Encourage diet and lifestyle modifications History of migraines History of chronic neck pain History of TBI [place] [facility] [place] Dr. Putnam for chronic pain recently started nurtec prn continue tizanidine Depression with anxiety currently dealing with active depression PCP working on Meds continue depakote he is weaning off cymbalta 30mg through 02/23, he will then take a drug holiday for 1 week before starting fluoxetine 20mg daily Cirrhosis Hepatic steatosis Hypersplenism currently not decompensated monitor Pancytopenia peripheral smear path consult pending known hx of thrombocytopenia DVT ppx: encourage ambulation, SCDS FULL CODE PCP: Barb Hughes, he also follows [place] [facility] but this is for chronic pain with Dr. Putnam; all of his Primary care needs are taken care of through [facility] Dispo: med/surg Please note the above document was generated using voice recognition software. It may contain grammatical, syntax or spelling errors. Any formal questions or concerns about the content, text or information contained within the body of this dictation should be directly addressed to the provider for clarification Admission and Anticipated Discharge Date Admission Date: February 19, 2024 Subjective Patient seen and examined at bedside after the procedure. He reports that he is feeling better compared to yesterday Abdomen pain has improved Able to void without any issues Review of Systems Review of Systems: All systems reviewed & are unremarkable except as noted in Subjective Physical Exam Physical Exam: Constitutional: WD/WN, obese, sitting up in bed, unable to get comfortable, vitals as above, NAD, sitting up in bed, pleasant, conversing easily Respiratory: normal respiratory effort, lungs clear to auscultation, no wheeze, rales, rhonchi. Normal insp/exp effort, no accessory muscle use Cardiovascular: RRR, no murmur, no edema Vessels: no JVD or carotid bruit Chest: normal inspection of chest Abdomen: Soft, nontender. Bowel sound present. Musculoskeletal: no cyanosis or clubbing, extremities motor strength 5/5 , +pain to palpation R low back, no flank pain/cva tenderness Skin: no rashes, warm and dry normal turgor Neurologic: PERRL, EOMI, accommodation nl, no face palsy, no dysarthria CN's II-XI intact bilaterally and moves all extremities Psychiatric: A+Ox3, euthymic affect Lymphatic: no cervical or axillary lymphadenopathy : deferred Results & Data Results & Data Vital Signs (Past 12 Hours) Vital Signs Temp Pulse Pulse Pulse Resp BP Pulse Ox 02/20/24 14:33 36.8 C 88 16 125/69 94 02/20/24 13:30 36.7 C 87 16 147/93 H 94 02/20/24 13:00 36.7 C 79 16 152/90 H 95 02/20/24 12:30 36.8 C 84 16 136/86 93 02/20/24 12:20 83 13 127/85 99 02/20/24 12:10 37.1 C 81 17 118/78 99 02/20/24 12:00 75 13 111/80 97 02/20/24 11:50 76 15 123/73 100 02/20/24 11:41 36.6 C 79 13 114/66 96 02/20/24 08:00 36.9 C 84 16 118/74 99 O2 Del Method O2 Flow Rate 02/20/24 14:33 Room Air 02/20/24 13:30 Room Air 02/20/24 13:00 Room Air 02/20/24 12:30 Room Air 02/20/24 12:20 Room Air 02/20/24 12:10 Room Air 02/20/24 12:00 Oxymask 2 02/20/24 11:50 Oxymask 6 02/20/24 11:41 Oxymask 6 02/20/24 08:00 Room Air
[2024-02-20] MEDS: FUROSEMIDE INJ 20 MG/2 ML VIAL IV ONE (20:07)
[2024-02-20] MEDS: MELATONIN 3 MG TAB PO PRN (21:21)
[2024-02-20] MEDS ORDERED: MELATONIN 3 MG TAB PO PRN (23:04)
[2024-02-21] MEDS: INSULIN ASPART PER UNIT CHARGE SC SCH (00:09)
[2024-02-21] MEDS: levoFLOXacin/D5W 750 MG/150 ML BAG IV SCH (08:22)
[2024-02-21] MEDS: INSULIN HUMAN NPH SC SCH (08:28)
--- NOTE | 2024-02-21 09:32 | Urology Progress Note ---
Date of Service February 21, 2024 Assessment & Plan (1) Renal colic: (2) Kidney stone: Plan Doing well s/p lithotripsy and stent placement on 02/20/2024. Should be appropriate for discharge home today. Would recommend short course of antibiotics. Urology will coordinate outpatient follow-up for stent removal. Admission and Anticipated Discharge Date Admission Date: February 19, 2024 Subjective Feeling well, no fevers or chills overnight Urine cultures and blood cultures negative so far Not having much pain, tolerating a diet with no nausea or vomiting, has been voiding spontaneously Physical Exam Physical Exam: Well-appearing, NAD Results & Data Vital Signs (Past 12 Hours) Vital Signs Temp Pulse Pulse Resp BP Pulse Ox O2 Del Method 02/21/24 07:30 36.5 C 78 16 126/78 98 Room Air 02/21/24 04:33 36.5 C 72 20 122/75 97 Room Air 02/21/24 00:03 36.5 C 67 20 126/72 96 Room Air PG Care Time/CCT Total # of Minutes Spent Total Time Spent with Patient: Total time spent is greater than 50% in coordination of care (as documented) at patient's floor/unit and/or counseling patient: Coding Level of Care Code 05754 SUB INP/OBS CARE 10/22MIN Diagnoses Renal colic N23 Kidney stone N20.0
--- NOTE | 2024-02-21 14:50 | Discharge Summary ---
Date of Service February 21, 2024 Admission HPI Per Admitting Provider This is a 44-year-old male who has significant past medical history of HTN, HLD, T2DM, LINDA on CPAP, morbid obesity, hepatic cirrhosis in setting of hepatic steatosis, history of chronic neck pain, migraine, history of TBI, postconcussive syndrome, thrombocytopenia and depression with anxiety who presents to ED secondary to right low back pain and right lower abdominal pain x 2 days. His mother is at bedside who also helps elicit history. He states he noticed symptoms approximately 2 days ago in which he was having discomfort to his right low back. He had been pushing Gatorade and hopes it would go away. He woke up this morning at 4:30 AM with severe right lower quadrant pain and right lower back pain. It was associated with nausea. He was unable to get comfortable. He has prior history to kidney stones and this felt similar. He did not feel the urge to urinate and was having difficulty urinating. Over the past 2 days he also described dysuria and decreased urinary urgency. He denies any fever, chills, sweats, lightheadedness, dizziness, chest pain, shortness of breath, URI symptoms, vomiting, hematemesis, hematuria, melena or hematochezia. He states he typically has IBS and moves his bowels multiple times a day. Prior hospitalizations in which narcotics were used he did develop some constipation. He admits to a very high pain tolerance. In ED patient was hemodynamically stable. Urinalysis with slight bacteria. CT scan of abdomen pelvis revealed a obstructing 8 mm right UPJ stone. In ED he received 1 L of IV fluid as well as multiple rounds of IV narcotics without improvement. Due to inability to control pain he was recommended for admission. He denies tobacco use. He chews tea leaves. He occasionally drinks alcohol on weekends. 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 Admission Exam Per Admitting Provider Constitutional: WD/WN, obese, sitting up in bed, unable to get comfortable, vitals as above, NAD, sitting up in bed, pleasant, conversing easily Head: Normocephalic, Atraumatic Eyes: PERRL, conjunctivae normal, anicteric sclerae ENMT: external ear and nose normal, oropharynx normal Neck: trachea midline, no thyromegaly normal visual inspection Respiratory: normal respiratory effort, lungs clear to auscultation, no wheeze, rales, rhonchi. Normal insp/exp effort, no accessory muscle use Cardiovascular: RRR, no murmur, no edema Vessels: no JVD or carotid bruit Chest: normal inspection of chest Abdomen: normal bowel sounds, soft, nontender, no hepatosplenomegaly Musculoskeletal: no cyanosis or clubbing, extremities motor strength 5/5 , +pain to palpation R low back, no flank pain/cva tenderness Skin: no rashes, warm and dry normal turgor Neurologic: PERRL, EOMI, accommodation nl, no face palsy, no dysarthria CN's II-XI intact bilaterally and moves all extremities Psychiatric: A+Ox3, euthymic affect Lymphatic: no cervical or axillary lymphadenopathy : deferred Principal Diagnosis Right obstructing 8 mm UPJ stone Renal colic Status post cystoscopy with retrograde pyelogram, laser destruction with basket stone extraction and insertion of right ureteral stent on February 20, 2024 Discharge Exam Constitutional: WD/WN, vitals as above, NAD, sitting up in bed, pleasant, conversing easily. morbid obesity Respiratory: normal respiratory effort, lungs clear to auscultation, no wheeze, rales, rhonchi. Normal insp/exp effort, no accessory muscle use Cardiovascular: RRR, no murmur, no edema Vessels: no JVD or carotid bruit Chest: normal inspection of chest Abdomen: normal bowel sounds, soft, nontender, no hepatosplenomegaly Musculoskeletal: no cyanosis or clubbing, extremities motor strength 5/5 Skin: no rashes, warm and dry normal turgor Neurologic: PERRL, EOMI, accommodation nl, no face palsy, no dysarthria CN's II- XI intact bilaterally and moves all extremities Psychiatric: A+Ox3, euthymic affect Discharge Data Allergies Allergy/AdvReac Type Severity Reaction Status Date / Time bee venom protein (honey bee) Allergy Severe Anaphylaxis Verified 02/18/24 14:41 pineapple Allergy Severe THROAT Verified 02/18/24 14:41 CLOSES TO THE FRUIT cephalexin Allergy Intermediate HIVES Verified 02/18/24 14:41 menthol Allergy Intermediate WELTS Verified 02/18/24 14:41 Penicillins Allergy Intermediate Hives Verified 02/18/24 14:41 sulfamethoxazole AdvReac Severe SOB and Verified 02/18/24 14:41 [From Bactrim] Headache trimethoprim [From Bactrim] AdvReac Severe SOB and Verified 02/18/24 14:41 Headache Consultations 02/19/24 12:59 Consult Urology Routine 02/19/24 13:49 ED Decision to Admit Stat Procedures Performed Operation Date: 02/20/24 10:15 Actual Procedures p Cystoscopy, Ureteronephroscopy, retrograde pyelogram, laser destruction with basket stone extration, (Right) - Sreedhar Bradford MD s insertion of right ureter stent(Right) - Sreedhar Bradford MD Ordered Studies 02/19/24 06:39 CT abd pelvis wo con Stat 02/20/24 09:40 FL KUB Routine Hospital Course (1) Kidney stone: (2) Diabetes: (3) HTN (hypertension): (4) LINDA (obstructive sleep apnea): (5) Renal colic: Plan This is a 44-year-old male who has significant past medical history of HTN, HLD, T2DM, LINDA on CPAP, morbid obesity, hepatic cirrhosis in setting of hepatic steatosis, history of chronic neck pain, migraine, history of TBI, postconcussive syndrome, thrombocytopenia and depression with anxiety who presents to ED secondary to right low back pain and right lower abdominal pain x 2 days. Right obstructing 8 mm UPJ stone Renal colic Status post cystoscopy with retrograde pyelogram, laser destruction with basket stone extraction and insertion of right ureteral stent on February 20, 2024 Patient presented with right lower abdominal pain for 2 days History of renal stones in the past No leukocytosis BUN/creatinine within normal limits CT abdomen and pelvis on admission showed mild to moderate right-sided hydronephrosis with obstructing 7 into 5 into 8 mm stone in right uteropelvic junction. Patient underwent procedure by urology. Postprocedure; patient was comfortable. He did not have any pain or discomfort Urine culture did not show any growth Patient discharged home with instruction to follow-up with urology. He was prescribed 5 more days of Levaquin at discharge Please note the above document was generated using voice recognition software. It may contain grammatical, syntax or spelling errors. Any formal questions or concerns about the content, text or information contained within the body of this dictation should be directly addressed to the provider for clarification Total Time Total Time Spent Total Time Spent (In Minutes): 34 Total Time Includes: Examination of the Patient, Discharge Planning, Medication Reconciliation, Communication With Other Providers and Other Discharge Plan Discharge Items Patient Disposition: Home - Self-Care Reason For Visit: obstructing KIDNEY STONE Discharge Diagnosis: Right obstructing 8 mm UPJ stone Renal colic Status post cystoscopy with retrograde pyelogram, laser destruction with basket stone extraction and insertion of right ureteral stent on February 20, 2024 Activity: Resume your previous activity Non-emergency contact: Primary Care Provider Call non-emergency contact if: you have any medication questions and your sym ptoms worsen Follow-up/Referrals: Barb Hughes CRNP [Primary Care Provider] - Diet: Regular Addtl Attending Provider Instructions: You were admitted to the hospital with Ureteral stone. You underwent procedure by urology with stent placement. Please follow up with them for the removal of the stent. You are prescribed Antibiotics( Levaquin) to take for 5 more days. Pending Studies at Discharge: No Stand-Alone Forms: My [facility] Remote, Smoking Cessation Medications and DC Order Prescriptions: New levofloxacin 750 mg tablet 750 mg PO DAILY 5 Days Qty: 5 0RF Continued riboflavin (vitamin B2) 400 mg tablet 400 mg PO DAILY (DME) BD SafetyGlide Syringe 3 mL 23 x 1" syringe See Rx Instructions .ROUTE .MEDSUPPLY Qty: 50 0RF Rx Instructions: As directed cyanocobalamin (vitamin B-12) 1,000 mcg/mL kit 1,000 mcg IM MONTHLY 30 Days Qty: 1 5RF Rx Instructions: Inject 1,000 mcg (1 mL) IM once a month Zavzpret 10 mg/actuation spray,non-aerosol 1 spray intranasal ONCE PRN (Reason: migraine headache) 30 Days Qty: 6 2RF tamsulosin 0.4 mg capsule 0.4 mg PO DAILY Qty: 90 3RF divalproex 500 mg tablet,delayed release (DR/EC) 500 mg PO BID 90 Days Qty: 180 1RF Botox 200 unit recon soln See Rx Instructions IM .COMPLEX Qty: 1 3RF Rx Instructions: 155 UNITS IM IN THE FACE AND NECK MUSCLES EVERY 12 WEEKS PER MIGRAINE PROTOCOL Nurtec ODT 75 mg tablet,disintegrating 75 mg PO Q OTHER DAY 30 Days Qty: 15 4RF tadalafil 5 mg tablet 10 mg PO DAILY PRN (Reason: sexual activity) Qty: 14 2RF Rx Instructions: administer approximately 30min before sexual activity; do not use more than 1 dose per 24hrs. Works best on empty stomach. (DME) digital therapeutic,PRIYANK device Misc See Rx Instructions miscellaneous .MEDSUPPLY Qty: 1 0RF Rx Instructions: As directed prochlorperazine maleate 10 mg tablet 10 mg PO BID PRN (Reason: nausea and vomiting) 30 Days Qty: 20 1RF Novolin 70-30 FlexPen U-100 100 unit/mL (70-30) insulin pen See Rx Instructions subcut .COMPLEX Rx Instructions: 44 units in a.m. and 48 units after supper melatonin 1 mg tablet 10 mg PO HS PRN (Reason: Sleep) tizanidine 4 mg tablet 8 mg PO HS propranolol 80 mg capsule,extended release 24 hr 160 mg PO DAILY Ozempic 1 mg/dose (4 mg/3 mL) pen injector 2 mg subcut AWAN duloxetine [Cymbalta] 60 mg capsule,delayed release(DR/EC) 30 mg PO DAILY Rx Instructions: take for 7 more days through 02/23 magnesium 250 mg tablet 550 mg PO DAILY hydrochlorothiazide 25 mg tablet 25 mg PO DAILY Qty: 90 3RF potassium citrate 15 mEq tablet extended release 15 meq PO BID Qty: 180 3RF metformin 500 mg tablet extended release 24 hr 1,000 mg PO BIDM omeprazole 20 mg tablet,delayed release (DR/EC) 20 mg PO DAILY lisinopril 20 mg Tablet 20 mg PO DAILY Discharge Orders: Discharge Order (Routine); Ordered 02/21/24 Ordered By: Jose Daniel Magaña/Other Patient Handouts: Managing Type 2 Diabetes, Cystoscopy Admission Data Admit Date/Time: 02/19/24 12:59 Attending Provider: Jose Daniel Carrillo Admit Provider: Colleen Carvalho Primary Care Provider: Barb Hughes Other Providers: Sreedhar Bradford; Colleen Carvalho Other Interventions: Discharge Summary Assessment (RN) Last Done: 02/21/24 10:26
== END 2024-02-21 12:38 | disposition home or self-care (01) | DRG 660 ==
LOC: ED 05:54 → EDINP 12:59 → SUATTDRO 12:59 → EDINP 18:28 → 3W 19:41